=== PATIENT | female | born 1955 | race Caucasian/White ===

== ENCOUNTER 2022-09-15 14:06 | Inpatient (IN) ==
[2022-09-15] MEDS ORDERED: ASPIRIN CHEW 324 MG PO STA (14:47)
--- NOTE | 2022-09-15 14:47 | ED Triage Note ---
Date of Service September 15, 2022 History of Present Illness This patient was briefly evaluated while in triage. An abbreviated physical exam was performed. This patient is a 67-year-old Female who presents to the ED for evaluation of shortness of breath. She has been having SOB for the past 1.5 weeks. History of bronchiectasis and saw her field collector today. When he walked her around the office, her heart rate kept getting high and she had mild central chest pain with the walking that resolved with rest. They did an EKG in the office, but she is not sure about the results. Her field collector was concerned about her heart and sent her to the ER. Physical Exam GENERAL: Non-toxic and in no acute distress. HEENT: Pupils equal. No obvious scleral icterus. HEART: Regular rate and rhythm. LUNGS: Clear to auscultation. No accessory muscle use. ABDOMEN: Soft, nontender to palpation. NEURO: Alert and oriented. No obvious neurological deficits on quick neuro exam. Initial orders for labs and / or imaging were placed and patient was placed in the waiting area until a bed is available. Please see further documentation for the full ED course. MDM / Impression Impression Impression: Acute GI bleeding, Anemia
[2022-09-15 17:10] LABS: Albumin Level 4.3 gm/dl (3.4-5.0); Anion Gap 12 (3-11); Bilirubin,Total 0.3 mg/dl (0.2-1.0); Calcium 9.2 mg/dl (8.6-10.3); Carbon Dioxide 18 mmol/L (21-32); Chloride 106 mmol/L (98-107); Potassium 4.1 mmol/L (3.5-5.1); Sodium 136 mmol/L (136-145)
[2022-09-15 17:16] LABS: Alanine Aminotransferase 7 U/L (7-52); Albumin Globulin Ratio 1.7 (0.9-2); Alkaline Phosphatase 67 U/L (34-104); Aspartate Aminotransferase 11 U/L (13-39); BUN Creatinine Ratio 18.6 (10-20); Blood Urea Nitrogen 19 mg/dl (6-23); Creatinine Clr Calc Pharmacy 51.3 ml/min; Est GFR (African American) 66.8 ml/min; Est GFR (Non-African American) 57.7 ml/min; Globulin 2.6 gm/dl (2.5-4.0); Glucose 84 mg/dl (70-99(Fasting)); Lipase 19 U/L (11-82); Total Protein 6.9 gm/dl (6.0-8.3)
[2022-09-15 17:18] LABS: Troponin I High Sensitivity < 2.3 pg/ml (0-14)
[2022-09-15 17:27] LABS: Influenza A virus by PCR Negative (Neg); Influenza B virus by PCR Negative (Neg); RSV by PCR Negative (Neg); SARS CoV2 RNA(COVID-19) Ceph NEGATIVE (Negative)
[2022-09-15 19:46] LABS: Hematocrit (blood only) 17.9 % (37.0-47.0); Hemoglobin 5.3 g/dl (12.0-16.0); Mean Corpuscular Hemoglobin 23.5 pg (25.0-34.0); Mean Corpuscular Hgb Conc 29.6 g/dL (32.0-36.0); Mean Corpuscular Volume 79.2 fL (80.0-100.0); Mean Platelet Volume 9.8 fL (9.4-12.4); Platelet Count 334 K/uL (130-400); RDW Coefficient of Variation 16.6 % (11.5-14.5); RDW Standard Deviation 47.8 fL (36.4-46.3); Red Blood Count 2.26 M/uL (4.20-5.40); White Blood Count 4.08 K/ul (4.8-10.8)
[2022-09-15] MEDS ORDERED: SODIUM CHLORIDE 0.9% 250 ML IV PRN (19:50)
[2022-09-15 20:12] LABS: D Dimer 390 ug/L FEU (0-500); Partial Thromboplastin Ratio 0.7; Prothrombin Time 11.4 Seconds (9.0-12.0)
[2022-09-15 20:23] LABS: Partial Thromboplastin Time < 20.0 Seconds (21.0-31.0)
[2022-09-15] MEDS ORDERED: PANTOPRAZOLE BOLUS/DRIP 1 EACH IV STA (20:31)
[2022-09-15] MEDS ORDERED: PANTOprazole 80 MG in DEXTROSE 5% 100 ML IV ONE (20:31)
[2022-09-15 20:33] LABS: Basophils # (auto) 0.02 K/uL (0-0.2); Basophils % (auto) 0.5 %; Eosinophils # (auto) 0.09 K/uL (0-0.50); Eosinophils % (auto) 2.2 %; Hypochromasia Present; Immature Granulocytes # (auto) 0.01 K/uL (0.01-0.20); Immature Granulocytes % (auto) 0.2 %; Lymphocytes # (auto) 1.06 K/uL (1.2-3.4); Monocytes # (auto) 0.56 K/uL (0.11-0.59); Monocytes % (auto) 13.7 %; Neutrophils # (auto) 2.34 K/uL (1.40-6.50); Neutrophils % (auto) 57.4 %; Ovalocytes 1+; Polychromasia 1+
[2022-09-15] MEDS: PANTOprazole 40 MG in DEXTROSE 5% 100 ML IV SCH (21:18)
--- NOTE | 2022-09-15 21:50 | Emergency Department Note ---
History of Present Illness General Chief Complaint: Shortness of Breath/Dyspnea Stated Complaint: SHORT OF BREATH Time Seen by Provider: 09/15/22 16:55 History of Present Illness Provider Complaint: shortness of breath Onset (ago): week(s) (1) Severity: moderate Consistency/Duration: + progressively worsening Relieved By: + rest Exacerbated By: + exertion Associated symptoms: + chest pain (With exertion); no pain with inspiration, no fever, no cough, no wheezing, no sputum production, no orthopnea, no lower extremity pain or no chest congestion Home Medications Medication Instructions Recorded Confirmed Type cyanocobalamin (vitamin B-12) 1,000 mcg PO QAM 07/23/19 09/15/22 History 1,000 mcg tablet donepezil 10 mg tablet (Aricept) 10 mg PO HS 07/23/19 09/15/22 History escitalopram oxalate 20 mg tablet 20 mg PO BID 07/23/19 09/15/22 History (Lexapro) memantine 5 mg tablet (Namenda) 5 mg PO BID 07/23/19 09/15/22 History pantoprazole 40 mg tablet,delayed 40 mg PO BID 07/23/19 09/15/22 History release (Protonix) quetiapine 300 mg tablet (Seroquel) 300 mg PO HS 07/23/19 09/15/22 History topiramate 100 mg tablet (Topamax) 100 mg PO BID 07/23/19 09/15/22 History nebulizer accessories #1 ea 03/01/22 09/14/22 Rx albuterol sulfate 0.63 mg/3 mL 0.63 mg (3 mL) inhalation BID 06/24/22 09/15/22 Rx solution for nebulization shortness of breath or wheezing #90 mL sodium chloride 7 % for 4 ml inhalation BID #240 mL 06/24/22 09/15/22 Rx nebulization (Hyper-Denys) bupropion HCl 200 mg tablet,12 hr 200 mg PO BID 09/15/22 09/15/22 History sustained-release gabapentin 800 mg tablet 800 mg PO TID 09/15/22 09/15/22 History hydroxyzine HCl 25 mg tablet 50 mg PO HS 09/15/22 09/15/22 History rizatriptan 10 mg tablet 10 mg PO DAILY PRN MIGRAINE 09/15/22 09/15/22 History zolpidem 10 mg tablet 10 mg PO HS 09/15/22 09/15/22 History Allergies Allergy/AdvReac Type Severity Reaction Status Date / Time No Known Allergies Allergy Verified 09/14/22 16:58 Past Med/Surg History Medical History Bronchiectasis "FOUND A CRYSTAL ON MY LUNGS" - FOLLOWS WITH [employer] Chronic back pain Chronic cough ONGOING/ALWAYS HAVE TO CLEAR MY THROAT Degenerative disc disease 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/NO NEURO/FOLLOWS PCP Depression Dysphagia REASON FOR UPCOMING PROCEDURE Elevated diaphragm GERD (gastroesophageal reflux disease) History of high blood pressure Insomnia Lumbar facet arthropathy Osteoarthritis Osteoporosis Peripheral neuropathy Seizure "STARING SEIZURES", LAST EPISODE ~2017 Spinal stenosis Transient ischemic attack (TIA) 14 YEARS AGO (NO CURRENT PROBLEMS) Vasomotor rhinitis Surgical History H/O total hysterectomy History of cardiac cath NO STENTS (REQUIRED PRE-GASTRIC BYPASS) History of cholecystectomy History of colonoscopy History of esophagogastroduodenoscopy (EGD) History of gastric bypass History of tonsillectomy History of tooth extraction History of total knee replacement RT/LEFT Hx of cataract extraction bilat Family History Aunt Diabetes Grandmother (Paternal) Diabetes Social History Smoking Status: Never smoker Second Hand Exposure: No; Do You Dip or Chew Tobacco: No; Hx Alcohol Use: Yes Alcohol type: beer Hx Substance Use: No Preferred Language: Estonian Communication Ability: Effective Product Assurance Engineer Required: No Beliefs That Will Affect Care: None Current Living Situation: Spouse Feels Safe at Home: Yes Assistive Devices: Denture - Upper and Denture - Lower Physical Exam Vital Signs: Vital Signs - 24 hr 09/15/22 14:44 09/15/22 14:48 09/15/22 17:03 Temperature 36.4 C L Temperature Source Temporal Artery Sc an Pulse Rate 84 Pulse Rate from Sp O2 Sensor Respiratory Rate 18 Respiratory Effort / Characteristics Non-Labored Non-Labored Respiratory Depth Normal Normal Respiratory Patter n Regular Regular Blood Pressure 101/63 Blood Pressure Skye n 75 Pulse Oximetry 100 99 Oxygen Delivery Me thod Room Air Room Air Room Air Oxygen Flow Rate 0 Sepsis Recent Feve r Within 48 Hours No Sepsis New/Unexpla ined Change in Men jonathan Status N/A Sepsis Action Take n by Nursing No Action Required 09/15/22 17:03 09/15/22 17:47 09/15/22 17:47 Temperature Temperature Source Pulse Rate 72 72 Pulse Rate from Sp O2 Sensor 72 Respiratory Rate 15 Respiratory Effort / Characteristics Respiratory Depth Respiratory Patter n Blood Pressure Blood Pressure Skye n Pulse Oximetry 99 99 Oxygen Delivery Me thod Room Air Oxygen Flow Rate Sepsis Recent Feve r Within 48 Hours Sepsis New/Unexpla ined Change in Men jonathan Status Sepsis Action Take n by Nursing 09/15/22 17:50 09/15/22 18:00 09/15/22 18:00 Temperature Temperature Source Pulse Rate 71 72 Pulse Rate from Sp O2 Sensor 71 73 Respiratory Rate 19 15 Respiratory Effort / Characteristics Respiratory Depth Respiratory Patter n Blood Pressure 130/69 Blood Pressure Skye n 101 Pulse Oximetry 99 99 Oxygen Delivery Me thod Oxygen Flow Rate Sepsis Recent Feve r Within 48 Hours Sepsis New/Unexpla ined Change in Men jonathan Status Sepsis Action Take n by Nursing 09/15/22 18:10 09/15/22 18:20 Temperature Temperature Source Pulse Rate 73 75 Pulse Rate from Sp O2 Sensor 72 75 Respiratory Rate 20 18 Respiratory Effort / Characteristics Respiratory Depth Respiratory Patter n Blood Pressure Blood Pressure Skye n Pulse Oximetry 99 99 Oxygen Delivery Me thod Oxygen Flow Rate Sepsis Recent Feve r Within 48 Hours Sepsis New/Unexpla ined Change in Men jonathan Status Sepsis Action Take n by Nursing Physical Exam: Physical Exam GENERAL: oriented to person, place, and time. appears well-developed and well- nourished. HENT: Exam performed. - Head: Normocephalic and atraumatic. EYES: Conjunctivae and EOM are normal. Right eye exhibits no discharge. Left eye exhibits no discharge. No scleral icterus. NECK: Normal range of motion. Neck supple. No JVD present. CV: Normal rate, regular rhythm, normal heart sounds and intact distal pulses. There is no peripheral edema. Palpable radial pulses bue. PULM/CHEST: Effort normal and breath sounds normal. No respiratory distress. No stridor. no wheezes. no rales. ABD: The abdomen is soft. There is no tenderness. NEURO: Motor and sensation grossly intact. SKIN: Skin is warm and dry. He is not diaphoretic. PSYCH: normal mood and affect. Behavior is normal. Judgment and thought content normal. Course Course 1654: The patient was evaluated in room C10. A complete history and physical exam was performed Cardiac monitoring: An order was placed for continuous cardiac monitoring. The monitor shows a rate of 90 with sinus rhythm interpreted by me 2030: Vital signs stable. Patient's hemoglobin is 5.3. D-dimer and troponin are negative. Rectal exam was performed with female nursing switchboard mechanic Nemo at bedside and the patient has melanotic stool that is Hemoccult positive. Patient will be transfused 2 units of packed red blood cells. [facility] will be [facility] Dr. Atkinson team will be notified. Administered Medications Pantoprazole Sodium 40 mg/ (Dextrose) 100 mls @ 20 mls/hr IV Q5H GAGE Stop: 10/15/22 20:59 Last Admin: 09/15/22 21:18 Dose: 8 mg/hr, 20 mls/hr Documented By: JENN Discontinued Medications Aspirin (Aspirin Chew 324 Mg) 324 mg PO NOW STA Stop: 09/15/22 14:48 Last Admin: 09/15/22 16:18 Dose: 324 mg Documented By: WAYNE Pantoprazole Sodium (Protonix Bolus/Drip) 0 mls @ 1 mls/hr IV ONE STA Stop: 09/15/22 20:32 Last Admin: 09/15/22 20:52 Dose: Not Given Documented By: JENN Pantoprazole Sodium 80 mg/ (Dextrose) 120 mls @ 400 mls/hr IV NOW ONE Stop: 09/15/22 20:48 Last Infusion: 09/15/22 21:18 Dose: 0 mls/hr Documented By: Admin: 09/15/22 20:51 Dose: 400 mls/hr Documented By: JENN Medical Decision Making Medical Records Attestation: I reviewed the patient's medical records. External medical records were reviewed. Patient was seen in the pulmonology office today. Patient had a chest x-ray done earlier today which was negative. In the pulmonology office the patient became very tachycardic when walking, her oxygen saturations were stable. Laboratory Data Attestation: I reviewed the patient's lab results. 09/15/22 19:04 09/15/22 16:21 Lab Results 09/15/22 09/15/22 09/15/22 Range/Units 16:21 16:21 16:21 WBC Cancelled RBC Cancelled Hgb Cancelled Hct Cancelled MCV Cancelled MCH Cancelled MCHC Cancelled RDW Std Deviation Cancelled RDW Coeff of Meredith Cancelled Plt Count Cancelled MPV Cancelled Immature Gran % (Auto) Cancelled Neut % (Auto) Cancelled Lymph % (Auto) Cancelled [place] % (Auto) Cancelled Eos % (Auto) Cancelled Baso % (Auto) Cancelled Neut # (Auto) Cancelled Lymph # (Auto) Cancelled [place] # (Auto) Cancelled Eos # (Auto) Cancelled Baso # (Auto) Cancelled Immature Gran # (Auto) Cancelled Absolute Nucleated RBC Cancelled Nucleated RBC % (auto) Cancelled Neutrophils % (Manual) Cancelled Band Neutrophils % Cancelled Lymphocytes % (Manual) Cancelled Prolymphocyte % Cancelled Reactive Lymphs % (Man) Cancelled Monocytes % (Manual) Cancelled Eosinophils % (Manual) Cancelled Basophils % (Manual) Cancelled Metamyelocytes % (Man) Cancelled Myelocytes % (Man) Cancelled Promyelocytes % (Man) Cancelled Blast Cells % (Manual) Cancelled Plasma Cell % (Manual) Cancelled Other Cells % Cancelled Nucleated RBC % Cancelled Neutrophils # (Manual) Cancelled Band Neutrophils # Cancelled Total Absolute Neuts Cancelled Lymphocytes # (Manual) Cancelled Prolymphocyte # Cancelled Reactive Lymphs # Cancelled Total Abs Lymphocytes Cancelled Monocytes # (Manual) Cancelled Eosinophils # (Manual) Cancelled Basophils # (Manual) Cancelled Metamyelocytes # (Man) Cancelled Myelocytes # (Manual) Cancelled Promyelocytes # (Man) Cancelled Blast Cells # (Man) Cancelled Plasma Cell # (Manual) Cancelled Other Cells # Cancelled Nucleated RBCs # (Man) Cancelled Hypersegmented Neuts Cancelled Hyposegmented Neuts Cancelled Hypogranular Neuts Cancelled Large Granular Lymphs Cancelled # Lrg Granular Lymphs Cancelled Hairy Cells Cancelled Smudge Cells Cancelled Toxic Granulation Cancelled Toxic Vacuolation Cancelled Dohle Bodies Cancelled Surinder Rods Cancelled Platelet Estimate Cancelled Hypogranular Platelets Cancelled Giant Platelets Cancelled Platelet Satelliting Cancelled RBC Morphology Cancelled Polychromasia Cancelled Hypochromasia Cancelled Poikilocytosis Cancelled Basophilic Stippling Cancelled Anisocytosis Cancelled Microcytosis Cancelled Macrocytosis Cancelled Spherocytes Cancelled Pappenheimer Bodies Cancelled Sickle Cells Cancelled Target Cells Cancelled Tear Drop Cells Cancelled Ovalocytes Cancelled Stomatocytes Cancelled [place] Bodies Cancelled Echinocytes Cancelled Acanthocytes (Spur) Cancelled Rouleaux Cancelled RBC Agglutinates Cancelled Schistocytes Cancelled Sezary Cell Cancelled PT (9.0-12.0) Seconds INR (0.9-1.1) APTT (21.0-31.0) Seconds PTT Ratio D-Dimer (0-500) ug/L FEU Sodium 136 (136-145) mmol/L Potassium 4.1 (3.5-5.1) mmol/L Chloride 106 (98-107) mmol/L Carbon Dioxide 18 L (21-32) mmol/L Anion Gap 12 H (3-11) BUN 19 (6-23) mg/dl Creatinine 1.02 (0.6-1.2) mg/dl Est Cr Clr Drug Dosing 51.3 ml/min Est GFR ( Amer) 66.8 ml/min Est GFR (Non-Af Amer) 57.7 ml/min BUN/Creatinine Ratio 18.6 (10-20) Glucose 84 (70-99(Fasting)) mg/dl Calcium 9.2 (8.6-10.3) mg/dl Total Bilirubin 0.3 (0.2-1.0) mg/dl AST 11 L (13-39) U/L ALT 7 (7-52) U/L Alkaline Phosphatase 67 (34-104) U/L Troponin I High Sens < 2.3 (0-14) pg/ml B-Natriuretic Peptide (0-100) pg/ml Total Protein 6.9 (6.0-8.3) gm/dl Albumin 4.3 (3.4-5.0) gm/dl Globulin 2.6 (2.5-4.0) gm/dl Albumin/Globulin Ratio 1.7 (0.9-2) Lipase 19 (11-82) U/L SARS-CoV-2 (PCR) NEGATIVE (Negative) Influenza Type A (PCR) Negative (Neg) Influenza Type B (PCR) Negative (Neg) RSV (RT-PCR) Negative (Neg) Blood Parasites ID Cancelled Blood Type Blood Type Recheck Antibody Screen Crossmatch 09/15/22 09/15/22 09/15/22 Range/Units 19:04 19:04 19:04 WBC 4.08 L RBC 2.26 L Hgb 5.3 L* Hct 17.9 L* MCV 79.2 L MCH 23.5 L MCHC 29.6 L RDW Std Deviation 47.8 H RDW Coeff of Meredith 16.6 H Plt Count 334 MPV 9.8 Immature Gran % (Auto) 0.2 Neut % (Auto) 57.4 Lymph % (Auto) 26.0 [place] % (Auto) 13.7 Eos % (Auto) 2.2 Baso % (Auto) 0.5 Neut # (Auto) 2.34 Lymph # (Auto) 1.06 L [place] # (Auto) 0.56 Eos # (Auto) 0.09 Baso # (Auto) 0.02 Immature Gran # (Auto) 0.01 Absolute Nucleated RBC Nucleated RBC % (auto) Neutrophils % (Manual) Band Neutrophils % Lymphocytes % (Manual) Prolymphocyte % Reactive Lymphs % (Man) Monocytes % (Manual) Eosinophils % (Manual) Basophils % (Manual) Metamyelocytes % (Man) Myelocytes % (Man) Promyelocytes % (Man) Blast Cells % (Manual) Plasma Cell % (Manual) Other Cells % Nucleated RBC % Neutrophils # (Manual) Band Neutrophils # Total Absolute Neuts Lymphocytes # (Manual) Prolymphocyte # Reactive Lymphs # Total Abs Lymphocytes Monocytes # (Manual) Eosinophils # (Manual) Basophils # (Manual) Metamyelocytes # (Man) Myelocytes # (Manual) Promyelocytes # (Man) Blast Cells # (Man) Plasma Cell # (Manual) Other Cells # Nucleated RBCs # (Man) Hypersegmented Neuts Hyposegmented Neuts Hypogranular Neuts Large Granular Lymphs # Lrg Granular Lymphs Hairy Cells Smudge Cells Toxic Granulation Toxic Vacuolation Dohle Bodies Surnider Rods Platelet Estimate Hypogranular Platelets Giant Platelets Platelet Satelliting RBC Morphology Polychromasia 1+ Hypochromasia Present Poikilocytosis Basophilic Stippling Anisocytosis Microcytosis Macrocytosis Spherocytes Pappenheimer Bodies Sickle Cells Target Cells Tear Drop Cells Ovalocytes 1+ Stomatocytes [place] Bodies Echinocytes Acanthocytes (Spur) Rouleaux RBC Agglutinates Schistocytes Sezary Cell PT 11.4 (9.0-12.0) Seconds INR 1.0 (0.9-1.1) APTT < 20.0 L (21.0-31.0) Seconds PTT Ratio 0.7 D-Dimer 390 (0-500) ug/L FEU Sodium (136-145) mmol/L Potassium (3.5-5.1) mmol/L Chloride (98-107) mmol/L Carbon Dioxide (21-32) mmol/L Anion Gap (3-11) BUN (6-23) mg/dl Creatinine (0.6-1.2) mg/dl Est Cr Clr Drug Dosing ml/min Est GFR ( Amer) ml/min Est GFR (Non-Af Amer) ml/min BUN/Creatinine Ratio (10-20) Glucose (70-99(Fasting)) mg/dl Calcium (8.6-10.3) mg/dl Total Bilirubin (0.2-1.0) mg/dl AST (13-39) U/L ALT (7-52) U/L Alkaline Phosphatase (34-104) U/L Troponin I High Sens (0-14) pg/ml B-Natriuretic Peptide 35 (0-100) pg/ml Total Protein (6.0-8.3) gm/dl Albumin (3.4-5.0) gm/dl Globulin (2.5-4.0) gm/dl Albumin/Globulin Ratio (0.9-2) Lipase (11-82) U/L SARS-CoV-2 (PCR) (Negative) Influenza Type A (PCR) (Neg) Influenza Type B (PCR) (Neg) RSV (RT-PCR) (Neg) Blood Parasites ID Blood Type Blood Type Recheck Antibody Screen Crossmatch 09/15/22 09/15/22 Range/Units 20:20 20:20 WBC RBC Hgb Hct MCV MCH MCHC RDW Std Deviation RDW Coeff of Meredith Plt Count MPV Immature Gran % (Auto) Neut % (Auto) Lymph % (Auto) [place] % (Auto) Eos % (Auto) Baso % (Auto) Neut # (Auto) Lymph # (Auto) [place] # (Auto) Eos # (Auto) Baso # (Auto) Immature Gran # (Auto) Absolute Nucleated RBC Nucleated RBC % (auto) Neutrophils % (Manual) Band Neutrophils % Lymphocytes % (Manual) Prolymphocyte % Reactive Lymphs % (Man) Monocytes % (Manual) Eosinophils % (Manual) Basophils % (Manual) Metamyelocytes % (Man) Myelocytes % (Man) Promyelocytes % (Man) Blast Cells % (Manual) Plasma Cell % (Manual) Other Cells % Nucleated RBC % Neutrophils # (Manual) Band Neutrophils # Total Absolute Neuts Lymphocytes # (Manual) Prolymphocyte # Reactive Lymphs # Total Abs Lymphocytes Monocytes # (Manual) Eosinophils # (Manual) Basophils # (Manual) Metamyelocytes # (Man) Myelocytes # (Manual) Promyelocytes # (Man) Blast Cells # (Man) Plasma Cell # (Manual) Other Cells # Nucleated RBCs # (Man) Hypersegmented Neuts Hyposegmented Neuts Hypogranular Neuts Large Granular Lymphs # Lrg Granular Lymphs Hairy Cells Smudge Cells Toxic Granulation Toxic Vacuolation Dohle Bodies Surinder Rods Platelet Estimate Hypogranular Platelets Giant Platelets Platelet Satelliting RBC Morphology Polychromasia Hypochromasia Poikilocytosis Basophilic Stippling Anisocytosis Microcytosis Macrocytosis Spherocytes Pappenheimer Bodies Sickle Cells Target Cells Tear Drop Cells Ovalocytes Stomatocytes [place] Bodies Echinocytes Acanthocytes (Spur) Rouleaux RBC Agglutinates Schistocytes Sezary Cell PT (9.0-12.0) Seconds INR (0.9-1.1) APTT (21.0-31.0) Seconds PTT Ratio D-Dimer (0-500) ug/L FEU Sodium (136-145) mmol/L Potassium (3.5-5.1) mmol/L Chloride (98-107) mmol/L Carbon Dioxide (21-32) mmol/L Anion Gap (3-11) BUN (6-23) mg/dl Creatinine (0.6-1.2) mg/dl Est Cr Clr Drug Dosing ml/min Est GFR ( Amer) ml/min Est GFR (Non-Af Amer) ml/min BUN/Creatinine Ratio (10-20) Glucose (70-99(Fasting)) mg/dl Calcium (8.6-10.3) mg/dl Total Bilirubin (0.2-1.0) mg/dl AST (13-39) U/L ALT (7-52) U/L Alkaline Phosphatase (34-104) U/L Troponin I High Sens (0-14) pg/ml B-Natriuretic Peptide (0-100) pg/ml Total Protein (6.0-8.3) gm/dl Albumin (3.4-5.0) gm/dl Globulin (2.5-4.0) gm/dl Albumin/Globulin Ratio (0.9-2) Lipase (11-82) U/L SARS-CoV-2 (PCR) (Negative) Influenza Type A (PCR) (Neg) Influenza Type B (PCR) (Neg) RSV (RT-PCR) (Neg) Blood Parasites ID Blood Type A Positive Blood Type Recheck A Positive Antibody Screen POSITIVE A Crossmatch See Detail ECG Data Attestation: I personally reviewed and interpreted this ECG as follows: Interpretation: Sinus rhythm with rate 91. IL QRS and QTc intervals within normal limits. No ST elevation or ST depression. [facility] Narrative 1655: The patient was evaluated in room C10. A complete history and physical exam was performed Cardiac monitoring: An order was placed for continuous cardiac monitoring. The monitor shows a rate of 90 with sinus rhythm interpreted by me 2030: Vital signs stable. Patient's hemoglobin is 5.3. D-dimer and troponin are negative. Rectal exam was performed with female nursing switchboard mechanic Nemo at bedside and the patient has melanotic stool that is Hemoccult positive. Patient will be transfused 2 units of packed red blood cells. Patient will be admitted to the [facility] team Dr. Atkinson team will be notified. Impression & Plan Acute GI bleeding, Anemia Critical Care Time Critical Care Time: Yes Total Critical Care Time: 65 I have personally spent greater than 65 minutes of critical care time in the direct management of this patient. This includes bedside care, interpretation of diagnostic studies, and testing, discussion with consultants, patient, and family members, and other required patient management activities. This 65 minutes is in excess of all separately billable procedures. Discharge Plan Visit Data Chief Complaint: Shortness of Breath/Dyspnea Stated Complaint: SHORT OF BREATH ED Provider: Bennie Jensen Discharge Problem: Acute GI bleeding, Anemia Patient Disposition: Admitted As Inpatient Forms Stand Alone Forms: My [facility] Prescriptions Prescriptions: No Action (DME) nebulizer accessories Kit See Rx Instructions .ROUTE .MEDSUPPLY Qty: 1 0RF Rx Instructions: As directed sodium chloride [Hyper-Denys] 7 % solution for nebulization 4 ml inhalation BID Qty: 240 3RF albuterol sulfate 0.63 mg/3 mL solution for nebulization 0.63 mg inhalation BID Qty: 90 3RF quetiapine [Seroquel] 300 mg Tablet 300 mg PO HS donepezil [Aricept] 10 mg Tablet 10 mg PO HS cyanocobalamin (vitamin B-12) 1,000 mcg Tablet 1,000 mcg PO QAM pantoprazole [Protonix] 40 mg Tablet,Delayed Release (Dr/Ec) 40 mg PO BID topiramate [Topamax] 100 mg Tablet 100 mg PO BID escitalopram oxalate [Lexapro] 20 mg Tablet 20 mg PO BID memantine [Namenda] 5 mg Tablet 5 mg PO BID rizatriptan 10 mg tablet 10 mg PO DAILY PRN (Reason: MIGRAINE) gabapentin 800 mg tablet 800 mg PO TID hydroxyzine HCl 25 mg tablet 50 mg PO HS zolpidem 10 mg tablet 10 mg PO HS bupropion HCl 200 mg tablet sustained-release 12 hr 200 mg PO BID Referrals Referrals: Paula Bolaños DO [Primary Care Provider] -
--- NOTE | 2022-09-15 21:50 | History & Physical Report ---
Date of Service September 15, 2022 Assessment & Plan (1) Upper GI bleed: Plan: Patient is a 67-year-old female with past medical history of depression, anxiety, insomnia, chronic low back pain, and bronchiectasis who presents to the hospital for evaluation for dyspnea on exertion. Patient found to have hemoglobin of 5.3 with positive Hemoccult indicating active upper GI bleed. Patient has been started on Protonix bolus and drip and has been ordered blood, albeit delayed. Patient is hemodynamically stable. -Admit to telemetry for severe anemia -Patient with Hemoccult positive plus dark stools over the past 4 days with new anemia, consistent with active upper GI bleed -Fortunately patient seems to be well compensated indicating this is likely a longer bleed that she was able to adapt to -Make n.p.o. given active GI bleed and likelihood for endoscopy -Consult GI, appreciate recommendations and treatment -Continue Protonix drip -LR at 125 cc/h, s/p 500 cc bolus -Type and screen showing antibody, so additional antibody testing will need to be done. 2 units of blood ordered to be transfuse when able -If patient becomes hemodynamically unstable, may have to consider giving blood without additional antibody screening, defer now given good stability -Transfusion threshold of hemoglobin of less than 7 as patient has no CAD/CKD history -Recheck H&H after transfusion completion -A.m. 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 (6) Bronchiectasis: Plan: - Chronic with no changes on chest x-ray -Continue hypertonic saline nebulizers twice daily which is her home regimen -Incentive spirometry Plan Disposition: Admit to telemetry Diet: N.p.o. with LR 125 cc/h DVT prophylaxis: SCDs, chemoprophylaxis contraindicated in the setting of active GI bleed CODE STATUS: DNR/DNI as discussed with patient. History of Present Illness Chief Complaint: Dyspnea on Exertion Primary Care Provider: Paula Bolaños DO Patient is a 67-year-old female with past medical history of depression, anxiety, insomnia, chronic low back pain, and bronchiectasis who presents to the hospital for evaluation for dyspnea on exertion. Patient reports for the past week, she has noticed that doing simple tasks such as walking to the bathroom have caused her to become short of breath. It has become progressively worse over the past week. She initially went to the internet [facility] as she has a history of bronchiectasis. The internet designer office did not feel that the patient's dyspnea on exertion was due to to a pulmonary issue. They felt her symptoms were out of proportion to chest x-ray obtained in office. She became tachycardic during a 6-minute walk and became concerned for a cardiac issue. For this reason, they recommended evaluation at the emergency department which brought her in today. When asking about her history of the past few days, she does note that she has had dark stools over the past 4 days. They have been solid and has not been having diarrhea. No nausea or vomiting. No bright red blood per rectum. No hemoptysis or hematuria. States that she previously was taking a frequent amount of NSAIDs for chronic low back pain, however, she has not been taking NSAIDs for months as she was taken off of them and put on a larger dose of gabapentin instead. She is currently taking hydrocodone at half dosing for back pain. She does not take aspirin and she is not on a blood thinner. Of note, patient was experiencing dysphagia 2 to 3 months ago and had an EGD done that was normal. She is not having any abdominal pain or chest pain. Denies headache. Otherwise no other complaints at this time. ED course: Patient brought back and evaluated by provider. Labs are significant for hemoglobin of 5.3, CO2 of 18, anion gap of 12, normal high-sensitivity troponin, normal BNP. Chest x-ray showing chronic right hemidiaphragm e levation. Because of the anemia found on lab work, patient was ordered 2 units of blood, however, her type and screen came back positive for antibody which would delay her transfusion. Patient is currently comfortable and hemodynamically stable. Unfortunately, patient was given 324 mg of aspirin when first arriving to the emergency department for concern of cardiac issues. The hospitalist service was then consulted for admission to the hospital and treatment. Allergies Allergy/AdvReac Type Severity Reaction Status Date / Time No Known Allergies Allergy Verified 09/14/22 16:58 Home Medications Medication Instructions Recorded Confirmed Type cyanocobalamin (vitamin B-12) 1,000 mcg PO QAM 07/23/19 09/15/22 History 1,000 mcg tablet donepezil 10 mg tablet (Aricept) 10 mg PO HS 07/23/19 09/15/22 History escitalopram oxalate 20 mg tablet 20 mg PO BID 07/23/19 09/15/22 History (Lexapro) memantine 5 mg tablet (Namenda) 5 mg PO BID 07/23/19 09/15/22 History pantoprazole 40 mg tablet,delayed 40 mg PO BID 07/23/19 09/15/22 History release (Protonix) quetiapine 300 mg tablet (Seroquel) 300 mg PO HS 07/23/19 09/15/22 History topiramate 100 mg tablet (Topamax) 100 mg PO BID 07/23/19 09/15/22 History nebulizer accessories #1 ea 03/01/22 09/14/22 Rx albuterol sulfate 0.63 mg/3 mL 0.63 mg (3 mL) inhalation BID 06/24/22 09/15/22 Rx solution for nebulization shortness of breath or wheezing #90 mL sodium chloride 7 % for 4 ml inhalation BID #240 mL 06/24/22 09/15/22 Rx nebulization (Hyper-Deyns) bupropion HCl 200 mg tablet,12 hr 200 mg PO BID 09/15/22 09/15/22 History sustained-release gabapentin 800 mg tablet 800 mg PO TID 09/15/22 09/15/22 History hydroxyzine HCl 25 mg tablet 50 mg PO HS 09/15/22 09/15/22 History rizatriptan 10 mg tablet 10 mg PO DAILY PRN MIGRAINE 09/15/22 09/15/22 History zolpidem 10 mg tablet 10 mg PO HS 09/15/22 09/15/22 History Past Med/Surg History Medical History (Updated 09/15/22 @ 21:48 by Vito Chavez DO) Bronchiectasis "FOUND A CRYSTAL ON MY LUNGS" - FOLLOWS WITH [employer] QUARLES Chronic back pain Chronic cough ONGOING/ALWAYS HAVE TO CLEAR MY THROAT Degenerative disc disease 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/NO NEURO/FOLLOWS PCP Depression Dysphagia REASON FOR UPCOMING PROCEDURE Elevated diaphragm GERD (gastroesophageal reflux disease) History of high blood pressure Insomnia Lumbar facet arthropathy Osteoarthritis Osteoporosis Peripheral neuropathy Seizure "STARING SEIZURES", LAST EPISODE ~2017 Spinal stenosis Transient ischemic attack (TIA) 14 YEARS AGO (NO CURRENT PROBLEMS) Vasomotor rhinitis Surgical History H/O total hysterectomy History of cardiac cath NO STENTS (REQUIRED PRE-GASTRIC BYPASS) History of cholecystectomy History of colonoscopy History of esophagogastroduodenoscopy (EGD) History of gastric bypass History of tonsillectomy History of tooth extraction History of total knee replacement RT/LEFT Hx of cataract extraction bilat Family History Aunt Diabetes Grandmother (Paternal) Diabetes Social History Smoking Status: Never smoker Second Hand Exposure: No; Do You Dip or Chew Tobacco: No; Hx Alcohol Use: Yes Alcohol type: beer Hx Substance Use: No Preferred Language: Dutch Communication Ability: Effective Retarder Operator Required: No Beliefs That Will Affect Care: None Current Living Situation: Spouse Feels Safe at Home: Yes Assistive Devices: Denture - Upper and Denture - Lower Review of Systems Review of Systems: All systems reviewed & are unremarkable except as noted in HPI & below Physical Exam Constitutional: well developed, well nourished and cooperative Eyes: + conjunctival abnormality (pale b/l) Neck: trachea midline, no thyromegaly Respiratory: normal respiratory effort, lungs clear to auscultation Cardiovascular: RRR, no murmur, no edema Vessels: no JVD Gastrointestinal (Abdomen): Inspection/Auscultation: abdomen normal to inspection and + hyperactive bowel sounds; abdomen not distended Percussion/Palpation: abdomen soft; abdomen nontender Musculoskeletal: Head/Neck/Chest: normocephalic and head atraumatic Skin: no rashes Neurologic: moves all extremities and awake Psychiatric: A+Ox3, euthymic affect Results & Data Results & Data Vital Signs (Past 12 Hours) Vital Signs Temp Pulse Resp BP Pulse Ox O2 Del Method O2 Flow Rate 09/15/22 18:20 75 18 99 07/27/23 18:10 73 20 99 09/15/22 18:00 72 15 99 09/15/22 18:00 130/69 09/15/22 17:50 71 19 99 09/15/22 17:47 72 15 99 09/15/22 17:47 72 09/15/22 17:03 99 Room Air 09/15/22 17:03 99 Room Air 0 09/15/22 14:48 Room Air 09/15/22 14:44 36.4 C L 84 18 101/63 100 Room Air Laboratory Results CBC, coags, CMP, troponin, BNP all reviewed Supervising Physician Co-Signing Physician Notes I personally examined the patient and verified all sánchez points of history and exam, discussed case, and agree with decision making with Dr. Chavez with the following additions/exceptions: This patient is a 67-year-old female with history of bronchiectasis, seizure disorder, MCI, depression, here with dyspnea on exertion and sinus tachycardia in the pulmonary office, found to have a hemoglobin severely low at 5.3. She reports 4 days of black stools once daily for the last 4 days. No NSAIDs or steroid use or steroid injections recently. She does not take blood thinners. Denies any chest pain, no heartburn, no abdominal pains or nausea/vomiting. She had an EGD 2 months ago that was normal. Her last colonoscopy was 8 years ago and she was told was normal. She had a Cologuard since then that was negative. In the ER, she had some mild tachycardia but blood pressures were normal. She was started on Protonix drip and typed and crossmatched for blood transfusion. History and ROS reviewed otherwise as above Vitals reviewed Gen: AAOx3, NAD, pale HEENT: Anicteric sclerae, EOMI CV: RRR no mgr nl S1S2 Pulm: CTAB no wcr Abd: +BS soft NT ND no masses or hernias Ext: No edema, 2+ DP pulses Skin: No rashes, warm/dry Neuro: Full strength throughout CBC, CMP, troponin, BNP reviewed Chest x-ray reviewed 67-year-old female here with acute blood loss anemia secondary to GI bleed. MCV is low which does argue some chronicity of occult GI bleed likely with acute bleeding. She is otherwise without any symptoms of peptic ulcer disease. Could have small bowel AVM perhaps. Admit for blood transfusion, GI consultation, keep n.p.o., continue Protonix drip Follow CBC in the morning If EGD negative, doubt lower GI bleed. Should pursue video capsule endoscopy as an outpatient Metabolic acidosis likely secondary to topiramate-not concerning
[2022-09-15] MEDS ORDERED: LACTATED RINGER'S 500 ML IV ONE (22:00)
[2022-09-15] MEDS ORDERED: MoRPHine SULFATE 2 MG/ML CARP IV PRN (22:04)
[2022-09-15] MEDS ORDERED: ACETAMINOPHEN 1,000 MG/100 ML VIAL IV PRN (22:04)
[2022-09-15] MEDS: LACTATED RINGER'S 1,000 ML IV SCH (22:05)
--- NOTE | 2022-09-15 22:33 | Billing Data ---
Date of Service September 15, 2022 Coding Level of Care Code 51860 INT INP/OBS CARE
[2022-09-15] MEDS ORDERED: ONDANSETRON INJ 2 MG/ML 2 ML VIAL IV PRN (23:36)
[2022-09-16] MEDS: MoRPHine SULFATE 2 MG/ML CARP IV PRN ×2 (00:09→15:59)
[2022-09-16] MEDS: LACTATED RINGER'S 1,000 ML IV SCH ×2 (00:18→08:10)
[2022-09-16] MEDS: PANTOprazole 40 MG in DEXTROSE 5% 100 ML IV SCH ×5 (00:19→20:00)
[2022-09-16] MEDS: SODIUM CHLOR 7% 4 ML NEB INH SCH ×3 (01:00→19:09)
[2022-09-16] MEDS: LEVALBUTEROL HCL 0.63 MG/3 ML NEB INH SCH ×3 (01:00→19:09)
[2022-09-16] MEDS ORDERED: ZOLPIDEM TARTRATE 10 MG TAB PO ONE (02:48)
[2022-09-16] MEDS ORDERED: hydrOXYzine HCl 25 MG TAB PO ONE (02:48)
[2022-09-16] MEDS ORDERED: QUEtiapine FUMARATE 300 MG TABLET PO ONE (02:48)
[2022-09-16 04:01] LABS: Appearance Urine Clear (Clear); Bacteria Urine Automated 2+ (Negative); Bilirubin Urine Negative (Negative); Blood Urine Negative (Negative); Color Urine Yellow; Glucose Urine UA Negative (Negative); Ketones Urine Trace (Negative); Leukocyte Esterase Urine 3+ (Negative); Nitrite Urine Positive (Negative); Protein Urine Negative (Negative); RBC Urine Automated 0-4 /hpf (0-4); Specific Gravity Urine 1.009 (1.000-1.030); Urobilinogen Urine Negative (Negative); WBC Urine Automated >30 /hpf (0-5); pH Urine 5.5 (4.5-7.5)
--- NOTE | 2022-09-16 07:12 | Communication Note ---
Date of Service: September 16, 2022 Chart reviewed. Will plan EGD later this afternoon
[2022-09-16] MEDS: buPROPion SR 100 MG TABCR PO SCH ×2 (08:01→20:49)
[2022-09-16] MEDS: GABAPENTIN 800 MG TAB PO SCH ×3 (08:01→20:49)
[2022-09-16] MEDS: MEMANTINE HCL 5 MG TAB PO SCH ×2 (08:02→20:49)
[2022-09-16] MEDS: ESCITALOPRAM OXALATE 20 MG TAB PO SCH ×2 (08:02→20:49)
[2022-09-16] MEDS: TOPIRAMATE 100 MG TAB PO SCH ×2 (08:02→20:49)
[2022-09-16] MEDS: LIDOCAINE 5% 1 PATCH TD SCH (08:03)
--- NOTE | 2022-09-16 08:18 | Anesthesiology Consultation ---
Date of Service September 16, 2022 Assessment & Plan (1) Encounter for pre-operative examination: Chart Review Chart Review: Acceptable Risk for Surgery, Patient NOT seen in Pre Admission Testing and entry level management initiated Consults Requested none History Surgery Operation Date: 09/16/22 16:30 Proposed Procedures p Esophagogastroduodenoscopy Dr. French - Kelli French Jr, MD Height/Weight Height: 5 ft 3 in Weight: 62.6 kg Allergies Allergy/AdvReac Type Severity Reaction Status Date / Time No Known Allergies Allergy Verified 09/14/22 16:58 Medications Home Medications Medication Instructions Recorded Confirmed Last Taken cyanocobalamin (vitamin B-12) 1,000 mcg PO QAM 07/23/19 09/15/22 09/15/22 1,000 mcg tablet donepezil 10 mg tablet (Aricept) 10 mg PO HS 07/23/19 09/15/22 07/18/22 escitalopram oxalate 20 mg tablet 20 mg PO BID 07/23/19 09/15/22 09/15/22 (Lexapro) memantine 5 mg tablet (Namenda) 5 mg PO BID 07/23/19 09/15/22 09/15/22 pantoprazole 40 mg tablet,delayed 40 mg PO BID 07/23/19 09/15/22 09/15/22 release (Protonix) quetiapine 300 mg tablet (Seroquel) 300 mg PO HS 07/23/19 09/15/22 07/18/22 topiramate 100 mg tablet (Topamax) 100 mg PO BID 07/23/19 09/15/22 09/15/22 nebulizer accessories #1 ea 03/01/22 09/14/22 Unknown albuterol sulfate 0.63 mg/3 mL 0.63 mg (3 mL) inhalation BID 06/24/22 09/15/22 09/15/22 solution for nebulization shortness of breath or wheezing #90 mL sodium chloride 7 % for 4 ml inhalation BID #240 mL 06/24/22 09/15/22 09/15/22 nebulization (Hyper-Denys) bupropion HCl 200 mg tablet,12 hr 200 mg PO BID 09/15/22 09/15/22 09/15/22 sustained-release gabapentin 800 mg tablet 800 mg PO TID 09/15/22 09/15/22 09/15/22 hydroxyzine HCl 25 mg tablet 50 mg PO HS 09/15/22 09/15/22 Unknown rizatriptan 10 mg tablet 10 mg PO DAILY PRN MIGRAINE 09/15/22 09/15/22 Unknown zolpidem 10 mg tablet 10 mg PO HS 09/15/22 09/15/22 Unknown Active Medications Generic Name Dose Route Start Last Admin Trade Name Ihsan PRN Reason Stop Dose Admin Bupropion HCl 200 mg 09/16/22 09:00 09/16/22 08:01 Bupropion Sr 100 Mg Tabcr PO 10/16/22 08:59 200 mg BID GAGE Administration Escitalopram Oxalate 20 mg 09/16/22 09:00 09/16/22 08:02 Escitalopram Oxalate 20 Mg Tab PO 10/16/22 08:59 20 mg BID GAGE Administration Gabapentin 800 mg 09/16/22 09:00 09/16/22 08:01 Gabapentin 800 Mg Tab PO 10/16/22 08:59 800 mg TID GAGE Administration Pantoprazole Sodium 40 mg/ 100 mls @ 20 mls/hr 09/15/22 21:00 09/16/22 05:19 Dextrose IV 10/15/22 20:59 8 mg/hr Q5H GAGE 20 mls/hr Administration 8 MG/HR Lactated Ringer's 1,000 mls @ 125 mls/hr 09/15/22 21:30 09/16/22 08:10 Lr IV 10/15/22 21:29 125 mls/hr .Q8H GAGE Administration Levalbuterol HCl 0.63 mg 09/15/22 23:45 09/16/22 07:27 Levalbuterol Hcl 0.63 Mg/3 Ml Neb INH 10/15/22 23:44 0.63 mg BIDR GAGE Administration Lidocaine 1 patch 09/16/22 09:00 09/16/22 08:03 Lidocaine 5% 1 Patch TD 10/16/22 08:59 1 patch QAM GAGE Administration Memantine 5 mg 09/16/22 09:00 09/16/22 08:02 Memantine Hcl 5 Mg Tab PO 10/16/22 08:59 5 mg BID GAGE Administration Morphine Sulfate 2 mg 09/15/22 22:04 09/16/22 00:09 Morphine Sulfate 2 Mg/Ml Carp IV 09/29/22 22:03 2 mg Q4H PRN Administration Severe Pain (Scale 7, 8, 9,10) Sodium Chloride 4 ml 09/15/22 23:36 09/16/22 07:15 Sodium Chlor 7% 4 Ml Neb INH 10/15/22 23:35 4 ml BIDR GAGE Administration Topiramate 100 mg 09/16/22 09:00 09/16/22 08:02 Topiramate 100 Mg Tab PO 10/16/22 08:59 100 mg BID GAGE Administration Past Medical History Medical History (Updated 09/16/22 @ 08:20 by Levi Hi MD) Bronchiectasis "FOUND A CRYSTAL ON MY LUNGS" - FOLLOWS WITH [employer] QU[employer]LES Chronic back pain Chronic cough ONGOING/ALWAYS HAVE TO CLEAR MY THROAT Degenerative disc disease 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/NO NEURO/FOLLOWS PCP Depression Dysphagia REASON FOR UPCOMING PROCEDURE Elevated diaphragm Encounter for pre-operative examination GERD (gastroesophageal reflux disease) History of high blood pressure Insomnia Lumbar facet arthropathy Osteoarthritis Osteoporosis Peripheral neuropathy Seizure "STARING SEIZURES", LAST EPISODE ~2016 Spinal stenosis Transient ischemic attack (TIA) 14 YEARS AGO (NO CURRENT PROBLEMS) Vasomotor rhinitis Past Family History Family History Aunt Diabetes Grandmother (Paternal) Diabetes Past Surgical History Surgical History H/O total hysterectomy History of cardiac cath NO STENTS (REQUIRED PRE-GASTRIC BYPASS) History of cholecystectomy History of colonoscopy History of esophagogastroduodenoscopy (EGD) History of gastric bypass History of tonsillectomy History of tooth extraction History of total knee replacement RT/LEFT Hx of cataract extraction bilat Social History Smoking Status: Never smoker Do You Dip or Chew Tobacco: No Hx Alcohol Use: No Alcohol type: beer alcohol intake frequency: a few times a month Hx Substance Use: No substance use type: does not use Physical Exam Vital Signs Last Vital Signs Temp 36.8 C 09/16/22 07:45 Pulse 73 09/16/22 07:45 Resp 18 09/16/22 07:45 BP 132/64 09/16/22 07:45 Pulse Ox 97 09/16/22 07:45 O2 Del Method Room Air 09/16/22 07:45 O2 Flow Rate 0 09/15/22 17:03 Testing Laboratory Results 09/15/22 19:04 09/15/22 16:21 PT 11.4 Seconds (9.0-12.0) 09/15/22 19:04 INR 1.0 (0.9-1.1) 09/15/22 19:04 APTT < 20.0 Seconds (21.0-31.0) L 09/15/22 19:04 Urine Color Yellow 09/16/22 03:49 Urine Appearance Clear (Clear) 09/16/22 03:49 Urine pH 5.5 (4.5-7.5) 09/16/22 03:49 Ur Specific [place] 1.009 (1.000-1.030) 09/16/22 03:49 Urine Protein Negative (Negative) 09/16/22 03:49 Urine Glucose (UA) Negative (Negative) 09/16/22 03:49 Urine Ketones Trace (Negative) H 09/16/22 03:49 Urine Nitrite Positive (Negative) A 09/16/22 03:49 Ur Leukocyte Esterase 3+ (Negative) H 09/16/22 03:49 Urine WBC (Auto) >30 /hpf (0-5) H 09/16/22 03:49 Urine RBC (Auto) 0-4 /hpf (0-4) 09/16/22 03:49 U Hyaline Cast (Auto) 1-5 /lpf (0-5) 09/16/22 03:49 U Epithel Cells (Auto) 10-20 /lpf (0-5) H 09/16/22 03:49 Urine Bacteria (Auto) 2+ (Negative) H 09/16/22 03:49 Blood Type A Positive 09/15/22 20:20 Antibody Screen POSITIVE A 09/15/22 20:20 Electrocardiogram Date: 09/15/2215-Sep-2022 16:20:51 [facility]-EDSTAT ROUTINE RETRIEVAL Normal sinus rhythm Nonspecific T wave abnormality Abnormal ECG No previous ECGs available 25mm/s10mm/[id number]: [id number] by: Raul Moreno Unconfirmed Vent. rate 91 BPM KS interval 144 ms QRS duration 82 ms QT/QTc 350/430 ms Chest X-Ray Date: 09/15/22 XR chest 2V PA/lateral HISTORY: 67 years-old Female J47.9 - Bronchiectasis, uncomplicated COMPARISON: 01/27/2022 TECHNIQUE: PA and lateral views of the chest FINDINGS: Cardiomediastinal and hilar silhouettes are unchanged. Mild right hemidiaphragmatic elevation has improved from prior. No pneumothorax, pleural effusion, airspace consolidation or pulmonary edema. Cholecystectomy. Bones appe ar grossly intact. IMPRESSION: No acute process.
[2022-09-16 09:38] LABS: BUN Creatinine Ratio 16.1 (10-20); Calcium 8.4 mg/dl (8.6-10.3); Creatinine Clr Calc Pharmacy 49.9 ml/min; Est GFR (African American) 74.7 ml/min; Est GFR (Non-African American) 64.5 ml/min; Potassium 3.6 mmol/L (3.5-5.1)
[2022-09-16 09:42] LABS: Hematocrit (blood only) 25.5 % (37.0-47.0); Hemoglobin 8.2 g/dl (12.0-16.0); Mean Corpuscular Hemoglobin 25.7 pg (25.0-34.0); Mean Corpuscular Hgb Conc 32.2 g/dL (32.0-36.0); Mean Corpuscular Volume 79.9 fL (80.0-100.0); Mean Platelet Volume 9.6 fL (9.4-12.4); Platelet Count 274 K/uL (130-400); RDW Coefficient of Variation 15.3 % (11.5-14.5); RDW Standard Deviation 45.1 fL (36.4-46.3); Red Blood Count 3.19 M/uL (4.20-5.40); White Blood Count 3.54 K/ul (4.8-10.8)
--- NOTE | 2022-09-16 10:31 | Electrocardiogram Report ---
Test Reason : Blood Pressure : / mmHG Vent. Rate : 091 BPM Atrial Rate : 091 BPM P-R Int : 144 ms QRS Dur : 082 ms QT Int : 350 ms P-R-T Axes : 069 055 -03 degrees QTc Int : 430 ms Normal sinus rhythm Diffuse Minor Nonspecific ST and T wave abnormality Abnormal ECG No previous ECGs available Confirmed by Franc Olsen ([id number]) on 09/16/2022 10:31:01 AM Referred By: Raul Moreno Confirmed By:Franc Olsen
[2022-09-16] MEDS ORDERED: LIDOCAINE 2% 2 ML VIAL/AMP(20MG/ML) INFIL ONE (12:17)
[2022-09-16] MEDS ORDERED: GLYCOPYRROLATE 0.2 MG/ML VIAL ONE (12:17)
[2022-09-16] MEDS ORDERED: PROPOFOL IV EMULSION 10 MG/ML 20 ML VIAL IV ONE (12:17)
[2022-09-16] MEDS ORDERED: ONDANSETRON INJ 2 MG/ML 2 ML VIAL ONE (12:17)
[2022-09-16 12:26] LABS: Hematocrit (blood only) 25.7 % (37.0-47.0); Hemoglobin 8.3 g/dl (12.0-16.0)
--- NOTE | 2022-09-16 12:45 | Gastrointestinal Consultation ---
Date of Consultation September 16, 2022 Assessment & Plan (1) Upper GI bleed: Pleasant lady with profound anemia and melena. She really doesn't have risk factors for ulcer disease. Plan EGD. Procedure and risks discussed. She agrees. History of Present Illness Reason for Consultation: anemia Attending Physician: Aime Villa MD History of Present Illness 67 year old female admitted with shortness of breath and found to have anemia with hemoglobin of 5.5. She does report having some black stools for 3-4 days. She denies NSAIDS. Her last colonoscopy was 8 years ago. She had cologuard two years ago. Allergies Allergy/AdvReac Type Severity Reaction Status Date / Time No Known Allergies Allergy Verified 09/14/22 16:58 Home Medications Medication Instructions Recorded Confirmed Type cyanocobalamin (vitamin B-12) 1,000 mcg PO QAM 07/23/19 09/15/22 History 1,000 mcg tablet donepezil 10 mg tablet (Aricept) 10 mg PO HS 07/23/19 09/15/22 History escitalopram oxalate 20 mg tablet 20 mg PO BID 07/23/19 09/15/22 History (Lexapro) memantine 5 mg tablet (Namenda) 5 mg PO BID 07/23/19 09/15/22 History pantoprazole 40 mg tablet,delayed 40 mg PO BID 07/23/19 09/15/22 History release (Protonix) quetiapine 300 mg tablet (Seroquel) 300 mg PO HS 07/23/19 09/15/22 History topiramate 100 mg tablet (Topamax) 100 mg PO BID 07/23/19 09/15/22 History nebulizer accessories #1 ea 03/01/22 09/14/22 Rx albuterol sulfate 0.63 mg/3 mL 0.63 mg (3 mL) inhalation BID 06/24/22 09/15/22 Rx solution for nebulization shortness of breath or wheezing #90 mL sodium chloride 7 % for 4 ml inhalation BID #240 mL 06/24/22 09/15/22 Rx nebulization (Hyper-Denys) bupropion HCl 200 mg tablet,12 hr 200 mg PO BID 09/15/22 09/15/22 History sustained-release gabapentin 800 mg tablet 800 mg PO TID 09/15/22 09/15/22 History hydroxyzine HCl 25 mg tablet 50 mg PO HS 09/15/22 09/15/22 History rizatriptan 10 mg tablet 10 mg PO DAILY PRN MIGRAINE 09/15/22 09/15/22 History zolpidem 10 mg tablet 10 mg PO HS 09/15/22 09/15/22 History Patient History Medical History Bronchiectasis "FOUND A CRYSTAL ON MY LUNGS" - FOLLOWS WITH [employer] QU[employer]LES Chronic back pain Chronic cough ONGOING/ALWAYS HAVE TO CLEAR MY THROAT Degenerative disc disease 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/NO NEURO/FOLLOWS PCP Depression Dysphagia REASON FOR UPCOMING PROCEDURE Elevated diaphragm Encounter for pre-operative examination GERD (gastroesophageal reflux disease) History of high blood pressure Insomnia Lumbar facet arthropathy Osteoarthritis Osteoporosis Peripheral neuropathy Seizure "STARING SEIZURES", LAST EPISODE ~2016 Spinal stenosis Transient ischemic attack (TIA) 14 YEARS AGO (NO CURRENT PROBLEMS) Vasomotor rhinitis Surgical History H/O total hysterectomy History of cardiac cath NO STENTS (REQUIRED PRE-GASTRIC BYPASS) History of cholecystectomy History of colonoscopy History of esophagogastroduodenoscopy (EGD) History of gastric bypass History of tonsillectomy History of tooth extraction History of total knee replacement RT/LEFT Hx of cataract extraction bilat Family History Aunt Diabetes Grandmother (Paternal) Diabetes Social History Smoking Status: Never smoker Second Hand Exposure: No; Do You Dip or Chew Tobacco: No; Hx Alcohol Use: No Hx Substance Use: No Preferred Language: Panamanian Communication Ability: Effective [employer] Laboratory Assistant Required: No Beliefs That Will Affect Care: None Current Living Situation: Alone Feels Safe at Home: Yes Assistive Devices: Denture - Upper and Denture - Lower Review of Systems Review of Systems: All systems reviewed & are unremarkable except as noted in HPI & below Physical Exam Constitutional: WD/WN, vitals as above Neck: trachea midline, no thyromegaly Respiratory: normal respiratory effort, lungs clear to auscultation Cardiovascular: RRR, no murmur, no edema Gastrointestinal (Abdomen): normal bowel sounds, soft, nontender, no hepatosplenomegaly Musculoskeletal: Extremities: extremities normal to inspection Results & Data Vital Signs (Past 12 Hours) Vital Signs Temp Pulse Pulse Resp BP BP Pulse Ox 09/16/22 12:26 37 C 77 18 146/76 H 96 09/16/22 12:00 36.8 C 71 18 124/68 97 09/16/22 08:15 09/16/22 07:45 36.8 C 73 18 132/64 97 09/16/22 07:27 73 09/16/22 07:15 80 18 95 09/16/22 06:51 36.7 C 74 16 120/74 95 09/16/22 05:35 36.9 C 80 16 109/70 95 09/16/22 04:35 36.8 C 83 16 102/68 94 09/16/22 04:05 36.8 C 82 18 113/73 94 09/16/22 04:04 36.8 C 81 18 113/73 94 09/16/22 03:50 36.8 C 89 18 131/75 96 09/16/22 03:29 36.9 C 80 18 111/67 94 09/16/22 03:07 37 C 84 18 121/78 96 09/16/22 02:34 36.9 C 80 18 128/74 95 09/16/22 01:34 36.9 C 79 20 124/72 95 09/16/22 01:33 36.9 C 79 20 124/72 95 09/16/22 01:04 37.0 C 68 18 131/58 L 100 09/16/22 01:00 66 18 96 09/16/22 00:49 36.9 C 74 16 115/71 95 O2 Del Method 09/16/22 12:26 Room Air 09/16/22 12:00 Room Air 09/16/22 08:15 Room Air 09/16/22 07:45 Room Air 09/16/22 07:27 09/16/22 07:15 Room Air 09/16/22 06:51 09/16/22 05:35 09/16/22 04:35 09/16/22 04:05 09/16/22 04:04 Room Air 09/16/22 03:50 09/16/22 03:29 09/16/22 03:07 09/16/22 02:34 09/16/22 01:34 09/16/22 01:33 09/16/22 01:04 09/16/22 01:00 Room Air 09/16/22 00:49 Laboratory Results 09/16/22 09/16/22 09/16/22 Range/Units 12:00 08:26 08:26 WBC 3.54 L RBC 3.19 L Hgb 8.3 L 8.2 L D Hct 25.7 L 25.5 L MCV 79.9 L MCH 25.7 MCHC 32.2 RDW Std Deviation 45.1 RDW Coeff of Meredith 15.3 H Plt Count 274 MPV 9.6 Immature Gran % (Auto) Neut % (Auto) Lymph % (Auto) Lane % (Auto) Eos % (Auto) Baso % (Auto) Neut # (Auto) Lymph # (Auto) Lane # (Auto) Eos # (Auto) Baso # (Auto) Immature Gran # (Auto) Absolute Nucleated RBC Nucleated RBC % (auto) Neutrophils % (Manual) Band Neutrophils % Lymphocytes % (Manual) Prolymphocyte % Reactive Lymphs % (Man) Monocytes % (Manual) Eosinophils % (Manual) Basophils % (Manual) Metamyelocytes % (Man) Myelocytes % (Man) Promyelocytes % (Man) Blast Cells % (Manual) Plasma Cell % (Manual) Other Cells % Nucleated RBC % Neutrophils # (Manual) Band Neutrophils # Total Absolute Neuts Lymphocytes # (Manual) Prolymphocyte # Reactive Lymphs # Total Abs Lymphocytes Monocytes # (Manual) Eosinophils # (Manual) Basophils # (Manual) Metamyelocytes # (Man) Myelocytes # (Manual) Promyelocytes # (Man) Blast Cells # (Man) Plasma Cell # (Manual) Other Cells # Nucleated RBCs # (Man) Hypersegmented Neuts Hyposegmented Neuts Hypogranular Neuts Large Granular Lymphs # Lrg Granular Lymphs Hairy Cells Smudge Cells Toxic Granulation Toxic Vacuolation Dohle Bodies Surinder Rods Platelet Estimate Hypogranular Platelets Giant Platelets Platelet Satelliting RBC Morphology Polychromasia Hypochromasia Poikilocytosis Basophilic Stippling Anisocytosis Microcytosis Macrocytosis Spherocytes Pappenheimer Bodies Sickle Cells Target Cells Tear Drop Cells Ovalocytes Stomatocytes Villegas-Cementon Bodies Echinocytes Acanthocytes (Spur) Rouleaux RBC Agglutinates Schistocytes Sezary Cell PT (9.0-12.0) Seconds INR (0.9-1.1) APTT (21.0-31.0) Seconds PTT Ratio D-Dimer (0-500) ug/L FEU Sodium 139 (136-145) mmol/L Potassium 3.6 (3.5-5.1) mmol/L Chloride 109 H (98-107) mmol/L Carbon Dioxide 23 (21-32) mmol/L Anion Gap 7 (3-11) BUN 15 (6-23) mg/dl Creatinine 0.93 (0.6-1.2) mg/dl Est Cr Clr Drug Dosing 49.9 ml/min Est GFR ( Amer) 74.7 ml/min Est GFR (Non-Af Amer) 64.5 ml/min BUN/Creatinine Ratio 16.1 (10-20) Glucose 94 (70-99(Fasting)) mg/dl Calcium 8.4 L (8.6-10.3) mg/dl Total Bilirubin (0.2-1.0) mg/dl AST (13-39) U/L ALT (7-52) U/L Alkaline Phosphatase (34-104) U/L Troponin I High Sens (0-14) pg/ml B-Natriuretic Peptide (0-100) pg/ml Total Protein (6.0-8.3) gm/dl Albumin (3.4-5.0) gm/dl Globulin (2.5-4.0) gm/dl Albumin/Globulin Ratio (0.9-2) Lipase (11-82) U/L Urine Color Urine Appearance (Clear) Urine pH (4.5-7.5) Ur Specific Perry (1.000-1.030) Urine Protein (Negative) Urine Glucose (UA) (Negative) Urine Ketones (Negative) Urine Blood (Negative) Urine Nitrite (Negative) Urine Bilirubin (Negative) Urine Urobilinogen (Negative) Ur Leukocyte Esterase (Negative) Urine WBC (Auto) (0-5) /hpf Urine RBC (Auto) (0-4) /hpf U Hyaline Cast (Auto) (0-5) /lpf U Epithel Cells (Auto) (0-5) /lpf Urine Bacteria (Auto) (Negative) SARS-CoV-2 (PCR) (Negative) Influenza Type A (PCR) (Neg) Influenza Type B (PCR) (Neg) RSV (RT-PCR) (Neg) Blood Parasites ID Blood Type Blood Type Recheck Antibody Screen Antibody Identification Antibody ID Comment Antigen Identification Crossmatch 09/16/22 09/15/22 09/15/22 Range/Units 03:49 20:20 20:20 WBC RBC Hgb Hct MCV MCH MCHC RDW Std Deviation RDW Coeff of Meredith Plt Count MPV Immature Gran % (Auto) Neut % (Auto) Lymph % (Auto) Lane % (Auto) Eos % (Auto) Baso % (Auto) Neut # (Auto) Lymph # (Auto) Lane # (Auto) Eos # (Auto) Baso # (Auto) Immature Gran # (Auto) Absolute Nucleated RBC Nucleated RBC % (auto) Neutrophils % (Manual) Band Neutrophils % Lymphocytes % (Manual) Prolymphocyte % Reactive Lymphs % (Man) Monocytes % (Manual) Eosinophils % (Manual) Basophils % (Manual) Metamyelocytes % (Man) Myelocytes % (Man) Promyelocytes % (Man) Blast Cells % (Manual) Plasma Cell % (Manual) Other Cells % Nucleated RBC % Neutrophils # (Manual) Band Neutrophils # Total Absolute Neuts Lymphocytes # (Manual) Prolymphocyte # Reactive Lymphs # Total Abs Lymphocytes Monocytes # (Manual) Eosinophils # (Manual) Basophils # (Manual) Metamyelocytes # (Man) Myelocytes # (Manual) Promyelocytes # (Man) Blast Cells # (Man) Plasma Cell # (Manual) Other Cells # Nucleated RBCs # (Man) Hypersegmented Neuts Hyposegmented Neuts Hypogranular Neuts Large Granular Lymphs # Lrg Granular Lymphs Hairy Cells Smudge Cells Toxic Granulation Toxic Vacuolation Dohle Bodies Surinder Rods Platelet Estimate Hypogranular Platelets Giant Platelets Platelet Satelliting RBC Morphology Polychromasia Hypochromasia Poikilocytosis Basophilic Stippling Anisocytosis Microcytosis Macrocytosis Spherocytes Pappenheimer Bodies Sickle Cells Target Cells Tear Drop Cells Ovalocytes Stomatocytes Villegas-Cementon Bodies Echinocytes Acanthocytes (Spur) Rouleaux RBC Agglutinates Schistocytes Sezary Cell PT (9.0-12.0) Seconds INR (0.9-1.1) APTT (21.0-31.0) Seconds PTT Ratio D-Dimer (0-500) ug/L FEU Sodium (136-145) mmol/L Potassium (3.5-5.1) mmol/L Chloride (98-107) mmol/L Carbon Dioxide (21-32) mmol/L Anion Gap (3-11) BUN (6-23) mg/dl Creatinine (0.6-1.2) mg/dl Est Cr Clr Drug Dosing ml/min Est GFR ( Amer) ml/min Est GFR (Non-Af Amer) ml/min BUN/Creatinine Ratio (10-20) Glucose (70-99(Fasting)) mg/dl Calcium (8.6-10.3) mg/dl Total Bilirubin (0.2-1.0) mg/dl AST (13-39) U/L ALT (7-52) U/L Alkaline Phosphatase (34-104) U/L Troponin I High Sens (0-14) pg/ml B-Natriuretic Peptide (0-100) pg/ml Total Protein (6.0-8.3) gm/dl Albumin (3.4-5.0) gm/dl Globulin (2.5-4.0) gm/dl Albumin/Globulin Ratio (0.9-2) Lipase (11-82) U/L Urine Color Yellow Urine Appearance Clear (Clear) Urine pH 5.5 (4.5-7.5) Ur Specific Perry 1.009 (1.000-1.030) Urine Protein Negative (Negative) Urine Glucose (UA) Negative (Negative) Urine Ketones Trace H (Negative) Urine Blood Negative (Negative) Urine Nitrite Positive A (Negative) Urine Bilirubin Negative (Negative) Urine Urobilinogen Negative (Negative) Ur Leukocyte Esterase 3+ H (Negative) Urine WBC (Auto) >30 H (0-5) /hpf Urine RBC (Auto) 0-4 (0-4) /hpf U Hyaline Cast (Auto) 1-5 (0-5) /lpf U Epithel Cells (Auto) 10-20 H (0-5) /lpf Urine Bacteria (Auto) 2+ H (Negative) SARS-CoV-2 (PCR) (Negative) Influenza Type A (PCR) (Neg) Influenza Type B (PCR) (Neg) RSV (RT-PCR) (Neg) Blood Parasites ID Blood Type A Positive Blood Type Recheck A Positive Antibody Screen POSITIVE A Antibody Identification Anti-K Antibody ID Comment Antigen Identification K Antigen - NEGATIVE Crossmatch See Detail 09/15/22 09/15/22 09/15/22 Range/Units 19:04 19:04 19:04 WBC 4.08 L RBC 2.26 L Hgb 5.3 L* Hct 17.9 L* MCV 79.2 L MCH 23.5 L MCHC 29.6 L RDW Std Deviation 47.8 H RDW Coeff of Meredith 16.6 H Plt Count 334 MPV 9.8 Immature Gran % (Auto) 0.2 Neut % (Auto) 57.4 Lymph % (Auto) 26.0 Lane % (Auto) 13.7 Eos % (Auto) 2.2 Baso % (Auto) 0.5 Neut # (Auto) 2.34 Lymph # (Auto) 1.[address] # (Auto) 0.56 Eos # (Auto) 0.09 Baso # (Auto) 0.02 Immature Gran # (Auto) 0.01 Absolute Nucleated RBC Nucleated RBC % (auto) Neutrophils % (Manual) Band Neutrophils % Lymphocytes % (Manual) Prolymphocyte % Reactive Lymphs % (Man) Monocytes % (Manual) Eosinophils % (Manual) Basophils % (Manual) Metamyelocytes % (Man) Myelocytes % (Man) Promyelocytes % (Man) Blast Cells % (Manual) Plasma Cell % (Manual) Other Cells % Nucleated RBC % Neutrophils # (Manual) Band Neutrophils # Total Absolute Neuts Lymphocytes # (Manual) Prolymphocyte # Reactive Lymphs # Total Abs Lymphocytes Monocytes # (Manual) Eosinophils # (Manual) Basophils # (Manual) Metamyelocytes # (Man) Myelocytes # (Manual) Promyelocytes # (Man) Blast Cells # (Man) Plasma Cell # (Manual) Other Cells # Nucleated RBCs # (Man) Hypersegmented Neuts Hyposegmented Neuts Hypogranular Neuts Large Granular Lymphs # Lrg Granular Lymphs Hairy Cells Smudge Cells Toxic Granulation Toxic Vacuolation Dohle Bodies Surinder Rods Platelet Estimate Hypogranular Platelets Giant Platelets Platelet Satelliting RBC Morphology Polychromasia 1+ Hypochromasia Present Poikilocytosis Basophilic Stippling Anisocytosis Microcytosis Macrocytosis Spherocytes Pappenheimer Bodies Sickle Cells Target Cells Tear Drop Cells Ovalocytes 1+ Stomatocytes Villegas-Cementon Bodies Echinocytes Acanthocytes (Spur) Rouleaux RBC Agglutinates Schistocytes Sezary Cell PT 11.4 (9.0-12.0) Seconds INR 1.0 (0.9-1.1) APTT < 20.0 L (21.0-31.0) Seconds PTT Ratio 0.7 D-Dimer 390 (0-500) ug/L FEU Sodium (136-145) mmol/L Potassium (3.5-5.1) mmol/L Chloride (98-107) mmol/L Carbon Dioxide (21-32) mmol/L Anion Gap (3-11) BUN (6-23) mg/dl Creatinine (0.6-1.2) mg/dl Est Cr Clr Drug Dosing ml/min Est GFR ( Amer) ml/min Est GFR (Non-Af Amer) ml/min BUN/Creatinine Ratio (10-20) Glucose (70-99(Fasting)) mg/dl Calcium (8.6-10.3) mg/dl Total Bilirubin (0.2-1.0) mg/dl AST (13-39) U/L ALT (7-52) U/L Alkaline Phosphatase (34-104) U/L Troponin I High Sens (0-14) pg/ml B-Natriuretic Peptide 35 (0-100) pg/ml Total Protein (6.0-8.3) gm/dl Albumin (3.4-5.0) gm/dl Globulin (2.5-4.0) gm/dl Albumin/Globulin Ratio (0.9-2) Lipase (11-82) U/L Urine Color Urine Appearance (Clear) Urine pH (4.5-7.5) Ur Specific Perry (1.000-1.030) Urine Protein (Negative) Urine Glucose (UA) (Negative) Urine Ketones (Negative) Urine Blood (Negative) Urine Nitrite (Negative) Urine Bilirubin (Negative) Urine Urobilinogen (Negative) Ur Leukocyte Esterase (Negative) Urine WBC (Auto) (0-5) /hpf Urine RBC (Auto) (0-4) /hpf U Hyaline Cast (Auto) (0-5) /lpf U Epithel Cells (Auto) (0-5) /lpf Urine Bacteria (Auto) (Negative) SARS-CoV-2 (PCR) (Negative) Influenza Type A (PCR) (Neg) Influenza Type B (PCR) (Neg) RSV (RT-PCR) (Neg) Blood Parasites ID Blood Type Blood Type Recheck Antibody Screen Antibody Identification Antibody ID Comment Antigen Identification Crossmatch 09/15/22 09/15/22 09/15/22 Range/Units 16:21 16:21 16:21 WBC Cancelled RBC Cancelled Hgb Cancelled Hct Cancelled MCV Cancelled MCH Cancelled MCHC Cancelled RDW Std Deviation Cancelled RDW Coeff of Meredith Cancelled Plt Count Cancelled MPV Cancelled Immature Gran % (Auto) Cancelled Neut % (Auto) Cancelled Lymph % (Auto) Cancelled Lane % (Auto) Cancelled Eos % (Auto) Cancelled Baso % (Auto) Cancelled Neut # (Auto) Cancelled Lymph # (Auto) Cancelled Lane # (Auto) Cancelled Eos # (Auto) Cancelled Baso # (Auto) Cancelled Immature Gran # (Auto) Cancelled Absolute Nucleated RBC Cancelled Nucleated RBC % (auto) Cancelled Neutrophils % (Manual) Cancelled Band Neutrophils % Cancelled Lymphocytes % (Manual) Cancelled Prolymphocyte % Cancelled Reactive Lymphs % (Man) Cancelled Monocytes % (Manual) Cancelled Eosinophils % (Manual) Cancelled Basophils % (Manual) Cancelled Metamyelocytes % (Man) Cancelled Myelocytes % (Man) Cancelled Promyelocytes % (Man) Cancelled Blast Cells % (Manual) Cancelled Plasma Cell % (Manual) Cancelled Other Cells % Cancelled Nucleated RBC % Cancelled Neutrophils # (Manual) Cancelled Band Neutrophils # Cancelled Total Absolute Neuts Cancelled Lymphocytes # (Manual) Cancelled Prolymphocyte # Cancelled Reactive Lymphs # Cancelled Total Abs Lymphocytes Cancelled Monocytes # (Manual) Cancelled Eosinophils # (Manual) Cancelled Basophils # (Manual) Cancelled Metamyelocytes # (Man) Cancelled Myelocytes # (Manual) Cancelled Promyelocytes # (Man) Cancelled Blast Cells # (Man) Cancelled Plasma Cell # (Manual) Cancelled Other Cells # Cancelled Nucleated RBCs # (Man) Cancelled Hypersegmented Neuts Cancelled Hyposegmented Neuts Cancelled Hypogranular Neuts Cancelled Large Granular Lymphs Cancelled # Lrg Granular Lymphs Cancelled Hairy Cells Cancelled Smudge Cells Cancelled Toxic Granulation Cancelled Toxic Vacuolation Cancelled Dohle Bodies Cancelled Surinder Rods Cancelled Platelet Estimate Cancelled Hypogranular Platelets Cancelled Giant Platelets Cancelled Platelet Satelliting Cancelled RBC Morphology Cancelled Polychromasia Cancelled Hypochromasia Cancelled Poikilocytosis Cancelled Basophilic Stippling Cancelled Anisocytosis Cancelled Microcytosis Cancelled Macrocytosis Cancelled Spherocytes Cancelled Pappenheimer Bodies Cancelled Sickle Cells Cancelled Target Cells Cancelled Tear Drop Cells Cancelled Ovalocytes Cancelled Stomatocytes Cancelled Villegas-Cementon Bodies Cancelled Echinocytes Cancelled Acanthocytes (Spur) Cancelled Rouleaux Cancelled RBC Agglutinates Cancelled Schistocytes Cancelled Sezary Cell Cancelled PT (9.0-12.0) Seconds INR (0.9-1.1) APTT (21.0-31.0) Seconds PTT Ratio D-Dimer (0-500) ug/L FEU Sodium 136 (136-145) mmol/L Potassium 4.1 (3.5-5.1) mmol/L Chloride 106 (98-107) mmol/L Carbon Dioxide 18 L (21-32) mmol/L Anion Gap 12 H (3-11) BUN 19 (6-23) mg/dl Creatinine 1.02 (0.6-1.2) mg/dl Est Cr Clr Drug Dosing 51.3 ml/min Est GFR ( Amer) 66.8 ml/min Est GFR (Non-Af Amer) 57.7 ml/min BUN/Creatinine Ratio 18.6 (10-20) Glucose 84 (70-99(Fasting)) mg/dl Calcium 9.2 (8.6-10.3) mg/dl Total Bilirubin 0.3 (0.2-1.0) mg/dl AST 11 L (13-39) U/L ALT 7 (7-52) U/L Alkaline Phosphatase 67 (34-104) U/L Troponin I High Sens < 2.3 (0-14) pg/ml B-Natriuretic Peptide (0-100) pg/ml Total Protein 6.9 (6.0-8.3) gm/dl Albumin 4.3 (3.4-5.0) gm/dl Globulin 2.6 (2.5-4.0) gm/dl Albumin/Globulin Ratio 1.7 (0.9-2) Lipase 19 (11-82) U/L Urine Color Urine Appearance (Clear) Urine pH (4.5-7.5) Ur Specific Perry (1.000-1.030) Urine Protein (Negative) Urine Glucose (UA) (Negative) Urine Ketones (Negative) Urine Blood (Negative) Urine Nitrite (Negative) Urine Bilirubin (Negative) Urine Urobilinogen (Negative) Ur Leukocyte Esterase (Negative) Urine WBC (Auto) (0-5) /hpf Urine RBC (Auto) (0-4) /hpf U Hyaline Cast (Auto) (0-5) /lpf U Epithel Cells (Auto) (0-5) /lpf Urine Bacteria (Auto) (Negative) SARS-CoV-2 (PCR) NEGATIVE (Negative) Influenza Type A (PCR) Negative (Neg) Influenza Type B (PCR) Negative (Neg) RSV (RT-PCR) Negative (Neg) Blood Parasites ID Cancelled Blood Type Blood Type Recheck Antibody Screen Antibody Identification Antibody ID Comment Antigen Identification Crossmatch
--- NOTE | 2022-09-16 13:05 | GI REPORT ---
Patient Name: Anila King Procedure Date: 09/16/2022 12:31 PM Date of : 1955 Admit Type: Inpatient Age: 67 Gender: Female Attending MD: Kelli French MD, Procedure: Upper GI endoscopy Providers: Kelli French MD Referring MD: Raul Moreno Md Indications: Melena Medicines: Propofol per Anesthesia Complications: No immediate complications. Estimated Blood Loss: Estimated blood loss: none. Procedure: Pre-Anesthesia Assessment: - Prior to the procedure, a History and Physical was performed, and patient medications and allergies were reviewed. The patient's tolerance of previous anesthesia was also reviewed. The risks and benefits of the procedure and the sedation options and risks were discussed with the patient. All questions were answered, and informed consent was obtained. Prior Anticoagulants: The patient has taken no anticoagulant or antiplatelet agents. ASA Grade Assessment: II - A patient with mild systemic disease. After reviewing the risks and benefits, the patient was deemed in satisfactory condition to undergo the procedure. After obtaining informed consent, the endoscope was passed under direct vision. Throughout the procedure, the patient's blood pressure, pulse, and oxygen saturations were monitored continuously. The Scope was introduced through the mouth, and advanced to the second part of duodenum. The upper GI endoscopy was accomplished without difficulty. The patient tolerated the procedure well. Findings: The esophagus was normal. Evidence of a gastric bypass was found. A gastric pouch with a normal size was found. The gastrojejunal anastomosis was characterized by healthy appearing mucosa. This was traversed. The [id number] limb was examined. A Dieulafoy lesion with oozing bleeding and was found at the anastomosis. For hemostasis, two hemostatic clips were successfully placed (MR conditional). 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 There was no bleeding at the end of the procedure. The examined jejunum was normal. Impression: - Normal esophagus. - Gastric bypass with a normal-sized pouch. Gastrojejunal anastomosis characterized by healthy appearing mucosa. - Dieulafoy lesion of stomach. - Normal examined jejunum. - No specimens collected. Recommendation: - Observe patient's clinical course. Kelli French MD 09/16/2022 1:05:10 PM Note Initiated On: 09/16/2022 12:31 PM Number of Addenda: 0 I attest to the content of the Intraoperative Record and orders documented therein, exceptions below {[id number]}
--- NOTE | 2022-09-16 14:47 | Anesthesiology Progress Note ---
Date of Service September 16, 2022 Anesthesia Post Procedure Vital Signs Vital Signs: Temp Pulse Pulse Resp BP BP BP 09/16/22 13:34 82 20 141/65 H 09/16/22 13:19 86 16 115/68 09/16/22 13:04 95 H 16 107/65 09/16/22 12:26 37 C 77 18 146/76 H 09/16/22 12:00 36.8 C 71 18 124/68 09/16/22 08:15 09/16/22 07:45 36.8 C 73 18 132/64 09/16/22 07:27 73 09/16/22 07:15 80 18 09/16/22 06:51 36.7 C 74 16 120/74 09/16/22 05:35 36.9 C 80 16 109/70 09/16/22 04:35 36.8 C 83 16 102/68 09/16/22 04:05 36.8 C 82 18 113/73 09/16/22 04:04 36.8 C 81 18 113/73 09/16/22 03:50 36.8 C 89 18 131/75 09/15/22 23:55 36.6 C 100 H 18 160/70 H 09/16/22 03:29 36.9 C 80 18 111/67 09/16/22 03:07 37 C 84 18 121/78 09/16/22 02:34 36.9 C 80 18 128/74 09/16/22 01:34 36.9 C 79 20 124/72 09/16/22 01:33 36.9 C 79 20 124/72 09/16/22 00:02 77 09/16/22 01:04 37.0 C 68 18 131/58 L 09/16/22 01:00 66 18 09/16/22 00:49 36.9 C 74 16 115/71 09/15/22 23:45 09/16/22 00:34 36.9 C 76 16 103/58 L 09/16/22 00:32 36.9 C 77 16 103/58 L 09/15/22 22:30 70 27 H 09/15/22 22:00 82 24 09/15/22 21:30 73 25 H 09/15/22 21:00 80 31 H 09/15/22 20:30 78 23 09/15/22 20:01 156/54 H 07/27/23 20:01 20 09/15/22 20:00 98 H 20 09/15/22 19:30 75 21 09/15/22 19:30 139/77 09/15/22 19:00 71 28 H 09/15/22 18:30 72 20 09/15/22 18:30 121/72 09/15/22 21:49 75 09/15/22 18:20 75 18 09/15/22 18:10 73 20 09/15/22 18:00 72 15 09/15/22 18:00 130/69 09/15/22 17:50 71 19 09/15/22 17:47 72 15 09/15/22 17:47 72 09/15/22 17:03 09/15/22 17:03 09/15/22 14:48 Pulse Ox O2 Del Method O2 Flow Rate 09/16/22 13:34 94 Room Air 09/16/22 13:19 98 Room Air 09/16/22 13:04 96 Room Air 09/16/22 12:26 96 Room Air 09/16/22 12:00 97 Room Air 09/16/22 08:15 Room Air 09/16/22 07:45 97 Room Air 09/16/22 07:27 09/16/22 07:15 95 Room Air 09/16/22 06:51 95 09/16/22 05:35 95 09/16/22 04:35 94 09/16/22 04:05 94 09/16/22 04:04 94 Room Air 09/16/22 03:50 96 09/15/22 23:55 100 Room Air 09/16/22 03:29 94 09/16/22 03:07 96 09/16/22 02:34 95 09/16/22 01:34 95 09/16/22 01:33 95 09/16/22 00:02 09/16/22 01:04 100 09/16/22 01:00 96 Room Air 09/16/22 00:49 95 09/15/22 23:45 Room Air 09/16/22 00:34 96 Room Air 09/16/22 00:32 96 09/15/22 22:30 100 09/15/22 22:00 99 09/15/22 21:30 99 09/15/22 21:00 98 09/15/22 20:30 100 09/15/22 20:01 09/15/22 20:01 99 09/15/22 20:00 100 09/15/22 19:30 98 09/15/22 19:30 09/15/22 19:00 99 09/15/22 18:30 98 09/15/22 18:30 09/15/22 21:49 09/15/22 18:20 99 09/15/22 18:10 99 09/15/22 18:00 99 09/15/22 18:00 09/15/22 17:50 99 09/15/22 17:47 99 09/15/22 17:47 09/15/22 17:03 99 Room Air 09/15/22 17:03 99 Room Air 0 09/15/22 14:48 Room Air Pain Intensity Bilateral Lower Back: Pain Intensity: 6 Transfer of Care Handoff Completed per policy Notes Mental Status: alert / awake / arousable and participated in evaluation Patient Amnestic to Procedure: Yes Nausea / Vomiting: adequately controlled Pain: adequately controlled Airway Patency, RR, SpO2: stable & adequate BP & HR: stable & adequate Hydration State: stable & adequate Anesthetic Complications: no major complications apparent
--- NOTE | 2022-09-16 14:50 | Hospitalist Progress Note ---
Date of Service September 16, 2022 Assessment & Plan (1) Upper GI bleed: Plan: The patient had a oozing ulceration at the anastomotic site from her previous bypass surgery. This was clipped during EGD today, September 16. Appears appreciate gastroenterology recommendations. We will continue Protonix and add Carafate suspension. Clear liquids have been started. IV fluids have been tapered down. Continue serial H&H measurements (2) Acute blood loss anemia: Plan: She received 2 units packed red blood cells for hemoglobin 5.3 on admission. Hemoglobin is now greater than 8. We will follow (3) Chronic low back pain: Plan: History of lumbar foraminal stenosis. Avoid nonsteroidal therapy for now. (4) Seizure disorder: Plan: Stable. Continue topiramate (5) Insomnia: Plan: Stable. Continue Ambien and hydroxyzine (6) Bronchiectasis: Plan: no changes on chest x-ray. Continue hypertonic saline nebulizers twice daily which is her home regimen. Supportive care Plan Hopefully home soon Admission and Anticipated Discharge Date Admission Date: September 15, 2022 Subjective Alert and oriented. No distress. The patient was seen after her EGD. She had an ulceration at the anastomotic site from her previous gastric bypass surgery. This ulceration was bleeding. It was clipped and she is now on Protonix and Carafate. Clear liquids have been started. IV fluids have been tapered down. Hemoglobin 8.2 after 2 units packed red blood cells on admission. This will be monitored. Review of Systems Review of Systems: Constitutional-no fever or chills ENT-no blurred vision, no double vision, no epistaxis, no sore throat Respiratory-no cough, no wheezing, no shortness of breath Cardiac-no palpitations, no chest pain, no syncope GI-no nausea, vomiting, diarrhea. Melena recently noted with epigastric discomfort -no urinary retention, no urinary incontinence, no dysuria, no hematuria Musculoskeletal-no joint pain, no muscle tenderness Skin-no bruising, no rashes, no pruritus Neuro-no isolated weakness, no paresthesia, no weakness Psych-no depression, no anxiety Physical Exam Physical Exam: General-alert and oriented x3, no fevers, no chills HEENT-head atraumatic and normocephalic, pupils equal and reactive to light, extraocular muscles intact Neck-no lymphadenopathy or thyromegaly, trachea midline Chest-clear to auscultation percussion. No rales wheezing or rhonchi Cardiac-regular rate and rhythm, normal S1 and S2 Abdomen-normal bowel sounds, no hepatosplenomegaly. Mild epigastric discomfort with palpation Extremities-no cyanosis, clubbing, or edema Neuro-cranial nerves II through XII intact, motor and sensory function within n ormal limits, strength symmetrical , no focal deficits Psych-normal affect, normal mood Results & Data Results & Data Vital Signs (Past 12 Hours) Vital Signs Temp Pulse Pulse Resp BP BP Pulse Ox 09/16/22 13:34 82 20 141/65 H 94 09/16/22 13:19 86 16 115/68 98 09/16/22 13:04 95 H 16 107/65 96 09/16/22 12:26 37 C 77 18 146/76 H 96 09/16/22 12:00 36.8 C 71 18 124/68 97 09/16/22 08:15 09/16/22 07:45 36.8 C 73 18 132/64 97 09/16/22 07:27 73 09/16/22 07:15 80 18 95 09/16/22 06:51 36.7 C 74 16 120/74 95 09/16/22 05:35 36.9 C 80 16 109/70 95 09/16/22 04:35 36.8 C 83 16 102/68 94 09/16/22 04:05 36.8 C 82 18 113/73 94 09/16/22 04:04 36.8 C 81 18 113/73 94 09/16/22 03:50 36.8 C 89 18 131/75 96 09/16/22 03:29 36.9 C 80 18 111/67 94 09/16/22 03:07 37 C 84 18 121/78 96 O2 Del Method 09/16/22 13:34 Room Air 09/16/22 13:19 Room Air 09/16/22 13:04 Room Air 09/16/22 12:26 Room Air 09/16/22 12:00 Room Air 09/16/22 08:15 Room Air 09/16/22 07:45 Room Air 09/16/22 07:27 09/16/22 07:15 Room Air 09/16/22 06:51 09/16/22 05:35 09/16/22 04:35 09/16/22 04:05 09/16/22 04:04 Room Air 09/16/22 03:50 09/16/22 03:29 09/16/22 03:07 Laboratory Results 09/16/22 12:00 09/16/22 08:26 PG Care Time/CCT Total # of Minutes Spent Total Time Spent with Patient: Total time spent is greater than 50% in coordination of care (as documented) at patient's floor/unit and/or counseling patient: Coding Level of Care Code 44286 SUB INP/OBS CARE 3/50MIN Diagnoses Upper GI bleed K92.2 Acute blood loss anemia D62 Chronic low back pain M54.50; G89.29 Seizure disorder G40.909 Insomnia G47.00 Bronchiectasis J47.9
[2022-09-16] MEDS: SUCRALFATE 1 GM/10 ML UDC PO SCH ×2 (16:55→20:50)
[2022-09-16 18:31] LABS: Hematocrit (blood only) 25.6 % (37.0-47.0); Hemoglobin 8.4 g/dl (12.0-16.0)
[2022-09-16] MEDS ORDERED: DONEPEZIL HCL 10 MG TAB PO SCH (21:00)
[2022-09-16] MEDS ORDERED: hydrOXYzine HCl 25 MG TAB PO SCH (21:00)
[2022-09-16] MEDS ORDERED: ZOLPIDEM TARTRATE 10 MG TAB PO SCH (21:00)
[2022-09-16] MEDS ORDERED: QUEtiapine FUMARATE 300 MG TABLET PO SCH (21:00)
[2022-09-17] MEDS: LACTATED RINGER'S 1,000 ML IV SCH (00:11)
[2022-09-17] MEDS: PANTOprazole 40 MG in DEXTROSE 5% 100 ML IV SCH ×2 (01:00→06:00)
[2022-09-17] MEDS: LEVALBUTEROL HCL 0.63 MG/3 ML NEB INH SCH (06:49)
[2022-09-17] MEDS: SODIUM CHLOR 7% 4 ML NEB INH SCH (06:49)
[2022-09-17 08:53] LABS: Calcium 8.5 mg/dl (8.6-10.3); Potassium 3.9 mmol/L (3.5-5.1)
[2022-09-17 08:58] LABS: BUN Creatinine Ratio 9.5 (10-20); Creatinine Clr Calc Pharmacy 48.2 ml/min; Est GFR (African American) 64.5 ml/min; Est GFR (Non-African American) 55.7 ml/min
[2022-09-17 09:07] LABS: Basophils # (auto) 0.02 K/uL (0-0.2); Basophils % (auto) 0.4 %; Eosinophils # (auto) 0.15 K/uL (0-0.50); Hematocrit (blood only) 27.7 % (37.0-47.0); Hemoglobin 8.9 g/dl (12.0-16.0); Immature Granulocytes # (auto) 0.01 K/uL (0.01-0.20); Immature Granulocytes % (auto) 0.2 %; Lymphocytes # (auto) 1.02 K/uL (1.2-3.4); Lymphocytes % (auto) 20.1 %; Mean Corpuscular Hemoglobin 25.6 pg (25.0-34.0); Mean Corpuscular Hgb Conc 32.1 g/dL (32.0-36.0); Mean Corpuscular Volume 79.6 fL (80.0-100.0); Monocytes # (auto) 0.61 K/uL (0.11-0.59); Neutrophils # (auto) 3.26 K/uL (1.40-6.50); Neutrophils % (auto) 64.3 %; Platelet Count 267 K/uL (130-400); Platelet Estimate Normal (Normal); Polychromasia 1+; RDW Coefficient of Variation 15.8 % (11.5-14.5); RDW Standard Deviation 45.1 fL (36.4-46.3); Red Blood Count 3.48 M/uL (4.20-5.40); Toxic Vacuolation 2+; White Blood Count 5.07 K/ul (4.8-10.8)
[2022-09-17] MEDS: TOPIRAMATE 100 MG TAB PO SCH (09:39)
[2022-09-17] MEDS: MEMANTINE HCL 5 MG TAB PO SCH (09:39)
[2022-09-17] MEDS: buPROPion SR 100 MG TABCR PO SCH (09:39)
[2022-09-17] MEDS: LIDOCAINE 5% 1 PATCH TD SCH (09:39)
[2022-09-17] MEDS: GABAPENTIN 800 MG TAB PO SCH (09:39)
[2022-09-17] MEDS: ESCITALOPRAM OXALATE 20 MG TAB PO SCH (09:39)
[2022-09-17] MEDS: SUCRALFATE 1 GM/10 ML UDC PO SCH (09:40)
--- NOTE | 2022-09-17 09:46 | Gastroenterology Progress Note ---
Date of Service September 17, 2022 Assessment & Plan (1) Upper GI bleed: Plan: Seems to be doing well. H/H are stable. No signs of bleeding. Okay to get on regular diet. Admission and Anticipated Discharge Date Admission Date: September 15, 2022 Subjective Feels well. No bowel movement. Wants to try walking the higgins to see how her breathing is. Physical Exam Constitutional: WD/WN, vitals as above Results & Data Vital Signs (Past 12 Hours) Vital Signs Temp Pulse Pulse Resp BP Pulse Ox Pulse Ox 09/17/22 08:00 37.1 C 96 H 18 118/55 L 91 09/17/22 06:50 90 20 91 09/17/22 03:00 37.3 C 84 17 112/71 90 09/17/22 00:00 98 09/16/22 22:00 84 09/16/22 23:00 36.7 C 92 H 16 138/77 98 O2 Del Method O2 Del Method 09/17/22 08:00 Room Air 09/17/22 06:50 Room Air 09/17/22 03:00 Room Air 09/17/22 00:00 Room Air 09/16/22 22:00 09/16/22 23:00 Room Air Laboratory Results 09/17/22 09/17/22 09/16/22 Range/Units 07:53 07:53 18:19 WBC 5.07 (4.8-10.8) K/ul RBC 3.48 L (4.20-5.40) M/uL Hgb 8.9 L 8.4 L (12.0-16.0) g/dl Hct 27.7 L 25.6 L (37.0-47.0) % MCV 79.6 L (80.0-100.0) fL MCH 25.6 (25.0-34.0) pg MCHC 32.1 (32.0-36.0) g/dL RDW Std Deviation 45.1 (36.4-46.3) fL RDW Coeff of Meredith 15.8 H (11.5-14.5) % Plt Count 267 (130-400) K/uL MPV 10.0 (9.4-12.4) fL Immature Gran % (Auto) 0.2 % Neut % (Auto) 64.3 % Lymph % (Auto) 20.1 % Simpson % (Auto) 12.0 % Eos % (Auto) 3.0 % Baso % (Auto) 0.4 % Neut # (Auto) 3.26 (1.40-6.50) K/uL Lymph # (Auto) 1.02 L (1.2-3.4) K/uL Simpson # (Auto) 0.61 H (0.11-0.59) K/uL Eos # (Auto) 0.15 (0-0.50) K/uL Baso # (Auto) 0.02 (0-0.2) K/uL Immature Gran # (Auto) 0.01 (0.01-0.20) K/uL Toxic Vacuolation 2+ Platelet Estimate Normal (Normal) Polychromasia 1+ Sodium 138 (136-145) mmol/L Potassium 3.9 (3.5-5.1) mmol/L Chloride 108 H (98-107) mmol/L Carbon Dioxide 23 (21-32) mmol/L Anion Gap 7 (3-11) BUN 10 (6-23) mg/dl Creatinine 1.05 (0.6-1.2) mg/dl Est Cr Clr Drug Dosing 48.2 ml/min Est GFR ( Amer) 64.5 ml/min Est GFR (Non-Af Amer) 55.7 ml/min BUN/Creatinine Ratio 9.5 L (10-20) Glucose 121 H (70-99(Fasting)) mg/dl Calcium 8.5 L (8.6-10.3) mg/dl 09/16/22 Range/Units 12:00 WBC (4.8-10.8) K/ul RBC (4.20-5.40) M/uL Hgb 8.3 L (12.0-16.0) g/dl Hct 25.7 L (37.0-47.0) % MCV (80.0-100.0) fL MCH (25.0-34.0) pg MCHC (32.0-36.0) g/dL RDW Std Deviation (36.4-46.3) fL RDW Coeff of Meredith (11.5-14.5) % Plt Count (130-400) K/uL MPV (9.4-12.4) fL Immature Gran % (Auto) % Neut % (Auto) % Lymph % (Auto) % Simpson % (Auto) % Eos % (Auto) % Baso % (Auto) % Neut # (Auto) (1.40-6.50) K/uL Lymph # (Auto) (1.2-3.4) K/uL Simpson # (Auto) (0.11-0.59) K/uL Eos # (Auto) (0-0.50) K/uL Baso # (Auto) (0-0.2) K/uL Immature Gran # (Auto) (0.01-0.20) K/uL Toxic Vacuolation Platelet Estimate (Normal) Polychromasia Sodium (136-145) mmol/L Potassium (3.5-5.1) mmol/L Chloride (98-107) mmol/L Carbon Dioxide (21-32) mmol/L Anion Gap (3-11) BUN (6-23) mg/dl Creatinine (0.6-1.2) mg/dl Est Cr Clr Drug Dosing ml/min Est GFR ( Amer) ml/min Est GFR (Non-Af Amer) ml/min BUN/Creatinine Ratio (10-20) Glucose (70-99(Fasting)) mg/dl Calcium (8.6-10.3) mg/dl
[2022-09-17] MEDS ORDERED: PANTOprazole 40 MG TAB PO SCH (11:00)
[2022-09-17] MEDS: MoRPHine SULFATE 2 MG/ML CARP IV PRN (11:38)
--- NOTE | 2022-09-17 12:16 | Discharge Summary ---
Date of Service September 17, 2022 Admission HPI Per Admitting Provider Patient is a 67-year-old female with past medical history of depression, anxiety, insomnia, chronic low back pain, and bronchiectasis who presents to the hospital for evaluation for dyspnea on exertion. Patient reports for the past week, she has noticed that doing simple tasks such as walking to the bathroom have caused her to become short of breath. It has become progressively worse over the past week. She initially went to the lapping machine operator as she has a history of bronchiectasis. The lapping machine operator office did not feel that the patient's dyspnea on exertion was due to to a pulmonary issue. They felt her symptoms were out of proportion to chest x-ray obtained in office. She became tachycardic during a 6-minute walk and became concerned for a cardiac issue. For this reason, they recommended evaluation at the emergency department which brought her in today. When asking about her history of the past few days, she does note that she has had dark stools over the past 4 days. They have been solid and has not been having diarrhea. No nausea or vomiting. No bright red blood per rectum. No hemoptysis or hematuria. States that she previously was taking a frequent amount of NSAIDs for chronic low back pain, however, she has not been taking NSAIDs for months as she was taken off of them and put on a larger dose of gabapentin instead. She is currently taking hydrocodone at half dosing for back pain. She does not take aspirin and she is not on a blood thinner. Of note, patient was experiencing dysphagia 2 to 3 months ago and had an EGD done that was normal. She is not having any abdominal pain or chest pain. Denies headache. Otherwise no other complaints at this time. ED course: Patient brought back and evaluated by provider. Labs are significant for hemoglobin of 5.3, CO2 of 18, anion gap of 12, normal high-sensitivity troponin, normal BNP. Chest x-ray showing chronic right hemidiaphragm elevation. Because of the anemia found on lab work, patient was ordered 2 units of blood, however, her type and screen came back positive for antibody which would delay her transfusion. Patient is currently comfortable and hemodynamically stable. Unfortunately, patient was given 324 mg of aspirin when first arriving to the emergency department for concern of cardiac issues. The hospitalist service was then consulted for admission to the hospital and treatment. Principal Diagnosis Upper GI bleed with acute blood loss anemia, bleeding ulceration at the gastric bypass anastomotic site Discharge Exam General-alert and oriented x3, no fevers, no chills HEENT-head atraumatic and normocephalic, pupils equal and reactive to light, extraocular muscles intact Neck-no lymphadenopathy or thyromegaly, trachea midline Chest-clear to auscultation percussion. No rales wheezing or rhonchi Cardiac-regular rate and rhythm, normal S1 and S2 Abdomen-normal bowel sounds, no hepatosplenomegaly. Mild epigastric discomfort with palpation Extremities-no cyanosis, clubbing, or edema Neuro-cranial nerves II through XII intact, motor and sensory function within normal limits, strength symmetrical , no focal deficits Psych-normal affect, normal mood Discharge Data Allergies Allergy/AdvReac Type Severity Reaction Status Date / Time No Known Allergies Allergy Verified 09/14/22 16:58 Consultations 09/15/22 20:32 ED Decision to Admit Stat 09/15/22 23:36 Consult Gastroenterology Routine Procedures Performed Operation Date: 09/16/22 16:30 Actual Procedures p EGD Hemostasis - Kelli French Jr, MD Hospital Course (1) Upper GI bleed: The patient had an oozing ulceration at the anastomotic site from her previous bypass surgery. This was clipped during EGD on September 16. Appears appreciate gastroenterology recommendations. Treated with Protonix intravenously and Carafate suspension while hospitalized. Home on oral Protonix and Carafate. Diet has been advanced. IV fluids have been discontinued. Hemoglobin is stable. (2) Acute blood loss anemia: She received 2 units packed red blood cells for hemoglobin 5.3 on admission. Hemoglobin is now greater than 8 and stable. (3) Chronic low back pain: History of lumbar foraminal stenosis. Avoid nonsteroidal therapy for now. (4) Seizure disorder: Stable. Continue topiramate (5) Insomnia: Stable. Continue Ambien and hydroxyzine (6) Bronchiectasis: no changes on chest x-ray. Continue hypertonic saline nebulizers twice daily which is her home regimen. Supportive care Plan Home today, September 17, on Protonix and Carafate therapy. Total Time Total Time Spent Total Time Spent (In Minutes): 45 minutes Discharge Plan Discharge Items Patient Disposition: Home - Self-Care Reason For Visit: [id number] Discharge Diagnosis: Upper GI bleed with acute blood loss anemia, bleeding ulceration at the previous gastric bypass anastomotic site Activity: Resume your previous activity Non-emergency contact: Primary Care Provider Call non-emergency contact if: you have any medication questions and your symptoms worsen Follow-up/Referrals: Paula Bolaños, [Primary Care Provider] - Diet: Regular and Heart Healthy Addtl Attending Provider Instructions: Take Protonix twice daily and also take Carafate 4 times daily. Take the Carafate on an empty stomach. Avoid nonsteroidal anti-inflammatory agents such as Motrin or Aleve Pending Studies at Discharge: No Stand-Alone Forms: My [facility] [employer]mo, Smoking Cessation Medications and DC Order Prescriptions: New sucralfate 1 gram Tablet 1 g PO QID Qty: 100 0RF Continued (DME) nebulizer accessories Kit See Rx Instructions .ROUTE .MEDSUPPLY Qty: 1 0RF Rx Instructions: As directed sodium chloride [Hyper-Denys] 7 % solution for nebulization 4 ml inhalation BID Qty: 240 3RF albuterol sulfate 0.63 mg/3 mL solution for nebulization 0.63 mg inhalation BID Qty: 90 3RF quetiapine [Seroquel] 300 mg Tablet 300 mg PO HS donepezil [Aricept] 10 mg Tablet 10 mg PO HS cyanocobalamin (vitamin B-12) 1,000 mcg Tablet 1,000 mcg PO QAM pantoprazole [Protonix] 40 mg Tablet,Delayed Release (Dr/Ec) 40 mg PO BID topiramate [Topamax] 100 mg Tablet 100 mg PO BID escitalopram oxalate [Lexapro] 20 mg Tablet 20 mg PO BID memantine [Namenda] 5 mg Tablet 5 mg PO BID rizatriptan 10 mg tablet 10 mg PO DAILY PRN (Reason: MIGRAINE) gabapentin 800 mg tablet 800 mg PO TID hydroxyzine HCl 25 mg tablet 50 mg PO HS zolpidem 10 mg tablet 10 mg PO HS bupropion HCl 200 mg tablet sustained-release 12 hr 200 mg PO BID Discharge Orders: Discharge Order (Routine); Ordered 09/17/22 Ordered By: Aime Villa Admission Data Admit Date/Time: 09/15/22 21:23 Attending Provider: Aime Villa Admit Provider: Vito Chavez Primary Care Provider: Paula Bolaños Other Providers: Marce Atkinson ; Kelli French Jr Coding Level of Care Code 50555 INP/OBS DISCH >30 MIN Diagnoses Upper GI bleed K92.2 Acute blood loss anemia D62 Chronic low back pain M54.50; G89.29 Seizure disorder G40.909 Insomnia G47.00 Bronchiectasis J47.9
[2022-09-17] MEDS ORDERED: SUCRALFATE 1 GM TAB PO SCH (13:00)
== END 2022-09-17 14:28 | disposition home or self-care (01) | DRG 393 ==
LOC: ED 14:06 → 2S 21:23 → SUATTDRO 21:23 → 2S 22:45

== ENCOUNTER 2023-05-17 11:58 | Inpatient (IN) ==
[2023-05-17] MEDS: OPTIRAY 320 125ml IV ONE (12:36)
[2023-05-17] MEDS: ONDANSETRON INJ 2 MG/ML 2 ML VIAL IV STA (12:44)
[2023-05-17] MEDS: SODIUM CHLORIDE 0.9% 1,000 ML IV ONE (12:45)
[2023-05-17] MEDS: MoRPHine SULFATE 4 MG/ML 1 ML CARP\\VIAL IV STA (12:45)
--- NOTE | 2023-05-17 12:46 | Emergency Department Note ---
Impression & Plan Abdominal pain, Back pain, Abnormal EKG, Abnormal computed tomography of abdomen and pelvis, Hypokalemia ED Provider Note NAME: LIZBETH COELHO AGE: 67 SEX: F : 1955 ARRIVES VIA: Walk-In INFORMANT: Patient, ED PROVIDER(S): Connor Faustin DO CHIEF COMPLAINT: Abdominal pain HPI: The patient is a 67-year-old female who presented to the emergency department for evaluation of upper abdominal pain and back pain. The patient states that she started having the symptoms approximately 2 weeks ago. She started having worsening of symptoms over the course the last 3 to 4 days. The patient went to see her family doctor today and was referred directly to the emergency department. She states pain is worse with food. She denies any alcohol use or tobacco use. She denies having any acute chest pain or difficulty breathing. She states the pain is worsened upon palpation of the abdomen as well as walking. The patient denies having any fever. She denies having any black or tarry stools. ROS: See above HPI for pertinent positives & negatives. A total of 10 systems reviewed and were otherwise negative. PAST MEDICAL HISTORY: See Below PAST SURGICAL HISTORY: See Below FAMILY HISTORY: See Below SOCIAL HISTORY: See Below HOME MEDICATIONS: See Below ALLERGIES: See Below VITALS: See Below PHYSICAL EXAMINATION: GENERAL: The patient is awake and alert. She is very anxious and appears to be uncomfortable. EYES: The conjunctivae are clear. The pupils are round and reactive. EARS, NOSE, MOUTH AND THROAT: The nose is without any evidence of any deformity. NECK: The neck is nontender and supple. RESPIRATORY: Normal respiratory effort is noted there is no evidence of wheezing rhonchi or rales CARDIOVASCULAR: Regular rate and rhythm noted there no murmurs rubs or gallops normal S1 normal S2. GASTROINTESTINAL: The abdomen was distended and diffusely tender to palpation. There is guarding in the right lower quadrant. MUSCULOSKELETAL/EXTREMITIES: There is no evidence of gross deformity full range of motion is noted in the hips and shoulders. SKIN: There is no pedal edema appreciated. Skin is cool and diaphoretic. NEUROLOGIC: Patient is awake alert and oriented x3 MEDICAL DECISION MAKING: The patient is a 67-year-old female who presented to the emergency department for an evaluation of abdominal pain and back pain. The patient was initially placed in the waiting room but her EKG showed significant abnormalities. I discussed the patient's laboratory and radiographic studies with her. She was brought directly to her room after my evaluation in triage. Patient was complaining mostly of upper abdominal pain. This appeared to radiate into her back. The patient was found to have an abnormal CAT scan of the abdomen and pelvis which could be consistent with a previous duodenal perforation. There does appear to be some inflammation around this collection which could correlate with an acute infectious process. I discussed the patient's condition with the on-call general surgical group. They evaluated the patient in the emergency department. The case was also discussed with the [facility] hospitalist group. They have agreed to evaluate the patient in the emergency department for further management and disposition. Surgery did recommend that GI be consulted as well. They also recommended antibiotics and a Protonix drip. Triage Nursing notes reviewed. Prior medical records reviewed Vital Signs: reviewed and remarkable for no significant abnormalities Differential diagnosis: Etiologies such as appendicitis, diverticulitis, obstruction, inflammatory bowel disease, renal colic, PUD, biliary pathology, pancreatitis, mesenteric ischemia, aortic pathology, infections, genitourinary, UTI, perforated viscus, as well as others were entertained. ER treatment provided: See below Diagnostics interpreted by me: ECG: EKG was obtained in the emergency department. My interpretation is normal sinus rhythm at 90 bpm. There was no ectopy. Nonspecific ST depressions with T wave versions were noted in the low lateral and inferior leads. This was compared to a tracing from October 12, 2022. The ST segment abnormalities are new compared to the previous tracing. Cardiac Monitoring: An order was placed for continuous cardiac monitoring. The monitor shows a rate of 68 bpm with sinus rhythm. Laboratory studies: As stated above and show below. Imaging studies: See below. Radiographic imaging was reviewed by myself Consultation(s): I discussed this case with Aline who is on-call for the general surgical group. Dr. Collier was notified about the patient. He will evaluate the patient soon as possible. ED COURSE: Procedures: none Critical Care: I have personally spent greater than 45 minutes of critical care time in the direct management of this patient. This includes bedside care, interpretation of diagnostic studies, and testing, discussion with consultants, patient, and family members, and other required patient management activities. This 45 minutes is in excess of all separately billable procedures. Past Med/Surg History Medical History Memory changes History Since TIA (2008) - mild- no recent issues per patient (no follow up with neurology needed) History of recent blood transfusion 09/16/22 @ [facility]--2 units PRBC for upper GI bleed Seizure disorder Chronic low back pain Upper GI bleed recently admitted at [facility] 09/15/22---per pt was found to have bleeding at gastric bypass site, clipped at site and received 2 units PRBCs--pt states she has improved, no current issue, is taking sucralfate as prescribed Insomnia Chronic cough Stable Elevated diaphragm Bronchiectasis Follows with Dr. Moreno- breathing stable Peripheral neuropathy Hands and feet Degenerative disc disease Chronic back pain Lumbar facet arthropathy Spinal stenosis Osteoporosis GERD (gastroesophageal reflux disease) Well controlled and stable Depression Stable Seizure "Staring seizures"- no issues since 2010 per patient Transient ischemic attack (TIA) 2008- no current issues History of high blood pressure Bronchiectasis hx Surgical History Hx of cataract extraction bilat History of total knee replacement RT/LEFT History of esophagogastroduodenoscopy (EGD) 09/16/22 @ [facility] History of colonoscopy H/O total hysterectomy History of cholecystectomy History of tonsillectomy History of tooth extraction History of gastric bypass Family History Aunt Diabetes Grandmother (Paternal) Diabetes Other No family history of adverse response to anesthesia Social History Smoking Status: Never smoker Second Hand Exposure: No; Hx Alcohol Use: No Hx Substance Use: No Preferred Language: Frisian Communication Ability: Effective Quarter Backer Required: No Beliefs That Will Affect Care: None Current Living Situation: Alone Feels Safe at Home: Yes Assistive Devices: None Allergies Allergies Allergy/AdvReac Type Severity Reaction Status Date / Time No Known Allergies Allergy Verified 11/08/22 11:50 Home Meds Home Medications Medication Instructions Recorded Confirmed cyanocobalamin (vitamin B-12) 1,000 mcg PO QAM 07/23/19 11/08/22 1,000 mcg tablet donepezil 10 mg tablet (Aricept) 10 mg PO HS 07/23/19 11/08/22 escitalopram oxalate 20 mg tablet 20 mg PO BID 07/23/19 11/08/22 (Lexapro) memantine 5 mg tablet (Namenda) 5 mg PO BID 07/23/19 11/08/22 pantoprazole 40 mg tablet,delayed 40 mg PO BID 07/23/19 11/08/22 release (Protonix) quetiapine 300 mg tablet (Seroquel) 300 mg PO HS 07/23/19 11/08/22 topiramate 100 mg tablet (Topamax) 100 mg PO BID 07/23/19 11/08/22 bupropion HCl 200 mg tablet,12 hr 200 mg PO BID 09/15/22 11/08/22 sustained-release hydroxyzine HCl 25 mg tablet 50 mg PO HS 09/15/22 11/08/22 rizatriptan 10 mg tablet 10 mg PO DAILY PRN MIGRAINE 09/15/22 11/08/22 zolpidem 10 mg tablet 10 mg PO HS 09/15/22 11/08/22 Previous Rx's Medication Instructions Recorded nebulizer accessories #1 ea 03/01/22 albuterol sulfate 0.63 mg/3 mL 0.63 mg (3 mL) inhalation BID 06/24/22 solution for nebulization shortness of breath or wheezing #90 mL sodium chloride 7 % for 4 ml inhalation BID #240 mL 06/24/22 nebulization (Hyper-Denys) sucralfate 1 gram tablet 1 g PO QID #100 tabs 09/17/22 oxycodone 5 mg tablet 5 mg PO Q6H PRN pain #30 tabs 11/10/22 tramadol 50 mg tablet 50 mg PO Q6H PRN pain, moderate 11/10/22 #30 tabs gabapentin 300 mg capsule 300 mg PO TID #90 caps 11/11/22 Results & Data (ED) Vital Signs Vital Signs - 24 hr 05/17/23 12:05 05/17/23 12:50 05/17/23 12:52 Temperature 36.3 C L Temperature Source Temporal Artery Scan Pulse Rate 94 H 74 76 Pulse Rate from SpO2 Sensor 74 Respiratory Rate 18 Respiratory Effort / Characteristics Non-Labored Respiratory Depth Normal Respiratory Pattern Regular Blood Pressure 165/84 H Blood Pressure Mean 111 Pulse Oximetry 100 100 Oxygen Delivery Method Room Air Sepsis Recent Fever Within 48 Hours No Sepsis New/Unexplained Change in Mental Status N/A Sepsis Action Taken by Nursing No Action Required 05/17/23 13:00 05/17/23 13:00 05/17/23 13:10 Temperature Temperature Source Pulse Rate 66 68 Pulse Rate from SpO2 Sensor 67 69 Respiratory Rate 23 Respiratory Effort / Characteristics Respiratory Depth Respiratory Pattern Blood Pressure 121/50 L Blood Pressure Mean 78 Pulse Oximetry 98 98 Oxygen Delivery Method Sepsis Recent Fever Within 48 Hours Sepsis New/Unexplained Change in Mental Status Sepsis Action Taken by Nursing 05/17/23 13:20 05/17/23 13:30 05/17/23 13:30 Temperature Temperature Source Pulse Rate 73 71 Pulse Rate from SpO2 Sensor 72 71 Respiratory Rate 22 24 Respiratory Effort / Characteristics Respiratory Depth Respiratory Pattern Blood Pressure 140/72 Blood Pressure Mean 96 Pulse Oximetry 93 95 Oxygen Delivery Method Sepsis Recent Fever Within 48 Hours Sepsis New/Unexplained Change in Mental Status Sepsis Action Taken by Nursing 05/17/23 13:40 05/17/23 13:50 05/17/23 14:00 Temperature Temperature Source Pulse Rate 70 69 Pulse Rate from SpO2 Sensor 71 67 Respiratory Rate Respiratory Effort / Characteristics Respiratory Depth Respiratory Pattern Blood Pressure 124/76 Blood Pressure Mean 109 Pulse Oximetry 96 98 Oxygen Delivery Method Sepsis Recent Fever Within 48 Hours Sepsis New/Unexplained Change in Mental Status Sepsis Action Taken by Nursing 05/17/23 14:00 05/17/23 14:10 Temperature Temperature Source Pulse Rate 71 68 Pulse Rate from SpO2 Sensor 72 68 Respiratory Rate 22 Respiratory Effort / Characteristics Respiratory Depth Respiratory Pattern Blood Pressure Blood Pressure Mean Pulse Oximetry 99 96 Oxygen Delivery Method Sepsis Recent Fever Within 48 Hours Sepsis New/Unexplained Change in Mental Status Sepsis Action Taken by Long-Term Medications Current Medication List: was personally reviewed by ms Laboratory Data Attestation: I reviewed the patient's lab results. 05/17/23 12:24 05/17/23 12:24 Lab Results 05/17/23 Range/Units 12:24 WBC 6.80 (4.8-10.8) K/ul RBC 4.43 (4.20-5.40) M/uL Hgb 10.0 L (12.0-16.0) g/dl Hct 33.5 L (37.0-47.0) % MCV 75.6 L (80.0-100.0) fL MCH 22.6 L (25.0-34.0) pg MCHC 29.9 L (32.0-36.0) g/dL RDW Std Deviation 43.6 (36.4-46.3) fL RDW Coeff of Meredith 15.9 H (11.5-14.5) % Plt Count 448 H (130-400) K/uL MPV 9.7 (9.4-12.4) fL Immature Gran % (Auto) 0.1 % Neut % (Auto) 70.3 % Lymph % (Auto) 16.8 % [place] % (Auto) 9.9 % Eos % (Auto) 2.5 % Baso % (Auto) 0.4 % Neut # (Auto) 4.78 (1.40-6.50) K/uL Lymph # (Auto) 1.14 L (1.20-3.40) K/uL [place] # (Auto) 0.67 H (0.11-0.59) K/uL Eos # (Auto) 0.17 (0.00-0.50) K/uL Baso # (Auto) 0.03 (0.00-0.20) K/uL Immature Gran # (Auto) 0.01 (0.01-0.20) K/uL PT 11.8 (9.0-12.0) Seconds INR 1.1 (0.9-1.1) APTT < 20 L (21-31) Seconds PTT Ratio 0.7 Sodium 140 (136-145) mmol/L Potassium 3.1 L (3.5-5.1) mmol/L Chloride 101 (98-107) mmol/L Carbon Dioxide 29 (21-32) mmol/L Anion Gap 10 (3-11) BUN 18 (6-23) mg/dl Creatinine 0.72 (0.6-1.2) mg/dl Est Cr Clr Drug Dosing 64.7 ml/min Est GFR ( Amer) 101.9 ml/min Est GFR (Non-Af Amer) 87.9 ml/min BUN/Creatinine Ratio 25.0 H (10-20) Glucose 100 H (70-99(Fasting)) mg/dl Calcium 9.4 (8.6-10.3) mg/dl Total Bilirubin 0.5 (0.2-1.0) mg/dl AST 12 L (13-39) U/L ALT 6 L (7-52) U/L Alkaline Phosphatase 73 (34-104) U/L Troponin I High Sens 4.3 (0-14) pg/ml Total Protein 6.7 (6.0-8.3) gm/dl Albumin 4.1 (3.4-5.0) gm/dl Globulin 2.6 (2.5-4.0) gm/dl Albumin/Globulin Ratio 1.6 (0.9-2) Lipase 365 H (11-82) U/L Administered Medications Morphine Sulfate (Morphine Sulfate 4 Mg/Ml 1 Ml Carp\\Vial) 4 mg IV Q30M PRN PRN Reason: Pain Stop: 05/31/23 12:25 Last Admin: 05/17/23 13:58 Dose: 4 mg Documented By: JULIAN Discontinued Medications Sodium Chloride (Nss) 1,000 mls @ 999 mls/hr IV .Q1H1M ONE Stop: 05/17/23 13:26 Last Infusion: 05/17/23 13:48 Dose: Infused Documented By: Admin: 05/17/23 12:45 Dose: 999 mls/hr Documented By: STEFANO Pantoprazole Sodium 40 mg/ (Syringe) 10 mls @ 5 mls/min IV NOW ONE Stop: 05/17/23 12:47 Last Admin: 05/17/23 13:13 Dose: 5 mls/min Documented By: STEFANO Piperacillin Sod/Tazobactam Sod (Zosyn) 4.5 gm in 100 mls @ 200 mls/hr IV NOW ONE Stop: 05/17/23 13:15 Last Infusion: 05/17/23 13:48 Dose: Infused Documented By: Admin: 05/17/23 13:15 Dose: 200 mls/hr Documented By: STEFANO Potassium Chloride (K Cullen / Wtr) 10 meq in 100 mls @ 100 mls/hr IV ONE ONE Stop: 05/17/23 14:06 Last Infusion: 05/17/23 14:55 Dose: Infused Documented By: Admin: 05/17/23 13:54 Dose: 100 mls/hr Documented By: JULIAN Ioversol (Optiray 320 125ml) 119 ml IV ONCE ONE Stop: 05/17/23 12:41 Last Admin: 03/27/24 12:36 Dose: 119 ml Documented By: IGOR Morphine Sulfate (Morphine Sulfate 4 Mg/Ml 1 Ml Carp\\Vial) 4 mg IV NOW STA Stop: 05/17/23 12:27 Last Admin: 05/17/23 12:45 Dose: 4 mg Documented By: STEFANO Ondansetron HCl (Ondansetron Inj 2 Mg/Ml 2 Ml Vial) 4 mg IV NOW STA Stop: 05/17/23 12:27 Last Admin: 05/17/23 12:44 Dose: 4 mg Documented By: STEFANO Imaging Data Attestation: I personally reviewed and interpreted this imaging study as follows: My Impression: CT of the chest was obtained in the emergency department. My interpretation is no free air or definite infiltrate, final report below. CT of the abdomen and pelvis was obtained in the emergency department. There was significant stranding and inflammation, there is no free air or signs of bowel obstruction, final report below. Radiologist's Impression: Abdomen/Pelvis CT 05/17/23 12:26 CT SCAN OF THE ABDOMEN AND PELVIS WITH IV CONTRAST CLINICAL HISTORY: Generalized abdominal pain. COMPARISON STUDY: No priors. TECHNIQUE: Following the IV administration of 119 cc of Optiray 320, CT scan of the abdomen and pelvis is performed from the lung bases to the proximal femora. Images are reviewed in the axial, sagittal, and coronal planes. IV contrast was administered without complication. A dose lowering technique was utilized adhering to the principles of ALARA. FINDINGS: Lung bases: The heart is normal in size and without pericardial effusion. There is mild elevation of the right hemidiaphragm. The lung bases are clear. Liver: The contrast-enhanced liver is normal in size, contour, and attenuation. There is minimal central intrahepatic biliary ductal dilatation. The hepatic veins and portal veins are patent. Gallbladder: Surgically absent noting clips in the gallbladder fossa. Spleen: Normal in size and attenuation. Pancreas: Moderately atrophic and grossly unremarkable. Adrenal glands: Unremarkable. Kidneys: The contrast enhanced kidneys are normal in size and without hydronephrosis. The kidneys enhance symmetrically. Abdominal vasculature: The abdominal aorta is normal in course and caliber noting advanced atherosclerotic calcification. Stomach and bowel: There is postsurgical change consistent with a Fred-en-Y gastric bypass procedure. No bowel obstruction is seen. There is residual enteric contrast in the rectosigmoid. No bowel obstruction is seen. There is mild colonic fecal retention. The appendix is well-visualized and normal. Peritoneum: There is no intraperitoneal free air or abdominal ascites. There is a serpiginous and thick-walled/loculated fluid collection which extends from the proximal duodenum inferiorly into the right lower quadrant. This measures approximately 9 x 3.5 x 6.5 cm in aggregate dimension, and is best seen on images #[id number]. This is remote from the appendix. There is asymmetric infiltration identified in the right retroperitoneum which extends from the right kidney. A component of fat necrosis is not excluded. Lymphadenopathy: None. Pelvic viscera: The bladder is decompressed and appears thick walled. The uterus is surgically absent. No adnexal lesion is seen. Skeletal structures: The skeletal structures are osteopenic. Postsurgical and spondylotic change is noted in the lumbar spine. No lytic or blastic lesions are seen. There are chronic/healed pelvic ring fractures. IMPRESSION: 1. There is an indeterminant serpiginous and thick walled fluid collection seen extending from the duodenum into the right lower quadrant is detail above. There is associated infiltration and possible fat necrosis in the right retroperitoneum. This fluid collection is of indeterminate etiology and chronicity. The sterility of this fluid cannot be assessed imaging and clinical correlation will be essential. 2. There is postsurgical change consistent with a Fred-en-Y gastric bypass surgery. No bowel obstruction is seen. 3. No intraperitoneal free air is identified. The appendix is normal. 4. The bladder wall appears thickened. Correlate with clinical findings and urinalysis. ACT 112: Negative or not required by law. Electronically signed by: Marquis Palma M.D. 05/17/2023 1:19 PM Chest CTA 05/17/23 12:26 CT angio chest PE protocol CLINICAL HISTORY: PE TECHNIQUE: Multidetector row helical CT of the chest was performed with angiographic protocol. Coronal and sagittal reformations were obtained. Coronal and sagittal MIPS were obtained from the axial data set and were submitted for review. Automated dose lowering techniques and/or adjustment according to patient size were utilized for this exam. CT DOSE: 1148.18 mGy.cm Comparison: Comparison is made to CT chest 01/27/2022 FINDINGS: Lungs and pleura: Normal. Heart and pericardium: Heart size is normal. No pericardial effusion. Vessels: No evidence of pulmonary embolism. Mediastinum and kelly: Unremarkable. Chest wall and lower neck: Unremarkable. Abdomen: For findings below the diaphragm, please refer to CT of the abdomen dated the same. Bones: Degenerative changes in the thoracic spine. IMPRESSION: No acute abnormality and in particular no evidence of pulmonary embolus. ACT 112: Negative or not required by law. Electronically signed by: Bam Hollis M.D. 05/17/2023 12:53 PM Discharge Plan Visit Data Chief Complaint: Abdominal Pain Stated Complaint: ABD PAIN ED Provider: Connor Faustin Discharge Problem: Abdominal pain, Back pain, Abnormal EKG, Abnormal computed tomography of abdomen and pelvis, Hypokalemia Patient Disposition: Being Evaluated by Hospitalist Forms Stand Alone Forms: [facility] [employer] Prescriptions Prescriptions: No Action (DME) nebulizer accessories Kit See Rx Instructions .ROUTE .MEDSUPPLY Qty: 1 0RF Rx Instructions: As directed sodium chloride [Hyper-Denys] 7 % solution for nebulization 4 ml inhalation BID Qty: 240 3RF albuterol sulfate 0.63 mg/3 mL solution for nebulization 0.63 mg inhalation BID Qty: 90 3RF quetiapine [Seroquel] 300 mg Tablet 300 mg PO HS donepezil [Aricept] 10 mg Tablet 10 mg PO HS cyanocobalamin (vitamin B-12) 1,000 mcg Tablet 1,000 mcg PO QAM pantoprazole [Protonix] 40 mg Tablet,Delayed Release (Dr/Ec) 40 mg PO BID topiramate [Topamax] 100 mg Tablet 100 mg PO BID escitalopram oxalate [Lexapro] 20 mg Tablet 20 mg PO BID memantine [Namenda] 5 mg Tablet 5 mg PO BID rizatriptan 10 mg tablet 10 mg PO DAILY PRN (Reason: MIGRAINE) hydroxyzine HCl 25 mg tablet 50 mg PO HS zolpidem 10 mg tablet 10 mg PO HS bupropion HCl 200 mg tablet sustained-release 12 hr 200 mg PO BID sucralfate 1 gram Tablet 1 g PO QID Qty: 100 0RF tramadol 50 mg tablet 50 mg PO Q6H PRN (Reason: pain, moderate) Qty: 30 0RF oxycodone 5 mg tablet 5 mg PO Q6H PRN (Reason: pain) Qty: 30 0RF gabapentin 300 mg Capsule 300 mg PO TID Qty: 90 0RF Referrals Referrals: Mami,Paula E., DO [Primary Care Provider] - Discharge Problem: Abdominal pain Qualifiers: Abdominal location: upper abdomen, unspecified Qualified Code(s): R10.10 - Upper abdominal pain, unspecified Back pain Qualifiers: Back pain location: back pain in unspecified location Chronicity: acute Back pain laterality: bilateral Qualified Code(s): M54.9 - Dorsalgia, unspecified
--- NOTE | 2023-05-17 12:54 | CT Scan Report ---
CT angio chest PE protocol CLINICAL HISTORY: PE TECHNIQUE: Multidetector row helical CT of the chest was performed with angiographic protocol. Tran l and sagittal reformations were obtained. Coronal and sagittal MIPS were obtained from the axial radha a set and were submitted for review. Automated dose lowering techniques and/or adjustment according to patient size were utilized for this exam. CT DOSE: 1148.18 mGy.cm Comparison: Comparison is made to CT chest 01/27/2022 FINDINGS: Lungs and pleura: Normal. Heart and pericardium: Heart size is normal. No pericardial effusion. Vessels: No evidence of pulmonary embolism. Mediastinum and kelly: Unremarkable. Chest wall and lower neck: Unremarkable. Abdomen: For findings below the diaphragm, please refer to CT of the abdomen dated the same. Bones: Degenerative changes in the thoracic spine. IMPRESSION: No acute abnormality and in particular no evidence of pulmonary embolus. ACT 112: Negative or not required by law. Electronically signed by: Bam Hollis M.D. 05/17/2023 12:53 PM
[2023-05-17 12:58] LABS: Basophils # (auto) 0.03 K/uL (0.00-0.20); Basophils % (auto) 0.4 %; Eosinophils # (auto) 0.17 K/uL (0.00-0.50); Eosinophils % (auto) 2.5 %; Hematocrit (blood only) 33.5 % (37.0-47.0); Immature Granulocytes # (auto) 0.01 K/uL (0.01-0.20); Immature Granulocytes % (auto) 0.1 %; Lymphocytes # (auto) 1.14 K/uL (1.20-3.40); Lymphocytes % (auto) 16.8 %; Mean Corpuscular Hemoglobin 22.6 pg (25.0-34.0); Mean Corpuscular Hgb Conc 29.9 g/dL (32.0-36.0); Mean Corpuscular Volume 75.6 fL (80.0-100.0); Mean Platelet Volume 9.7 fL (9.4-12.4); Monocytes # (auto) 0.67 K/uL (0.11-0.59); Monocytes % (auto) 9.9 %; Neutrophils # (auto) 4.78 K/uL (1.40-6.50); Neutrophils % (auto) 70.3 %; Platelet Count 448 K/uL (130-400); RDW Coefficient of Variation 15.9 % (11.5-14.5); RDW Standard Deviation 43.6 fL (36.4-46.3); Red Blood Count 4.43 M/uL (4.20-5.40)
[2023-05-17 12:59] LABS: Albumin Globulin Ratio 1.6 (0.9-2); Albumin Level 4.1 gm/dl (3.4-5.0); Bilirubin,Total 0.5 mg/dl (0.2-1.0); Calcium 9.4 mg/dl (8.6-10.3); Creatinine Clr Calc Pharmacy 64.7 ml/min; Est GFR (African American) 101.9 ml/min; Est GFR (Non-African American) 87.9 ml/min; Globulin 2.6 gm/dl (2.5-4.0); Potassium 3.1 mmol/L (3.5-5.1); Total Protein 6.7 gm/dl (6.0-8.3)
[2023-05-17 13:04] LABS: Troponin I High Sensitivity 4.3 pg/ml (0-14)
[2023-05-17] MEDS: PANTOprazole 40 MG in SYRINGE 0 ML IV ONE (13:13)
[2023-05-17] MEDS: PIPERACILLIN/TAZOBACTAM 4.5 GM/100 ML BAG IV ONE (13:15)
--- NOTE | 2023-05-17 13:20 | CT Scan Report ---
CT SCAN OF THE ABDOMEN AND PELVIS WITH IV CONTRAST CLINICAL HISTORY: Generalized abdominal pain. COMPARISON STUDY: No priors. TECHNIQUE: Following the IV administration of 119 cc of Optiray 320, CT scan of the abdomen and pelv is is performed from the lung bases to the proximal femora. Images are reviewed in the axial, sagitta l, and coronal planes. IV contrast was administered without complication. A dose lowering technique w as utilized adhering to the principles of ALARA. FINDINGS: Lung bases: The heart is normal in size and without pericardial effusion. There is mild elevation of the right hemidiaphragm. The lung bases are clear. Liver: The contrast-enhanced liver is normal in size, contour, and attenuation. There is minimal cent ral intrahepatic biliary ductal dilatation. The hepatic veins and portal veins are patent. Gallbladder: Surgically absent noting clips in the gallbladder fossa. Spleen: Normal in size and attenuation. Pancreas: Moderately atrophic and grossly unremarkable. Adrenal glands: Unremarkable. Kidneys: The contrast enhanced kidneys are normal in size and without hydronephrosis. The kidneys enh ance symmetrically. Abdominal vasculature: The abdominal aorta is normal in course and caliber noting advanced atheroscle rotic calcification. Stomach and bowel: There is postsurgical change consistent with a Fred-en-Y gastric bypass procedure. No bowel obstruction is seen. There is residual enteric contrast in the rectosigmoid. No bowel obstr uction is seen. There is mild colonic fecal retention. The appendix is well-visualized and normal. Peritoneum: There is no intraperitoneal free air or abdominal ascites. There is a serpiginous and thi ck-walled/loculated fluid collection which extends from the proximal duodenum inferiorly into the rig ht lower quadrant. This measures approximately 9 x 3.5 x 6.5 cm in aggregate dimension, and is best s een on images #[id number]. This is remote from the appendix. There is asymmetric infiltration identified in the right retroperitoneum which extends from the right kidney. A component of fat necrosis is not excluded. Lymphadenopathy: None. Pelvic viscera: The bladder is decompressed and appears thick walled. The uterus is surgically absent . No adnexal lesion is seen. Skeletal structures: The skeletal structures are osteopenic. Postsurgical and spondylotic change is n oted in the lumbar spine. No lytic or blastic lesions are seen. There are chronic/healed pelvic ring fractures. IMPRESSION: 1. There is an indeterminant serpiginous and thick walled fluid collection seen extending from the du odenum into the right lower quadrant is detail above. There is associated infiltration and possible f at necrosis in the right retroperitoneum. 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 The sterility of this fluid cannot be assessed imaging and clinical correlation will be essen tial. 2. There is postsurgical change consistent with a Fred-en-Y gastric bypass surgery. No bowel obstruct ion is seen. 3. No intraperitoneal free air is identified. The appendix is normal. 4. The bladder wall appears thickened. Correlate with clinical findings and urinalysis. ACT 112: Negative or not required by law. Electronically signed by: Marquis Palma M.D. 05/17/2023 1:19 PM
[2023-05-17 13:36] LABS: INR 1.1 (0.9-1.1); Partial Thromboplastin Ratio 0.7; Prothrombin Time 11.8 Seconds (9.0-12.0)
[2023-05-17 13:48] LABS: Partial Thromboplastin Time < 20 Seconds (21-31)
[2023-05-17] MEDS: POTASSIUM CHLORIDE / WTR 10 MEQ/100 ML PLCT IV ONE (13:54)
[2023-05-17] MEDS: MoRPHine SULFATE 4 MG/ML 1 ML CARP\\VIAL IV PRN (13:58)
--- NOTE | 2023-05-17 14:46 | Surgery Consultation ---
<Statement entered by Alfred Boucher MD - 05/18/23 07:27> patient seen and examined minimal abdominal tenderness agree with above plan Date of Consultation May 17, 2023 Assessment & Plan (1) Abnormal CT of the abdomen: (2) RUQ abdominal pain: Plan 67 year-old female with history of gastric bypass surgery 7 years ago and upper GI bleed at site of gastric bypass in August of 2022 presented to ED with 2 week history of increasing heartburn with associated abdominal pain postprandial. CT scan of abdomen and pelvis showing indeterminate fluid collection measuring 9 x 3 x 6 cm beginning at duodenum and extending into the right lower quadrant with asymmetric infiltration of the right retroperitoneum. No pneumoperitoneum, afebrile, no leukocytosis. Abdominal examination without peritoneal signs however tenderness in RUQ and right mid abdomen and right flank. Reviewed imaging with Dr. Julien in radiology, given history and imaging findings possibly contained perforation of the duodenum. Plan: No acute surgical intervention required at this time. Would recommend hospitalist admit and GI consultation. Recommend IV fluids, IV antibiotics, PPI drip, Pain management as needed, antiemetics as needed. NPO for bowel rest repeat am labs Dr. Boucher has seen and examined patient, agrees with above. History of Present Illness Reason for Consultation: Abdominal pain Requesting Physician: Dr. Faustin Attending Physician: Dr. Faustin History of Present Illness Anila is a 67 year-old female with history of gastric bypass surgery 8 years ago in [place] and upper GI bleed in August of 2022 in which she required blood transfusion presented to ED with worsening abdominal pain in last 3-4 days with associated heartburn. Anila states in the last 2 weeks she has noticed some increased/severe heartburn and then would notice burning abdominal pain after eating that would last a few hours and sometimes be chronic for a few days. States she is able to eat without nausea and vomiting but pain has been slowly increasing in severity which brought her to emergency department. Denies any fever, chills, chest pain, shortness of breath, vomiting blood, diarrhea, blood in stools, black/tarry stools. Takes Protonix daily. Has not been taking any NSAIDs since GI bleed last year. No smoking or alcohol use. Does not follow with her bariatric surgeon nor cardiology clinical consultant on regular basis. History of total hysterectomy, gastric bypass, cholecystectomy. Currently states pain is about 4/10 and better since receiving pain medication. No fevers or chills or nausea. No chest pain or shortness of breath. Allergies Allergy/AdvReac Type Severity Reaction Status Date / Time No Known Allergies Allergy Verified 11/08/22 11:50 Home Medications Medication Instructions Recorded Confirmed Type cyanocobalamin (vitamin B-12) 1,000 mcg PO QAM 07/23/19 11/08/22 History 1,000 mcg tablet donepezil 10 mg tablet (Aricept) 10 mg PO HS 07/23/19 11/08/22 History escitalopram oxalate 20 mg tablet 20 mg PO BID 07/23/19 11/08/22 History (Lexapro) memantine 5 mg tablet (Namenda) 5 mg PO BID 07/23/19 11/08/22 History pantoprazole 40 mg tablet,delayed 40 mg PO BID 07/23/19 11/08/22 History release (Protonix) quetiapine 300 mg tablet (Seroquel) 300 mg PO HS 07/23/19 11/08/22 History topiramate 100 mg tablet (Topamax) 100 mg PO BID 07/23/19 11/08/22 History nebulizer accessories #1 ea 03/01/22 09/14/22 Rx albuterol sulfate 0.63 mg/3 mL 0.63 mg (3 mL) inhalation BID 06/24/22 11/08/22 Rx solution for nebulization shortness of breath or wheezing #90 mL sodium chloride 7 % for 4 ml inhalation BID #240 mL 06/24/22 11/08/22 Rx nebulization (Hyper-Denys) bupropion HCl 200 mg tablet,12 hr 200 mg PO BID 09/15/22 11/08/22 History sustained-release hydroxyzine HCl 25 mg tablet 50 mg PO HS 09/15/22 11/08/22 History rizatriptan 10 mg tablet 10 mg PO DAILY PRN MIGRAINE 09/15/22 11/08/22 History zolpidem 10 mg tablet 10 mg PO HS 09/15/22 11/08/22 History sucralfate 1 gram tablet 1 g PO QID #100 tabs 09/17/22 11/08/22 Rx oxycodone 5 mg tablet 5 mg PO Q6H PRN pain #30 tabs 11/10/22 Rx tramadol 50 mg tablet 50 mg PO Q6H PRN pain, moderate 11/10/22 Rx #30 tabs gabapentin 300 mg capsule 300 mg PO TID #90 caps 11/11/22 Rx Patient History Medical History Memory changes History Since TIA (2008) - mild- no recent issues per patient (no follow up with neurology needed) History of recent blood transfusion 09/16/22 @ [facility]--2 units PRBC for upper GI bleed Seizure disorder Chronic low back pain Upper GI bleed recently admitted at [facility] 09/15/22---per pt was found to have bleeding at gastric bypass site, clipped at site and received 2 units PRBCs--pt states she has improved, no current issue, is taking sucralfate as prescribed Insomnia Chronic cough Stable Elevated diaphragm Bronchiectasis Follows with Dr. Moreno- breathing stable Peripheral neuropathy Hands and feet Degenerative disc disease Chronic back pain Lumbar facet arthropathy Spinal stenosis Osteoporosis GERD (gastroesophageal reflux disease) Well controlled and stable Depression Stable Seizure "Staring seizures"- no issues since 2010 per patient Transient ischemic attack (TIA) 2008- no current issues History of high blood pressure Bronchiectasis hx Surgical History Hx of cataract extraction bilat History of total knee replacement RT/LEFT History of esophagogastroduodenoscopy (EGD) 09/16/22 @ [facility] History of colonoscopy H/O total hysterectomy History of cholecystectomy History of tonsillectomy History of tooth extraction History of gastric bypass Family History Aunt Diabetes Grandmother (Paternal) Diabetes Other No family history of adverse response to anesthesia Social History Smoking Status: Never smoker Second Hand Exposure: No; Hx Alcohol Use: No Hx Substance Use: No Preferred Language: Kazakh Communication Ability: Effective Mixing 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 Required: No Beliefs That Will Affect Care: None Current Living Situation: Alone Feels Safe at Home: Yes Assistive Devices: None Review of Systems Review of Systems: All systems reviewed & are unremarkable except as noted in HPI & below Physical Exam Constitutional: WD/WN, vitals as above cooperative; no acute distress, not ill appearing and not diaphoretic Respiratory: normal respiratory effort, lungs clear to auscultation Cardiovascular: Rate/Rhythm: regular rate and regular rhythm Heart Sounds: normal S1 and normal S2 Gastrointestinal (Abdomen): Inspection/Auscultation: abdomen normal to inspection and + abdominal surgical scar (midline laparotomy scar); abdomen not distended Percussion/Palpation: + abdomen tender (RUQ/right mid abdomen extending around to right flank) and abdomen soft; no guarding, abdomen not rigid and abdomen not firm Skin: no rashes, warm and dry Psychiatric: A+Ox3, euthymic affect Results & Data Vital Signs (Past 12 Hours) Vital Signs Temp Pulse Resp BP Pulse Ox O2 Del Method 05/17/23 14:10 68 96 05/17/23 14:00 71 22 99 05/17/23 14:00 124/76 05/17/23 13:50 69 98 05/17/23 13:40 70 96 05/17/23 13:30 71 24 95 05/17/23 13:30 140/72 05/17/23 13:20 73 22 93 05/17/23 13:10 68 23 98 05/17/23 13:00 66 98 05/17/23 13:00 121/50 L 05/17/23 12:52 76 05/17/23 12:50 74 100 05/17/23 12:05 36.3 C L 94 H 18 165/84 H 100 Room Air Laboratory Results 05/17/23 Range/Units 12:24 WBC 6.80 (4.8-10.8) K/ul RBC 4.43 (4.20-5.40) M/uL Hgb 10.0 L (12.0-16.0) g/dl Hct 33.5 L (37.0-47.0) % MCV 75.6 L (80.0-100.0) fL MCH 22.6 L (25.0-34.0) pg MCHC 29.9 L (32.0-36.0) g/dL RDW Std Deviation 43.6 (36.4-46.3) fL RDW Coeff of Meredith 15.9 H (11.5-14.5) % Plt Count 448 H (130-400) K/uL MPV 9.7 (9.4-12.4) fL Immature Gran % (Auto) 0.1 % Neut % (Auto) 70.3 % Lymph % (Auto) 16.8 % Spalding % (Auto) 9.9 % Eos % (Auto) 2.5 % Baso % (Auto) 0.4 % Neut # (Auto) 4.78 (1.40-6.50) K/uL Lymph # (Auto) 1.14 L (1.20-3.40) K/uL Spalding # (Auto) 0.67 H (0.11-0.59) K/uL Eos # (Auto) 0.17 (0.00-0.50) K/uL Baso # (Auto) 0.03 (0.00-0.20) K/uL Immature Gran # (Auto) 0.01 (0.01-0.20) K/uL PT 11.8 (9.0-12.0) Seconds INR 1.1 (0.9-1.1) APTT < 20 L (21-31) Seconds PTT Ratio 0.7 Sodium 140 (136-145) mmol/L Potassium 3.1 L (3.5-5.1) mmol/L Chloride 101 (98-107) mmol/L Carbon Dioxide 29 (21-32) mmol/L Anion Gap 10 (3-11) BUN 18 (6-23) mg/dl Creatinine 0.72 (0.6-1.2) mg/dl Est Cr Clr Drug Dosing 64.7 ml/min Est GFR ( Amer) 101.9 ml/min Est GFR (Non-Af Amer) 87.9 ml/min BUN/Creatinine Ratio 25.0 H (10-20) Glucose 100 H (70-99(Fasting)) mg/dl Calcium 9.4 (8.6-10.3) mg/dl Total Bilirubin 0.5 (0.2-1.0) mg/dl AST 12 L (13-39) U/L ALT 6 L (7-52) U/L Alkaline Phosphatase 73 (34-104) U/L Troponin I High Sens 4.3 (0-14) pg/ml Total Protein 6.7 (6.0-8.3) gm/dl Albumin 4.1 (3.4-5.0) gm/dl Globulin 2.6 (2.5-4.0) gm/dl Albumin/Globulin Ratio 1.6 (0.9-2) Lipase 365 H (11-82) U/L Diagnostic Findings CT SCAN OF THE ABDOMEN AND PELVIS WITH IV CONTRAST CLINICAL HISTORY: Generalized abdominal pain. COMPARISON STUDY: No priors. TECHNIQUE: Following the IV administration of 119 cc of Optiray 320, CT scan of the abdomen and pelvis is performed from the lung bases to the proximal femora. Images are reviewed in the axial, sagittal, and coronal planes. IV contrast was administered without complication. A dose lowering technique was utilized adhering to the principles of ALARA. FINDINGS: Lung bases: The heart is normal in size and without pericardial effusion. There is mild elevation of the right hemidiaphragm. The lung bases are clear. Liver: The contrast-enhanced liver is normal in size, contour, and attenuation. There is minimal central intrahepatic biliary ductal dilatation. The hepatic veins and portal veins are patent. Gallbladder: Surgically absent noting clips in the gallbladder fossa. Spleen: Normal in size and attenuation. Pancreas: Moderately atrophic and grossly unremarkable. Adrenal glands: Unremarkable. Kidneys: The contrast enhanced kidneys are normal in size and without hydronephrosis. The kidneys enhance symmetrically. Abdominal vasculature: The abdominal aorta is normal in course and caliber noting advanced atherosclerotic calcification. Stomach and bowel: There is postsurgical change consistent with a Fred-en-Y gastric bypass procedure. No bowel obstruction is seen. There is residual enteric contrast in the rectosigmoid. No bowel obstruction is seen. There is mild colonic fecal retention. The appendix is well-visualized and normal. Peritoneum: There is no intraperitoneal free air or abdominal ascites. There is a serpiginous and thick-walled/loculated fluid collection which extends from the proximal duodenum inferiorly into the right lower quadrant. This measures approximately 9 x 3.5 x 6.5 cm in aggregate dimension, and is best seen on images #[id number]. This is remote from the appendix. There is asymmetric infiltration identified in the right retroperitoneum which extends from the right kidney. A component of fat necrosis is not excluded. Lymphadenopathy: None. Pelvic viscera: The bladder is decompressed and appears thick walled. The uterus is surgically absent. No adnexal lesion is seen. Skeletal structures: The skeletal structures are osteopenic. Postsurgical and spondylotic change is noted in the lumbar spine. No lytic or blastic lesions are seen. There are chronic/healed pelvic ring fractures. IMPRESSION: 1. There is an indeterminant serpiginous and thick walled fluid collection seen extending from the duodenum into the right lower quadrant is detail above. There is associated infiltration and possible fat necrosis in the right retroperitoneum. This fluid collection is of indeterminate etiology and chronicity. The sterility of this fluid cannot be assessed imaging and clinical correlation will be essential. 2. There is postsurgical change consistent with a Fred-en-Y gastric bypass surgery. No bowel obstruction is seen. 3. No intraperitoneal free air is identified. The appendix is normal. 4. The bladder wall appears thickened. Correlate with clinical findings and urinalysis.
[2023-05-17] MEDS: PANTOprazole 40 MG in DEXTROSE 5% MINI-B 100 ML IV SCH (15:53)
[2023-05-17] MEDS: PANTOprazole 80 MG in DEXTROSE 5% 100 ML IV ONE (15:57)
--- NOTE | 2023-05-17 16:18 | Electrocardiogram Report ---
Test Reason : Blood Pressure : / mmHG Vent. Rate : 090 BPM Atrial Rate : 090 BPM P-R Int : 132 ms QRS Dur : 088 ms QT Int : 380 ms P-R-T Axes : 087 084 -73 degrees QTc Int : 464 ms Normal sinus rhythm Abnormal ECG When compared with ECG of 12-OCT-2022 14:28, ST now depressed in Inferior leads T wave inversion now evident in Inferior leads T wave inversion now evident in Anterolateral leads Confirmed by Connor Locke [id number] on 05/17/2023 4:18:01 PM Referred By: Confirmed By:Connor Locke
--- NOTE | 2023-05-17 16:38 | History & Physical Report ---
Date of Service May 17, 2023 Assessment & Plan (1) Abdominal pain: Plan: Suspected contained duodenal perforation, history of GERD With history of Fred-en-Y gastric bypass 7 years ago CTA/P indeterminate thick-walled fluid collection from duodenum into right low er quadrant. No leukocytosis and with a nonacute abdomen clinically. Is suspected to be contained perforation. Pancreas is moderately atrophic, grossly unremarkable Continue PPI, Zosyn, n.p.o., IV FM. Patient has been started on Protonix drip while in the ER, this is continued Surgery consulted, GI consulted. Case was reviewed by surgery while in the ER, suspect is likely to be a contained duodenal perforation not requiring emergent surgical intervention at this time. Recommended GI consultation will continue to follow. Appreciate recommendations No evidence of intraperitoneal free air No evidence of infection/sepsis on admission (2) GERD (gastroesophageal reflux disease): (3) Seizure disorder: Plan: No seizure in many years, initial seizure was a partial staring spell P.o. meds have been held, Keppra given while p.o. is held Seizure precautions, Ativan on-call (4) Transient ischemic attack (TIA): Plan: No focal neurologic symptoms on admission (5) Anemia: Plan: History of anemia History of anemia baseline around 810. Hemoglobin 10.0 on admission. MCV microcytic. Iron panel pending. Transfusion threshold 7.0, no indication for transfusion at time of admission. Trend CBC (6) Neurogenic claudication due to lumbar spinal stenosis: Plan: Lumbar stenosis S/p decompression 10/2022 No acute change. Gabapentin temporarily held while n.p.o., resume once tolerating p.o. Plan DVT prophylaxis: SCDs CODE STATUS: DNR/DNI History of Present Illness Primary Care Provider: Paula Bolaños DO Anila King is a 67-year-old female with past medical history of depression, low back pain, bronchiectasis, Fred-en-Y gastric bypass 7 years ago who presents with epigastric discomfort following meals. CT shows duodenal fluid collection extending into right lower quadrant with infiltration of the right retroperitoneum patient is afebrile and without leukocytosis. Abdomen is without right upper quadrant abnormalities. Imaging was reviewed by surgery and radiology, suspected contained perforation of the duodenum. No acute surgical intervention is recommended, recommended for hospitalist admission with GI consultation, fluids, PPI and n.p.o. for bowel rest. Anila is seen at the bedside. She reports she has had 2-week of constant around 710/10 abdominal pain which is worse in the last 3 to 4 days. Pain has been increasing gradually. Did proved to 45 after receiving pain medicine in the ER. She has had no fever, chills, sweats. No lightheadedness or dizziness. No chest pain or chest pressure. Denies diarrhea. She has not had nausea or vomiting. No melena or bright red blood per rectum. She does have a history of gastric bypass around 8 years ago with [facility] for weight loss, did have a history of ulcers with GI bleed in the last year. Other than her abdominal pain denies other symptoms. She does not note any remitting factors, notes it is worse with palpation. Medical History: Reviewed Medications: Reviewed Surgical History: Reviewed Family history: Reviewed Allergies: Reviewed Social History: Reviewed Code Status: DNR/DNI Allergies Allergy/AdvReac Type Severity Reaction Status Date / Time No Known Allergies Allergy Verified 11/08/22 11:50 Home Medications Medication Instructions Recorded Confirmed Type cyanocobalamin (vitamin B-12) 1,000 mcg PO QAM 07/23/19 11/08/22 History 1,000 mcg tablet donepezil 10 mg tablet (Aricept) 10 mg PO HS 07/23/19 05/17/23 History escitalopram oxalate 20 mg tablet 20 mg PO BID 07/23/19 11/08/22 History (Lexapro) memantine 5 mg tablet (Namenda) 5 mg PO BID 07/23/19 05/17/23 History pantoprazole 40 mg tablet,delayed 40 mg PO DAILY 07/23/19 05/17/23 History release (Protonix) quetiapine 300 mg tablet (Seroquel) 300 mg PO HS 07/23/19 11/08/22 History topiramate 100 mg tablet (Topamax) 100 mg PO BID 07/23/19 05/17/23 History nebulizer accessories #1 ea 03/01/22 09/14/22 Rx albuterol sulfate 0.63 mg/3 mL 0.63 mg (3 mL) inhalation BID 06/24/22 11/08/22 Rx solution for nebulization shortness of breath or wheezing #90 mL sodium chloride 7 % for 4 ml inhalation BID #240 mL 06/24/22 11/08/22 Rx nebulization (Hyper-Denys) bupropion HCl 200 mg tablet,12 hr 200 mg PO BID 09/15/22 11/08/22 History sustained-release hydroxyzine HCl 25 mg tablet 50 mg PO HS 09/15/22 11/08/22 History rizatriptan 10 mg tablet 10 mg PO DAILY PRN MIGRAINE 09/15/22 05/17/23 History zolpidem 10 mg tablet 10 mg PO HS 09/15/22 11/08/22 History sucralfate 1 gram tablet 1 g PO QID #100 tabs 09/17/22 11/08/22 Rx oxycodone 5 mg tablet 5 mg PO Q6H PRN pain #30 tabs 11/10/22 Rx tramadol 50 mg tablet 50 mg PO Q6H PRN pain, moderate 11/10/22 Rx #30 tabs gabapentin 800 mg tablet 800 mg PO TID 05/17/23 05/17/23 History Past Med/Surg History Medical History (Updated 05/17/23 @ 17:06 by Michael De Jesus MD) Memory changes History Since TIA (2008) - mild- no recent issues per patient (no follow up with neurology needed) History of recent blood transfusion 09/16/22 @ [facility]--2 units PRBC for upper GI bleed Seizure disorder Chronic low back pain Upper GI bleed recently admitted at [facility] 09/15/22---per pt was found to have bleeding at gastric bypass site, clipped at site and received 2 units PRBCs--pt states she has improved, no current issue, is taking sucralfate as prescribed Insomnia Chronic cough Stable Elevated diaphragm Bronchiectasis Follows with Dr. Moreno- breathing stable Peripheral neuropathy Hands and feet Degenerative disc disease Chronic back pain Lumbar facet arthropathy Spinal stenosis Osteoporosis GERD (gastroesophageal reflux disease) Well controlled and stable Depression Stable Seizure "Staring seizures"- no issues since 2010 per patient Transient ischemic attack (TIA) 2008- no current issues History of high blood pressure Bronchiectasis hx Surgical History Hx of cataract extraction bilat History of total knee replacement RT/LEFT History of esophagogastroduodenoscopy (EGD) 09/16/22 @ [facility] History of colonoscopy H/O total hysterectomy History of cholecystectomy History of tonsillectomy History of tooth extraction History of gastric bypass Family History Aunt Diabetes Grandmother (Paternal) Diabetes Other No family history of adverse response to anesthesia Social History Smoking Status: Never smoker Second Hand Exposure: No; Hx Alcohol Use: No Hx Substance Use: No Preferred Language: Icelandic Communication Ability: Effective Pipe Supervisor Required: No Beliefs That Will Affect Care: None Current Living Situation: Alone Feels Safe at Home: Yes Assistive Devices: None Physical Exam Physical Exam: General: A&Ox3. NAD. Cooperative. HEENT: Atraumatic, normocephalic. Pulm: CTAB A&P. -wheezes, -rales, -rhonchi. Symmetrical chest rise. No increased work of breathing. No respiratory distress. Cardiac: RRR, -mrg. Radial pulses intact and symmetrical. Abdominal: No rebound/involuntary guarding. Soft. Tender palpation at the r ight upper quadrant and right flank Extremities: Warm and dry Results & Data Results & Data Vital Signs (Past 12 Hours) Vital Signs Temp Pulse Resp BP Pulse Ox O2 Del Method 05/17/23 16:32 68 05/17/23 14:10 68 96 05/17/23 14:00 71 22 99 05/17/23 14:00 124/76 05/17/23 13:50 69 98 05/17/23 13:40 70 96 05/17/23 13:30 71 24 95 05/17/23 13:30 140/72 05/17/23 13:20 73 22 93 05/17/23 13:10 68 23 98 05/17/23 13:00 66 98 05/17/23 13:00 121/50 L 05/17/23 12:52 76 05/17/23 12:50 74 100 05/17/23 12:05 36.3 C L 94 H 18 165/84 H 100 Room Air PG Care Time/CCT Total # of Minutes Spent Total Time Spent with Patient: Total time spent is greater than 50% in coordination of care (as documented) at patient's floor/unit and/or counseling patient: Coding Level of Care Code 86870 INT INP/OBS CARE 3/75MIN Diagnoses Abdominal pain R10.10 Abdominal location: upper abdomen, unspecified GERD (gastroesophageal reflux disease) K21.9 Seizure disorder G40.909 Transient ischemic attack (TIA) G45.9 Anemia D64.9 Neurogenic claudication due to lumbar spinal stenosis M48.062 (1) Abdominal pain Abdominal location: upper abdomen, unspecified Qualified Code(s): R10.10 - Upper abdominal pain, unspecified
[2023-05-17] MEDS ORDERED: ACETAMINOPHEN 1,000 MG/100 ML VIAL IV PRN (16:42)
[2023-05-17] MEDS ORDERED: ONDANSETRON INJ 2 MG/ML 2 ML VIAL IV PRN (16:42)
[2023-05-17] MEDS: PANTOPRAZOLE BOLUS/DRIP IV STA (16:51)
[2023-05-17] MEDS ORDERED: LORazepam 2 MG in SYRINGE 1 ML IV PRN (17:04)
[2023-05-17 17:35] LABS: Appearance Urine Clear (Clear); Bacteria Urine Automated Negative (Negative); Bilirubin Urine Negative (Negative); Blood Urine Negative (Negative); Color Urine Yellow; Epithelial Cell Urine Auto >30 /lpf (0-5); Glucose Urine UA Negative (Negative); Ketones Urine 1+ (Negative); Leukocyte Esterase Urine Negative (Negative); Nitrite Urine Negative (Negative); Protein Urine 1+ (Negative); RBC Urine Automated 0-4 /hpf (0-4); Specific Gravity Urine > 1.045 (1.000-1.030); Urobilinogen Urine Negative (Negative); WBC Urine Automated >30 /hpf (0-5)
[2023-05-17] MEDS: POTASSIUM CHLORIDE / WTR 10 MEQ/100 ML PLCT IV SCH (17:54)
[2023-05-17] MEDS: LACTATED RINGER'S 1,000 ML IV SCH (17:57)
[2023-05-17 17:58] LABS: Cast Urine Automated 0 /lpf (0-5)
[2023-05-17] MEDS: levETIRAcetam IV 500 MG in SODIUM CHLOR 0.9% MINI-B 100 ML IV STA (18:36)
[2023-05-17] MEDS: PIPERACILLIN/TAZOBACTAM 4.5 GM in DEXTROSE 5% MINI-B 100 ML IV SCH (20:23)
[2023-05-17] MEDS ORDERED: PANTOprazole 40 MG in SYRINGE 0 ML IV SCH (21:00)
[2023-05-17] MEDS: HYDROmorphone INJ 1 MG/ML SYRINGE IV PRN (22:58)
[2023-05-17] MEDS: LORAZEPAM IV PRN (22:58)
--- OUTSIDE RECORDS SUMMARY | 2023-05-18 03:43 | External Medical Summary | Continuity of Care Document ---
Author Name Unknown Organization [facility] [address] [place] [address] [phone] Care Team Providers Care Flying Teacher Name Role Phone Paula Bolaños Primary Care Physicia n [phone] Encounter [facility] [id number] Date(s): 02/07/23 - 02/07/23 [facility] [address] Medical [facility] [address] [phone] Encounter Diagnosis Chronic pain syndrome(Discharge Diagnosis) - 02/07/23 Severe depression(Discharge Diagnosis) - 02/07/23 Discharge Disposition: Home or Self Care Attending Physician: DO Bolaños Gretchen Elizabeth Allergies, Adverse Reactions, Alerts No Known Allergies Assessment and Plan Extracted from: Title:Office Visit Note Author:MD Francisca, Rose clifford Date:02/07/23 1.Chronic pain syndrome Chronic condition exacerbated/progressive/side effects of treatment Goal:Resolution Data:_ Plan: Continuing with PT. Does not need tramadol refill at this time. Follow with Dr. Garcia. 2.Severe depression Chronic condition exacerbated/progressive/side effects of treatment Goal:Resolution Data:external notes including: _outpatient psychiatry note Plan: PHQ9 - 18 GAD7- 18. CSSR low risk. Follows with psychiatry. Would defer to them on regimen alterations. F/u with PCP in April already scheduled. Immunizations Given and Recorded Vaccine Date Status Refusal Reason influenza virus vaccine, inactivated 01/06/23 Give n influenza virus vaccine, inactivated 11/08/21 Luis Carlos rded influenza virus vaccine, inactivated 12/16/20 Give n influenza virus vaccine, inactivated 12/04/19 Give n influenza virus vaccine, inactivated 12/19/18 Give n influenza virus vaccine, inactivated 10/1/18 Luis Carlos rded SARS-CoV-2 (COVID-19) mRNA-1273 vaccine 1 06/03/21 Recorded SARS-CoV-2 (COVID-19) mRNA-1273 vaccine 2 12/16/20 Recorded SARS-CoV-2 (COVID-19) mRNA-1273 vaccine 3 06/03/20 Recorded SARS-CoV-2 (COVID-19) mRNA-1273 vaccine 4 05/05/20 Recorded SARS-CoV-2 (COVID-19) mRNA-1273 vaccine 5 04/29/20 Recorded pneumococcal 23-valent vaccine 12/04/19 Given zoster vaccine, inactivated 6 03/24/19 Recorded 1Result Comment: 2022-01-11: Historical information-source unspecified 2Result Comment: 2022-01-11: Historical information-source unspecified 3Result Comment: 2021-01-18: Historical information-source unspecified 4Result Comment: 2022-01-11: Historical information-source unspecified 5Result Comment: 2021-01-18: Historical information-source unspecified 6Result Comment: 2019-12-04: Historical information-source unspecified Medications Abilify 5 mg oral tablet Start: 02/07/23 14:01:00 EST, 1 tab, PO, Daily Start Date: 02/07/23 Status: Ordered acetaminophen-hydrocodone 300 mg-5 mg oral tablet Start: 11/04/22 11:30:00 EDT, 1 tab, PO, tid, Disp# 30 tab, Refills: 0, PRN: pain - severe (7-10), [facility] Start Date: 11/04/22 Status: Ordered albuterol 0.083% for nebulization Start: 08/19/22 13:58:00 EDT, 3 mL, NEB, q6h, PRN: as needed for wheezing Start Date: 08/19/22 Status: Ordered alendronate 70 mg oral tablet Start: 11/23/22 10:01:00 EDT, 1 tab, PO, q7days, Disp# 12 tab, Refills: 1, Note to Pharmacy: Take one tablet (70 mg) weekly with full glass of water, remain upright for at least 30 min, Pharmacy: [facility] Start Date: 11/23/22 Status: Ordered Ambien 10 mg oral tablet Start: 01/17/23 14:25:00 EST, 1 tab, PO, qhs, Disp# 30 tab, Refills: 0, Note to Pharmacy: May fill early due to trip. PDMP reviewed., PRN: as needed for sleep, Pharmacy: [facility] Start Date: 01/17/23 Stop Date: 02/16/23 Status: Ordered busPIRone 10 mg oral tablet Start: 02/07/23 13:41:00 EST, 1 tab, PO, tid Start Date: 02/07/23 Status: Ordered CeleXA Start: 02/07/23 13:40:00 EST, 20 mg =, PO, Daily Start Date: 02/07/23 Status: Ordered cyanocobalamin 1000 mcg sublingual tablet Start: 06/17/21 17:07:00 EDT, 1 tab, SL, Daily, Disp# 90 tab, Refills: 3, [facility] Start Date: 06/17/21 Status: Ordered donepezil 10 mg oral tablet Start: 12/30/22 8:29:00 EST, See Instructions, Disp# 90 tab, Refills: 1, TAKE 1 TABLET EVERY DAY ATBEDTIME, Pharmacy: [facility] Start Date: 12/30/22 Status: Ordered hydrOXYzine hydrochloride 25 mg oral tablet Start: 08/08/22 12:14:00 EDT, See Instructions, Disp# 90 tab, Refills: 3, TAKE 1 TO 2 TABLETS AT BEDTIME NEEDED FOR ANXIETY OR SLEEP, Pharmacy: [facility] Start Date: 08/08/22 Status: Ordered memantine 5 mg oral tablet Start: 12/30/22 8:29:00 EST, See Instructions, Disp# 180 tab, Refills: 1, TAKE 1 TABLET TWICE DAILY, Pharmacy: [facility] Start Date: 12/30/22 Status: Ordered Neurontin 800 mg oral tablet Start: 12/21/21 13:09:00 EDT, 1 tab, PO, tid, Disp# 270 tab, Refills: 3, Pharmacy: [facility] Start Date: 12/21/21 Status: Ordered pantoprazole 40 mg oral delayed release tablet Start: 12/30/22 8:29:00 EST, See Instructions, Disp# 90 tab, Refills: 1, TAKE 1 TABLET EVERY DAY, Pharmacy: [facility] Start Date: 12/30/22 Status: Ordered QUEtiapine 300 mg oral tablet Start: 12/30/22 8:29:00 EST, See Instructions, Disp# 90 tab, Refills: 1, TAKE 1 TABLET AT BEDTIME, Pharmacy: [facility] Start Date: 12/30/22 Status: Ordered rizatriptan 10 mg oral tablet Start: 02/09/23 14:26:00 EST, See Instructions, Disp# 12 tab, Refills: 3, TAKE 1 TABLET ONE TIME ASNEEDED FOR MIGRAINE HEADACHE, Pharmacy: [facility] Start Date: 02/09/23 Status: Ordered Saline Mist 0.65% nasal spray Start: 08/19/22 13:58:00 EDT Start Date: 08/19/22 Status: Ordered sucralfate 1 g oral tablet Start: 09/22/22 14:26:00 EDT Start Date: 09/22/22 Status: Ordered topiramate 100 mg oral tablet Start: 12/30/22 8:29:00 EST, See Instructions, Disp# 180 tab, Refills: 1, TAKE 1 TABLET TWICE DAILY, Pharmacy: [facility] Start Date: 12/30/22 Status: Ordered traMADol 50 mg oral tablet Start: 01/06/23 16:39:00 EST, 1 tab, PO, q8h, Disp# 60 tab, Refills: 0, PRN: pain - severe (7-10), Pharmacy: [facility] Start Date: 01/06/23 Status: Ordered Vitamin D3 5000 intl units (125 mcg) oral capsule Start: 02/18/21 13:04:00 EST, 1 cap, PO, Daily, Disp# 90 cap, Refills: 3, [facility] Start Date: 02/18/21 Status: Ordered Mental Status 02/07/23 Barriers to Learning one year None evide nt Mandatory Health Literacy Documentation Yes Health Literacy Communication Barriers N ever Primary Language Senegalese Problem List Condition Confirmation Course Effective Dates Status H ealth Status Informant Anxiety Confirmed Active Asthma Confirmed Active Chronic pain syndrome Confirmed Active Chronic GERD Confirmed Active Insomnia Confirmed Active Right lumbar radiculopathy Confirmed Active Migraines Confirmed Active Osteoarthritis Confirmed Active Osteoporosis Confirmed Active Seizure disorder Confirmed Active Severe depression Confirmed Active Foraminal stenosis of lumbar region Confirmed Active Diagnosis Diagnosis Type Effective Dates Health Status Clinical Service Informant Severe depression Discharge Diagnosis 12/19/23 Chronic pain syndrome Discharge Diagnosis 02/07/23 Procedures Procedure Date Related Diagnosis Body Site Status EGD - Esophagogastroduodenoscopy 1 09/16/22 Completed Upper GI (gastrointestinal) endoscopy 2 07/19/22 Completed Phacoemulsification of catar act with intraocular lens implantation 03/08/22 Co mpleted Phacoemulsification of lens right eye 02/22/[address] of chest 3 01/27/22 Completed Fluoroscopic guidance for in jection of facet joint 10/19/21 Completed Chest X-ray 4 10/01/21 Completed X-ray of right ankle 5 06/28/21 Co mpleted X-ray of right hand 6 06/28/21 Com pleted Epidural steroid injection L5-S1 05/10/21 Completed MRI of lumbar spine with contrast 7 02/09/21 Completed Dual energy X-ray absorptiom etry (DEXA) scan T score 8 03/09/20 Completed Upper GI endoscopy 9 09/26/19 Comp leted N BLOCK LUMBAR/THORACIC 10 07/25/19 Completed Rotator cuff repair Left 03/01/19 Completed Hysterectomy 01/10/19 Completed MRI of lumbar spine 11 11/20/18 Co mpleted Total knee replacement right 09/05/18 Completed LEEP procedure of cervix 08/01/18 Completed Bone scan 12 05/21/18 Completed Knee X-ray right 13 04/30/18 Compl eted Foot X-ray Left 14 04/25/18 Comple lori EMG - Electromyography 15 04/24/18 Completed X-ray of wrist 16 04/17/[address] of abdomen and pelvis 17 03/14/18 Completed cologuard 18 02/17/18 Completed Bone density scan 19, 20 12/28/17 Completed Knee X-ray right 21 10/10/17 Compl eted MRI of shoulder left 22 03/14/17 C ompleted Foot X-ray left 23 03/01/[address] of chest 24 02/14/17 Completed Ankle-Right surgery 25 Co mpleted Cholecystectomy 26 Comple lori Colonoscopy 27 Completed Gastric bypass 28 Complet ed TKR -Total prosthetic replac ement of knee joint using cement 29, 30 C ompleted 1Normal esophagus. Gastric bypass with normal-sized pouch. Gastrojejunal anastomosis characterized by healthy appearing mucosa. Dieulafoy lesion of stomach. Normal examined jejunum. No specimens collected. 2-No endoscopic esophageal abnormality to explain patient's dysphagia. Esophagus dilated. -Normal anastomosis -Normal examined jejunum. -No specimens collected. 3CT chest diagnostic wo con CLINICAL HISTORY: R05.3, bronchiectasis TECHNIQUE: Multidetector row helical CT of the chest was performed. Coronal and sagittal reformations were obtained. Automated dose lowering techniques and/or adjustment according to patient size were utilized for this exam. CT DOSE: 338.11 mGycm Comparison: Comparison is made to chest radiograph 10/01/2021 FINDINGS: Lungs and pleura: Elevation of the right hemidiaphragm. There is possible mild bronchiectasis. Groundglass densities are noted in the right lower lobe. Heart and pericardium: Heart size is normal. No pericardial effusion. Vessels: Unremarkable. Mediastinum and kelly: Unremarkable. Chest wall and lower neck: Unremarkable. Abdomen: Unremarkable. Bones: Degenerative changes in the thoracic spine. IMPRESSION: Elevation of right hemidiaphragm with mild bronchiectasis noted. Groundglass opacities may be secondary to atelectasis, however superimposed aspiration pneumonia cannot be excluded. 4Impression: No acute cardiopulmonary findings. Moderate elevation of the right hemidiaphragm 5Sot tissue swelling with no fracture identified Osteopenia with degenerative change and a large plantar heel spur as above A benign-appearing sclerotic lesionis partially visualized in the tibial shaft, likely representingan enchondroma. Consider dedicated views of the tibia and fibula for further assessment. 6No acute fracture or dislocation Demineralized appearance of the bones with osteoarthritis of the hands and wrists 7FINDINGS: Alignment: 2 mm retrolisthesis of L2 on L3. Veterbrae: Vertebral body heights are maintained. Bone marrow is normal in signal. Conus/Cauda equina roots: Conus medullaris termiinates at L1/L2. Pre-, Para, Posterior vertebral soft tissues: Unremarkable. Axial interbody analysis: L1-L2: No central canal or neural foraminal stenosis. L2-L3: Combination of retrolisthesis, diffuse disc bulging and facet arthropathy is causing mild central canal, and mild bilateral neural foraminal stenosis, unchanged. L3-L4: Diffuse disc bulging and facet arthroplasty is causing moderate central canal and mild bilateral neural foraminal stenosis, unchanged. L4-L5: Diffuse disc bulging and facet arthropathy is causing moderate central canal, moderate rightand mild left neural foraminal stenosis. L5-S1: Diffuse disc bulge and facet arthropathy is causing mild central canal, severe right and moderate left foraminal stenosis. IMPRESSION: Multilevel degenerative changes in the lumbar spine; most promient at L4-L5 with moderate central canal, moderate right neural foraminal stenosis, L5-S1 with severe right and moderate left neural foraminal stenosis. 8osteopenia. mineralization is slightly impoved from 2018. dual femur t-score -2.3 . ap spine t score -0.5 9z-line regular 36 cm from the incisors pablo-en-Y gastrojejunostomy with gastrojejunal anastomosis characterized by healthy appering mucosa normal examined'jejunum no specimens collected 10bilateral L4-L5, L5-S1, medial branch blocks (bilateral) 11Mild L3-4 anterolisthesis and canal stenosis. Findings are new compared to the prior study. Moderate to severe foraminal stenosis at L3-4, L4-5 and L5-S1. Findings are new or increased compared to prior. Additional degenerative changes are detailed above. 12Impression: Modereate increased activity adjacent to both knee prostheses without significant hyperemia in a nonspecific pattern that can be seen with prosthetic loosening 13Impression: stable and satisfactory postoperatve right knee 14Impression: Stable fixation of the toes as previously seen and described. No destructive bone process is identified. Severe plantar calcaneal spurring 15Interpretation: mildly prolonged distal latency of the right and left median nerve, worse on the left. The rest are normal. Sensory evoked response of the left median nerve. This was prolonged compared to the right. F-waves are normal. Normal EMG proximal distal muscle tested. Conclusion: left CTS, mild to moderate. 16Impression: Moderate first CMC joint osteoarthritis, stable. 17Impression: The study is limited by shadowing bowel gas with some organs completely or partially obscured, as above. Normal liver and spleen Status post cholecystectomy Kidneys are slightly small but stable, likely physiologic. Normal morphology. 18Negative 19T-score -2.5 20Impression: Persistent osteopenia in the proximal femurs, with values similar to 2014. Improved mineralization in the lumbar spine with now normal values. Please refer to the accompanying computer printout for additonal information On an untrated patient, age 40-90, a 10 year fracture risk based on T-score and multiple other riskfractures can be calculated from the world health organization. 21Impression: Stable and satisfactory right knee prosthesis 22Impression: Tear of posterior/post eroinferior labia Tendonitis versus low grade partial tear of mid to distal supraspinatus tendon. No full thickness rotator cuff tendon tear. Mild osteoarthritis of acromioclavicular joint. 23Impression: Similar chronic findings in the right foot Metallic pin has been removed from the left fifth ray. Fifth metatarsal osteotomy demonstrates someinterval progress in healing. Otherwise stable chronic and postoperative findings in the left foot. 24Impression: Multiple new subacute/healing right rib fractures compared to the November 2016 CT. No pneumothorax or pleural effusion. Findings discussed with Dr. Escalante Debris in the esophagus, probably reflecting reflux. Stable chronic findings as above. [id number] Vital Signs Most recent to oldest [Reference Range]: 1 Patient Weight 58 kg (02/07/23 1:52 PM) Temperature [36.5-37.9 DegC] 36.6 DegC (02/07/23 1:52 PM) Heart Rate 88 bpm (02/07/23 1:52 PM) Respiratory Rate 18 br/min (02/07/23 1:52 PM) Blood Pressure 136/72mmHg (02/07/23 1:52 PM) Social History Social History Type Response Smoking Status Never smoked cigaret yung Sex Female FCM Outpt Note * MD Francisca, Danae: PERFORM DO Bolaños Gretchen Elizabeth: MODIFY Event Display: FCM Outpt Note Authored Date: Chief Complaint follow up History of Present Illness 67 y/o female with a PMHx of anxiety/depression, insomnia, and tardive's dyskinesia here for a f/u on her chronic conditions. Anxiety/Depression Patient follows with [facility] for psychiatric care. Is working on getting a therapist. Anniversary of partner's is exacerbating symptoms. Celexa 20 mg QD, buspirone 10 mg TID QD, Abilify 5 mg QHS. Has noticed a decrease in appetite. PHQ9 - 18 GAD7- 18 Recent Spinal Surgery Patient with surgery done on 11/08/[address] Garcia. Had been requiring tramadol BID for pain especially on PT days. Was given a refill at appointment on 01/09. Usually taking on one dose of tramadol daily. Is doing PT.Is using ice packs as well. Sees Dr. Garcia in the new year. Reportedly everything is in place. Going to her sister's for the holidays. This is a difficult time of year as her fiance passed 02/14/2022. Physical Exam Vitals & Measurements T:36.6C HR:88(Monitored) RR:18 BP:136/72 SpO2:97% WT:58.000kg(Dosing) WT:58kg PHQ2 Data(Data Documented on:02/07/2023 13:43) Emotional health assessment POSITIVE PHQ-9 Data(Data Documented on:02/07/2023 13:45) PHQ-9 Severity Score:18 Thoughts that you would be better off or of hurting yourself in some way?Not at All Depression Risk:Elevated Suicide Risk Screening (Bay/asQ): Bay Suicide Risk:None Identified General Anxiety Disorder Screening: AJAY-7 Score:18 AJAY-7 Problem Severity:Extremely Difficult Gen: well appearing female in NAD HEENT: AT NC CV: RRR no m/r/g clinically well perfused Resp: CTAB no wheezing no increased work of breathing Abd: non-distended MSK: no obvious deformities Skin: no bruising or rashes noted Psych: appropriate mood and affect Neuro: alert and oriented, frequent blinking Assessment/Plan 1.Chronic pain syndrome Chronic condition exacerbated/progressive/side effects of treatment Goal:Resolution Data:_ Plan: Continuing with PT. Does not need tramadol refill at this time. Follow with Dr. Garcia. 2.Severe depression Chronic condition exacerbated/progressive/side effects of treatment Goal:Resolution Data:external notes including: _outpatient psychiatry note Plan: PHQ9 - 18 GAD7- 18. CSSR low risk. Follows with psychiatry. Would defer to them on regimen alterations. F/u with PCP in April already scheduled. Attestation Patient seen and examined in concert with Dr. Espinosa, agree with history and physical documented above. Plan reviewed in detail and patient understanding. Problem List/Past Medical History Ongoing Anxiety Asthma Chronic GERD Chronic pain syndrome Foraminal stenosis of lumbar region Insomnia Migraines Osteoarthritis Osteoporosis Right lumbar radiculopathy Seizure disorder Severe depression Historical Stroke Procedure/Surgical History EGD - Esophagogastroduodenoscopy (09/16/2022)Upper GI (gastrointestinal) endoscopy (07/19/2022)Phacoemulsification of cataract with intraocular lens implantation (03/08/2022)Phacoemulsification of lens right eye (02/22/2022)CT of chest (01/27/2022)Fluoroscopic guidance for injection of facet joint (10/19/2021)Chest X-ray (10/01/2021)X-ray of right hand (06/28/2021)X-rayof right ankle (06/28/2021)Epidural steroid injection L5- S1 (05/10/2021)MRI of lumbar spine with contrast (02/09/2021)Dual energy X-ray absorptiometry (DEXA) scan T score (03/09/2020)Upper GI endoscopy (09/26/2019)N BLOCK LUMBAR/THORACIC (07/25/2019)Rotator cuff repair Left (03/01/2019)Hysterectomy (01/10/2019)MRI of lumbar spine (11/20/2018)Total knee replacement right(09/05/2018)LEEP procedure of cervix (08/01/2018)Bone scan (05/21/2018)Knee X-ray right ()Foot X-ray Left (04/25/2018)EMG - Electromyography (04/24/2018)X-ray of wrist (04/17/2018)CT of abdomen and pelvis (03/14/2018)cologuard (02/17/2018)Bone density scan (12/28/2017)Knee X- ray right (10/10/2017)MRI of shoulder left (03/14/2017)Foot X-ray left (03/01/2017)CT of chest (02/14/2017)Gastric bypassCholecystectomyAnkle-Right surgeryTKR -Total prosthetic replacement of knee joint using cementColonoscopy Medications acetaminophen-hydrocodone(acetaminophen-hydrocodone 300 mg-5 mg oral tablet), 1 tab, PO, tid, PRN albuterol(albuterol 0.083% for nebulization), 2.5 mg= 3 mL, NEB, q6h, PRN alendronate(alendronate 70 mg oral tablet), 70 mg= 1 tab, PO, q7days, 1 refills ARIPiprazole(Abilify 5 mg oral tablet), 5 mg= 1 tab, PO, Daily busPIRone(busPIRone 10 mg oral tablet), 10 mg= 1 tab, PO, tid cholecalciferol(Vitamin D3 5000 intl units (125 mcg) oral capsule), 125 mcg= 1 cap, PO, Daily, 3 refills citalopram(CeleXA), 20 mg, PO, Daily cyanocobalamin(cyanocobalamin 1000 mcg sublingual tablet), 1000 mcg= 1 tab, SL, Daily, 3 refills donepezil(donepezil 10 mg oral tablet), See Instructions, 1 refills gabapentin(Neurontin 800 mg oral tablet), 800 mg= 1 tab, PO, tid, 3 refills hydrOXYzine(hydrOXYzine hydrochloride 25 mg oral tablet), See Instructions, 3 refills memantine(memantine 5 mg oral tablet), See Instructions, 1 refills pantoprazole(pantoprazole 40 mg oral delayed release tablet), See Instructions, 1 refills QUEtiapine(QUEtiapine 300 mg oral tablet), See Instructions, 1 refills rizatriptan(rizatriptan 10 mg oral tablet), See Instructions sodium chloride nasal(Saline Mist 0.65% nasal spray) sucralfate(sucralfate 1 g oral tablet) topiramate(topiramate 100 mg oral tablet), See Instructions, 1 refills traMADol(traMADol 50 mg oral tablet), 50 mg= 1 tab, PO, q8h, PRN zolpidem(Ambien 10 mg oral tablet), 10 mg= 1 tab, PO, qhs, PRN Allergies NKA Social History Smoking Status Never smoked cigarettes Family History Alcoholism: Father and Brother. Diabetes Mellitus: PGM. Heart attack: Mother, MGF and MGM. Heart disease: Mother, MGF and MGM. Hypertension: Mother, Sister and MGM. Stroke: PGF. Health Status Family Member(s) Immunizations Vaccine Date Status influenza virus vaccine, inactivated 01/06/2023 Given influenza virus vaccine, inactivated 11/08/2021 Recorded SARS-CoV-2 (COVID-19) mRNA-1273 vaccine 06/03/2021 Recorded Comments : 2022-01-11: Historical information-source unspecified influenza virus vaccine, inactivated 12/16/2020 Given SARS-CoV-2 (COVID-19) mRNA-1273 vaccine 12/16/2020 Recorded Comments : 2022-01-11: Historical information-source unspecified SARS-CoV-2 (COVID-19) mRNA-1273 vaccine 06/03/2020 Recorded Comments : 2021-01-18: Historical information-source unspecified SARS-CoV-2 (COVID-19) mRNA-1273 vaccine 05/05/2020 Recorded Comments : 2022-01-11: Historical information-source unspecified SARS-CoV-2 (COVID-19) mRNA-1273 vaccine 04/29/2020 Recorded Comments : 2021-01-18: Historical information-source unspecified pneumococcal 23-valent vaccine 12/04/2019 Given influenza virus vaccine, inactivated 12/04/2019 Given zoster vaccine, inactivated 03/24/2019 Recorded Comments : 2019-12-04: Historical information-source unspecified influenza virus vaccine, inactivated 12/19/2018 Given influenza virus vaccine, inactivated 11/2017 Recorded Recommendations Health Maintenance Pending(in the next year) OverDue Colorectal Cancer Screening due12/21/21and every 1year Due Adult Social Determinants of Health Screening due02/07/23Unknown Frequency Adult Tdap/Td Vaccine due02/07/23Unknown Frequency Hepatitis C Screening due02/07/23One-time only Shingles Vaccine due02/07/23One-time only Due In Future Adult Influenza Vaccine not due until08/21/23and every 1year Satisfied(in the past 1 year) Satisfied Adult Influenza Vaccine on01/06/23.Satisfied by ROSA MARIA Romero Paul Body Mass Index on01/06/23.Satisfied by ULICES Singer Courtney D Breast Cancer Screening on02/07/23.Satisfied by MD Espionsa Margaret Electronic Signature on File Electronically Reviewed/Signed by: Danae Espinosa MD Author Signature Dt/Tm:02/07/2023 03:00 PM Resident Department of Family Medicine Electronically Reviewed/Signed by: Marj Zepedaigner Signature Dt/Tm: 02/09/2023 04:14 PM Department of Family Medicine MP Patient Care team information Care Team Personnel Name: DO Bolaños Gretchen Elizabeth Position: Physician - Family Med Member Role: Primary Care Provider Address: Address: [address] [place] [address] Name: Darin Zhao MD, Cayra Position: Resident Member Role: Lifetime Relationship Address: Address: [address] [place] [address] [place] Care Team Related Persons Name: AYDEN YANEZ Name: EMILY DUDLEY Address: home [address] [id number]
--- OUTSIDE RECORDS SUMMARY | 2023-05-18 03:43 | External Medical Summary | Continuity of Care Document ---
Author Name Unknown Organization [place] [address] [place] [id number] Care Team Providers Care Research Clerk Name Role Phone Paula Bolaños Primary Care Physicia n [phone] Encounter [facility] [id number] Date(s): 04/21/23 - 04/21/23 [facility] [address] [place] [address] [phone] Encounter Diagnosis Body mass index [BMI] 21.0-21.9, adult(Discharge Diagnosis) - 04/21/23 Osteopenia(Discharge Diagnosis) - 04/21/23 Insomnia(Discharge Diagnosis) - 04/21/23 Right lumbar radiculopathy(Discharge Diagnosis) - 03/10/23 Asthma(Discharge Diagnosis) - 04/21/23 Severe depression(Discharge Diagnosis) - 04/21/23 Seizure disorder(Discharge Diagnosis) - 04/21/23 Spinal stenosis(Discharge Diagnosis) - 03/10/23 Chronic pain syndrome(Discharge Diagnosis) - 04/22/23 Discharge Disposition: Home or Self Care Attending Physician: DO Bolaños Gretchen Elizabeth Allergies, Adverse Reactions, Alerts No Known Allergies Assessment and Plan Extracted from: Title:Office Visit Note Author:DO Bolaños Gretc hen Elizabeth Date:04/21/23 1.Osteopenia Chronic, active,patient has been offFosamax therapyfor past year and a half,per chart reviewpatientpreviously with osteoporosis, lastbone densityin 2020 showed improvementfrom 2018testing, repeat DEXA ordered, patient understanding of necessity to continue vitamin D and calciumsupplementation, maintaining weightbearing exercises as possible 2.Insomnia Chronic,active, patient dependent on zolpidem therapy,currentdose 10 mg nightly, discussed would like to wean this with patient, unfortunately past efforts have proven difficult. CSAon file. Patient aware ofconcerns foruse with othercontrolled substances such as opiates. 3.Right lumbar radiculopathy 4.Spinal stenosis 5.Chronic pain syndrome Chronic, active, in setting ofrecent surgery and chronic back dysfunction. Patient was previously on high doses of morphinefor chronic pain in the past. At present she is currently utilizing mgtwice dailyas needed, last fill number . Encouraged efforts to reduce tramadol useto once daily, patient utilizes more around physical therapy, which is appropriate. We reviewedconsideration ofadding acetaminophenand also lidocaine patch as pain seems to be around hersurgical scar.Patient remains on [id number] mg 3 times daily. Unfortunately patient is a good candidate for NSAIDs due to history ofGI bleed andgastric bypass surgery. 6.Asthma Chronic, stable, patient without symptoms, limited utilization of inhaler 7.Severe depression Chronic, improved, PHQ 8 today and GAD9, patientwithout SI/HI, is engaging in therapy which is beneficial. Currentmedication regimen includesa Rip resolved 5 mg daily, buspirone 10 mg 3 times daily,citalopram 20 mgdaily. 8.Seizure disorder Chronic, per chart review, patient with reportedaudience type staring seizures,no recent episodes,did havetar dive dyskinesia due to antipsychotic usewhich is improved significantly since changes to medication regimen.Patient remains on Topamax 100 mgtwice daily. States that she has been onmemantine anddoxepin combination for years sinceformer PCP for memory issues. Discussed consideration of reducing 1 of these medications due to concern of polypharmacy. Total physician time spent on day of encounter with patient including pre-visit planning, chart review, [id number] discussion, education, care coordination,and documentation:46 minutes Immunizations Given and Recorded Vaccine Date Status [...] Ordered Ambien 10 mg oral tablet Start: 04/10/23 17:05:00 EST, 1 tab, PO, qhs, Disp# 30 tab, Refills: 0, PRN: as needed for sleep, Pharmacy: [facility] Start Date: 04/10/23 Stop Date: 05/10/23 Status: Ordered busPIRone 10 mg oral tablet Start: 02/07/23 13:41:00 EST, 1 tab, PO, tid Start Date: 02/07/23 Status: Ordered CeleXA Start: 02/07/23 13:40:00 EST, 20 mg =, PO, Daily Start Date: 02/07/23 Status: Ordered cyanocobalamin 1000 mcg sublingual tablet Start: 06/17/21 17:07:00 EDT, 1 tab, SL, Daily, Disp# 90 tab, Refills: 3, [facility] Start Date: 06/17/21 Status: Ordered donepezil 10 mg oral tablet Start: 12/30/22 8:29:00 EST, See Instructions, Disp# 90 tab, Refills: 1, TAKE 1 TABLET EVERY DAY ATBEDTIME, Pharmacy: [facility] Start Date: 12/30/22 Status: Ordered hydrOXYzine hydrochloride 25 mg oral tablet Start: 02/21/23 17:00:00 EST, See Instructions, Disp# 90 tab, Refills: 3, TAKE 1 TO 2 TABLETS AT BEDTIME NEEDED FOR ANXIETY OR SLEEP, Pharmacy: [facility] Start Date: 02/21/23 Status: Ordered lidocaine topical 5% patch Start: 04/21/23 14:11:00 EST, 1 patch, topical, Daily, Disp# 20 patch, Refills: 1, Pharmacy: [facility] Start Date: 04/21/23 Status: Ordered memantine 5 mg oral tablet Start: 12/30/22 8:29:00 EST, See Instructions, Disp# 180 tab, Refills: 1, TAKE 1 TABLET TWICE DAILY, Pharmacy: [facility] Start Date: 12/30/22 Status: Ordered Neurontin 800 mg oral tablet Start: 03/10/23 9:32:00 EST, 1 tab, PO, tid, Disp# 270 tab, Refills: 1, Pharmacy: [facility] Start Date: 03/10/23 Status: Ordered pantoprazole 40 mg oral delayed release tablet Start: 12/30/22 8:29:00 EST, See Instructions, Disp# 90 tab, Refills: 1, TAKE 1 TABLET EVERY DAY, Pharmacy: [facility] Start Date: 12/30/22 Status: Ordered rizatriptan 10 mg oral tablet Start: 02/09/23 14:26:00 EST, See Instructions, Disp# 12 tab, Refills: 3, TAKE 1 TABLET ONE TIME ASNEEDED FOR MIGRAINE HEADACHE, Pharmacy: [facility] Start Date: 02/09/23 Status: Ordered Saline Mist 0.65% nasal spray Start: 08/19/22 13:58:00 EDT Start Date: 08/19/22 Status: Ordered sucralfate 1 g oral tablet Start: 04/17/23 19:54:00 EST, 1 tab, PO, ac and hs, Disp# 40 tab, Refills: 0, Pharmacy: [facility] Start Date: 04/17/23 Stop Date: 04/27/23 Status: Ordered Suprep Bowel Prep Kit oral liquid Start: 04/12/23 13:05:00 EST, See Instructions, Disp# 354 mL, Refills: 0, Take as directed., Pharmacy: [facility] Start Date: 04/12/23 Status: Ordered Sutab oral tablet Start: 02/23/23 12:01:00 EST, See Instructions, Disp# 24 tab, Refills: 0, Follow [facility] NOT the instructions included with the prep., Note to Pharmacy: MEDICARE COUPON CODE: BIN: [id number]; PCN: [id number]; GROUP: [id number]... Start Date: 02/23/23 Status: Ordered topiramate 100 mg oral tablet Start: 12/30/22 8:29:00 EST, See Instructions, Disp# 180 tab, Refills: 1, TAKE 1 TABLET TWICE DAILY, Pharmacy: [facility] Start Date: 12/30/22 Status: Ordered traMADol 50 mg oral tablet Start: 04/07/23 13:48:00 EST, 1 tab, PO, q8h, Disp# 60 tab, Refills: 0, PRN: pain - severe (7-10), Pharmacy: [facility] Start Date: 04/07/23 Status: Ordered Vitamin D3 5000 intl units (125 mcg) oral capsule Start: 02/18/21 13:04:00 EST, 1 cap, PO, Daily, Disp# 90 cap, Refills: 3, [facility] Start Date: 02/18/21 Status: Ordered Zofran 4 mg oral tablet Start: 04/12/23 13:05:00 EST, 1 tab, PO, bid, Disp# 3 tab, Refills: 0, Take 1 tablet 30 minutes before bowel prep as needed for nausea, PRN: as needed for nausea/vomiting, [facility] Start Date: 04/12/23 Status: Ordered Mental Status 04/21/23 Barriers to Learning one year None evide nt Mandatory Health Literacy Documentation Yes Health Literacy Communication Barriers N ever Primary Language Venezuelan Problem List Condition Confirmation Course Effective Dates Status H ealth Status Informant Anxiety Confirmed Active Asthma Confirmed Active Chronic pain syndrome Confirmed Active Chronic GERD Confirmed Active Insomnia Confirmed Active Right lumbar radiculopathy Confirmed Active Migraines Confirmed Active Osteoarthritis Confirmed Active Osteopenia Confirmed Active Osteoporosis Confirmed Active Seizure disorder Confirmed Active Severe depression Confirmed Active Foraminal stenosis of lumbar region Confirmed Active Diagnosis Diagnosis Type Effective Dates Health Status Clinical Service Informant Right lumbar radiculopathy Discharge Diagnosis 03/10/23 Non-Specified Spinal stenosis Discharge Diagnosis 03/10/23 Non-Specified Asthma Discharge Diagnosis 04/21/23 Body mass index [BMI] 21.0-21.9, adult Discharge Diagnosis 04/21/23 Non-Specified Osteopenia Discharge Diagnosis 04/21/23 Insomnia Discharge Diagnosis 04/21/23 Severe depression Discharge Diagnosis 04/21/23 Seizure disorder Discharge Diagnosis 04/21/23 Chronic pain syndrome Discharge Diagnosis 04/22/23 Procedures Procedure Date Related Diagnosis Body Site [...] reflecting reflux. Stable chronic findings as above. [id number] Vital Signs Most recent to oldest [Reference Range]: 1 Height 160.5 cm (04/21/23 1:16 PM) Patient Weight 54.8 kg (04/21/23 1:16 PM) Body Mass Index 21.27 kg/m2 (04/21/23 1:16 PM) Temperature [36.5-37.9 DegC] 36.4 DegC *LOW* (04/21/23 1:16 PM) Blood Pressure 128/82mmHg (04/21/23 1:16 PM) BP Location # 1 Left Arm (04/21/23 1:16 PM) Social History Social History Type Response Smoking Status Never smoked cigaret yung Sex Female FCM Outpt Note * DO Bolaños Gretchen Elizabeth: PERFORM Event Display: FCM Outpt Note Authored Date: [id number] Chief Complaint Here for 3 month f/u. History of Present Illness With sister today Will be going to [place] when other sister in [place] Still using ambien nightly Started therapy, goes every two weeks Tramadol use since surgery 11/08/22, uses two a day ever other day, still doing PT Hasn't had dark or tarry stools, no NSAIDs Dr. Garcia states left lwer back may remain painful Doing ice pack Working with psychiatry TD symptoms improved, less twitching Goes to lunch with brother in law, walks over to sisters, stays active Still using ambien, denies daytime sedation or hang over Was on Fosamax for5 yrs, off for 1.5 yrs Review of Systems Pertinent positives and negatives as stated in history of present illness. Physical Exam Vitals & Measurements T:36.4C BP:128/82 SpO2:97% HT:160.5cm WT:54.8kg WT:54.800kg(Dosing) BMI:21.27 PHQ2 Data(Data Documented on:04/21/2023 13:11) Emotional health assessment NEGATIVE PHQ-9 Data(Data Documented on:04/21/2023 13:12) PHQ-9 Severity Score:8 Thoughts that you would be better off or of hurting yourself in some way?Not at All Depression Risk:Not Elevated General Anxiety Disorder Screening: AJAY-7 Score:9 AJAY-7 Problem Severity:Somewhat Difficult General:Alert and oriented, no acute distress HEENT:Normocephalic,atraumatic, conjunctiva clear Cardiovascular:Normal rate, regular rhythm, no murmur, no gallop, +S1/S2, no S3/S4 Respiratory:Lungs clear bilaterally to auscultation, respirations non- labored, breath sounds equal, no rhonchi, no rales Gastrointestinal: Normal bowel sounds Psych:Mood and affect congruent. Assessment/Plan 1.Osteopenia Chronic, active,patient has been offFosamax therapyfor past year and a half,per chart reviewpatientpreviously with osteoporosis, lastbone densityin 2020 showed improvementfrom 2018testing, repeat DEXA ordered, patient understanding of necessity to continue vitamin D and calcium supplementation, maintaining weightbearing exercises as possible 2.Insomnia Chronic,active, patient dependent on zolpidem therapy,currentdose 10 mg nightly, discussed would like to wean this with patient, unfortunately past efforts have proven difficult. CSAon file. Patient aware ofconcerns foruse with othercontrolled substances such as opiates. 3.Right lumbar radiculopathy 4.Spinal stenosis 5.Chronic pain syndrome Chronic, active, in setting ofrecent surgery and chronic back dysfunction. Patient was previously on high doses of morphinefor chronic pain in the past. At present she is currently utilizing [id number] mgtwice dailyas needed, last fill number . Encouraged efforts to reduce tramadol useto once daily, patient utilizes more around physical therapy, which is appropriate. We reviewedconsideration ofadding acetaminophenand also lidocaine patch as pain seems to be around hersurgical scar.Patient remains on [id number] mg 3 times daily. Unfortunately patient is a good candidate for NSAIDs due to history ofGI bleed andgastric bypass surgery. 6.Asthma Chronic, stable, patient without symptoms, limited utilization of inhaler 7.Severe depression Chronic, improved, PHQ 8 today and GAD9, patientwithout SI/HI, is engaging in therapy which is beneficial. Currentmedication regimen includesa Rip resolved 5 mg daily, buspirone 10 mg 3 times daily,citalopram 20 mgdaily. 8.Seizure disorder Chronic, per chart review, patient with reportedaudience type staring seizures,no recent episodes,did havetar dive dyskinesia due to antipsychotic usewhich is improved significantly since changes to medication regimen.Patient remains on Topamax 100 mgtwice daily. States that she caceres s been onmemantine anddoxepin combination for years sinceformer PCP for memory issues. Discussed consideration of reducing 1 of these medications due to concern of polypharmacy. Total physician time spent on day of encounter with patient including pre- visit planning, chart review, [id number] discussion, education, care coordination,and documentation:46 minutes Problem List/Past Medical History Ongoing Anxiety Asthma Chronic GERD Chronic pain syndrome Foraminal stenosis of lumbar region Insomnia Migraines Osteoarthritis Osteopenia Osteoporosis Right lumbar radiculopathy Seizure disorder Severe [...] tablet), 800 mg= 1 tab, PO, tid, 1 refills hydrOXYzine(hydrOXYzine hydrochloride 25 mg oral tablet), See Instructions, 3 refills lidocaine topical(lidocaine topical 5% patch), 1 patch, topical, Daily, 1 refills magnesium sulfate/potass Cl/sodium sulf(Sutab oral tablet), See Instructions magnesium sulfate/potassium sulfate/sodium sulfate(Suprep Bowel Prep Kit oral liquid), See Instructions memantine(memantine 5 mg oral tablet), See Instructions, 1 refills ondansetron(Zofran 4 mg oral tablet), 4 mg= 1 tab, PO, bid, PRN pantoprazole(pantoprazole 40 mg oral delayed release tablet), See Instructions, 1 refills rizatriptan(rizatriptan 10 mg oral tablet), See Instructions sodium chloride nasal(Saline Mist 0.65% nasal spray) sucralfate(sucralfate 1 g oral tablet), 1 g= 1 tab, PO, ac and hs topiramate(topiramate 100 mg oral tablet), See Instructions, [...] Due Adult Social Determinants of Health Screening due04/22/23Unknown Frequency Adult Tdap/Td Vaccine due04/22/23Unknown Frequency Hepatitis C Screening due04/22/23One-time only Shingles Vaccine due04/22/23One-time only Due In Future Adult Influenza Vaccine not due until08/20/23and every 1year Satisfied(in the past 1 year) Satisfied Adult Influenza Vaccine on01/06/23.Satisfied by ROSA MARIA Romero Paul Body Mass Index on04/21/23.Satisfied by ULICES Corona Paula Breast Cancer Screening on02/07/23.Satisfied by MD Espinosa Margaret Electronic Signature on File Electronically Reviewed/Signed by: Paula Bolaños D.O. Author Signature Dt/Tm:04/22/2023 02:06 PM Department of Family Medicine [facility] Patient Care team information Care Team Personnel Name: DO Bolaños Gretchen Elizabeth Position: Physician - Family Med Member Role: Primary Care Provider Address: Address: [address] [place] [address] Name: Darin Zhao MD, [facility] Position: Resident Member Role: Lifetime Relationship Address: Address: [address] [address] [place] Care Team Related Persons Name: AYDEN YANEZ Name: EMILY DUDLEY Address: home [address] [address]
[2023-05-18] MEDS: levETIRAcetam IV 500 MG in SODIUM CHLOR 0.9% MINI-B 100 ML IV SCH (04:57)
[2023-05-18 05:03] LABS: Basophils # (auto) 0.01 K/uL (0.00-0.20); Basophils % (auto) 0.2 %; Hematocrit (blood only) 23.8 % (37.0-47.0); Hemoglobin 7.3 g/dl (12.0-16.0); Immature Granulocytes # (auto) 0.01 K/uL (0.01-0.20); Immature Granulocytes % (auto) 0.2 %; Lymphocytes # (auto) 0.77 K/uL (1.20-3.40); Lymphocytes % (auto) 15.3 %; Mean Corpuscular Hemoglobin 22.9 pg (25.0-34.0); Mean Corpuscular Hgb Conc 30.7 g/dL (32.0-36.0); Mean Corpuscular Volume 74.6 fL (80.0-100.0); Mean Platelet Volume 9.7 fL (9.4-12.4); Monocytes # (auto) 0.55 K/uL (0.11-0.59); Monocytes % (auto) 10.9 %; Neutrophils % (auto) 69.4 %; Platelet Count 294 K/uL (130-400); RDW Coefficient of Variation 16.3 % (11.5-14.5); RDW Standard Deviation 44.5 fL (36.4-46.3); Red Blood Count 3.19 M/uL (4.20-5.40); White Blood Count 5.04 K/ul (4.8-10.8)
[2023-05-18 05:20] LABS: BUN Creatinine Ratio 20.9 (10-20); Calcium 8.1 mg/dl (8.6-10.3); Creatinine Clr Calc Pharmacy 69.5 ml/min; Est GFR (African American) 106.9 ml/min; Est GFR (Non-African American) 92.2 ml/min; Potassium 3.5 mmol/L (3.5-5.1)
[2023-05-18 05:32] LABS: Hypochromasia Present
--- NOTE | 2023-05-18 07:58 | Surgery Progress Note ---
Date of Service May 18, 2023 Assessment & Plan (1) Abnormal CT of the abdomen: (2) RUQ abdominal pain: Plan 67 year-old female with history of gastric bypass surgery 7 years ago and upper GI bleed at site of gastric bypass in August of 2022 presented to ED with 2 week history of increasing heartburn with associated abdominal pain postprandial. CT scan of abdomen and pelvis showing indeterminate fluid collection measuring 9 x 3 x 6 cm beginning at duodenum and extending into the right lower quadrant with asymmetric infiltration of the right retroperitoneum. No pneumoperitoneum, afebrile, no leukocytosis. Abdominal examination without peritoneal signs however tenderness in RUQ and right mid abdomen and right flank. Reviewed imaging with Dr. Julien in radiology, given history and imaging findings possibly contained perforation of the duodenum. 05/18/2023: abdominal pain about the same afebrile, no leukocytosis Hgb 7.3 this morning (10 yesterday) likely dilutional + 3 liters hemodynamically stable Plan: No acute surgical intervention required at this time. Await GI evaluation and any further recs Recommend IV fluids, IV antibiotics, PPI drip, Pain management as needed, antiemetics as needed. NPO for bowel rest repeat am labs, monitor H&H Dr. Boucher has seen and examined patient, agrees with above. Admission and Anticipated Discharge Date Admission Date: May 17, 2023 Subjective feeling okay abdominal pain about the same, all in the Right upper abdomen, not worse no n,v Physical Exam Constitutional: WD/WN, vitals as above cooperative and comfortable; no acute distress and not ill appearing Respiratory: normal respiratory effort; no respiratory distress, no labored breathing and no retractions Gastrointestinal (Abdomen): Inspection/Auscultation: abdomen normal to inspection and + abdominal surgical scar (midline laparotomy scar); abdomen not distended Percussion/Palpation: + abdomen tender (moderate tenderness in RUQ ), + guarding (voluntary in RUQ) and abdomen soft; abdomen not rigid and abdomen not firm Skin: no rashes, warm and dry Psychiatric: A+Ox3, euthymic affect Results & Data Vital Signs (Past 12 Hours) Vital Signs Temp Pulse Pulse Resp BP Pulse Ox O2 Del Method 05/18/23 07:39 60 05/18/23 03:57 36.5 C 65 16 96/45 L 93 Room Air 03/27/24 22:19 65 05/17/23 22:00 Room Air 05/17/23 22:00 37.3 C 69 16 115/68 95 Room Air Laboratory Results 05/18/23 05/17/23 05/17/23 Range/Units 04:16 Unknown 12:24 WBC 5.04 6.80 (4.8-10.8) K/ul RBC 3.19 L 4.43 (4.20-5.40) M/uL Hgb 7.3 L 10.0 L (12.0-16.0) g/dl Hct 23.8 L 33.5 L (37.0-47.0) % MCV 74.6 L 75.6 L (80.0-100.0) fL MCH 22.9 L 22.6 L (25.0-34.0) pg MCHC 30.7 L 29.9 L (32.0-36.0) g/dL RDW Std Deviation 44.5 43.6 (36.4-46.3) fL RDW Coeff of Meredith 16.3 H 15.9 H (11.5-14.5) % Plt Count 294 448 H (130-400) K/uL MPV 9.7 9.7 (9.4-12.4) fL Immature Gran % (Auto) 0.2 0.1 % Neut % (Auto) 69.4 70.3 % Lymph % (Auto) 15.3 16.8 % Tift % (Auto) 10.9 9.9 % Eos % (Auto) 4.0 2.5 % Baso % (Auto) 0.2 0.4 % Neut # (Auto) 3.50 4.78 (1.40-6.50) K/uL Lymph # (Auto) 0.77 L 1.14 L (1.20-3.40) K/uL Tift # (Auto) 0.55 0.67 H (0.11-0.59) K/uL Eos # (Auto) 0.20 0.17 (0.00-0.50) K/uL Baso # (Auto) 0.01 0.03 (0.00-0.20) K/uL Immature Gran # (Auto) 0.01 0.01 (0.01-0.20) K/uL Hypochromasia Present PT 11.8 (9.0-12.0) Seconds INR 1.1 (0.9-1.1) APTT < 20 L (21-31) Seconds PTT Ratio 0.7 Sodium 138 140 (136-145) mmol/L Potassium 3.5 3.1 L (3.5-5.1) mmol/L Chloride 104 101 (98-107) mmol/L Carbon Dioxide 27 29 (21-32) mmol/L Anion Gap 7 10 (3-11) BUN 14 18 (6-23) mg/dl Creatinine 0.67 0.72 (0.6-1.2) mg/dl Est Cr Clr Drug Dosing 69.5 64.7 ml/min Est GFR ( Amer) 106.9 101.9 ml/min Est GFR (Non-Af Amer) 92.2 87.9 ml/min BUN/Creatinine Ratio 20.9 H 25.0 H (10-20) Glucose 85 100 H (70-99(Fasting)) mg/dl Calcium 8.1 L 9.4 (8.6-10.3) mg/dl Total Bilirubin 0.5 (0.2-1.0) mg/dl AST 12 L (13-39) U/L ALT 6 L (7-52) U/L Alkaline Phosphatase 73 (34-104) U/L Troponin I High Sens 4.3 (0-14) pg/ml Total Protein 6.7 (6.0-8.3) gm/dl Albumin 4.1 (3.4-5.0) gm/dl Globulin 2.6 (2.5-4.0) gm/dl Albumin/Globulin Ratio 1.6 (0.9-2) Lipase 365 H (11-82) U/L Urine Color Yellow Urine Appearance Clear (Clear) Urine pH 6.0 (4.5-7.5) Ur Specific [place] > 1.045 H (1.000-1.030) Urine Protein 1+ H (Negative) Urine Glucose (UA) Negative (Negative) Urine Ketones 1+ H (Negative) Urine Blood Negative (Negative) Urine Nitrite Negative (Negative) Urine Bilirubin Negative (Negative) Urine Urobilinogen Negative (Negative) Ur Leukocyte Esterase Negative (Negative) Urine WBC (Auto) >30 H (0-5) /hpf Urine RBC (Auto) 0-4 (0-4) /hpf U Hyaline Cast (Auto) 0 (0-5) /lpf U Epithel Cells (Auto) >30 H (0-5) /lpf Urine Bacteria (Auto) Negative (Negative)
--- NOTE | 2023-05-18 08:40 | Hospitalist Progress Note ---
Date of Service May 18, 2023 Assessment & Plan (1) Abdominal pain: Plan: Suspected contained duodenal perforation on CT of abd/pelvis "indeterminate thick-walled fluid collection from duodenum into right lower quadrant. 05/16 history of GERD With history of Fred-en-Y gastric bypass 7 years ago Surgery consulted, GI consulted. Case was reviewed by surgery while in the ER, suspect is likely to be a contained duodenal perforation not requiring emergent surgical intervention at this time. Recommended GI consultation - Remains on Zosyn, anemia felt second to volume resuscitation, is on protonix gtt at present will change to bolus, did have a Dieulafoy lesion 09/11 with transfusion and clipping MCV microcytic. Iron panel pending with h/o low iron (2) Seizure disorder: Plan: No seizure in many years, initial seizure was a partial staring spell P.o. meds have been held, iv Keppra given while p.o. is held Seizure precautions, Ativan on-call (3) Transient ischemic attack (TIA): Plan: h/o, No focal neurologic symptoms on admission (4) Neurogenic claudication due to lumbar spinal stenosis: Plan: Lumbar stenosis S/p decompression 10/2022 No acute change. Gabapentin temporarily held while n.p.o., resume once tolerating p.o. Plan DVT prophylaxis: SCDs CODE STATUS: DNR/DNI Admission and Anticipated Discharge Date Admission Date: May 17, 2023 Subjective pt has persistent right sided abdominal pain, this is worsened with palpation and associated with some guarding does seem pale at times Physical Exam Physical Exam: Pale appearing abd is with hypoactive bowel sounds tenderness is right sided, some guarding no rebound Results & Data Results & Data Vital Signs (Past 12 Hours) Vital Signs Temp Pulse Pulse Resp BP Pulse Ox O2 Del Method 05/18/23 07:59 98.4 F 69 16 98/59 L 94 Room Air 05/18/23 07:39 60 05/18/23 03:57 97.7 F 65 16 96/45 L 93 Room Air 05/17/23 22:19 65 05/17/23 22:00 Room Air 05/17/23 22:00 99.1 F 69 16 115/68 95 Room Air Laboratory Results review cbc review chemistry PG Care Time/CCT Total # of Minutes Spent Total Time Spent with Patient: Total time spent is greater than 50% in coordination of care (as documented) at patient's floor/unit and/or counseling patient: Coding Level of Care Code 12070 SUB INP/OBS CARE 3/50MIN Diagnoses Abdominal pain R10.10 Abdominal location: upper abdomen, unspecified Seizure disorder G40.909 Transient ischemic attack (TIA) G45.9 Neurogenic claudication due to lumbar spinal stenosis M48.062 (1) Abdominal pain Abdominal location: upper abdomen, unspecified Qualified Code(s): R10.10 - Upper abdominal pain, unspecified
--- NOTE | 2023-05-18 10:22 | Gastrointestinal Consultation ---
Date of Consultation May 18, 2023 Assessment & Plan (1) Abdominal pain: (2) Abnormal CT of the abdomen: Plan Patient is a 67 y.o. female with a history of gastric bypass and UGIB secondary to a gastric Dieulafoy lesion s/p hemostasis via Endoclip placement (09/11) admitted with a 2 week history of abdominal and back pain with imaging suggestive of a duodenal perforation with associated retroperitoneal fluid collection. 1. No role for invasive GI work up. 2. Continue Pantoprazole 40 mg IV BID and IV Zosyn. 3. Consider repeat imaging in 48-72 hours. If no improvement in collection, consider tertiary referral for drainage. 4. Rest per primary team. Thank you for allowing us to participate in the care of this patient. If you have any questions or concerns, please do not hesitate to contact us. Supervising Physician Co-Signing Physician Notes Agree with AJMES Smith as above Abd: soft, tender, ND Continue continue current therapy and supportive care No roleNo role for invasive G.I. testing at this time History of Present Illness Reason for Consultation: Suspected duodenal perforation Requesting Physician: Dr. Wolfe Attending Physician: Henry Grimes MD History of Present Illness Patient is a 67 y.o. female with a history of Fred-en-Y gastric bypass, GERD and UGIB admitted to the hospital with symptomatic anemia in August of 2022 and findings of a gastric Dieulafoy lesion s/p Endoclip placement in by Dr. 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 She states the pain was becoming more intense, prompting ER evaluation. Symptoms were worse with eating. No associated fevers or chills, nausea or vomiting, melena, hematochezia, or hematemesis. On arrival, she did undergo a CT a/p which demonstrated: "Peritoneum: There is no intraperitoneal free air or abdominal ascites. There is a serpiginous and thick-walled/loculated fluid collection which extends from the proximal duodenum inferiorly into the right lower quadrant. This measures approximately 9 x 3.5 x 6.5 cm in aggregate dimension, and is best seen on images #[id number]. This is remote from the appendix. There is asymmetric inf iltration identified in the right retroperitoneum which extends from the right kidney. A component of fat necrosis is not excluded." Patient was evaluated by general surgery and no plan for intervention. GI has been consulted in this regard. Allergies Allergy/AdvReac Type Severity Reaction Status Date / Time No Known Allergies Allergy Verified 11/08/22 11:50 Home Medications Medication Instructions Recorded Confirmed Type cyanocobalamin (vitamin B-12) 1,000 mcg PO QAM 07/23/19 05/17/23 History 1,000 mcg tablet donepezil 10 mg tablet (Aricept) 10 mg PO HS 07/23/19 05/17/23 History escitalopram oxalate 20 mg tablet 0 mg PO BID 07/23/19 05/17/23 History (Lexapro) memantine 5 mg tablet (Namenda) 5 mg PO BID 07/23/19 05/17/23 History pantoprazole 40 mg tablet,delayed 40 mg PO DAILY 07/23/19 05/17/23 History release (Protonix) quetiapine 300 mg tablet (Seroquel) 300 mg PO HS 07/23/19 05/17/23 History topiramate 100 mg tablet (Topamax) 100 mg PO BID 07/23/19 05/17/23 History nebulizer accessories #1 ea 03/01/22 09/14/22 Rx albuterol sulfate 0.63 mg/3 mL 0.63 mg (3 mL) inhalation BID 06/24/22 05/17/23 Rx solution for nebulization shortness of breath or wheezing #90 mL sodium chloride 7 % for 4 ml inhalation BID #240 mL 06/24/22 05/17/23 Rx nebulization (Hyper-Denys) bupropion HCl 200 mg tablet,12 hr 0 mg PO BID 09/15/22 05/17/23 History sustained-release hydroxyzine HCl 25 mg tablet 25 mg PO TID PRN Anxiety 09/15/22 05/17/23 History rizatriptan 10 mg tablet 10 mg PO DAILY PRN MIGRAINE 09/15/22 05/17/23 History zolpidem 10 mg tablet 10 mg PO HS PRN Sleep 09/15/22 05/17/23 History sucralfate 1 gram tablet 1 g PO QID #100 tabs 09/17/22 05/17/23 Rx tramadol 50 mg tablet 50 mg PO Q6H PRN pain, moderate 11/10/22 05/17/23 Rx #30 tabs aripiprazole 5 mg tablet (Abilify) 5 mg PO HS 05/17/23 05/17/23 History buspirone 10 mg tablet 10 mg PO TID 05/17/23 05/17/23 History buspirone 15 mg tablet 15 mg PO TID 05/17/23 05/17/23 History citalopram 20 mg tablet (Celexa) 20 mg PO DAILY 05/17/23 05/17/23 History gabapentin 800 mg tablet 800 mg PO TID 05/17/23 05/17/23 History lidocaine 5 % topical patch 1 patch topical DAILY 05/17/23 05/17/23 History ondansetron HCl 4 mg tablet 4 mg PO BID PRN n/v 05/17/23 05/17/23 History oxycodone 5 mg tablet 0 mg PO Q6H PRN pain 05/17/23 05/17/23 History Patient History Medical History Memory changes History Since TIA (2008) - mild- no recent issues per patient (no follow up with neurology needed) History of recent blood transfusion 09/16/22 @ [facility]--2 units PRBC for upper GI bleed Seizure disorder Chronic low back pain Upper GI bleed recently admitted at [facility] 09/15/22---per pt was found to have bleeding at gastric bypass site, clipped at site and received 2 units PRBCs--pt states she has improved, no current issue, is taking sucralfate as prescribed Insomnia Chronic cough Stable Elevated diaphragm Bronchiectasis Follows with Dr. Moreno- breathing stable Peripheral neuropathy Hands and feet Degenerative disc disease Chronic back pain Lumbar facet arthropathy Spinal stenosis Osteoporosis GERD (gastroesophageal reflux disease) Well controlled and stable Depression Stable Seizure "Staring seizures"- no issues since 2010 per patient Transient ischemic attack (TIA) 2008- no current issues History of high blood pressure Bronchiectasis hx Surgical History Hx of cataract extraction bilat History of total knee replacement RT/LEFT History of esophagogastroduodenoscopy (EGD) 09/16/22 @ [facility] History of colonoscopy H/O total hysterectomy History of cholecystectomy History of tonsillectomy History of tooth extraction History of gastric bypass Family History Aunt Diabetes Grandmother (Paternal) Diabetes Other No family history of adverse response to anesthesia Social History Smoking Status: Never smoker Second Hand Exposure: No; Do You Dip or Chew Tobacco: No; Hx Alcohol Use: Yes Alcohol type: beer Hx Substance Use: No Preferred Language: Swiss Communication Ability: Effective Stake Setter Required: No Beliefs That Will Affect Care: None Current Living Situation: Alone Other Information That Helps Us Care for You: No Feels Safe at Home: Yes Safety Concerns: Feels Safe At This Time Assistive Devices: Cane and Walker Review of Systems Constitutional: no fever and no chills Gastrointestinal: as per Subjective / HPI Physical Exam Constitutional: WD/WN, vitals as above Respiratory: normal respiratory effort, lungs clear to auscultation Cardiovascular: Rate/Rhythm: regular rate and regular rhythm Gastrointestinal (Abdomen): Inspection/Auscultation: normal bowel sounds; abdomen not distended Percussion/Palpation: + abdomen tender and abdomen soft; no guarding and abdomen not rigid Psychiatric: A+Ox3, euthymic affect Results & Data Vital Signs (Past 12 Hours) Vital Signs Temp Pulse Pulse Resp BP Pulse Ox O2 Del Method 05/18/23 07:59 36.9 C 69 16 98/59 L 94 Room Air 05/18/23 07:39 60 05/18/23 03:57 36.5 C 65 16 96/45 L 93 Room Air PG Care Time/CCT Total # of Minutes Spent Total Time Spent with Patient: Total time spent is greater than 50% in coordination of care (as documented) at patient's floor/unit and/or counseling patient: Coding Level of Care Code 31151 INT INP/OBS CARE 3/75MIN Diagnoses Abdominal pain R10.10 Abdominal location: upper abdomen, unspecified Abnormal CT of the abdomen R93.5 (1) Abdominal pain Abdominal location: upper abdomen, unspecified Qualified Code(s): R10.10 - Upper abdominal pain, unspecified
[2023-05-18] MEDS: SODIUM CHLORIDE 0.9% 1,000 ML IV SCH (20:32)
[2023-05-18] MEDS: PANTOprazole 40 MG in SYRINGE 0 ML IV SCH (20:32)
[2023-05-18] MEDS: LORazepam 0.5 MG in SYRINGE 0.25 ML IV PRN (23:26)
[2023-05-19 07:49] LABS: Basophils # (auto) 0.04 K/uL (0.00-0.20); Basophils % (auto) 0.8 %; Eosinophils # (auto) 0.33 K/uL (0.00-0.50); Eosinophils % (auto) 6.3 %; Hematocrit (blood only) 27.1 % (37.0-47.0); Hemoglobin 8.3 g/dl (12.0-16.0); Immature Granulocytes # (auto) 0.01 K/uL (0.01-0.20); Immature Granulocytes % (auto) 0.2 %; Lymphocytes # (auto) 1.16 K/uL (1.20-3.40); Lymphocytes % (auto) 22.2 %; Mean Corpuscular Hemoglobin 22.9 pg (25.0-34.0); Mean Corpuscular Hgb Conc 30.6 g/dL (32.0-36.0); Mean Corpuscular Volume 74.9 fL (80.0-100.0); Mean Platelet Volume 9.3 fL (9.4-12.4); Monocytes # (auto) 0.68 K/uL (0.11-0.59); Neutrophils % (auto) 57.5 %; Platelet Count 297 K/uL (130-400); RDW Coefficient of Variation 16.2 % (11.5-14.5); RDW Standard Deviation 44.1 fL (36.4-46.3); Red Blood Count 3.62 M/uL (4.20-5.40); White Blood Count 5.22 K/ul (4.8-10.8)
[2023-05-19 08:04] LABS: Calcium 8.3 mg/dl (8.6-10.3); Potassium 3.3 mmol/L (3.5-5.1)
[2023-05-19 08:09] LABS: BUN Creatinine Ratio 16.9 (10-20); Creatinine Clr Calc Pharmacy 69.8 ml/min; Est GFR (African American) 103.6 ml/min; Est GFR (Non-African American) 89.4 ml/min
[2023-05-19] MEDS: POTASSIUM CHLORIDE / WTR 10 MEQ/100 ML PLCT IV SCH (08:58)
[2023-05-19] MEDS: MAGNESIUM SULFATE / D5W 1 GM/100 ML BAG IV ONE (08:58)
--- NOTE | 2023-05-19 12:49 | Surgery Progress Note ---
Date of Service May 19, 2023 Assessment & Plan (1) Abnormal CT of the abdomen: (2) RUQ abdominal pain: Plan 67 year-old female with history of gastric bypass surgery 7 years ago and upper GI bleed at site of gastric bypass in August of 2022 presented to ED with 2 week history of increasing heartburn with associated abdominal pain postprandial. CT scan of abdomen and pelvis showing indeterminate fluid collection measuring 9 x 3 x 6 cm beginning at duodenum and extending into the right lower quadrant with asymmetric infiltration of the right retroperitoneum. No pneumoperitoneum, afebrile, no leukocytosis. Abdominal examination without peritoneal signs however tenderness in RUQ and right mid abdomen and right flank. Reviewed imaging with Dr. Julien in radiology, given history and imaging findings possibly contained perforation of the duodenum. 05/19/2023: abdominal pain about the same afebrile, no leukocytosis Hgb8.3 (7.3 --> 7.9 yesterday) hemodynamically stable Plan: No acute surgical intervention required at this time. Would recommend another day of NPO/bowel rest as pain is about the same May need to consider IV nutrition as she has not been eating well for a few weeks As per Gi may need to consider repeat imaging in next day or two. Continue IV fluids, IV antibiotics, PPI BID, Pain management as needed, antiemetics as needed. NPO for bowel rest repeat am labs, monitor H&H Discussed with Dr. Boucher who agrees wtih above. Admission and Anticipated Discharge Date Admission Date: May 17, 2023 Subjective abdominal pain stable, better with pain medication but once pain meds wear off pain still about 9/10 no n,v no dizziness or lightheadedness little appetite Physical Exam Constitutional: WD/WN, vitals as above cooperative and comfortable; no acute distress and not ill appearing Respiratory: normal respiratory effort; no respiratory distress Gastrointestinal (Abdomen): Inspection/Auscultation: abdomen normal to inspection and + abdominal surgical scar (midline laparotomy); abdomen not distended Percussion/Palpation: + abdomen tender (RUQ), + guarding (RUQ) and abdomen soft; abdomen not rigid and abdomen not firm Skin: no rashes, warm and dry Psychiatric: A+Ox3, euthymic affect Results & Data Vital Signs (Past 12 Hours) Vital Signs Temp Pulse Pulse Resp BP Pulse Ox O2 Del Method 05/19/23 11:31 37.4 C 78 18 117/52 L 97 Room Air 05/19/23 08:00 Room Air 05/19/23 07:27 37.3 C 75 18 109/43 L 96 Room Air 05/19/23 07:00 63 05/19/23 03:16 37.1 C 75 18 120/66 94 Room Air Laboratory Results 05/19/23 05/18/23 05/18/23 Range/Units 07:15 20:50 18:47 WBC 5.22 (4.8-10.8) K/ul RBC 3.62 L (4.20-5.40) M/uL Hgb 8.3 L 7.9 L (12.0-16.0) g/dl Hct 27.1 L (37.0-47.0) % MCV 74.9 L (80.0-100.0) fL MCH 22.9 L (25.0-34.0) pg MCHC 30.6 L (32.0-36.0) g/dL RDW Std Deviation 44.1 (36.4-46.3) fL RDW Coeff of Meredith 16.2 H (11.5-14.5) % Plt Count 297 (130-400) K/uL MPV 9.3 L (9.4-12.4) fL Immature Gran % (Auto) 0.2 % Neut % (Auto) 57.5 % Lymph % (Auto) 22.2 % Winston % (Auto) 13.0 % Eos % (Auto) 6.3 % Baso % (Auto) 0.8 % Neut # (Auto) 3.00 (1.40-6.50) K/uL Lymph # (Auto) 1.16 L (1.20-3.40) K/uL Winston # (Auto) 0.68 H (0.11-0.59) K/uL Eos # (Auto) 0.33 (0.00-0.50) K/uL Baso # (Auto) 0.04 (0.00-0.20) K/uL Immature Gran # (Auto) 0.01 (0.01-0.20) K/uL Sodium 139 (136-145) mmol/L Potassium 3.3 L (3.5-5.1) mmol/L Chloride 104 (98-107) mmol/L Carbon Dioxide 25 (21-32) mmol/L Anion Gap 10 (3-11) BUN 12 (6-23) mg/dl Creatinine 0.71 (0.6-1.2) mg/dl Est Cr Clr Drug Dosing 69.8 ml/min Est GFR ( Amer) 103.6 ml/min Est GFR (Non-Af Amer) 89.4 ml/min BUN/Creatinine Ratio 16.9 (10-20) Glucose 66 L (70-99(Fasting)) mg/dl Calcium 8.3 L (8.6-10.3) mg/dl Blood Type A Positive Antibody Screen POSITIVE A Antibody Identification Anti-K Antibody ID Comment
--- NOTE | 2023-05-19 17:42 | Hospitalist Progress Note ---
Date of Service May 19, 2023 Assessment & Plan (1) Abdominal pain: Plan: Suspected contained duodenal perforation on CT of abd/pelvis "indeterminate thick-walled fluid collection from duodenum into right lower quadrant. 05/16 history of GERD With history of Fred-en-Y gastric bypass 7 years ago Surgery consulted, GI consulted. Case was reviewed by surgery while in the ER, suspect is likely to be a contained duodenal perforation not requiring emergent surgical intervention at this time. Recommended GI consultation - Remains on Zosyn, if clinically deteriorating will consider re imaging anemia felt second to volume resuscitation, is on protonix bolus, did have a Dieulafoy lesion 09/11 with transfusion and clipping MCV microcytic. Iron panel pending with h/o low iron (2) Seizure disorder: Plan: No seizure in many years, initial seizure was a partial staring spell P.o. meds have been held, iv Keppra given while p.o. is held Seizure precautions, Ativan on-call (3) Transient ischemic attack (TIA): Plan: h/o, No focal neurologic symptoms on admission (4) Neurogenic claudication due to lumbar spinal stenosis: Plan: Lumbar stenosis S/p decompression 10/2022 No acute change. Gabapentin temporarily held while n.p.o., resume once tolerating p.o. Plan DVT prophylaxis: SCDs CODE STATUS: DNR/DNI Admission and Anticipated Discharge Date Admission Date: May 17, 2023 Subjective pt with abscess, still with abdominal pain, still with surgery recommending conservative care Physical Exam Physical Exam: Pale appearing, hgb stable abd is with hypoactive bowel sounds tenderness is right sided, some guarding no rebound Results & Data Results & Data Vital Signs (Past 12 Hours) Vital Signs Temp Pulse Pulse Resp BP Pulse Ox O2 Del Method 05/19/23 16:06 99.0 F 81 18 126/75 96 Room Air 05/19/23 15:28 79 05/19/23 11:31 99.3 F 78 18 117/52 L 97 Room Air 05/19/23 08:00 Room Air 05/19/23 07:27 99.1 F 75 18 109/43 L 96 Room Air 05/19/23 07:00 63 Laboratory Results review cbc review chemistry PG Care Time/CCT Total # of Minutes Spent Total Time Spent with Patient: Total time spent is greater than 50% in coordination of care (as documented) at patient's floor/unit and/or counseling patient: Coding Level of Care Code 71817 SUB INP/OBS CARE 235MIN Diagnoses Abdominal pain R10.10 Abdominal location: upper abdomen, unspecified Seizure disorder G40.909 Transient ischemic attack (TIA) G45.9 Neurogenic claudication due to lumbar spinal stenosis M48.062 (1) Abdominal pain Abdominal location: upper abdomen, unspecified Qualified Code(s): R10.10 - Upper abdominal pain, unspecified
[2023-05-19] MEDS: DICLOFENAC SOD 1% GEL 100 GM TUBE EXT SCH (20:18)
--- NOTE | 2023-05-20 06:05 | Surgery Progress Note ---
Date of Service May 20, 2023 Assessment & Plan (1) Abnormal computed tomography of abdomen and pelvis: Plan: Patient has been admitted on the hospitalist service. -CT scan of the abdomen pelvis on 05/17/2023 showed a fluid collection measuring 9 x 3 x 6 cm of uncertain clinical significance, but the possibility of a contained perforation of the duodenum was noted At the present time the patient has some right upper quadrant abdominal pain without peritoneal signs Maintain n.p.o. status for the present time; if diet is unable to be advanced today consideration should be given to providing parenteral nutrition Continue intravenous fluids for hydration Continue Protonix for GI prophylaxis Continue antibiotics in the form of Zosyn Check a.m. labs when available Consider repeat CT scan of the abdomen or pelvis in the next 24 hours Mobilize as able Admission and Anticipated Discharge Date Admission Date: May 17, 2023 Supervising Physician Co-Signing Physician Notes I have seen and examined this patient. I agree with the above assessment. Of note, the patient was started on ice chips last night I believe by her primary surgical team. The patient continues to tolerate ice chips today without increasing or worsening abdominal pain. She does admit that the pain is markedly improved with still some residual mild TTP at the right upper to lower quadrant. She denies fevers or chills, it is noted that a temperature of 37.6 was documented at 2200 last night. She remains without leukocytosis and outside of a mild hypokalemia has no significant electrolyte derangement. Will move forward slowly with this patient, may continue ice chips for today. Will follow-up exam and labs in the a.m. Subjective Patient is currently resting comfortably in bed. Patient notes that abdominal pain that was present at time of admission is markedly improved. Patient says that she is passing flatus but has not had a bowel movement since admission. She denies any nausea or vomiting. I discussed with table games shift manager RN who did not voice any concerns at this time. Physical Exam Gastrointestinal (Abdomen): Abdomen is soft and nondistended with positive bowel sounds. There is no rebound tenderness or guarding. Patient did have some slight tenderness to palpation in the epigastric/right upper quadrant. Results & Data Vital Signs (Past 12 Hours) Vital Signs Temp Pulse Pulse Resp BP Pulse Ox O2 Del Method 05/20/23 02:43 36.9 C 82 16 115/70 95 Room Air 05/19/23 22:41 37.6 C H 81 16 125/63 96 Room Air 05/19/23 21:54 82 05/19/23 21:40 Room Air 05/19/23 20:09 36.9 C 84 16 114/67 98 Room Air PG Care Time/CCT Total # of Minutes Spent Total Time Spent with Patient: Total time spent is greater than 50% in coordination of care (as documented) at patient's floor/unit and/or counseling patient: Coding Level of Care Code 90305 SUB INP/OBS CARE 03/16MIN Diagnoses Abnormal computed tomography of abdomen and pelvis R93.5
[2023-05-20 06:49] LABS: Basophils # (auto) 0.02 K/uL (0.00-0.20); Basophils % (auto) 0.3 %; Eosinophils # (auto) 0.32 K/uL (0.00-0.50); Eosinophils % (auto) 5.6 %; Hematocrit (blood only) 23.5 % (37.0-47.0); Hemoglobin 7.2 g/dl (12.0-16.0); Immature Granulocytes # (auto) 0.02 K/uL (0.01-0.20); Immature Granulocytes % (auto) 0.3 %; Lymphocytes % (auto) 17.5 %; Mean Corpuscular Hemoglobin 22.5 pg (25.0-34.0); Mean Corpuscular Hgb Conc 30.6 g/dL (32.0-36.0); Mean Corpuscular Volume 73.4 fL (80.0-100.0); Mean Platelet Volume 9.5 fL (9.4-12.4); Monocytes # (auto) 0.82 K/uL (0.11-0.59); Monocytes % (auto) 14.3 %; Neutrophils # (auto) 3.54 K/uL (1.40-6.50); Platelet Count 311 K/uL (130-400); RDW Coefficient of Variation 16.1 % (11.5-14.5); RDW Standard Deviation 42.9 fL (36.4-46.3); White Blood Count 5.72 K/ul (4.8-10.8)
[2023-05-20 07:11] LABS: Microcytosis Present; Ovalocytes 1+; Polychromasia 1+
[2023-05-20 07:23] LABS: BUN Creatinine Ratio 13.6 (10-20); Calcium 7.9 mg/dl (8.6-10.3); Creatinine Clr Calc Pharmacy 84.8 ml/min; Est GFR (African American) 111.5 ml/min; Est GFR (Non-African American) 96.2 ml/min; Magnesium 1.7 mg/dl (1.7-2.4); Phosphorus 2.8 mg/dl (2.5-4.9); Potassium 3.3 mmol/L (3.5-5.1)
--- NOTE | 2023-05-20 14:45 | Hospitalist Progress Note ---
Date of Service May 20, 2023 Assessment & Plan (1) Abdominal pain: Plan: Suspected contained duodenal perforation on CT of abd/pelvis "indeterminate thick-walled fluid collection from duodenum into right lower quadrant. 05/16 history of GERD With history of Fred-en-Y gastric bypass 7 years ago Surgery consulted, GI consulted. Case was reviewed by surgery while in the ER, suspect is likely to be a contained duodenal perforation not requiring emergent surgical intervention at this time. GI consultation no intervention recommend repeat imaging Gen surg eval repeat imaging soon, may consider role for IR - Remains on Zosyn, anemia felt second to volume resuscitation, is on protonix bolus, did have a Dieulafoy lesion 09/11 with transfusion and clipping MCV microcytic. h/o low iron (2) Seizure disorder: Plan: No seizure in many years, initial seizure was a partial staring spell P.o. meds have been held, iv Keppra given while p.o. is held Seizure precautions, Ativan on-call (3) Transient ischemic attack (TIA): Plan: h/o, No focal neurologic symptoms on admission (4) Neurogenic claudication due to lumbar spinal stenosis: Plan: Lumbar stenosis S/p decompression 10/2022 No acute change. Gabapentin temporarily held while n.p.o., resume once tolerating p.o. Plan DVT prophylaxis: SCDs CODE STATUS: DNR/DNI Admission and Anticipated Discharge Date Admission Date: May 17, 2023 Subjective pt with persistent pain, is tolerant of ice chips will advance diet will repeat Ct scan and determine if IR would be appropriate Physical Exam Physical Exam: pt is awake and alert lungs are clear abd is soft and persistently tender to right side, no rebound but does have guarding Results & Data Results & Data Vital Signs (Past 12 Hours) Vital Signs Temp Pulse Pulse Resp BP Pulse Ox O2 Del Method 05/20/23 10:56 98.1 F 66 15 111/70 98 Room Air 05/20/23 07:34 Room Air 05/20/23 07:13 98.8 F 81 15 157/78 H 95 Room Air 05/20/23 07:10 82 Laboratory Results review chemistry and magnesium ordered repletion PG Care Time/CCT Total # of Minutes Spent Total Time Spent with Patient: Total time spent is greater than 50% in coordination of care (as documented) at patient's floor/unit and/or counseling patient: Coding Level of Care Code 46471 SUB INP/OBS CARE 2/35MIN Diagnoses Abdominal pain R10.10 Abdominal location: upper abdomen, unspecified Seizure disorder G40.909 Transient ischemic attack (TIA) G45.9 Neurogenic claudication due to lumbar spinal stenosis M48.062 (1) Abdominal pain Abdominal location: upper abdomen, unspecified Qualified Code(s): R10.10 - Upper abdominal pain, unspecified
[2023-05-20] MEDS: MAGNESIUM SULFATE / D5W 1 GM/100 ML BAG IV SCH (15:54)
[2023-05-20] MEDS: POTASSIUM CHLORIDE 40 MEQ in SODIUM CHLORIDE 0.9% 1,000 ML IV SCH (15:54)
[2023-05-20] MEDS: LORazepam 1 MG in SYRINGE 0.5 ML IV STA (22:30)
--- NOTE | 2023-05-21 05:10 | Surgery Progress Note ---
Date of Service May 21, 2023 Assessment & Plan (1) Abnormal computed tomography of abdomen and pelvis: Plan: Patient has been admitted on the hospitalist service. -CT scan of the abdomen pelvis on 05/17/2023 showed a fluid collection measuring 9 x 3 x 6 cm of uncertain clinical significance, but the possibility of a contained perforation of the duodenum was noted At the present time the patient has minimal to no abdominal pain and her abdominal exam is benign Continue intravenous fluids for hydration until oral intake is deemed adequate Continue Protonix for GI prophylaxis Continue antibiotics in the form of Zosyn May consider repeating abdominal imaging either today or tomorrow Mobilize as able Admission and Anticipated Discharge Date Admission Date: May 17, 2023 Supervising Physician Co-Signing Physician Notes I have seen and examined this patient. I agree with the above assessment. Tolerated clears. Remains HD stable, afebrile and without leukocytosis this am. Repeat imaging was obtained by medicine today with oral contrast not much changed from 4 days ago. No leak appreciated on study obtained today. While radiologist notes the appearance is unchanged, the measurement of the abscess obtained by the radiologist who read this scan today is slightly more in one dimension from 9cm to 11cm (certainly not smaller). Consider whether or not 4 days of antibiotics have been enough to weight heavily on the results of this study with regards to ability to be treated with abx but because the size in general is not likely to respond well to antibiotics alone, may need to more strongly consider percutaneous drainage by interventional or endoscopic drainage by GI of the abscess. The shape and location of the abscess appears it possibly may not be amenable to percutaneous CT guided drainage at this facility but may be considered elsewhere and/or if GI here is not an option, this may need to be considered elsewhere as well. In the meantime, she remains stable, without evidence for active leak and is tolerating full liquids. May remain on full liquids for now, NPO after MN and follow up with her primary consulting surgical team in the am to discuss next steps. The patient's primary surgical team will follow up in the am. Subjective Patient is resting comfortably in bed. Patient notes no nausea or vomiting with initiation of clear liquids. She also notes minimal to no abdominal pain at this time. I discussed with night clerk auditor RN who notes no issues overnight. Physical Exam Gastrointestinal (Abdomen): Abdomen is soft and nondistended. There is minimal to no pain with palpation, specifically in the right upper quadrant. Results & Data Vital Signs (Past 12 Hours) Vital Signs Temp Pulse Pulse Resp BP BP Pulse Ox 05/21/23 04:21 36.6 C 74 16 124/76 94 05/20/23 23:41 36.8 C 69 16 110/67 93 05/20/23 23:21 05/20/23 22:14 71 05/20/23 20:12 36.8 C 75 18 134/80 98 O2 Del Method 05/21/23 04:21 Room Air 05/20/23 23:41 Room Air 05/20/23 23:21 Room Air 05/20/23 22:14 05/20/23 20:12 Room Air PG Care Time/CCT Total # of Minutes Spent Total Time Spent with Patient: Total time spent is greater than 50% in coordination of care (as documented) at patient's floor/unit and/or counseling patient: Coding Level of Care Code 58775 SUB INP/OBS CARE 03/16MIN Diagnoses Abnormal computed tomography of abdomen and pelvis R93.5
--- NOTE | 2023-05-21 07:21 | Hospitalist Progress Note ---
Date of Service May 21, 2023 Assessment & Plan (1) Abdominal pain: Plan: Suspected contained duodenal perforation on CT of abd/pelvis "indeterminate thick-walled fluid collection from duodenum into right lower quadrant. 05/16 history of GERD With history of Fred-en-Y gastric bypass 7 years ago Surgery consulted, GI consulted. Case was reviewed by surgery while in the ER, suspect is likely to be a contained duodenal perforation not requiring emergent surgical intervention at this time. GI consultation no intervention, 05/21/23 repeat imaging suggests no worsening or improvement , will discuss with Ir Gen surg eval repeat imaging soon, may consider role for IR - Remains on Zosyn, anemia felt second to volume resuscitation, is on protonix bid, did have a Dieulafoy lesion 09/11 with transfusion and clipping MCV microcytic. h/o low iron (2) Seizure disorder: Plan: No seizure in many years, initial seizure was a partial staring spell Keppra transition to p.o. Seizure precautions, Ativan on-call (3) Transient ischemic attack (TIA): Plan: h/o, No focal neurologic symptoms on admission (4) Neurogenic claudication due to lumbar spinal stenosis: Plan: Lumbar stenosis S/p decompression 10/2022 No acute change. Gabapentin temporarily held while n.p.o., resume once tolerating p.o. Plan DVT prophylaxis: SCDs CODE STATUS: DNR/DNI Admission and Anticipated Discharge Date Admission Date: May 17, 2023 Subjective pt with persistent pain not much improved from admission still some guarding Physical Exam Physical Exam: pt is awake and alert lungs are clear abd is soft and persistently tender to right side, no rebound but does have guarding Results & Data Results & Data Vital Signs (Past 12 Hours) Vital Signs Temp Pulse Pulse Resp BP BP Pulse Ox 05/21/23 07:11 98.4 F 68 14 116/73 97 05/21/23 07:03 61 05/21/23 04:21 97.9 F 74 16 124/76 94 05/20/23 23:41 98.2 F 69 16 110/67 93 05/20/23 23:21 05/20/23 22:14 71 05/20/23 20:12 98.2 F 75 18 134/80 98 O2 Del Method 05/21/23 07:11 Room Air 05/21/23 07:03 05/21/23 04:21 Room Air 05/20/23 23:41 Room Air 05/20/23 23:21 Room Air 05/20/23 22:14 05/20/23 20:12 Room Air PG Care Time/CCT Total # of Minutes Spent Total Time Spent with Patient: Total time spent is greater than 50% in coordination of care (as documented) at patient's floor/unit and/or counseling patient: Coding Level of Care Code 65912 SUB INP/OBS CARE 2/35MIN Diagnoses Abdominal pain R10.10 Abdominal location: upper abdomen, unspecified Seizure disorder G40.909 Transient ischemic attack (TIA) G45.9 Neurogenic claudication due to lumbar spinal stenosis M48.062 (1) Abdominal pain Abdominal location: upper abdomen, unspecified Qualified Code(s): R10.10 - Upper abdominal pain, unspecified
[2023-05-21] MEDS: PANTOprazole 40 MG TAB PO SCH (10:13)
--- NOTE | 2023-05-21 10:16 | CT Scan Report ---
CT SCAN OF THE ABDOMEN AND PELVIS WITH IV CONTRAST CLINICAL HISTORY: Follow-up abscess. COMPARISON STUDY: Abdominal CT dated 05/17/2023. TECHNIQUE: Following the IV administration of 94 cc of Optiray 320, CT scan of the abdomen and pelvi s is performed from the lung bases to the proximal femora. Images are reviewed in the axial, sagittal , and coronal planes. IV contrast was administered without complication. Oral contrast was utilized. A dose lowering technique was utilized adhering to the principles of ALARA. There is streak artifact from the right arm which could not be elevated above the abdomen. FINDINGS: Lung bases: The heart is normal in size and without pericardial effusion. There is a small right pleu ral effusion with dependent consolidation. A smaller pleural effusion as on the left. These are new f rom previous. Liver: The contrast-enhanced liver is normal in size, contour, and attenuation. There is mild central intrahepatic biliary ductal dilatation. The hepatic veins and portal veins are patent. Gallbladder: Surgically absent noting clips in the gallbladder fossa. Spleen: Normal in size and attenuation. Pancreas: Moderately atrophic and grossly unremarkable. Adrenal glands: Unremarkable. Kidneys: The contrast enhanced kidneys are normal in size and without hydronephrosis. The kidneys enh ance symmetrically. Abdominal vasculature: The abdominal aorta is normal in course and caliber noting advanced atheroscle rotic calcification. Stomach and bowel: There is postsurgical change consistent with a Fred-en-Y gastric bypass procedure. There is no bowel obstruction. Enteric contrast reaches the left colon. There is mild colonic fecal retention. There is nonspecific. Thickening of the jejunum. This was not clearly seen previously. The appendix is well-visualized and normal. Peritoneum: There is no intraperitoneal free air or abdominal ascites. There is a serpiginous and thi ck-walled/loculated fluid collection which extends from the proximal duodenum inferiorly into the rig ht lower quadrant with surrounding infiltration. This measures approximately 11 x 6 x 2.5 cm in aggre gate dimension, and is best seen on images #[id number]. This is remote from the appendix. No enteric con trast is seen within the collection. A loculation of this collection extends superiorly along the pos terior aspect of the right kidney as seen on image #182. There is corresponding asymmetric infiltrati on around the right kidney. Lymphadenopathy: None. Pelvic viscera: The bladder is normal as imaged. The uterus is surgically absent. No adnexal lesion i s seen. Presacral edema is new from previous and likely related to fluid overload. Skeletal structures: The skeletal structures are osteopenic. Postsurgical and spondylotic change is n oted in the lumbar spine. No lytic or blastic lesions are seen. There are chronic/healed pelvic ring fractures. Soft tissues: There is body wall edema. IMPRESSION: 1. There has been no significant change in the appearance of an indeterminant serpiginous and thick w alled fluid collection seen extending from the duodenum into the right lower quadrant is detailed abo ve. A loculation of this collection extending posterior to the right kidney is better delineated on t adam's examination. This fluid collection is of indeterminate etiology and chronicity. No enteric con trast is seen within the collection. The sterility of this fluid cannot be assessed imaging and clini duane correlation will be essential. 2. There is postsurgical change consistent with a Fred-en-Y gastric bypass surgery. No bowel obstruct ion is seen. 3. No intraperitoneal free air is identified. The appendix is normal. 4. Right larger than left pleural effusions with right basilar consolidation. Pleural effusions are n ew from previous. 5. There is nonspecific fold thickening of the jejunum. There is also anasarca of the body wall which is new from previous. These findings may be related to fluid overload. Correlate clinically. 6. Additional findings as above. ACT 112: Negative or not required by law. Electronically signed by: Marquis Palma M.D. 05/21/2023 10:14 AM
[2023-05-21] MEDS: levETIRAcetam 500 MG TAB PO SCH (17:14)
[2023-05-22 10:14] LABS: Hematocrit (blood only) 24.1 % (37.0-47.0); Hemoglobin 7.5 g/dl (12.0-16.0); Mean Corpuscular Hemoglobin 22.9 pg (25.0-34.0); Mean Corpuscular Hgb Conc 31.1 g/dL (32.0-36.0); Mean Corpuscular Volume 73.5 fL (80.0-100.0); Mean Platelet Volume 9.9 fL (9.4-12.4); Platelet Count 328 K/uL (130-400); RDW Coefficient of Variation 16.6 % (11.5-14.5); RDW Standard Deviation 43.9 fL (36.4-46.3); Red Blood Count 3.28 M/uL (4.20-5.40); White Blood Count 4.17 K/ul (4.8-10.8)
[2023-05-22 10:40] LABS: BUN Creatinine Ratio 6.3 (10-20); Calcium 7.9 mg/dl (8.6-10.3); Creatinine Clr Calc Pharmacy 81.2 ml/min; Est GFR (African American) 108.5 ml/min; Est GFR (Non-African American) 93.6 ml/min; Potassium 3.4 mmol/L (3.5-5.1)
[2023-05-22] MEDS: busPIRone 15 MG TAB PO SCH (12:17)
[2023-05-22] MEDS: GABAPENTIN 800 MG TAB PO SCH (12:17)
--- NOTE | 2023-05-22 14:23 | Surgery Progress Note ---
Date of Service May 22, 2023 Assessment & Plan (1) Abnormal CT of the abdomen: Plan: sealed perforation advance diet as tolerated no surgical issues, will sign off Admission and Anticipated Discharge Date Admission Date: May 17, 2023 Subjective doing well no abdominal apin taking po well afebrile Review of Systems Constitutional: no fever and no chills Respiratory: no cough and no dyspnea Cardiovascular: no chest pain Gastrointestinal: no abdominal pain, no nausea, no vomiting and no change in bowel habits Genitourinary: no dysuria Neurologic: no localized weakness and no generalized weakness Psychiatric: no behavioral changes Physical Exam Constitutional: + thin Respiratory: normal respiratory effort, lungs clear to auscultation Cardiovascular: RRR, no murmur, no edema Gastrointestinal (Abdomen): Inspection/Auscultation: abdomen normal to inspection and normal bowel sounds; abdomen not distended Percussion/Palpation: abdomen soft; abdomen nontender, no guarding and abdomen not rigid Musculoskeletal: Head/Neck/Chest: normocephalic and head atraumatic Skin: no rashes, warm and dry Results & Data Vital Signs (Past 12 Hours) Vital Signs Temp Pulse Pulse Resp BP Pulse Ox O2 Del Method 05/22/23 10:55 36.8 C 70 14 122/68 96 Room Air 05/22/23 09:51 Room Air 05/22/23 08:25 65 05/22/23 07:45 36.5 C 73 14 111/73 95 Room Air 05/22/23 03:58 37.1 C 73 16 127/81 94 Room Air
[2023-05-22] MEDS: traMADol HCL 50 MG TABLET PO PRN (14:29)
--- NOTE | 2023-05-22 16:36 | Hospitalist Progress Note ---
Date of Service May 22, 2023 Assessment & Plan (1) Abdominal pain: Plan: Suspected contained duodenal perforation on CT of abd/pelvis "indeterminate thick-walled fluid collection from duodenum into right lower quadrant. 05/16 history of GERD With history of Fred-en-Y gastric bypass 7 years ago Surgery consulted, GI consulted. Case was reviewed by surgery while in the ER, suspect is likely to be a contained duodenal perforation not requiring emergent surgical intervention at this time. GI consultation no intervention, 05/21/23 repeat imaging suggests no worsening or improvement , will discuss with Ir Gen surg eval repeat imaging soon, may consider role for IR - Remains on Zosyn, encourage ambulation anemia felt second to volume resuscitation, is on protonix bid, did have a Dieulafoy lesion 09/11 with transfusion and clipping MCV microcytic. h/o low iron check iron in am, consider venofer (2) Seizure disorder: Plan: No seizure in many years, initial seizure was a partial staring spell Keppra transition to p.o. Seizure precautions, Ativan on-call (3) Transient ischemic attack (TIA): Plan: h/o, stable No focal neurologic symptoms on admission (4) Neurogenic claudication due to lumbar spinal stenosis: Plan: Lumbar stenosis, chronic and stable S/p decompression 10/2022 No acute change. Gabapentin temporarily held while n.p.o., resume once tolerating p.o. Plan DVT prophylaxis: SCDs CODE STATUS: DNR/DNI Admission and Anticipated Discharge Date Admission Date: May 17, 2023 Subjective pt feels some improvement in pain, tolerating advancing diet no bowel movement issues Physical Exam Physical Exam: pt is awake and alert lungs are clear abd is soft and persistently much less tender Results & Data Results & Data Vital Signs (Past 12 Hours) Vital Signs Temp Pulse Pulse Resp BP Pulse Ox O2 Del Method 05/22/23 15:55 98.4 F 64 18 93/56 L 97 Room Air 05/22/23 15:23 68 05/22/23 10:55 98.2 F 70 14 122/68 96 Room Air 05/22/23 09:51 Room Air 05/22/23 08:25 65 05/22/23 07:45 97.7 F 73 14 111/73 95 Room Air Laboratory Results review cbc, microcytic, check iron as was low in past, may benefit from venofer review chemistry PG Care Time/CCT Total # of Minutes Spent Total Time Spent with Patient: Total time spent is greater than 50% in coordination of care (as documented) at patient's floor/unit and/or counseling patient: Coding Level of Care Code 26737 SUB INP/OBS CARE 2/35MIN Diagnoses Abdominal pain R10.10 Abdominal location: upper abdomen, unspecified Seizure disorder G40.909 Transient ischemic attack (TIA) G45.9 Neurogenic claudication due to lumbar spinal stenosis M48.062 (1) Abdominal pain Abdominal location: upper abdomen, unspecified Qualified Code(s): R10.10 - Upper abdominal pain, unspecified
[2023-05-22] MEDS: ARIPiprazole 5 MG TAB PO SCH (19:38)
[2023-05-22] MEDS: TOPIRAMATE 100 MG TAB PO SCH (19:38)
[2023-05-22] MEDS: MEMANTINE HCL 5 MG TAB PO SCH (19:38)
[2023-05-22] MEDS: DONEPEZIL HCL 10 MG TAB PO SCH (19:38)
[2023-05-22] MEDS: ZOLPIDEM TARTRATE 10 MG TAB PO PRN (21:50)
[2023-05-23] MEDS: POTASSIUM CHLORIDE CRTAB 20 MEQ TABCR PO STA (09:12)
[2023-05-23] MEDS: CITALOPRAM 20 MG TAB PO SCH (09:13)
--- NOTE | 2023-05-23 14:21 | Hospitalist Progress Note ---
Date of Service May 23, 2023 Assessment & Plan (1) Abdominal pain: Plan: Suspected contained duodenal perforation on CT of abd/pelvis "indeterminate thick-walled fluid collection from duodenum into right lower quadrant. 05/16 history of GERD With history of Fred-en-Y gastric bypass 7 years ago Surgery consulted, GI consulted. Case was reviewed by surgery while in the ER, suspect is likely to be a contained duodenal perforation not requiring emergent surgical intervention at this time. GI consultation no intervention, 05/21/23 repeat imaging suggests no worsening or improvement , will discuss with [facility] Gen surg eval repeat imaging soon, may consider role for IR - Remains on Zosyn, encourage ambulation anemia felt second to volume resuscitation, is on protonix bid, did have a Dieulafoy lesion 09/11 with transfusion and clipping MCV microcytic. h/o low iron am recheck still low, will have a dose of venofer and reinforce po intake (2) Seizure disorder: Plan: No seizure in many years, initial seizure was a partial staring spell Keppra transition to p.o. Seizure precautions, Ativan on-call (3) Transient ischemic attack (TIA): Plan: h/o, stable No focal neurologic symptoms on admission (4) Neurogenic claudication due to lumbar spinal stenosis: Plan: Lumbar stenosis, chronic and stable S/p decompression 10/2022 No acute change. Gabapentin temporarily held while n.p.o., resume once tolerating p.o. Plan DVT prophylaxis: SCDs CODE STATUS: DNR/DNI Admission and Anticipated Discharge Date Admission Date: May 17, 2023 Subjective pt feels pain is almost resolved tolerating advancing diet no bowel movement issues Physical Exam Physical Exam: pt is awake and alert lungs are clear abd is soft and persistently much less tender Results & Data Results & Data Vital Signs (Past 12 Hours) Vital Signs Temp Pulse Pulse Resp BP Pulse Ox O2 Del Method 05/23/23 11:21 99.5 F 73 18 125/71 93 Room Air 05/23/23 07:30 98.8 F 66 16 120/76 95 Room Air 05/23/23 07:14 64 05/23/23 03:14 99.0 F 70 20 125/75 95 Room Air PG Care Time/CCT Total # of Minutes Spent Total Time Spent with Patient: Total time spent is greater than 50% in coordination of care (as documented) at patient's floor/unit and/or counseling patient: Coding Level of Care Code 55910 SUB INP/OBS CARE 2/35MIN Diagnoses Abdominal pain R10.10 Abdominal location: upper abdomen, unspecified Seizure disorder G40.909 Transient ischemic attack (TIA) G45.9 Neurogenic claudication due to lumbar spinal stenosis M48.062 (1) Abdominal pain Abdominal location: upper abdomen, unspecified Qualified Code(s): R10.10 - Upper abdominal pain, unspecified
[2023-05-23] MEDS: IRON SUCROSE 300 MG in SODIUM CHLORIDE 0.9% 250 ML IV ONE (16:21)
--- NOTE | 2023-05-23 20:41 | Communication Note ---
Date of Service: May 23, 2023 0815 PM: Notified that patient was experiencing increased shakiness and instability with sitting at bedside and ambulating to toilet. Patient was noted to have a new fever of 39.5 C as well as new hypotension (96/50) and tachycardia (102). Evaluated at bedside, patient mentating appropriately and conversive, ongoing RLQ TTP with rebound tenderness. Patient being conservatively managed inpatient for duodenal perforation. Given patient's abnormal vitals and clinical presentation, STAT CBC, CMP, Mg, and Type&Screen were ordered. Provided 1000 mg of IV Tylenol, 500 cc bolus of NSS, made patient NPO, and transferred her to the PCU for closer monitoring. Patient's presentation largely consistent with sep sis. 1000 PM: STAT labs indicated new leukocytosis (13.9), stable anemia (8.6 from 7.4), and hypoalbuminemia. Given the new leukocytosis, blood cultures and lactate were ordered as well as repeat CTAP w/ IV contrast. Patient actively on Zosyn, antibiotic regimen broadened to Ertapenem and Vancomycin. 1020 PM: Upon transfer to PCU, patient's BP was noted to be 80/40 despite receiving 500 cc fluid bolus. Additional 500 cc bolus ordered in addition to 50 g Albumin. Bedside evaluation revealed ongoing normal mentation and conversation, patient notes no new symptoms. Recheck of vitals showed BP of 72/38 and HR of 79 despite ongoing fluids and albumin. Decision was made to consult costuming supervisor given falling pressures and potential need for pressor support. Brooks Hernández presented to bedside for further evaluation. Multiple attempts at expanding IV access were unsuccessful. Patient transferred to ICU for ongoing care. Resident Activity Tracking Resident Involvement: Resident Care Provided Care Provided: Adult Hospital Medicine (night)
[2023-05-23] MEDS: ACETAMINOPHEN 1,000 MG/100 ML VIAL IV STA (21:15)
[2023-05-23] MEDS: SODIUM CHLORIDE 0.9% 500 ML IV ONE ×3 (21:33→23:47)
[2023-05-23 21:45] LABS: Albumin Level 2.7 gm/dl (3.4-5.0); Bilirubin,Total 0.4 mg/dl (0.2-1.0); Calcium 7.8 mg/dl (8.6-10.3); Magnesium 1.6 mg/dl (1.7-2.4); Potassium 3.5 mmol/L (3.5-5.1)
[2023-05-23 21:52] LABS: Hematocrit (blood only) 28.3 % (37.0-47.0); Hemoglobin 8.6 g/dl (12.0-16.0); Mean Corpuscular Hemoglobin 22.9 pg (25.0-34.0); Mean Corpuscular Hgb Conc 30.4 g/dL (32.0-36.0); Mean Corpuscular Volume 75.3 fL (80.0-100.0); Mean Platelet Volume 10.1 fL (9.4-12.4); Platelet Count 372 K/uL (130-400); RDW Coefficient of Variation 16.7 % (11.5-14.5); Red Blood Count 3.76 M/uL (4.20-5.40); White Blood Count 13.87 K/ul (4.8-10.8)
[2023-05-23 21:53] LABS: Albumin Globulin Ratio 1.3 (0.9-2); BUN Creatinine Ratio 8.3 (10-20); Creatinine Clr Calc Pharmacy 47.5 ml/min; Est GFR (African American) 61.7 ml/min; Est GFR (Non-African American) 53.2 ml/min; Globulin 2.1 gm/dl (2.5-4.0); Total Protein 4.8 gm/dl (6.0-8.3)
[2023-05-23] MEDS ORDERED: VANCOMYCIN CONSULT ACTIVE PRN (22:12)
[2023-05-23] MEDS: ALBUMIN 25% 25 GM/100 ML VIAL IV SCH (22:40)
[2023-05-23] MEDS ORDERED: STAT IV Infusion **Titration per Protocol STA (23:16)
--- NOTE | 2023-05-23 23:18 | Critical Care Consultation ---
Date of Consultation May 23, 2023 Assessment & Plan (1) Abnormal computed tomography of abdomen and pelvis: (2) Abdominal pain: (3) Bronchiectasis: (4) GERD (gastroesophageal reflux disease): (5) Shock: (6) Intra-abdominal abscess: (7) Sepsis: Plan Reason Critically Ill: 67 YOF presents to ICU hypotensive refractory to volume resuscitation in setting of intraabdominal fluid collection with likely abscess secondary to contained perforated ulceration. Neuro - Hx Seizure disorder, Hx TIA, Chronic back pain, HX Anxiety/Depression, Alzheimer, CAM ICU: NEGATIVE - Continue Keppra- convert to IV while NPO- reported last seizure ~ 12 years ago she endorses "staring seizure" - Delirium precautions as able- maintain normal sleep wake cycle, oob during day, lights off at night - If able to continue PO medications- continue Topamax, Tramadol for her back pain, continue home antidepressants/antianxiety if able to take PO Cardiac - Septic Shock, - Patient with new onset fever, hypotension, tachycardia with movement in setting of intraabdominal fluid collection secondary to contained perforation - Hypotension multifactorial to include sepsis and hypovolemia combination - CT scan repeated however, contrast did not make it into study secondary to infiltration - Likely with abscess per interpretation- GS reconsulted- appreciate their input and recommendations - Will search for other causes as well with acuteness of change- UA pending, blood cultures drawn, lactate negative, CXR without opacifications - Resuscitated with 2liters crystalloid and 100ml of 25 GM albumin- remain with hypotension requiring vasopressor support - Levophed for MAPS >65 - Follow re-evaluations with UO and MAP goals - She has had no chest pain or dyspnea as well as no cardiac history so unlikely to be cardiac in origin at this time Respiratory - Bronchiectasis, chronic cough, Chronic elevated RT deysi diaphragm - Continue PRN nebulizers if needed GI - Hx Pablo-en Y bypass, with abnormal CT scan of abdomen likely with perforated duodenal ulceration, abscess likely - See surgical consultation- Appreciate recs as above - No urgent need at this time for surgical care as patient is responding to supportive care at this time - Re-evaluate transfer need for drainage or laparoscopic approach- defer to surgical colleagues - Continue IV PPI - NPO RENAL/LYTES - ENOCH II - Mild increase in VIDEO GAMES MECHANIC - likely related to shock- replete intravascular volume - replete magnesium - Follow renal function and HCO3 - No acute needs - Liriano placed for accurate LAYTON while on vasopressors - Adequate urine output currently ENDO - No acute needs HEME - Anemia - Anemia with low FE level of 13 noted- transfuse for HGB <8 while on vasopressors - hold on iron replacement while acutely ill ID - Septic shock - Likey secondary to intraabdominal collection with possible abscess - will re-evaluate for other sources- CXR, UA, Blood cultures - Continue with Ertapenem and Vancomycin- can likely de-escalate Vancomycin in am - Ra LINES/IV ACCESS - CVL, Loranger, Liriano Continue use of these lines DVT PROPHYLAXIS - SCDS, Chemoprophylaxis on hold secondary to concern for perforated ulcer DISPO: ICU while on vasopressors I have personally spent 60 minutes of critical care time in the direct management of this patient. This is a life/limb threatening event. This includes time spent evaluating patient, direct bedside care, chart review, placing orders, interpretation of diagnostic studies, discussion with consultants, patient, and family members, as well as other required patient management activities. This time is exclusive of all separately billable procedures, and separate from and in addition to any other critical care service time. Thank you for allowing us to participate in the care of this patient. Please refer to my attending physician's documentation for any further recommendations. History of Present Illness Reason for Consultation: Hypotension Requesting Physician: Thomas Roa Attending Physician: Henry Grimes MD History of Present Illness 67 YOF with medical history of: Depression, chronic back pain with Lumbar stenosis, bronchiectasis, pablo-en-Y gastric bypass, seizure disorder (on Keppra), TIA. Patient originally admitted to the hospital on 05/17/23 for abdominal pain that was ongoing for ~ 2 weeks with radiation to her back. She previously had Dieulafoy lesion with hemostasis and Endoclip in 08/21. She was found to have sealed perforation with loculated fluid collection from proximal duodenum into the right lower quad- 9x3.5x6.5. She was initially evaluated by Gastroenterology and General Surgery. She was placed on PPI with recs for follow up imaging in 48-72 hours from GI. General Surgery recs were echoed with repeat imaging in 48-72 hours, NPO IVF and ABX therapy. She underwent re- imaging on 05/21/23 serpiginous and thick-walled/loculated fluid collection which extends from the proximal duodenum inferiorly into the right lower quadrant with surrounding infiltration. This measures approximately 11 x 6 x 2.5 cm with loculation extending posterior to the right kidney- GS noted the increase in size and location with strong consideration for perc drainage by IR or endoscopy, and diet advanced to clear. On 05/22 she was noted to be with resolving pain and with WBC downtrending as well as with increasing in HGB counts. This evening she was noted to become acutely hypotensive 72-94 systolic, with worsening of her right sided abdominal pain. She feels that her pain is worse now than when she came into the hospital, and definitely worse than this mo rning. She was also febrile today to 39.5. Labs now reveal a leukocytosis, stable HGB, mild ENOCH, hypomag. LAYTON values unreliable throughout the day as no output recorded or unmeasured voids recorded. She was given 1 Liters crystalloid and 25 GM of albumin (100ml) and was taken to CT scan and then transferred to the ICU. On arrival to the ICU patient remains mentating well, she is warm and dry with good peripheral pulses. Her blood pressure is currently increased to 100/30s but remains with MAP <65. Will provide further volume resuscitation and initiate vasopressors as well as broaden out antibiotic coverage. MRSA swab. Await CT scan results. Will place arterial line if vasopressors required. May also need central access pending clinical course. CODE: DNR/DNI Allergies Allergy/AdvReac Type Severity Reaction Status Date / Time No Known Allergies Allergy Verified 11/08/22 11:50 Home Medications Medication Instructions Recorded Confirmed Type cyanocobalamin (vitamin B-12) 1,000 mcg PO QAM 07/23/19 05/17/23 History 1,000 mcg tablet donepezil 10 mg tablet (Aricept) 10 mg PO HS 07/23/19 05/17/23 History memantine 5 mg tablet (Namenda) 5 mg PO BID 07/23/19 05/17/23 History pantoprazole 40 mg tablet,delayed 40 mg PO DAILY 07/23/19 05/17/23 History release (Protonix) topiramate 100 mg tablet (Topamax) 100 mg PO BID 07/23/19 05/17/23 History nebulizer accessories #1 ea 03/01/22 09/14/22 Rx albuterol sulfate 0.63 mg/3 mL 0.63 mg (3 mL) inhalation BID 06/24/22 05/17/23 Rx solution for nebulization shortness of breath or wheezing #90 mL sodium chloride 7 % for 4 ml inhalation BID #240 mL 06/24/22 05/17/23 Rx nebulization (Hyper-Denys) hydroxyzine HCl 25 mg tablet 25 mg PO TID PRN Anxiety 09/15/22 05/17/23 History rizatriptan 10 mg tablet 10 mg PO DAILY PRN MIGRAINE 09/15/22 05/17/23 History zolpidem 10 mg tablet 10 mg PO HS PRN Sleep 09/15/22 05/17/23 History sucralfate 1 gram tablet 1 g PO QID #100 tabs 09/17/22 05/17/23 Rx tramadol 50 mg tablet 50 mg PO Q6H PRN pain, moderate 11/10/22 05/17/23 Rx #30 tabs aripiprazole 5 mg tablet (Abilify) 5 mg PO HS 05/17/23 05/17/23 History buspirone 10 mg tablet 10 mg PO TID 05/17/23 05/17/23 History buspirone 15 mg tablet 15 mg PO TID 05/17/23 05/17/23 History citalopram 20 mg tablet (Celexa) 20 mg PO DAILY 05/17/23 05/17/23 History gabapentin 800 mg tablet 800 mg PO TID 05/17/23 05/17/23 History lidocaine 5 % topical patch 1 patch topical DAILY 05/17/23 05/17/23 History ondansetron HCl 4 mg tablet 4 mg PO BID PRN n/v 05/17/23 05/17/23 History oxycodone 5 mg tablet 0 mg PO Q6H PRN pain 05/17/23 05/17/23 History amoxicillin 875 mg-potassium 1 tab PO BID #20 tabs 05/23/23 Rx clavulanate 125 mg tablet Patient History Medical History Memory changes History Since TIA (2008) - mild- no recent issues per patient (no follow up with neurology needed) History of recent blood transfusion 09/16/22 @ [facility]--2 units PRBC for upper GI bleed Seizure disorder Chronic low back pain Upper GI bleed recently admitted at [facility] 09/15/22---per pt was found to have bleeding at gastric bypass site, clipped at site and received 2 units PRBCs--pt states she has improved, no current issue, is taking sucralfate as prescribed Insomnia Chronic cough Stable Elevated diaphragm Bronchiectasis Follows with Dr. Moreno- breathing stable Peripheral neuropathy Hands and feet Degenerative disc disease Chronic back pain Lumbar facet arthropathy Spinal stenosis Osteoporosis GERD (gastroesophageal reflux disease) Well controlled and stable Depression Stable Seizure "Staring seizures"- no issues since 2010 per patient Transient ischemic attack (TIA) 2008- no current issues History of high blood pressure Bronchiectasis hx Surgical History Hx of cataract extraction bilat History of total knee replacement RT/LEFT History of esophagogastroduodenoscopy (EGD) 09/16/22 @ [facility] History of colonoscopy H/O total hysterectomy History of cholecystectomy History of tonsillectomy History of tooth extraction History of gastric bypass Family History Aunt Diabetes Grandmother (Paternal) Diabetes Other No family history of adverse response to anesthesia Social History Smoking Status: Never smoker Second Hand Exposure: No; Do You Dip or Chew Tobacco: No; Hx Alcohol Use: Yes Alcohol type: beer Hx Substance Use: No Preferred Language: Divehi Communication Ability: Effective Supply Chain Associate Required: No Beliefs That Will Affect Care: None Current Living Situation: Alone Other Information That Helps Us Care for You: No Feels Safe at Home: Yes Safety Concerns: Feels Safe At This Time Assistive Devices: Cane and Walker Review of Systems Review of Systems: REVIEW OF SYSTEMS: Constitutional: (+) fever Eyes: No diplopia, no worsening or blurred vision ENT: normal hearing, no trouble swallowing Respiratory: No cough, sputum, dyspnea at rest or on exertion Cardiovascular: No chest pain, tightness or palpitations Abdomen: (+) pain, NO nausea, vomiting, diarrhea or constipation Musculoskeletal: No joint pain, calf pain, swelling Neurologic: No weakness, numbness/tingling, or balance problems Psychiatric: No anxiety or depression Skin: No rash or itch Physical Exam Physical Exam: PHYSICAL EXAM: General: awake, alert, no apparent distress Head: Normocephalic, atraumatic ENT: PERRL, EOMI, no pharyngeal exudate, mucous membranes moist Neuro: AAO x 3, speech clear and appropriate, strength intact bilaterally 5/5, sensation intact and equal all extremities and dermatomes, no pronator drift Chest: equal rise and fall of the chest, no accessory muscle use, no heaves or thrills, Clear to auscultation, on room air, Cardiac: Regular rate and rhythm, telemetry reviewed- NSR no ectopy, skin warm dry, cap refill <3 seconds, peripheral pulses +2 no JVD, no murmur, no edema GI: BS x 4 quadrants, soft, tender to palpation RLQ, rebound guarding on right side. : Liriano placed to gravity, Extremities: Normal inspection, no peripheral edema or erythema, calfs nontender to palpation Psych: Normal mood and affect Skin: no rash or erythema Results & Data Results & Data Vital Signs (Past 12 Hours) Vital Signs Temp Pulse Pulse Pulse Resp BP BP 05/23/23 23:15 78 84/42 L 05/23/23 22:50 79 72/47 L 05/23/23 22:15 81 80/40 L 05/23/23 22:10 85 84/53 L 05/23/23 22:07 37.1 C 18 L 89 18 79/48 L 05/23/23 21:40 39.2 C H 81 18 85/48 L 05/23/23 19:47 39.5 C H 102 H 20 96/50 L 05/23/23 19:45 05/23/23 15:37 82 05/23/23 15:31 39.2 C H 86 16 97/62 L 05/23/23 11:21 37.5 C 73 18 125/71 Pulse Ox O2 Del Method 05/23/23 23:15 05/23/23 22:50 05/23/23 22:15 05/23/23 22:10 05/23/23 22:07 94 Room Air 05/23/23 21:40 92 Room Air 05/23/23 19:47 92 Room Air 05/23/23 19:45 Room Air 05/23/23 15:37 05/23/23 15:31 91 Room Air 05/23/23 11:21 93 Room Air Laboratory Results Abnormal lab results 05/23/23 05/23/23 Range/Units 07:53 20:46 WBC 13.87 H (4.8-10.8) K/ul RBC 3.76 L (4.20-5.40) M/uL Hgb 8.6 L (12.0-16.0) g/dl Hct 28.3 L (37.0-47.0) % MCV 75.3 L (80.0-100.0) fL MCH 22.9 L (25.0-34.0) pg MCHC 30.4 L (32.0-36.0) g/dL RDW Coeff of Meredith 16.7 H (11.5-14.5) % Sodium 132 L (136-145) mmol/L Carbon Dioxide 19 L (21-32) mmol/L BUN/Creatinine Ratio 8.3 L (10-20) Glucose 109 H (70-99(Fasting)) mg/dl Calcium 7.8 L (8.6-10.3) mg/dl Magnesium 1.6 L (1.7-2.4) mg/dl Iron 13 L (35-150) mcg/dl AST 9 L (13-39) U/L Total Protein 4.8 L (6.0-8.3) gm/dl Albumin 2.7 L (3.4-5.0) gm/dl Globulin 2.1 L (2.5-4.0) gm/dl Antibody Screen POSITIVE A Diagnostic Findings Abdomen/Pelvis CT 05/23/23 23:10 Exam(s): CT ABDOMEN + PELVIS With Contrast IV Amt: 91 ml opti 320 EXAM: CT Abdomen and Pelvis With Intravenous Contrast CLINICAL HISTORY: Reason for exam: gi infection, recent perforation. TECHNIQUE: Axial computed tomography images of the abdomen and pelvis with intravenous contrast. CTDI is 15.66 mGy and DLP is 223.76 mGy-cm. Automated exposure control was utilized for the study. A dose lowering technique was utilized adhering to the principles of ALARA. CONTRAST: Patient received 91 ml opti 320 of IV contrast COMPARISON: CT abdomen pelvis 05/17/23 FINDINGS: Heart size is normal. Low-attenuation of the cardiac blood pool suggests underlying anemia. There are trace layering bilateral pleural effusions. Gallbladder surgically absent. Unenhanced appearance of the liver, spleen, pancreas, and adrenal glands is unremarkable. Kidneys are similar in size and contour. There is no hydronephrosis. There are no radiopaque stones. There is mild pelviectasis of the right kidney with pronounced perinephric stranding. Evaluation of the bowel is limited without oral and intravenous contrast. Patient is status post gastric bypass. There is no evidence of bowel obstruction. Oral contrast is identified within the colon and extends to the rectum. The appendix is normal. The duodenum appears inflamed, similar to prior. There is a complex collection extending from adjacent to the second portion of the duodenum inferior to the right kidney and measuring roughly 5.5 x 2.4 x 3.1 cm. There is surrounding fat stranding as well as a small volume of ascites tracking inferiorly into the pelvis. There is no free pneumoperitoneum. Urinary bladder is unremarkable. Uterus is surgically absent. Patient has undergone prior interbody fusion, posterior hardware fixation, and posterior decompression from L3-L5. There is no acute fracture or dislocation. Anasarca has increased from prior exam. IMPRESSION: Limited noncontrast evaluation. Redemonstrated inflammatory collection extending from the second portion of the duodenum inferior to the right kidney and measuring roughly 5.5 x 2.4 x 3.1 cm. Abscess is not excluded. There are surrounding inflammatory changes with mild ascites. Proximal duodenum appears inflamed, which may reflect duodenitis or peptic ulcer disease. Perinephric stranding of the right kidney could be reactive to the above- described processes, but pyelonephritis is not excluded. Correlate with urinalysis. Status post gastric bypass without evidence of bowel obstruction. Worsening anasarca. Trace pleural effusions. Electronically signed by: Nain Dc M.D. 05/24/23 00:22 AM Coding Level of Care Code 79101 CRITICAL CARE 1ST 30-74M Diagnoses Abnormal computed tomography of abdomen and pelvis R93.5 Abdominal pain R10.10 Abdominal location: upper abdomen, unspecified Bronchiectasis J47.9 GERD (gastroesophageal reflux disease) K21.9 Shock R57.9 Intra-abdominal abscess K65.1 Sepsis A41.9 (2) Abdominal pain Abdominal location: upper abdomen, unspecified Qualified Code(s): R10.10 - Upper abdominal pain, unspecified
[2023-05-23] MEDS: OPTIRAY 320 100ml IV ONE (23:23)
[2023-05-23] MEDS: VANCOMYCIN HCL 1,250 MG in SODIUM CHLORIDE 0.9% 250 ML IV ONE (23:48)
[2023-05-23] MEDS: ERTAPENEM SODIUM 1,000 MG in SYRINGE 0 ML IV SCH (23:48)
--- NOTE | 2023-05-23 23:58 | Procedure Note ---
Procedure Note Date of Service May 23, 2023 Note Procedure: Arterial Line Placement Proceduralist: Brooks RAMIREZ ([facility]-) Attending: Dr. Moreno Indication: Monitoring on Pressors Anesthesia: [x]Lidocaine 1% Verbal Consent was obtained from the patient as delegated to me by Dr. Moreno. Indication, risks, and benefits were explained at length. Patient verbalized no questions and wished to proceed A time-out was completed verifying correct patient, procedure, site, positioning. Allens test was performed to ensure adequate perfusion. Patients RIGHT wrist was prepped and draped in the usual sterile fashion. Ultrasound guidance was used to aid needle placement. A 20g Arrow arterial line was introduced into the RIGHT RADIAL artery. Brisk return of blood was noted, the wire was advanced without resistance, and the catheter was threaded. The needle was removed with appropriate blood return. Pressure tubing was attached and a good arterial waveform was observed. The patient tolerated the procedure well. The line was secured with suture and sterile dressing applied. No immediate complications noted. Blood Loss: Minimal Complications: None Artery Identified: YES Complications: NONE Patient tolerated procedure: WELL Coding CPT Codes Tubes, Drains, and Vasc Access - Tubes, Drains, and Vasc Access: [id number] Arterial Cath/Cannulation Sampling/Monitoring/Transfusion ([id number]) [facility] [place] C[place] (Charges) Tubes, Drains, and Vasc Access Procedure 1: Tubes, Drains, and Vasc Access: [id number] Arterial Cath/Cannulation Sampling/Monitoring/Transfusion
--- NOTE | 2023-05-24 00:11 | Surgery Progress Note ---
<Statement entered by Dedrick Ravi, - 05/24/23 13:12> This case was discussed with surgical PA, plan stated below For now continue pressure support, strict I/O, fluid resuscitate as necessary. Continue IV PPI consider drip and follow-up with primary consulting surgical team. So far CT without new and acute surgical findings. Date of Service May 24, 2023 Assessment & Plan (1) Abnormal computed tomography of abdomen and pelvis: Plan: The patient has been transferred to the intensive care unit with care proceeding as follows: Her diet has been back down to n.p.o. status The patient has received 1 L of lactated Ringer's for intravenous fluid hydration. Further IV fluid will be provided for hydration measures The patient has had antibiotics escalated to include ertapenem and vancomycin which should continue The patient continues to receive GI prophylaxis in the form of a proton pump inhibitor As noted in the subjective part of this note a CT scan of the abdomen and pelvis for further evaluation is in progress As noted in the subjective part of this note additional labs including a lactic acid level and random cortisol level are pending The staff in the intensive care unit is planning on placing monitoring lines as the patient may require vasopressor support due to her hypotension The patient's repeat CT scan from this evening was performed. This showed that patient again has an inflammatory fluid collection near the second portion of the duodenum which measures 5.5 x 2.4 x 3.1 cm. This appears to be smaller than was noted on CT scan from 05/21/2023, however, the interpreting radiologist could not exclude abscess. Pending laboratories at the time of my initial evaluation included a lactic acid level which is currently 1.3 which is nonelevated. I discussed this case with my attending physician, Dr. Neves and she has reviewed the patient's CT scan. She does not feel that there is any need for acute surgical intervention at this time particularly since the patient's noted fluid collection has decreased in size. She agrees with keeping the patient n.p.o. and providing IV fluid for hydration as well as escalating her antibiotics as noted above. In addition is recommended that fever evaluation be completed which should include items such as collecting urinalysis, obtaining chest x-ray, and also obtaining blood cultures. The ICU staff is in the process of doing this. In addition due to the patient's hypotension a cardiac evaluation may be in order but this will be deferred to the discretion of the ICU staff. Additional recommendations be forthcoming based on her clinical course as it unfolds Admission and Anticipated Discharge Date Admission Date: May 17, 2023 Subjective This is a 67-year-old female who has been admitted to the hospital since 05/17/2023. The patient was admitted on that date secondary to abdominal pain. On date of admission patient underwent a CT scan that showed patient had a thick-walled fluid collection extending from the duodenum into the right lower quadrant which was felt to represent a possible contained perforation of the duodenum. Patient was seen and evaluated by the [facility] surgery department and she was treated thus far in a conservative fashion. She was initially treated with n.p.o. status and intravenous fluids. In addition she was placed on GI prophylaxis with a proton pump inhibitor and antibiotics in the form of Zosyn. Throughout the initial several days her hospitalization the patient had improvement of her abdominal exam and after several days of n.p.o. status the patient's diet was advanced to solid food. The patient does state that she has not had anything to eat today. The patient underwent a repeat CT scan on 05/21/2023. This showed no significant change of the previously noted fluid collection concerning for duodenal perforation. The primary surgical service has been following the patient and felt that the patient likely had a sealed perforation without the need for surgical issue. Surgery was reconsulted this evening as patient noted to become acutely hypotensive with a blood pressure as low as 72 systolic. In addition, the patient reports some worsening right-sided abdominal pain the patient was also noted to have febrile episode with a maximum temperature of 39 point 5 repeat labs were performed patient's white blood cell count was elevated at 13.8 (it was previously not elevated at 4.1.) The patient's current hemoglobin and hematocrit are stable at 8.6 and 28.3. Platelet count remains within the normal range. Chemistry profile showed sodium is 132 with a normal potassium. Her BUN and creatinine are both within normal range. Because of the change in patient's clinical status she was transferred to the intensive care unit. Repeat CT scan of the abdomen pelvis is in progress. In addition to labs noted above patient has had a lactic acid level and random cortisol level drawnthese labs are currently pending. I did visit with the patient at the bedside and she did appear overall comfortable but she did complain of worsening right upper quadrant abdominal pain particular with palpation. She says that she has not had anything to eat today. She denies any nausea or vomiting. Physical Exam Constitutional: + thin; no acute distress and not ill ap pearing Eyes: no conjunctival abnormality ENMT: Ears: no hearing impairment Mouth: no oropharynx abnormality Neck: trachea midline Respiratory: no labored breathing Cardiovascular: Rate/Rhythm: regular rate and regular rhythm Gastrointestinal (Abdomen): Abdomen is soft and nondistended. The patient did have pain with palpation in the right upper quadrant of her abdomen with some slight rebound tenderness. Musculoskeletal: No calf tenderness Skin: no rashes Neurologic: moves all extremities Psychiatric: A+Ox3, euthymic affect Results & Data Vital Signs (Past 12 Hours) Vital Signs Temp Pulse Pulse Pulse Resp BP BP 05/23/23 23:15 78 84/42 L 05/23/23 22:50 79 72/47 L 05/23/23 22:45 81 05/23/23 22:15 81 80/40 L 05/23/23 22:10 85 84/53 L 05/23/23 22:07 37.1 C 18 L 89 18 79/48 L 05/23/23 21:40 39.2 C H 81 18 85/48 L 05/23/23 19:47 39.5 C H 102 H 20 96/50 L 05/23/23 19:45 05/23/23 15:37 82 05/23/23 15:31 39.2 C H 86 16 97/62 L Pulse Ox O2 Del Method 05/23/23 23:15 05/23/23 22:50 05/23/23 22:45 05/23/23 22:15 05/23/23 22:10 05/23/23 22:07 94 Room Air 05/23/23 21:40 92 Room Air 05/23/23 19:47 92 Room Air 05/23/23 19:45 Room Air 05/23/23 15:37 05/23/23 15:31 91 Room Air PG Care Time/CCT Total # of Minutes Spent Total Time Spent with Patient: Total time spent is greater than 50% in coordination of care (as documented) at patient's floor/unit and/or counseling patient: Coding Level of Care Code 90989 SUB INP/OBS CARE 3/50MIN Diagnoses Abnormal computed tomography of abdomen and pelvis R93.5
[2023-05-24] MEDS: LACTATED RINGER'S 500 ML IV ONE ×2 (00:16→02:27)
--- NOTE | 2023-05-24 00:23 | CT Scan Report ---
Exam(s): CT ABDOMEN + PELVIS With Contrast IV Amt: 91 ml opti 320 EXAM: CT Abdomen and Pelvis With Intravenous Contrast CLINICAL HISTORY: Reason for exam: gi infection, recent perforation. TECHNIQUE: Axial computed tomography images of the abdomen and pelvis with intravenous contrast. CTDI is 15.66 mGy and DLP is 223.76 mGy-cm. Automated exposure control was utilized for the study. A dose lowering technique was utilized adhering to the principles of ALARA. CONTRAST: Patient received 91 ml opti 320 of IV contrast COMPARISON: CT abdomen pelvis 05/17/23 FINDINGS: Heart size is normal. Low-attenuation of the cardiac blood pool suggests underlying anemia. There are trace layering bilateral pleural effusions. Gallbladder surgically absent. Unenhanced appearance of the liver, spleen, pancreas, and adrenal glands is unremarkable. Kidneys are similar in size and contour. There is no hydronephrosis. There are no radiopaque stones. There is mild pelviectasis of the right kidney with pronounced perinephric stranding. Evaluation of the bowel is limited without oral and intravenous contrast. Patient is status post gastric bypass. There is no evidence of bowel obstruction. Oral contrast is identified within the colon and extends to the rectum. The appendix is normal. The duodenum appears inflamed, similar to prior. There is a complex collection extending from adjacent to the second portion of the duodenum inferior to the right kidney and measuring roughly 5.5 x 2.4 x 3.1 cm. There is surrounding fat stranding as well as a small volume of ascites tracking inferiorly into the pelvis. There is no free pneumoperitoneum. Urinary bladder is unremarkable. Uterus is surgically absent. Patient has undergone prior interbody fusion, posterior hardware fixation, and posterior decompression from L3-L5. There is no acute fracture or dislocation. Anasarca has increased from prior exam. IMPRESSION: Limited noncontrast evaluation. Redemonstrated inflammatory collection extending from the second portion of the duodenum inferior to the right kidney and measuring roughly 5.5 x 2.4 x 3.1 cm. Abscess is not excluded. There are surrounding inflammatory changes with mild ascites. Proximal duodenum appears inflamed, which may reflect duodenitis or peptic ulcer disease. Perinephric stranding of the right kidney could be reactive to the above- described processes, but pyelonephritis is not excluded. Correlate with urinalysis. Status post gastric bypass without evidence of bowel obstruction. Worsening anasarca. Trace pleural effusions. Electronically signed by: Nain Dc M.D. 05/24/23 00:22 AM
[2023-05-24 00:53] LABS: Appearance Urine Clear (Clear); Bacteria Urine Automated Negative (Negative); Bilirubin Urine Negative (Negative); Blood Urine 1+ (Negative); Color Urine Yellow; Epithelial Cell Urine Auto >30 /lpf (0-5); Glucose Urine UA Negative (Negative); Ketones Urine Negative (Negative); Leukocyte Esterase Urine 2+ (Negative); Nitrite Urine Negative (Negative); Protein Urine Negative (Negative); Specific Gravity Urine 1.018 (1.000-1.030); Urobilinogen Urine Negative (Negative); pH Urine >= 9.0 (4.5-7.5)
--- NOTE | 2023-05-24 01:42 | Procedure Note ---
Procedure Note Date of Service May 24, 2023 Note INTERNAL JUGULAR CENTRAL LINE PROCEDURE NOTE: Procedure: Internal Jugular Central Line Placement Proceduralist: Brooks RAMIREZ ([facility] Attending: Dr. Moreno Indication: Central Drug Administration, Poor Venous Access, Multiple Lab Draws Necessary, etc. Anesthesia: [x]Lidocaine 1% Verbal Consent was obtained as delegated to me by Dr. Moreno as she remained with poor vascular access and vasopressor need. Indication, risks, and benefits were explained at length. Patient verbalized understanding and wished to proceed. RN Marzena and RN Vicente present. A time-out was completed verifying correct patient, procedure, site, positioning. Patients RIGHT Neck was scouted with ultrasound and appropriate target identified. The RIGHT neck was cleansed and draped in the typical sterile fashion using Chloraprep. The Internal Jugular Vein and Carotid Artery were identified using ultrasound. The superficial tissue was anesthetized using 5 mL of 1% lidocaine without epinephrine under direct visualization with the ul trasound. After adequate anesthetization was achieved, the Internal Jugular vein was cannulated under direct ultrasound guidance using an introducer needle on a syringe. Good venous blood return was maintained prior to removal of syringe from introducer needle. Using Seldinger Technique, a guide wire was advanced through the introducer needle without resistance. The introducer needle was removed and ultrasound images were obtained of the guide wire within the Internal Jugular Vein. A small incision was made in penetrating fashion at the guide wire insertion site utilizing an 11 blade scalpel. The dilator was advanced to the vessel without resistance. The dilator was exchanged for the triple lumen catheter which was advanced into the vessel without resistance. The guide wire was removed intact from the catheter without issue. Claves were placed on each catheter tip with confirmation of good blood flow from each lumen. Each port was easily flushed with sterile saline. The catheter was p laced at 17 cm and sut[address] in place. BioPatch was applied to the catheter and a sterile Tegaderm dressing was applied over the catheter with careful attention to sterility. Patient tolerated procedure well. No immediate complications were met. Post procedure x-ray was completed, placement was noted to be little deep and was withdrawn 1cm no pneumothorax was noted. Images obtained are NOT saved for permanent record as this was urgent Artery AND Vein visualized: YES Compressible Vein: YES Guidewire or Short Catheter seen in vein prior to dilation: YES Coding CPT Codes Tubes, Drains, and Vasc Access - Tubes, Drains, and Vasc Access: [id number] Insertion Of Non-tunneled Catheter Age 7 Yrs> ([id number]) [facility] Procedure Codes (Charges) Tubes, Drains, and Vasc Access Procedure 1: Tubes, Drains, and Vasc Access: [id number] Insertion Of Non-tunneled Catheter Age 7 Yrs>
[2023-05-24] MEDS: NOREPINEPHRINE/D5W 4 MG/250 ML PLCT IV SCH (01:44)
[2023-05-24] MEDS: MAGNESIUM SULFATE / D5W 1 GM/100 ML BAG IV SCH (02:31)
[2023-05-24 05:42] LABS: BUN Creatinine Ratio 8.4 (10-20); Calcium 7.9 mg/dl (8.6-10.3); Creatinine Clr Calc Pharmacy 54.5 ml/min; Est GFR (African American) 72.8 ml/min; Est GFR (Non-African American) 62.9 ml/min; Magnesium 2.2 mg/dl (1.7-2.4); Phosphorus 2.8 mg/dl (2.5-4.9)
[2023-05-24] MEDS: ICU ELECTROLYTE REPLACEMENT PROTOCOL SCH (06:05)
[2023-05-24] MEDS: POTASSIUM CHLORIDE / WTR 20 MEQ/100 ML PLCT IV SCH (06:15)
[2023-05-24 06:50] LABS: Basophils # (auto) 0.04 K/uL (0.00-0.20); Basophils % (auto) 0.3 %; Eosinophils # (auto) 0.03 K/uL (0.00-0.50); Eosinophils % (auto) 0.2 %; Hematocrit (blood only) 23.5 % (37.0-47.0); Hemoglobin 7.1 g/dl (12.0-16.0); Immature Granulocytes # (auto) 0.05 K/uL (0.01-0.20); Immature Granulocytes % (auto) 0.3 %; Lymphocytes # (auto) 1.19 K/uL (1.20-3.40); Lymphocytes % (auto) 7.9 %; Mean Corpuscular Hemoglobin 22.3 pg (25.0-34.0); Mean Corpuscular Hgb Conc 30.2 g/dL (32.0-36.0); Mean Corpuscular Volume 73.9 fL (80.0-100.0); Mean Platelet Volume 9.9 fL (9.4-12.4); Neutrophils # (auto) 12.24 K/uL (1.40-6.50); Neutrophils % (auto) 81.3 %; Platelet Count 357 K/uL (130-400); RDW Coefficient of Variation 16.6 % (11.5-14.5); RDW Standard Deviation 44.3 fL (36.4-46.3); Red Blood Count 3.18 M/uL (4.20-5.40); White Blood Count 15.05 K/ul (4.8-10.8)
--- NOTE | 2023-05-24 07:27 | XRay Report ---
XR chest 1V portable CLINICAL HISTORY: Post Central line TECHNIQUE: Single frontal radiograph of the chest was obtained. Comparison: Comparison is made to chest radiograph 09/15/2022 FINDINGS: Right IJ catheter terminates at the cavoatrial junction. The cardiomediastinal silhouette is normal. Elevation of the right hemidiaphragm. The lungs are clear. No evidence of pleural effusion or pneumot horax. IMPRESSION: Satisfactory position of right IJ catheter. ACT 112: Negative or not required by law. Electronically signed by: Bam Hollis M.D. 05/24/2023 7:25 AM
[2023-05-24 07:56] LABS: Rouleaux 1+
[2023-05-24] MEDS: VANCOMYCIN HCL 1,000 MG in SODIUM CHLORIDE 0.9% 250 ML IV SCH ×2 (08:01→23:31)
[2023-05-24] MEDS ORDERED: SODIUM CHLORIDE 0.9% 250 ML IV PRN (08:25)
[2023-05-24] MEDS: levETIRAcetam IV 500 MG in SODIUM CHLOR 0.9% MINI-B 100 ML IV SCH (08:39)
--- NOTE | 2023-05-24 08:51 | Critical Care Progress Note ---
Date of Service May 24, 2023 Assessment & Plan (1) Sepsis: (2) Intra-abdominal abscess: (3) Shock: (4) Anemia: (5) Hypokalemia: (6) Abnormal computed tomography of abdomen and pelvis: (7) Abdominal pain: (8) RUQ abdominal pain: (9) Seizure disorder: (10) Bronchiectasis: (11) Depression: (12) GERD (gastroesophageal reflux disease): (13) Neurogenic claudication due to lumbar spinal stenosis: (14) Acute blood loss anemia: Plan Plan Reason Critically Ill: 67 YOF presents to ICU hypotensive refractory to volume resuscitation in setting of intraabdominal fluid collection with likely abscess secondary to contained perforated ulceration. Neuro - Hx Seizure disorder, Hx TIA, Chronic back pain, HX Anxiety/Depression, Alzheimer, CAM ICU: NEGATIVE - Continue Keppra- convert to IV while NPO- reported last seizure ~ 12 years ago she endorses "staring seizure" - Delirium precautions as able- maintain normal sleep wake cycle, oob during day, lights off at night - If able to continue PO medications- continue Topamax, Tramadol for her back pain, continue home antidepressants/antianxiety if able to take PO Cardiac - Septic Shock, - Patient with new onset fever, hypotension, tachycardia with movement in setting of intraabdominal fluid collection secondary to contained perforation - Hypotension multifactorial to include sepsis and hypovolemia combination - CT scan repeated however, contrast did not make it into study 2/2 to infiltration - Likely with abscess per interpretation- GS reconsulted- appreciate their input and recommendations - Will search for other causes as well with acuteness of change- UA pending, blood cultures drawn, lactate negative, CXR without opacifications - Resuscitated with 2liters crystalloid and 100ml of 25 GM albumin- remain with hypotension requiring vasopressor support - Levophed for MAPS >65 - Follow re-evaluations with UO and MAP goals - She has had no chest pain or dyspnea as well as no cardiac history so unlikely to be cardiac in origin at this time Respiratory - Bronchiectasis, chronic cough, Chronic elevated RT deysi diaphragm - Continue PRN nebulizers if needed GI - Hx Fred-en Y bypass, with abnormal CT scan of abdomen likely with perforated duodenal ulceration, abscess likely - See surgical consultation- Appreciate recs as above - No urgent need at this time for surgical care as patient is responding to supportive care at this time - Re-evaluate transfer need for drainage or laparoscopic approach- defer to surgical colleagues - Continue IV PPI - NPO RENAL/LYTES - ENOCH II - Mild increase in TERMITE INSPECTOR - likely related to shock- replete intravascular volume - replete magnesium - Follow renal function and HCO3 - No acute needs - Liriano placed for accurate [place] while on vasopressors - Adequate urine output currently ENDO - No acute needs HEME - Anemia - Anemia with low FE level of 13 noted- transfuse for HGB <8 while on vasopressors - type and cross 2 U, will transfuse 1U this am, continue to follow Hb closely - hold on iron replacement while acutely ill ID - Septic shock - Likely secondary to intraabdominal collection with possible abscess - will re-evaluate for other sources- CXR, UA, Blood cultures - Continue with Ertapenem and Vancomycin- can likely de-escalate Vancomycin in am - Ra LINES/IV ACCESS - CVL, [place], Liriano Continue use of these lines DVT PROPHYLAXIS - SCDS, Chemoprophylaxis on hold secondary to concern for perforated ulcer DISPO: ICU while on vasopressors Thank you for allowing us to participate in the care of this patient. Please refer to my attending physician's documentation for any further recommendations. Admission and Anticipated Discharge Date Admission Date: May 17, 2023 Supervising Physician Co-Signing Physician Notes Patient seen and examined. Agree with the note above aside for any additions/exceptions noted: Septic shock appears to be resolving patient has been weaned off Levophed. Will continue with broad-spectrum antibiotics. Will transition from ertapenem to meropenem. Continue vancomycin. Follow culture data. Appreciate surgery input. Patient does have some mild abdominal pain which appears to be improving. Will give a unit of packed RBCs today due to low hemoglobin and hypotension. Suspect low hemoglobin related to hemodilution and chronic anemia. No signs of active bleeding at this time. Continue Protonix 40 twice daily. Subjective Patient seen and evaluated at bedside this morning. No acute events overnight. Pt continues to feel weak and report abdominal pain. Hb 7.1 this am. Afebrile this am. BP stable, remains on levophed. Denies CP, SOB, N/V/D. Review of Systems Review of Systems: reviewed, per HPI Physical Exam Physical Exam: Constitutional: chronically ill appearing, NAD HEENT: NCAT CV: regular rhythm, no murmur appreciated, extremities WWP, no LE edema, remains borderline hypotensive Resp: decreased breath sounds throughout, equal chest rise, no increased work of breathing GI: soft, TTP RUQ, near umbilicus, mild guarding/rebound MSK: no gross deformities appreciated Skin: warm, dry, no rash appreciated Neuro: alert, oriented, no focal neurologic deficit appreciated Results & Data Results & Data Vital Signs (Past 12 Hours) Vital Signs Temp Pulse Pulse Pulse Resp BP BP 05/24/23 06:00 37.0 C 68 14 05/24/23 05:45 36.9 C 69 23 05/24/23 05:45 107/60 05/24/23 05:30 115/57 L 05/24/23 05:30 36.9 C 65 14 05/24/23 05:15 36.8 C 78 14 05/24/23 05:15 120/61 05/24/23 05:00 36.8 C 61 16 05/24/23 05:00 100/48 L 05/24/23 04:45 104/52 L 05/24/23 04:45 36.8 C 62 21 05/24/23 04:30 36.8 C 59 L 12 05/24/23 04:30 101/53 L 05/24/23 04:15 103/53 L 05/24/23 04:15 36.8 C 60 14 05/24/23 04:00 36.8 C 60 15 05/24/23 04:00 96/53 L 05/24/23 03:45 100/56 L 05/24/23 03:45 36.8 C 60 15 05/24/23 03:30 100/55 L 05/24/23 03:30 36.8 C 60 11 L 05/24/23 03:15 97/54 L 05/24/23 03:15 36.8 C 63 14 05/24/23 03:00 97/52 L 05/24/23 03:00 36.9 C 60 16 05/24/23 02:45 37.0 C 60 15 05/24/23 02:45 99/51 L 05/24/23 02:35 79 05/24/23 02:30 115/58 L 05/24/23 02:30 37.0 C 61 15 05/24/23 02:15 37.1 C 63 14 05/24/23 02:15 90/48 L 05/24/23 02:00 106/57 L 05/24/23 02:00 37.1 C 67 19 05/24/23 01:45 88/53 L 05/24/23 01:45 37.1 C 74 20 05/24/23 01:30 74 05/24/23 01:15 73 19 05/24/23 01:00 37.3 C 75 23 05/24/23 00:45 37.3 C 77 22 05/24/23 00:45 85/48 L 05/24/23 00:30 97/45 L 05/24/23 00:30 37.5 C 75 24 05/24/23 00:15 88/48 L 05/24/23 00:15 37.7 C H 114 H 17 05/24/23 00:01 79 26 H 05/24/23 00:01 95/56 L 05/24/23 00:00 74 32 H 05/23/23 23:55 95/60 L 05/23/23 23:55 77 20 05/23/23 23:45 76 24 05/23/23 23:15 78 84/42 L 05/23/23 22:50 79 72/47 L 05/23/23 22:45 81 05/23/23 22:15 81 05/23/23 22:10 85 05/23/23 22:07 37.1 C 18 L 89 18 79/48 L 05/23/23 21:40 39.2 C H 81 18 BP Pulse Ox O2 Del Method 05/24/23 06:00 98 05/24/23 05:45 95 05/24/23 05:45 05/24/23 05:30 05/24/23 05:30 97 05/24/23 05:15 99 05/24/23 05:15 05/24/23 05:00 95 05/24/23 05:00 05/24/23 04:45 05/24/23 04:45 95 05/24/23 04:30 96 05/24/23 04:30 05/24/23 04:15 05/24/23 04:15 96 05/24/23 04:00 96 05/24/23 04:00 05/24/23 03:45 05/24/23 03:45 96 05/24/23 03:30 05/24/23 03:30 97 05/24/23 03:15 05/24/23 03:15 96 05/24/23 03:00 05/24/23 03:00 96 05/24/23 02:45 96 05/24/23 02:45 05/24/23 02:35 05/24/23 02:30 05/24/23 02:30 97 05/24/23 02:15 96 05/24/23 02:15 05/24/23 02:00 05/24/23 02:00 96 05/24/23 01:45 05/24/23 01:45 94 05/24/23 01:30 93 05/24/23 01:15 93 05/24/23 01:00 93 05/24/23 00:45 96 05/24/23 00:45 05/24/23 00:30 05/24/23 00:30 93 05/24/23 00:15 05/24/23 00:15 93 05/24/23 00:01 95 05/24/23 00:01 05/24/23 00:00 94 05/23/23 23:55 05/23/23 23:55 94 05/23/23 23:45 92 05/23/23 23:15 05/23/23 22:50 05/23/23 22:45 05/23/23 22:15 80/40 L 05/23/23 22:10 84/53 L 05/23/23 22:07 94 Room Air 05/23/23 21:40 85/48 L 92 Room Air Laboratory Results 05/24/23 05/24/23 05/24/23 Range/Units Unknown 06:08 05:05 WBC 15.05 H (4.8-10.8) K/ul RBC 3.18 L (4.20-5.40) M/uL Hgb 7.1 L (12.0-16.0) g/dl Hct 23.5 L (37.0-47.0) % MCV 73.9 L (80.0-100.0) fL MCH 22.3 L (25.0-34.0) pg MCHC 30.2 L (32.0-36.0) g/dL RDW Std Deviation 44.3 (36.4-46.3) fL RDW Coeff of Meredith 16.6 H (11.5-14.5) % Plt Count 357 (130-400) K/uL MPV 9.9 (9.4-12.4) fL Immature Gran % (Auto) 0.3 % Neut % (Auto) 81.3 % Lymph % (Auto) 7.9 % [place] % (Auto) 10.0 % Eos % (Auto) 0.2 % Baso % (Auto) 0.3 % Neut # (Auto) 12.24 H (1.40-6.50) K/uL Lymph # (Auto) 1.19 L (1.20-3.40) K/uL [place] # (Auto) 1.50 H (0.11-0.59) K/uL Eos # (Auto) 0.03 (0.00-0.50) K/uL Baso # (Auto) 0.04 (0.00-0.20) K/uL Immature Gran # (Auto) 0.05 (0.01-0.20) K/uL Rou[place] 1+ Sodium 136 (136-145) mmol/L Potassium 3.0 L (3.5-5.1) mmol/L Chloride 108 H (98-107) mmol/L Carbon Dioxide 20 L (21-32) mmol/L Anion Gap 8 (3-11) BUN 8 (6-23) mg/dl Creatinine 0.95 (0.6-1.2) mg/dl Est Cr Clr Drug Dosing 54.5 ml/min Est GFR ( Amer) 72.8 ml/min Est GFR (Non-Af Amer) 62.9 ml/min BUN/Creatinine Ratio 8.4 L (10-20) Glucose 110 H (70-99(Fasting)) mg/dl Lactate (0.4-2.0) mmol/L Calcium 7.9 L (8.6-10.3) mg/dl Ionized Calcium 1.13 (1.12-1.32) mmol/L Phosphorus 2.8 (2.5-4.9) mg/dl Magnesium 2.2 (1.7-2.4) mg/dl Total Bilirubin (0.2-1.0) mg/dl AST (13-39) U/L ALT (7-52) U/L Alkaline Phosphatase (34-104) U/L Total Protein (6.0-8.3) gm/dl Albumin (3.4-5.0) gm/dl Globulin (2.5-4.0) gm/dl Albumin/Globulin Ratio (0.9-2) Random Cortisol mcg/dl Urine Color Yellow Urine Appearance Clear (Clear) Urine pH >= 9.0 H (4.5-7.5) Ur Specific [place] 1.018 (1.000-1.030) Urine Protein Negative (Negative) Urine Glucose (UA) Negative (Negative) Urine Ketones Negative (Negative) Urine Blood 1+ H (Negative) Urine Nitrite Negative (Negative) Urine Bilirubin Negative (Negative) Urine Urobilinogen Negative (Negative) Ur Leukocyte Esterase 2+ H (Negative) Urine WBC (Auto) 10-30 H (0-5) /hpf Urine RBC (Auto) 5-10 H (0-4) /hpf U Hyaline Cast (Auto) 1-5 (0-5) /lpf U Epithel Cells (Auto) >30 H (0-5) /lpf Urine Bacteria (Auto) Negative (Negative) Ur Renal Epithelial Cell Not Reportable Nasal Screen MRSA (PCR) Negative (Negative) Blood Type Antibody Screen Antibody Identification Antibody ID Comment 05/23/23 05/23/23 Range/Units 23:53 20:46 WBC 13.87 H (4.8-10.8) K/ul RBC 3.76 L (4.20-5.40) M/uL Hgb 8.6 L (12.0-16.0) g/dl Hct 28.3 L (37.0-47.0) % MCV 75.3 L (80.0-100.0) fL MCH 22.9 L (25.0-34.0) pg MCHC 30.4 L (32.0-36.0) g/dL RDW Std Deviation 45.0 (36.4-46.3) fL RDW Coeff of Meredith 16.7 H (11.5-14.5) % Plt Count 372 (130-400) K/uL MPV 10.1 (9.4-12.4) fL Immature Gran % (Auto) % Neut % (Auto) % Lymph % (Auto) % [place] % (Auto) % Eos % (Auto) % Baso % (Auto) % Neut # (Auto) (1.40-6.50) K/uL Lymph # (Auto) (1.20-3.40) K/uL [place] # (Auto) (0.11-0.59) K/uL Eos # (Auto) (0.00-0.50) K/uL Baso # (Auto) (0.00-0.20) K/uL Immature Gran # (Auto) (0.01-0.20) K/uL [place] Sodium 132 L (136-145) mmol/L Potassium 3.5 (3.5-5.1) mmol/L Chloride 105 (98-107) mmol/L Carbon Dioxide 19 L (21-32) mmol/L Anion Gap 8 (3-11) BUN 9 (6-23) mg/dl Creatinine 1.09 D (0.6-1.2) mg/dl Est Cr Clr Drug Dosing 47.5 ml/min Est GFR ( Amer) 61.7 ml/min Est GFR (Non-Af Amer) 53.2 ml/min BUN/Creatinine Ratio 8.3 L (10-20) Glucose 109 H (70-99(Fasting)) mg/dl Lactate 1.3 (0.4-2.0) mmol/L Calcium 7.8 L (8.6-10.3) mg/dl Ionized Calcium (1.12-1.32) mmol/L Phosphorus (2.5-4.9) mg/dl Magnesium 1.6 L (1.7-2.4) mg/dl Total Bilirubin 0.4 (0.2-1.0) mg/dl AST 9 L (13-39) U/L ALT 14 (7-52) U/L Alkaline Phosphatase 94 (34-104) U/L Total Protein 4.8 L (6.0-8.3) gm/dl Albumin 2.7 L (3.4-5.0) gm/dl Globulin 2.1 L (2.5-4.0) gm/dl Albumin/Globulin Ratio 1.3 (0.9-2) Random Cortisol 11.94 mcg/dl Urine Color Urine Appearance (Clear) Urine pH (4.5-7.5) Ur Specific [place] (1.000-1.030) Urine Protein (Negative) Urine Glucose (UA) (Negative) Urine Ketones (Negative) Urine Blood (Negative) Urine Nitrite (Negative) Urine Bilirubin (Negative) Urine Urobilinogen (Negative) Ur Leukocyte Esterase (Negative) Urine WBC (Auto) (0-5) /hpf Urine RBC (Auto) (0-4) /hpf U Hyaline Cast (Auto) (0-5) /lpf U Epithel Cells (Auto) (0-5) /lpf Urine Bacteria (Auto) (Negative) Ur Renal Epithelial Cell Nasal Screen MRSA (PCR) (Negative) Blood Type A Positive Antibody Screen POSITIVE A Antibody Identification Pending Antibody ID Comment Pending Resident Activity Tracking Resident Involvement: Resident Care Provided Care Provided: Adult Hospital Medicine (7) Abdominal pain Abdominal location: upper abdomen, unspecified Qualified Code(s): R10.10 - Upper abdominal pain, unspecified
--- NOTE | 2023-05-24 10:30 | Billing Data ---
Date of Service May 24, 2023 Coding Level of Care Code 48267 SUB INP/OBS CARE
[2023-05-24] MEDS: MEROPENEM 500 MG in SYRINGE 0 ML IV SCH (11:45)
--- NOTE | 2023-05-24 11:54 | Surgery Progress Note ---
Date of Service May 24, 2023 Assessment & Plan (1) Abnormal CT of the abdomen: Plan: Possibly contained perforation of the duodenum. Became hypotensive , tachyardic and febrile last evening. Transferred to ICU . repeat ct scan of abd/pelvis with smaller intra-abdominal fluid collection , no pneumoperitoneum. Abdomen is soft, nondistended, minimal tenderness and no peritonitis today. Given patients history of gastric bypass surgery and area of concern would consider transfer to tertiary center for possible IR intervention or where there are foregut surgeons available. Continue IV antibiotics, NPO for bowel rest, blood transfusion. Discussed with Dr. Boucher who agrees with above. Admission and Anticipated Discharge Date Admission Date: May 17, 2023 Subjective felling better this am, pain about 5/10 had pain medication this morning no n,v tolerated advancing diet yesterday Physical Exam Constitutional: WD/WN, vitals as above + frail appearing, cooperative and comfortable; no acute distress and not ill appearing Neck: RIght ij central line Respiratory: normal respiratory effort; no respiratory distress, no labored breathing and no retractions Cardiovascular: Rate/Rhythm: regular rate and regular rhythm Heart Sounds: normal S1 and normal S2 Gastrointestinal (Abdomen): Inspection/Auscultation: abdomen normal to inspection and + abdominal surgical scar (midline laparotomy scar); abdomen not distended Percussion/Palpation: + abdomen tender (mild in RUQ on deep palpation) and abdomen soft; no guarding, abdomen not rigid and abdomen not firm Skin: no rashes, warm and dry Psychiatric: A+Ox3, euthymic affect Results & Data Vital Signs (Past 12 Hours) Vital Signs Temp Pulse Resp BP Pulse Ox 05/24/23 11:37 37.8 C H 72 20 129/62 99 05/24/23 11:07 37.7 C H 72 18 132/64 98 05/24/23 10:52 37.5 C 71 18 112/62 95 05/24/23 10:37 37.7 C H 71 18 108/54 L 96 05/24/23 09:15 37.3 C 66 17 98 05/24/23 09:15 104/43 L 05/24/23 09:01 37.2 C 69 22 98 05/24/23 09:01 99/51 L 05/24/23 09:00 37.2 C 70 15 98 05/24/23 08:45 37.2 C 79 19 97 05/24/23 08:45 134/55 L 05/24/23 08:31 112/72 05/24/23 08:31 37.2 C 85 15 77 L 05/24/23 08:15 37.1 C 64 19 97 05/24/23 08:15 106/57 L 05/24/23 08:00 94/48 L 05/24/23 08:00 37.1 C 65 16 97 05/24/23 07:45 37.0 C 65 16 98 05/24/23 07:45 91/46 L 05/24/23 07:30 37.1 C 64 15 97 05/24/23 07:30 100/49 L 05/24/23 07:15 97/50 L 05/24/23 07:15 37.0 C 64 15 98 05/24/23 07:00 93/50 L 05/24/23 07:00 37.0 C 65 16 97 05/24/23 06:00 37.0 C 68 14 98 05/24/23 05:45 36.9 C 69 23 95 05/24/23 05:45 107/60 05/24/23 05:30 115/57 L 05/24/23 05:30 36.9 C 65 14 97 05/24/23 05:15 36.8 C 78 14 99 05/24/23 05:15 120/61 05/24/23 05:00 36.8 C 61 16 95 05/24/23 05:00 100/48 L 05/24/23 04:45 104/52 L 05/24/23 04:45 36.8 C 62 21 95 05/24/23 04:30 36.8 C 59 L 12 96 05/24/23 04:30 101/53 L 05/24/23 04:15 103/53 L 05/24/23 04:15 36.8 C 60 14 96 05/24/23 04:00 36.8 C 60 15 96 05/24/23 04:00 96/53 L 05/24/23 03:45 100/56 L 05/24/23 03:45 36.8 C 60 15 96 05/24/23 03:30 100/55 L 05/24/23 03:30 36.8 C 60 11 L 97 05/24/23 03:15 97/54 L 05/24/23 03:15 36.8 C 63 14 96 05/24/23 03:00 97/52 L 05/24/23 03:00 36.9 C 60 16 96 05/24/23 02:45 37.0 C 60 15 96 05/24/23 02:45 99/51 L 05/24/23 02:35 79 05/24/23 02:30 115/58 L 05/24/23 02:30 37.0 C 61 15 97 05/24/23 02:15 37.1 C 63 14 96 05/24/23 02:15 90/48 L 05/24/23 02:00 106/57 L 05/24/23 02:00 37.1 C 67 19 96 05/24/23 01:45 88/53 L 05/24/23 01:45 37.1 C 74 20 94 05/24/23 01:30 74 93 05/24/23 01:15 73 19 93 05/24/23 01:00 37.3 C 75 23 93 05/24/23 00:45 37.3 C 77 22 96 05/24/23 00:45 85/48 L 05/24/23 00:30 97/45 L 05/24/23 00:30 37.5 C 75 24 93 05/24/23 00:15 88/48 L 05/24/23 00:15 37.7 C H 114 H 17 93 05/24/23 00:01 79 26 H 95 05/24/23 00:01 95/56 L 05/24/23 00:00 74 32 H 94 05/23/23 23:55 95/60 L 05/23/23 23:55 77 20 94 Diagnostic Findings Exam(s): CT ABDOMEN + PELVIS With Contrast IV Amt: 91 ml opti 320 EXAM: CT Abdomen and Pelvis With Intravenous Contrast CLINICAL HISTORY: Reason for exam: gi infection, recent perforation. TECHNIQUE: Axial computed tomography images of the abdomen and pelvis with intravenous contrast. CTDI is 15.66 mGy and DLP is 223.76 mGy-cm. Automated exposure control was utilized for the study. A dose lowering technique was utilized adhering to the principles of ALARA. CONTRAST: Patient received 91 ml opti 320 of IV contrast COMPARISON: CT abdomen pelvis 05/17/23 FINDINGS: Heart size is normal. Low-attenuation of the cardiac blood pool suggests underlying anemia. There are trace layering bilateral pleural effusions. Gallbladder surgically absent. Unenhanced appearance of the liver, spleen, pancreas, and adrenal glands is unremarkable. Kidneys are similar in size and contour. There is no hydronephrosis. There are no radiopaque stones. There is mild pelviectasis of the right kidney with pronounced perinephric stranding. Evaluation of the bowel is limited without oral and intravenous contrast. Patient is status post gastric bypass. There is no evidence of bowel obstruction. Oral contrast is identified within the colon and extends to the rectum. The appendix is normal. The duodenum appears inflamed, similar to prior. There is a complex collection extending from adjacent to the second portion of the duodenum inferior to the right kidney and measuring roughly 5.5 x 2.4 x 3.1 cm. There is surrounding fat stranding as well as a small volume of ascites tracking inferiorly into the pelvis. There is no free pneumoperitoneum. Urinary bladder is unremarkable. Uterus is surgically absent. Patient has undergone prior interbody fusion, posterior hardware fixation, and posterior decompression from L3-L5. There is no acute fracture or dislocation. Anasarca has increased from prior exam. IMPRESSION: Limited noncontrast evaluation. Redemonstrated inflammatory collection extending from the second portion of the duodenum inferior to the right kidney and measuring roughly 5.5 x 2.4 x 3.1 cm. Abscess is not excluded. There are surrounding inflammatory changes with mild ascites. Proximal duodenum appears inflamed, which may reflect duodenitis or peptic ulcer disease. Perinephric stranding of the right kidney could be reactive to the above- described processes, but pyelonephritis is not excluded. Correlate with urinalysis. Status post gastric bypass without evidence of bowel obstruction. Worsening anasarca. Trace pleural effusions.
--- NOTE | 2023-05-24 11:58 | Pharmacy Report ---
Pharmacy PK ABX Note - Date of Service May 24, 2023 - Assessment and Plan Assessment 67 year old F receiving VANCOMYCIN + MEROPENEM for treatment of intra-abdominal infection. Most recent CT report read as redemonstrated inflammatory fluid collection, abscess not excluded, mild ascites, inflammation of proximal duodenum possibly reflecting duodenitis or PUD. Patient has received ~7 days of Zosyn, however pt developed new fever, tachycardia and hypotension prompting transfer to ICU for vasopressor support. ABX coverage broadened to Meropenem + Vanco and Surgery consulted. Pertinent microbiologic data includes: Negative MRSA Nasal Swab, blood and urine cx's pending Day # 8 of antimicrobial therapy overall, however day 1 of Vanco/Meropenem Plan Vancomycin * Loading dose: 1250 mg IV x 1 * Maintenance dose: 1000 mg IV every 18 hours * Regimen is predicted to achieve target AUC/NORMA of 400-600 mg/L.hr * Level ordered for: 4/5 AM Pharmacy will continue to follow and will adjust dose/frequency as necessary. Thank you. Pharmacy has transitioned to AUC monitoring for vancomycin. AUC/NORMA is the preferred PK/PD target and is associated with decreased risk of nephrotoxicity compared to traditional trough targets.
[2023-05-24 14:29] LABS: Hematocrit (blood only) 28.1 % (37.0-47.0); Hemoglobin 8.6 g/dl (12.0-16.0); Mean Corpuscular Hemoglobin 22.5 pg (25.0-34.0); Mean Corpuscular Hgb Conc 30.6 g/dL (32.0-36.0); Mean Corpuscular Volume 73.4 fL (80.0-100.0); Mean Platelet Volume 9.7 fL (9.4-12.4); Platelet Count 300 K/uL (130-400); RDW Coefficient of Variation 16.7 % (11.5-14.5); RDW Standard Deviation 43.8 fL (36.4-46.3); Red Blood Count 3.83 M/uL (4.20-5.40); White Blood Count 12.48 K/ul (4.8-10.8)
[2023-05-24] MEDS: ACETAMINOPHEN 1,000 MG/100 ML VIAL IV PRN (16:44)
[2023-05-24] MEDS: DEXTROSE 50% 50 ML SYRINGE IV ONE (17:00)
--- NOTE | 2023-05-24 18:33 | Hospitalist Progress Note ---
Date of Service May 24, 2023 Assessment & Plan (1) Abdominal pain: Plan: Suspected contained duodenal perforation on CT of abd/pelvis "indeterminate thick-walled fluid collection from duodenum into right lower quadrant. 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 Case was reviewed by surgery while in the ER, suspect is likely to be a contained duodenal perforation not requiring emergent surgical intervention at this time. GI consultation no intervention, 05/21/23 repeat imaging suggests no worsening or improvement , did discuss with local interventional radiology does not feel that the fluid collection is amenable to a drain it may be possibly accessed for a mild amount of fluid but not drained completely Gen surg eval feels complexity of previous gastric bypass prevents surgery here With sepsis criteria antibiotics changed from Zosyn to ertapenem and vancomycin blood and urine cultures are currently pending at this time patient remains intermittently febrile throughout the day on 05/23 anemia felt second to volume resuscitation, is on protonix bid, did have a Dieulafoy lesion 09/11 with transfusion and clipping MCV microcytic. h/o low iron am recheck still low, will have a dose of venofer and received transfusion of 1 unit packed red blood cells on 05/24/2023 In the process of evaluation for possible transfer for surgical intervention radiology expertise (2) Seizure disorder: Plan: No seizure in many years, initial seizure was a partial staring spell Keppra transition to p.o. Seizure precautions, Ativan on-call (3) Transient ischemic attack (TIA): Plan: h/o, stable No focal neurologic symptoms on admission (4) Neurogenic claudication due to lumbar spinal stenosis: Plan: Lumbar stenosis, chronic and stable S/p decompression 10/2022 No acute change. Gabapentin temporarily held while n.p.o., resume once tolerating p.o. Plan DVT prophylaxis: SCDs CODE STATUS: DNR/DNI Admission and Anticipated Discharge Date Admission Date: May 17, 2023 Subjective Patient was transferred to the ICU overnight with septic shock. Reportedly the patient was in her normal state when she developed tachycardia and hypotension with right-sided abdominal pain. Patient lost IV access and required central line placement. She was on epinephrine for a brief period of time she was volume resuscitated and given blood. This is her 6 days of Zosyn therapy blood cultures were obtained. Patient had intermittent fevers throughout the day on 05/24/2023 antibiotics were changed to vancomycin and ertapenem Physical Exam Physical Exam: Awake alert appropriate. She appears pale despite her transfusion Remaining febrile to 102 blood pressure soft at 95/59 Card exam is regular previously tachycardic Lungs are diminished at the bases Abdomen with hypoactive bowel sounds tender to the right side guarding but no rebound Results & Data Results & Data Vital Signs (Past 12 Hours) Vital Signs Temp Pulse Resp BP Pulse Ox O2 Del Method 05/24/23 17:00 95/59 L 05/24/23 17:00 102.0 F H 83 26 H 96 05/24/23 16:30 117/42 L 05/24/23 16:30 102.0 F H 79 18 97 Room Air 05/24/23 16:00 120/47 L 05/24/23 16:00 101.8 F H 77 27 H 98 05/24/23 15:30 101.7 F H 75 20 95 05/24/23 15:30 133/61 05/24/23 15:00 130/60 05/24/23 15:00 101.7 F H 84 20 96 05/24/23 14:30 141/51 H 05/24/23 14:30 101.5 F H 75 20 96 05/24/23 14:00 140/60 05/24/23 14:00 101.1 F H 87 17 97 Room Air 05/24/23 13:30 137/66 05/24/23 13:30 100.8 F H 73 22 05/24/23 13:00 135/62 05/24/23 13:00 100.4 F H 80 26 H 97 Room Air 05/24/23 12:30 100/71 05/24/23 12:30 100.4 F H 69 19 98 05/24/23 12:15 100.4 F H 72 19 96 05/24/23 12:15 119/61 05/24/23 12:07 100.4 F H 74 20 110/68 97 05/24/23 12:00 133/70 05/24/23 12:00 100.2 F H 98 05/24/23 11:45 121/59 L 05/24/23 11:45 100.2 F H 70 24 97 05/24/23 11:37 100.0 F H 72 20 129/62 99 05/24/23 11:30 135/60 05/24/23 11:30 100.2 F H 77 33 H 98 05/24/23 11:15 117/59 L 05/24/23 11:15 100.0 F H 74 20 99 05/24/23 11:07 99.9 F H 72 18 132/64 98 05/24/23 11:01 121/54 L 05/24/23 11:01 99.7 F H 72 20 97 05/24/23 11:00 99.7 F H 77 23 96 05/24/23 10:52 99.5 F 71 18 112/62 95 05/24/23 10:45 88/68 L 05/24/23 10:45 99.9 F H 79 19 99 05/24/23 10:37 99.9 F H 71 18 108/54 L 96 05/24/23 10:01 97/41 L 05/24/23 10:01 99.5 F 73 27 H 05/24/23 10:00 99.5 F 67 22 99 05/24/23 09:15 99.1 F 66 17 98 05/24/23 09:15 104/43 L 05/24/23 09:01 99.0 F 69 22 98 05/24/23 09:01 99/51 L 05/24/23 09:00 99.0 F 70 15 98 05/24/23 08:45 99.0 F 79 19 97 05/24/23 08:45 134/55 L 05/24/23 08:31 112/72 05/24/23 08:31 99.0 F 85 15 77 L 05/24/23 08:15 98.8 F 64 19 97 05/24/23 08:15 106/57 L 05/24/23 08:00 94/48 L 05/24/23 08:00 98.8 F 65 16 97 05/24/23 07:45 98.6 F 65 16 98 05/24/23 07:45 91/46 L 05/24/23 07:30 98.8 F 64 15 97 05/24/23 07:30 100/49 L 05/24/23 07:15 97/50 L 05/24/23 07:15 98.6 F 64 15 98 05/24/23 07:00 93/50 L 05/24/23 07:00 98.6 F 65 16 97 Laboratory Results Reviewed CBC reviewed chemistry Does have an abnormal urinalysis did have a normal urinalysis on 05/17/[address] scan is read by Sherrie does show some interval improvement of the fluid collection, however there is comments of fat stranding and small volume ascites into the pelvis PG Care Time/CCT Total # of Minutes Spent Total Time Spent with Patient: Total time spent is greater than 50% in coordination of care (as documented) at patient's floor/unit and/or counseling patient: Coding Level of Care Code 49791 SUB INP/OBS CARE 3/50MIN Diagnoses Abdominal pain R10.10 Abdominal location: upper abdomen, unspecified Seizure disorder G40.909 Transient ischemic attack (TIA) G45.9 Neurogenic claudication due to lumbar spinal stenosis M48.062 (1) Abdominal pain Abdominal location: upper abdomen, unspecified Qualified Code(s): R10.10 - Upper abdominal pain, unspecified
--- NOTE | 2023-05-24 18:52 | Discharge Summary ---
Date of Service May 25, 2023 Admission HPI Per Admitting Provider Anila King is a 67-year-old female with past medical history of depression, low back pain, bronchiectasis, Fred-en-Y gastric bypass 7 years ago who presents with epigastric discomfort following meals. CT shows duodenal fluid collection extending into right lower quadrant with infiltration of the right retroperitoneum patient is afebrile and without leukocytosis. Abdomen is without right upper quadrant abnormalities. Imaging was reviewed by surgery and radiology, suspected contained perforation of the duodenum. No acute surgical intervention is recommended, recommended for hospitalist admission with GI cons ultation, fluids, PPI and n.p.o. for bowel rest. Anila is seen at the bedside. She reports she has had 2-week of constant around 710/10 abdominal pain which is worse in the last 3 to 4 days. Pain has been increasing gradually. Did proved to 45 after receiving pain medicine in the ER. She has had no fever, chills, sweats. No lightheadedness or dizziness. No chest pain or chest pressure. Denies diarrhea. She has not had nausea or vomiting. No melena or bright red blood per rectum. She does have a history of gastric bypass around 8 years ago with [facility] for weight loss, did have a history of ulcers with GI bleed in the last year. Other than her abdominal pain denies other symptoms. She does not note any remitting factors, notes it is worse with palpation. Medical History: Reviewed Medications: Reviewed Surgical History: Reviewed Family history: Reviewed Allergies: Reviewed Social History: Reviewed Code Status: DNR/DNI Principal Diagnosis intraabdominal fluid collection suspect abscess h/o gastric bypass surgery chronic stable seizure disorder Discharge Exam discharged pt as planned but before she was seen. Discharge Data Allergies Allergy/AdvReac Type Severity Reaction Status Date / Time No Known Allergies Allergy Verified 11/08/22 11:50 Consultations 05/17/23 13:42 Consult General Surgery Stat 05/17/23 15:28 ED Decision to Admit Stat 05/17/23 16:38 Consult Gastroenterology Routine 05/23/23 23:02 Consult Ham Clerk Stat Ordered Studies Abdomen/Pelvis CT 05/17/23 12:26 CT SCAN OF THE ABDOMEN AND PELVIS WITH IV CONTRAST CLINICAL HISTORY: Generalized abdominal pain. COMPARISON STUDY: No priors. TECHNIQUE: Following the IV administration of 119 cc of Optiray 320, CT scan of the abdomen and pelvis is performed from the lung bases to the proximal femora. Images are reviewed in the axial, sagittal, and coronal planes. IV contrast was administered without complication. A dose lowering technique was utilized adhering to the principles of ALARA. FINDINGS: Lung bases: The heart is normal in size and without pericardial effusion. There is mild elevation of the right hemidiaphragm. The lung bases are clear. Liver: The contrast-enhanced liver is normal in size, contour, and attenuation. There is minimal central intrahepatic biliary ductal dilatation. The hepatic veins and portal veins are patent. Gallbladder: Surgically absent noting clips in the gallbladder fossa. Spleen: Normal in size and attenuation. Pancreas: Moderately atrophic and grossly unremarkable. Adrenal glands: Unremarkable. Kidneys: The contrast enhanced kidneys are normal in size and without hydronephrosis. The kidneys enhance symmetrically. Abdominal vasculature: The abdominal aorta is normal in course and caliber noting advanced atherosclerotic calcification. Stomach and bowel: There is postsurgical change consistent with a Fred-en-Y gastric bypass procedure. No bowel obstruction is seen. There is residual enteric contrast in the rectosigmoid. No bowel obstruction is seen. There is mild colonic fecal retention. The appendix is well-visualized and normal. Peritoneum: There is no intraperitoneal free air or abdominal ascites. There is a serpiginous and thick-walled/loculated fluid collection which extends from the proximal duodenum inferiorly into the right lower quadrant. This measures approximately 9 x 3.5 x 6.5 cm in aggregate dimension, and is best seen on images #[id number]. This is remote from the appendix. There is asymmetric infiltration identified in the right retroperitoneum which extends from the right kidney. A component of fat necrosis is not excluded. Lymphadenopathy: None. Pelvic viscera: The bladder is decompressed and appears thick walled. The uterus is surgically absent. No adnexal lesion is seen. Skeletal structures: The skeletal structures are osteopenic. Postsurgical and spondylotic change is noted in the lumbar spine. No lytic or blastic lesions are seen. There are chronic/healed pelvic ring fractures. IMPRESSION: 1. There is an indeterminant serpiginous and thick walled fluid collection seen extending from the duodenum into the right lower quadrant is detail above. There is associated infiltration and possible fat necrosis in the right retroperi toneum. This fluid collection is of indeterminate etiology and chronicity. The sterility of this fluid cannot be assessed imaging and clinical correlation will be essential. 2. There is postsurgical change consistent with a Fred-en-Y gastric bypass surgery. No bowel obstruction is seen. 3. No intraperitoneal free air is identified. The appendix is normal. 4. The bladder wall appears thickened. Correlate with clinical findings and urinalysis. ACT 112: Negative or not required by law. Electronically signed by: Marquis Palma M.D. 05/17/2023 1:19 PM Chest CTA 05/17/23 12:26 CT angio chest PE protocol CLINICAL HISTORY: PE TECHNIQUE: Multidetector row helical CT of the chest was performed with angiographic protocol. Coronal and sagittal reformations were obtained. Coronal and sagittal MIPS were obtained from the axial data set and were submitted for review. Automated dose lowering techniques and/or adjustment according to patient size were utilized for this exam. CT DOSE: 1148.18 mGy.cm Comparison: Comparison is made to CT chest 01/27/2022 FINDINGS: Lungs and pleura: Normal. Heart and pericardium: Heart size is normal. No pericardial effusion. Vessels: No evidence of pulmonary embolism. Mediastinum and kelly: Unremarkable. Chest wall and lower neck: Unremarkable. Abdomen: For findings below the diaphragm, please refer to CT of the abdomen dated the same. Bones: Degenerative changes in the thoracic spine. IMPRESSION: No acute abnormality and in particular no evidence of pulmonary embolus. ACT 112: Negative or not required by law. Electronically signed by: Bam Hollis M.D. 05/17/2023 12:53 PM Abdomen/Pelvis CT 05/21/23 07:17 CT SCAN OF THE ABDOMEN AND PELVIS WITH IV CONTRAST CLINICAL HISTORY: Follow-up abscess. COMPARISON STUDY: Abdominal CT dated 05/17/2023. TECHNIQUE: Following the IV administration of 94 cc of Optiray 320, CT scan of the abdomen and pelvis is performed from the lung bases to the proximal femora. Images are reviewed in the axial, sagittal, and coronal planes. IV contrast was administered without complication. Oral contrast was utilized. A dose lowering technique was utilized adhering to the principles of ALARA. There is streak artifact from the right arm which could not be elevated above the abdomen. FINDINGS: Lung bases: The heart is normal in size and without pericardial effusion. There is a small right pleural effusion with dependent consolidation. A smaller pleural effusion as on the left. These are new from previous. Liver: The contrast-enhanced liver is normal in size, contour, and attenuation. There is mild central intrahepatic biliary ductal dilatation. The hepatic veins and portal veins are patent. Gallbladder: Surgically absent noting clips in the gallbladder fossa. Spleen: Normal in size and attenuation. Pancreas: Moderately atrophic and grossly unremarkable. Adrenal glands: Unremarkable. Kidneys: The contrast enhanced kidneys are normal in size and without hydronephrosis. The kidneys enhance symmetrically. Abdominal vasculature: The abdominal aorta is normal in course and caliber noting advanced atherosclerotic calcification. Stomach and bowel: There is postsurgical change consistent with a Fred-en-Y gastric bypass procedure. There is no bowel obstruction. Enteric contrast reaches the left colon. There is mild colonic fecal retention. There is nonspecific. Thickening of the jejunum. This was not clearly seen previously. The appendix is well-visualized and normal. Peritoneum: There is no intraperitoneal free air or abdominal ascites. There is a serpiginous and thick-walled/loculated fluid collection which extends from the proximal duodenum inferiorly into the right lower quadrant with surrounding infiltration. This measures approximately 11 x 6 x 2.5 cm in aggregate dimension, and is best seen on images #[id number]. This is remote from the appendix. No enteric contrast is seen within the collection. A loculation of this collection extends superiorly along the posterior aspect of the right kidney as seen on image #182. There is corresponding asymmetric infiltration around the right kidney. Lymphadenopathy: None. Pelvic viscera: The bladder is normal as imaged. The uterus is surgically absent. No adnexal lesion is seen. Presacral edema is new from previous and likely related to fluid overload. Skeletal structures: The skeletal structures are osteopenic. Postsurgical and spondylotic change is noted in the lumbar spine. No lytic or blastic lesions are seen. There are chronic/healed pelvic ring fractures. Soft tissues: There is body wall edema. IMPRESSION: 1. There has been no significant change in the appearance of an indeterminant serpiginous and thick walled fluid collection seen extending from the duodenum into the right lower quadrant is detailed above. A loculation of this collection extending posterior to the right kidney is better delineated on today's examination. This fluid collection is of indeterminate etiology and chronicity. No enteric contrast is seen within the collection. The sterility of this fluid cannot be assessed imaging and clinical correlation will be essential. 2. There is postsurgical change consistent with a Fred-en-Y gastric bypass surgery. No bowel obstruction is seen. 3. No intraperitoneal free air is identified. The appendix is normal. 4. Right larger than left pleural effusions with right basilar consolidation. Pleural effusions are new from previous. 5. There is nonspecific fold thickening of the jejunum. There is also anasarca of the body wall which is new from previous. These findings may be related to fluid overload. Correlate clinically. 6. Additional findings as above. ACT 112: Negative or not required by law. Electronically signed by: Marquis Palma M.D. 05/21/2023 10:14 AM Abdomen/Pelvis CT 05/23/23 23:10 Exam(s): CT ABDOMEN + PELVIS With Contrast IV Amt: 91 ml opti 320 EXAM: CT Abdomen and Pelvis With Intravenous Contrast CLINICAL HISTORY: Reason for exam: gi infection, recent perforation. TECHNIQUE: Axial computed tomography images of the abdomen and pelvis with intravenous contrast. CTDI is 15.66 mGy and DLP is 223.76 mGy-cm. Automated exposure control was utilized for the study. A dose lowering technique was utilized adhering to the principles of ALARA. CONTRAST: Patient received 91 ml opti 320 of IV contrast COMPARISON: CT abdomen pelvis 05/17/23 FINDINGS: Heart size is normal. Low-attenuation of the cardiac blood pool suggests underlying anemia. There are trace layering bilateral pleural effusions. Gallbladder surgically absent. Unenhanced appearance of the liver, spleen, pancreas, and adrenal glands is unremarkable. Kidneys are similar in size and contour. There is no hydronephrosis. There are no radiopaque stones. There is mild pelviectasis of the right kidney with pronounced perinephric stranding. Evaluation of the bowel is limited without oral and intravenous contrast. Patient is status post gastric bypass. There is no evidence of bowel obstruction. Oral contrast is identified within the colon and extends to the rectum. The appendix is normal. The duodenum appears inflamed, similar to prior. There is a complex collection extending from adjacent to the second portion of the duodenum inferior to the right kidney and measuring roughly 5.5 x 2.4 x 3.1 cm. There is surrounding fat stranding as well as a small volume of ascites tracking inferiorly into the pelvis. There is no free pneumoperitoneum. Urinary bladder is unremarkable. Uterus is surgically absent. Patient has undergone prior interbody fusion, posterior hardware fixation, and posterior decompression from L3-L5. There is no acute fracture or dislocation. Anasarca has increased from prior exam. IMPRESSION: Limited noncontrast evaluation. Redemonstrated inflammatory collection extending from the second portion of the duodenum inferior to the right kidney and measuring roughly 5.5 x 2.4 x 3.1 cm. Abscess is not excluded. There are surrounding inflammatory changes with mild ascites. Proximal duodenum appears inflamed, which may reflect duodenitis or peptic ulcer disease. Perinephric stranding of the right kidney could be reactive to the above- described processes, but pyelonephritis is not excluded. Correlate with urinalysis. Status post gastric bypass without evidence of bowel obstruction. Worsening anasarca. Trace pleural effusions. Electronically signed by: Nain Dc M.D. 05/24/23 00:22 AM Chest X-Ray 05/24/23 01:25 XR chest 1V portable CLINICAL HISTORY: Post Central line TECHNIQUE: Single frontal radiograph of the chest was obtained. Comparison: Comparison is made to chest radiograph 09/15/2022 FINDINGS: Right IJ catheter terminates at the cavoatrial junction. The cardiomediastinal silhouette is normal. Elevation of the right hemidiaphragm. The lungs are clear. No evidence of pleural effusion or pneumothorax. IMPRESSION: Satisfactory position of right IJ catheter. ACT 112: Negative or not required by law. Electronically signed by: Bam Hollis M.D. 05/24/2023 7:25 AM Hospital Course (1) Abdominal pain: Suspected contained duodenal perforation on CT of abd/pelvis "indeterminate thick-walled fluid collection from duodenum into right lower quadrant. 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 Case was reviewed by surgery while in the ER, suspect is likely to be a contained duodenal perforation not requiring emergent surgical intervention on presentation and conservative care trialed and failed GI consultation no intervention, 05/21/23 repeat imaging suggests no worsening or improvement , did discuss with local interventional radiology does not feel that the fluid collection is amenable to a drain it may be possibly accessed for a mild amount of fluid but not drained completely Gen surg eval feels complexity of previous gastric bypass prevents surgery here With sepsis criteria antibiotics changed from Zosyn to meropenem and vancomycin blood and urine cultures are currently pending at this time patient remains intermittently febrile throughout the day on 05/23 anemia felt second to volume resuscitation, is on protonix bid, did have a Dieulafoy lesion 09/11 with transfusion and clipping MCV microcytic. h/o low iron am recheck still low, will have a dose of venofer and received transfusion of 1 unit packed red blood cells on 05/24/2023 In the process of evaluation for possible transfer for surgical intervention radiology expertise (2) Seizure disorder: No seizure in many years, initial seizure was a partial staring spell Keppra transition to p.o. Seizure precautions, Ativan on-call (3) Transient ischemic attack (TIA): h/o, stable No focal neurologic symptoms on admission (4) Neurogenic claudication due to lumbar spinal stenosis: Lumbar stenosis, chronic and stable S/p decompression 10/2022 No acute change. Gabapentin temporarily held while n.p.o., resume once tolerating p.o. Plan DVT prophylaxis: SCDs CODE STATUS: DNR/DNI Total Time Total Time Spent Total Time Spent (In Minutes): pt was discharged on the before rounded on Discharge Plan Discharge Items Patient Disposition: Home - Self-Care Reason For Visit: ABD PAIN, SUSPECTED CONTAINED PERFORATION Discharge Diagnosis: contained abscess from suspected perforation of small bowel sepsis Activity: Per Instructions section Activity Comment: per discharging facility Non-emergency contact: Primary Care Provider Call non-emergency contact if: your symptoms worsen Follow-up/Referrals: Paula Bolaños DO [Primary Care Provider] - 05/26/23 12:45 pm (With Dr. Clements) Diet: Nothing by Mouth Addtl Attending Provider Instructions: Your imaging suggest that there may be contained infection in your abdomen which could be resulting from your small bowel. Pending Studies at Discharge: No Stand-Alone Forms: My [facility] [employer], Smoking Cessation Medications and DC Order Prescriptions: New meropenem 500 mg recon soln 500 mg IV Q6H 14 Days Rx Instructions: administer over 6 hrs vancomycin 1,000 mg recon soln 1,000 mg IV Q18H Qty: 10 0RF Continued (DME) nebulizer accessories Kit See Rx Instructions .ROUTE .MEDSUPPLY Qty: 1 0RF Rx Instructions: As directed sodium chloride [Hyper-Denys] 7 % solution for nebulization 4 ml inhalation BID Qty: 240 3RF Rx Instructions: unable to verify 3/27/24 albuterol sulfate 0.63 mg/3 mL solution for nebulization 0.63 mg inhalation BID Qty: 90 3RF Rx Instructions: unable to verify 05/17/23 donepezil [Aricept] 10 mg Tablet 10 mg PO HS cyanocobalamin (vitamin B-12) 1,000 mcg Tablet 1,000 mcg PO QAM Rx Instructions: unable to verify 05/17/23 pantoprazole [Protonix] 40 mg Tablet,Delayed Release (Dr/Ec) 40 mg PO DAILY Rx Instructions: original directions: 40 mg bid per pharmacy they have 1 tab po daily as far back as 2021 topiramate [Topamax] 100 mg Tablet 100 mg PO BID memantine [Namenda] 5 mg Tablet 5 mg PO BID rizatriptan 10 mg tablet 10 mg PO DAILY PRN (Reason: MIGRAINE) hydroxyzine HCl 25 mg tablet 25 mg PO TID PRN (Reason: Anxiety) zolpidem 10 mg tablet 10 mg PO HS PRN (Reason: Sleep) sucralfate 1 gram Tablet 1 g PO QID Qty: 100 0RF tramadol 50 mg tablet 50 mg PO Q6H PRN (Reason: pain, moderate) Qty: 30 0RF gabapentin 800 mg tablet 800 mg PO TID ondansetron HCl 4 mg tablet 4 mg PO BID PRN (Reason: n/v) citalopram [Celexa] 20 mg tablet 20 mg PO DAILY lidocaine 5 % adhesive patch,medicated 1 patch topical DAILY buspirone 15 mg tablet 15 mg PO TID aripiprazole [Abilify] 5 mg tablet 5 mg PO HS oxycodone 5 mg tablet 0 mg PO Q6H PRN (Reason: pain) Rx Instructions: unable to verify with pt or either pharmacy 05/17/23 original directions: 5 mg po q6h as needed Discontinued buspirone 10 mg tablet 10 mg PO TID Discharge Orders: Discharge Order (Routine); Ordered 05/25/23 Ordered By: Yifan Mcnulty Admission Data Admit Date/Time: 05/17/23 16:38 Attending Provider: Leobardo Angela Admit Provider: Michael De Jesus Primary Care Provider: Paula Bolaños Other Providers: Alfred Boucher; Michael De Jesus; Dylan Jiménez; Mumtaz Carlos; Arnold Sage; Raul Moreno; Julien Sapp; Vickey Marinelli; Hernandez Branch; Brooks Hernández; Beatrice Neal; Vanessa Cuba; Jaxson Villa; Seferino Matos; Elena Morales Other Interventions: Discharge Summary Assessment (RN) Last Done: 05/25/23 07:33 Coding Level of Care Code None Diagnoses Abdominal pain R10.10 Abdominal location: upper abdomen, unspecified Seizure disorder G40.909 Transient ischemic attack (TIA) G45.9 Neurogenic claudication due to lumbar spinal stenosis M48.062
--- NOTE | 2023-05-24 18:53 | Hospitalist Progress Note ---
Date of Service May 24, 2023 Assessment & Plan (1) Abdominal pain: Plan: Suspected contained duodenal perforation on CT of abd/pelvis "indeterminate thick-walled fluid collection from duodenum into right lower quadrant. 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 Case was reviewed by surgery while in the ER, suspect is likely to be a contained duodenal perforation not requiring emergent surgical intervention on presentation and conservative care trialed and failed GI consultation no intervention, 05/21/23 repeat imaging suggests no worsening or improvement , did discuss with local interventional radiology does not feel that the fluid collection is amenable to a drain it may be possibly accessed for a mild amount of fluid but not drained completely Gen surg eval feels complexity of previous gastric bypass prevents surgery here With sepsis criteria antibiotics changed from Zosyn to meropenem and vancomycin blood and urine cultures are currently pending at this time patient remains intermittently febrile throughout the day on 05/23 anemia felt second to volume resuscitation, is on protonix bid, did have a Dieulafoy lesion 09/11 with transfusion and clipping MCV microcytic. h/o low iron am recheck still low, will have a dose of venofer and received transfusion of 1 unit packed red blood cells on 05/24/2023 In the process of evaluation for possible transfer for surgical intervention radiology expertise (2) Seizure disorder: Plan: No seizure in many years, initial seizure was a partial staring spell Keppra transition to p.o. Seizure precautions, Ativan on-call (3) Transient ischemic attack (TIA): Plan: h/o, stable No focal neurologic symptoms on admission (4) Neurogenic claudication due to lumbar spinal stenosis: Plan: Lumbar stenosis, chronic and stable S/p decompression 10/2022 No acute change. Gabapentin temporarily held while n.p.o., resume once tolerating p.o. Plan DVT prophylaxis: SCDs CODE STATUS: DNR/DNI Admission and Anticipated Discharge Date Admission Date: May 17, 2023 Results & Data Results & Data Vital Signs (Past 12 Hours) Vital Signs Temp Pulse Resp BP Pulse Ox O2 Del Method 05/24/23 18:30 106/55 L 05/24/23 18:30 100.4 F H 68 15 95 05/24/23 18:00 90/46 L 05/24/23 18:00 100.9 F H 71 19 95 05/24/23 17:30 100/52 L 05/24/23 17:30 101.5 F H 77 21 96 05/24/23 17:00 95/59 L 05/24/23 17:00 102.0 F H 83 26 H 96 05/24/23 16:30 117/42 L 05/24/23 16:30 102.0 F H 79 18 97 Room Air 05/24/23 16:00 120/47 L 05/24/23 16:00 101.8 F H 77 27 H 98 05/24/23 15:30 101.7 F H 75 20 95 05/24/23 15:30 133/61 05/24/23 15:00 130/60 05/24/23 15:00 101.7 F H 84 20 96 05/24/23 14:30 141/51 H 05/24/23 14:30 101.5 F H 75 20 96 05/24/23 14:00 140/60 05/24/23 14:00 101.1 F H 87 17 97 Room Air 05/24/23 13:30 137/66 05/24/23 13:30 100.8 F H 73 22 05/24/23 13:00 135/62 05/24/23 13:00 100.4 F H 80 26 H 97 Room Air 05/24/23 12:30 100/71 05/24/23 12:30 100.4 F H 69 19 98 05/24/23 12:15 100.4 F H 72 19 96 05/24/23 12:15 119/61 05/24/23 12:07 100.4 F H 74 20 110/68 97 05/24/23 12:00 133/70 05/24/23 12:00 100.2 F H 98 05/24/23 11:45 121/59 L 05/24/23 11:45 100.2 F H 70 24 97 05/24/23 11:37 100.0 F H 72 20 129/62 99 05/24/23 11:30 135/60 05/24/23 11:30 100.2 F H 77 33 H 98 05/24/23 11:15 117/59 L 05/24/23 11:15 100.0 F H 74 20 99 05/24/23 11:07 99.9 F H 72 18 132/64 98 05/24/23 11:01 121/54 L 05/24/23 11:01 99.7 F H 72 20 97 05/24/23 11:00 99.7 F H 77 23 96 05/24/23 10:52 99.5 F 71 18 112/62 95 05/24/23 10:45 88/68 L 05/24/23 10:45 99.9 F H 79 19 99 05/24/23 10:37 99.9 F H 71 18 108/54 L 96 05/24/23 10:01 97/41 L 05/24/23 10:01 99.5 F 73 27 H 05/24/23 10:00 99.5 F 67 22 99 05/24/23 09:15 99.1 F 66 17 98 05/24/23 09:15 104/43 L 05/24/23 09:01 99.0 F 69 22 98 05/24/23 09:01 99/51 L 05/24/23 09:00 99.0 F 70 15 98 05/24/23 08:45 99.0 F 79 19 97 05/24/23 08:45 134/55 L 05/24/23 08:31 112/72 05/24/23 08:31 99.0 F 85 15 77 L 05/24/23 08:15 98.8 F 64 19 97 05/24/23 08:15 106/57 L 05/24/23 08:00 94/48 L 05/24/23 08:00 98.8 F 65 16 97 05/24/23 07:45 98.6 F 65 16 98 05/24/23 07:45 91/46 L 05/24/23 07:30 98.8 F 64 15 97 05/24/23 07:30 100/49 L 05/24/23 07:15 97/50 L 05/24/23 07:15 98.6 F 64 15 98 05/24/23 07:00 93/50 L 05/24/23 07:00 98.6 F 65 16 97 PG Care Time/CCT Total # of Minutes Spent Total Time Spent with Patient: Total time spent is greater than 50% in coordination of care (as documented) at patient's floor/unit and/or counseling patient: Coding Level of Care Code None Diagnoses Abdominal pain R10.10 Abdominal location: upper abdomen, unspecified Seizure disorder G40.909 Transient ischemic attack (TIA) G45.9 Neurogenic claudication due to lumbar spinal stenosis M48.062 (1) Abdominal pain Abdominal location: upper abdomen, unspecified Qualified Code(s): R10.10 - Upper abdominal pain, unspecified
[2023-05-24] MEDS: D5W AND LACTATED RINGERS 1,000 ML IV SCH (19:37)
[2023-05-24 21:56] LABS: Influenza A virus by PCR Negative (Neg); Influenza B virus by PCR Negative (Neg); RSV by PCR Negative (Neg); SARS CoV2 RNA(COVID-19) Ceph NEGATIVE (Negative)
[2023-05-25 05:16] LABS: Basophils # (auto) 0.01 K/uL (0.00-0.20); Basophils % (auto) 0.1 %; Eosinophils # (auto) 0.17 K/uL (0.00-0.50); Eosinophils % (auto) 1.7 %; Hematocrit (blood only) 25.8 % (37.0-47.0); Hemoglobin 8.1 g/dl (12.0-16.0); Immature Granulocytes # (auto) 0.07 K/uL (0.01-0.20); Immature Granulocytes % (auto) 0.7 %; Lymphocytes # (auto) 0.86 K/uL (1.20-3.40); Lymphocytes % (auto) 8.7 %; Mean Corpuscular Hemoglobin 22.9 pg (25.0-34.0); Mean Corpuscular Hgb Conc 31.4 g/dL (32.0-36.0); Mean Corpuscular Volume 73.1 fL (80.0-100.0); Mean Platelet Volume 10.2 fL (9.4-12.4); Monocytes # (auto) 0.78 K/uL (0.11-0.59); Monocytes % (auto) 7.9 %; Neutrophils # (auto) 7.96 K/uL (1.40-6.50); Neutrophils % (auto) 80.9 %; Platelet Count 290 K/uL (130-400); RDW Coefficient of Variation 17.2 % (11.5-14.5); RDW Standard Deviation 44.7 fL (36.4-46.3); Red Blood Count 3.53 M/uL (4.20-5.40); White Blood Count 9.85 K/ul (4.8-10.8)
[2023-05-25 05:36] LABS: Calcium 8.2 mg/dl (8.6-10.3); Creatinine Clr Calc Pharmacy 76.1 ml/min; Est GFR (African American) 105.9 ml/min; Est GFR (Non-African American) 91.4 ml/min; Magnesium 2.1 mg/dl (1.7-2.4); Phosphorus 2.2 mg/dl (2.5-4.9)
[2023-05-25 06:09] VITALS: RESP 16; TEMP 98.4; O2SAT 96
[2023-05-25 07:37] VITALS: BP 80/40; PULSE 18
--- NOTE | 2023-05-25 07:40 | Surgery Progress Note ---
Date of Service May 25, 2023 Assessment & Plan (1) Intra-abdominal abscess: Plan: agree with transfer but seems to be responding to conservative measures except episode on floor IV abx [place] [facility] [place] Admission and Anticipated Discharge Date Admission Date: May 17, 2023 Subjective no complaints of abdominal pain alert without complaints Review of Systems Constitutional: no fever and no chills Respiratory: no dyspnea Cardiovascular: no chest pain Gastrointestinal: no abdominal pain, no nausea, no vomiting and no change in bowel habits Genitourinary: no dysuria Physical Exam Constitutional: + thin Respiratory: normal respiratory effort, lungs clear to auscultation Cardiovascular: RRR, no murmur, no edema Gastrointestinal (Abdomen): Inspection/Auscultation: abdomen normal to inspection and normal bowel sounds; abdomen not distended Percussion/Palpation: + abdomen tender and abdomen soft; no guarding and abdomen not rigid Musculoskeletal: Head/Neck/Chest: normocephalic and head atraumatic Results & Data Vital Signs (Past 12 Hours) Vital Signs Temp Pulse Pulse Pulse Resp BP BP 05/25/23 07:33 36.9 C 18 L 78 16 122/57 L 05/25/23 05:01 145/56 H 05/25/23 05:01 36.9 C 83 16 05/25/23 05:00 36.9 C 83 16 05/25/23 04:00 36.7 C 58 L 15 05/25/23 04:00 95/47 L 05/25/23 03:00 94/49 L 05/25/23 03:00 36.6 C 59 L 17 05/25/23 02:00 101/61 05/25/23 02:00 36.4 C L 61 16 05/25/23 01:00 84/46 L 05/25/23 01:00 36.5 C 61 14 05/25/23 00:30 36.6 C 61 18 05/25/23 00:30 83/42 L 05/25/23 00:00 113/59 L 05/25/23 00:00 36.6 C 61 15 05/24/23 23:30 36.5 C 63 17 05/24/23 23:30 115/60 05/24/23 23:00 98/51 L 05/24/23 23:00 36.5 C 60 13 05/24/23 22:30 36.6 C 68 12 05/24/23 22:30 100/43 L 05/24/23 22:21 92/47 L 05/24/23 22:21 36.6 C 59 L 11 L 05/24/23 22:00 36.7 C 62 14 05/24/23 22:00 89/46 L 05/24/23 21:30 36.8 C 63 14 05/24/23 21:30 98/54 L 05/24/23 21:00 101/52 L 05/24/23 21:00 36.9 C 67 18 05/24/23 20:30 103/49 L 05/24/23 20:30 37.1 C 67 19 05/24/23 20:00 101/48 L 05/24/23 20:00 37.2 C 71 22 BP Pulse Ox 05/25/23 07:33 80/40 L 96 05/25/23 05:01 05/25/23 05:01 96 05/25/23 05:00 98 05/25/23 04:00 98 05/25/23 04:00 05/25/23 03:00 05/25/23 03:00 99 05/25/23 02:00 05/25/23 02:00 98 05/25/23 01:00 05/25/23 01:00 98 05/25/23 00:30 98 05/25/23 00:30 05/25/23 00:00 05/25/23 00:00 99 05/24/23 23:30 100 05/24/23 23:30 05/24/23 23:00 05/24/23 23:00 98 05/24/23 22:30 95 05/24/23 22:30 05/24/23 22:21 05/24/23 22:21 96 05/24/23 22:00 97 05/24/23 22:00 05/24/23 21:30 97 05/24/23 21:30 05/24/23 21:00 05/24/23 21:00 97 05/24/23 20:30 05/24/23 20:30 97 05/24/23 20:00 05/24/23 20:00 99
[2023-05-25] MEDS: HYDROmorphone INJ 0.5 MG/0.5 ML SYR IV PRN (07:44)
[2023-05-25] MEDS ORDERED: VANCOMYCIN HCL 1,000 MG in SODIUM CHLORIDE 0.9% 250 ML IV SCH (14:00)
--- NOTE | 2023-05-29 07:59 | Coding Query ---
SEPSIS To promote full compliance with coding requirements relating to patient care, physician participation is requested in all cases of oracle technical [employer] uncertainty. Please assist us with the question(s) below: In responding to this query, please exercise your independent professional judgement. The fact that a question is asked does not imply that any particular answer is desired or expected. We appreciate your clarification on this issue. The medical record reflects the following clinical findings: Pt admitted with perforated abdominal ulcer and abscess. 05/22 Critical care note mentioned Sepsis/Septic shock. Pt transferred to other acute care facility for drainage. Please check below the diagnosis(es) that were treated if applicable for this inpatient stay. Thank you. SAMMI Quinetro CCS ____ ( )Bacteremia (Nonspecific laboratory finding of bacteria in the blood) Specify Organism ( ) Present on Admission ( ) Not present on admission ( ) Unable to clinically determine ( ) Septicemia (Systemic disease associated with the presence of pathogenic microorganisms in the blood): Specify Organism ( ) Present on Admission ( ) Not present on admission ( ) Unable to clinically determine ( ) Sepsis Specify Organism Specify Associated Condition/Diagnosis ( ) Present on Admission ( ) Not present on admission ( ) Unable to clinically determine ( ) Severe Sepsis (Sepsis associated with acute organ dysfunction) Specify Organism Specify Associated Condition/Diagnosis ( ) Present on Admission ( ) Not present on admission ( ) Unable to clinically determine ( ) Septic Shock (Severe sepsis with acute circulatory failure, unexplained by other causes) ( ) Present on Admission ( ) Not present on admission ( ) Unable to clinically determine ( ) Other, patient has: MTDD
== END 2023-05-25 07:55 | disposition short-term general hospital (02) | DRG 380 ==
LOC: ED 11:58 → 2W 16:38 → SUATTDRO 16:38 → 2W 21:52 → 2S 05-23 22:11 → 1E 05-23 23:23
DX: G40.909 Epilepsy, unspecified, not intractable, without status epilepticus; A41.9 Sepsis, unspecified organism; Z66 Do not resuscitate; E88.09 Other disorders of plasma-protein metabolism, not elsewhere classified; Z98.84 Bariatric surgery status; D62 Acute posthemorrhagic anemia; N17.9 Acute kidney failure, unspecified; E87.6 Hypokalemia; R65.21 Severe sepsis with septic shock; K21.9 Gastro-esophageal reflux disease without esophagitis; Z96.653 Presence of artificial knee joint, bilateral; Z86.73 Personal history of transient ischemic attack (TIA), and cerebral infarction without residual deficits; K65.1 Peritoneal abscess; M48.061 Spinal stenosis, lumbar region without neurogenic claudication; J47.9 Bronchiectasis, uncomplicated; K26.5 Chronic or unspecified duodenal ulcer with perforation

== ENCOUNTER 2024-05-27 18:35 | Inpatient (IN) ==
--- NOTE | 2024-05-27 19:02 | Emergency Department Note ---
ED Provider Note History of Present Illness Chief Complaint: Abdominal Pain Stated Complaint: ABDOMINAL PAIN Time Seen by Provider: 05/27/24 18:51 Source: patient Mode of arrival: ambulatory Limitations: no limitations This patient is a 68-year-old female who presents to the emergency department who presents to the emergency department for evaluation of abdominal pain and vomiting. Patient developed upper abdominal pain which started overnight last night around 1 AM. She states that it began suddenly. Pain is in the upper abdomen and associated with vomiting. She has not been able to keep anything down. There is no radiation of the pain. She states it is sharp and stabbing and rates the discomfort an 8/10. She has tried Tylenol and Pepto-Bismol without relief. She has not noticed any blood in the vomit. No changes in bowel movements, fever/chills or urinary symptoms. Patient has had a prior gastric bypass. She did have a duodenal perforation and abscess formation last year which was treated with IV antibiotics. She does have a history of upper GI bleeds. Home Medications Medication Instructions Recorded Confirmed Type cyanocobalamin (vitamin B-12) 1,000 mcg PO QAM 07/23/19 05/27/24 History 1,000 mcg tablet donepezil 10 mg tablet (Aricept) 10 mg PO HS 07/23/19 05/27/24 History pantoprazole 40 mg tablet,delayed 40 mg PO DAILY 07/23/19 05/27/24 History release (Protonix) topiramate 100 mg tablet (Topamax) 100 mg PO BID 07/23/19 05/27/24 History nebulizer accessories #1 ea 03/01/22 09/14/22 Rx rizatriptan 10 mg tablet 10 mg PO DAILY PRN MIGRAINE 09/15/22 05/27/24 History zolpidem 10 mg tablet 10 mg PO HS PRN Sleep 09/15/22 05/27/24 History sucralfate 1 gram tablet 1 g PO QID #100 tabs 09/17/22 05/27/24 Rx tramadol 50 mg tablet 50 mg PO Q6H PRN pain, moderate 11/10/22 05/27/24 Rx #30 tabs gabapentin 800 mg tablet 800 mg PO TID 05/17/23 05/27/24 History lidocaine 5 % topical patch 1 patch topical DAILY PRN Pain 05/17/23 05/27/24 History albuterol sulfate 0.63 mg/3 mL 0.63 mg inhalation BID PRN 05/27/24 05/27/24 History solution for nebulization shortness of breath or wheezing brexpiprazole 0.5 mg tablet 0.5 mg PO HS 05/27/24 05/27/24 History (Rexulti) buspirone 10 mg tablet 20 mg PO TID 05/27/24 05/27/24 History sodium chloride 7 % for 4 ml inhalation BID PRN WHEN USING 05/27/24 05/27/24 History nebulization (Hyper-Denys) NEBULIZER Allergies Allergy/AdvReac Type Severity Reaction Status Date / Time No Known Allergies Allergy Verified 05/27/24 20:29 Past Med/Surg History Problem List (Updated 05/29/24 @ 11:26 by Tammy Coronel PA-C) Hypokalemia Gastritis and duodenitis Intractable vomiting (Acute) Epigastric abdominal pain (Acute) Sepsis Intra-abdominal abscess Shock Anemia Abnormal CT of the abdomen Bronchiectasis Follows with Dr. Moreno- breathing stable Depression Stable Cataract lt. Encounter for pre-operative examination Encounter for pre-operative examination Dyspnea on exertion Abnormal barium swallow Elevated hemidiaphragm Tachycardia Acute blood loss anemia Upper GI bleed recently admitted at [facility] 09/15/22---per pt was found to have bleeding at gastric bypass site, clipped at site and received 2 units PRBCs--pt states she has improved, no current issue, is taking sucralfate as prescribed Vasomotor rhinitis Medical History Neurogenic claudication due to lumbar spinal stenosis Memory changes History Since TIA (2008) - mild- no recent issues per patient (no follow up with neurology needed) History of recent blood transfusion 09/16/22 @ [facility]--2 units PRBC for upper GI bleed Seizure disorder Chronic low back pain Insomnia Chronic cough Stable Elevated diaphragm Peripheral neuropathy Hands and feet Degenerative disc disease Chronic back pain Lumbar facet arthropathy Spinal stenosis Osteoporosis GERD (gastroesophageal reflux disease) Well controlled and stable Seizure "Staring seizures"- no issues since 2010 per patient Transient ischemic attack (TIA) 2008- no current issues History of high blood pressure Bronchiectasis hx Surgical History Hx of cataract extraction bilat History of total knee replacement RT/LEFT History of esophagogastroduodenoscopy (EGD) 09/16/22 @ [facility] History of colonoscopy H/O total hysterectomy History of cholecystectomy History of tonsillectomy History of tooth extraction History of gastric bypass Family History Aunt Diabetes Grandmother (Paternal) Diabetes Other No family history of adverse response to anesthesia Social History Smoking Status: Never smoker Second Hand Exposure: No; Do You Dip or Chew Tobacco: No; Hx Alcohol Use: No Hx Substance Use: No Preferred Language: Mongolian Communication Ability: Effective Meat Team Lead Required: No Beliefs That Will Affect Care: None Current Living Situation: Alone Other Information That Helps Us Care for You: No Feels Safe at Home: Yes Safety Concerns: Feels Safe At This Time Assistive Devices: None Physical Exam Vital Signs Vital Signs - 24 hr 05/29/24 07:17 05/29/24 07:18 Temperature 36.6 C Temperature Source Oral Pulse Rate [Left Finger] 62 Respiratory Rate 16 Blood Pressure [Left Arm] 114/72 Blood Pressure Mean [Left Arm] 86 Blood Pressure Position [Left Arm] Lying Pulse Oximetry 94 Oxygen Delivery Method Room Air EWS Level of Consciousness - Last Result Spontaneously Alert EWS Temperature - Last Result 36.6 EWS Respiratory Rate - Last Result 16 EWS Oxygen Saturation - Last Result 94 EWS Oxygen in Use - Last Result No EWS Score 1 EWS Clinical Risk Low Risk VITALS: Vitals are noted on the nurse's note and reviewed by myself. GENERAL: This is a 68-year-old female, in no acute distress, well-developed well-nourished. SKIN: The skin was without rashes. EYES: Pupils equal round and reactive to light and accommodation. MOUTH: Mucous membranes moist. HEART: Regular rate and rhythm without murmurs gallops or rubs. LUNGS: Clear to auscultation bilaterally without wheezes, rales or rhonchi. ABDOMEN: Positive bowel sounds x 4. Soft, moderate epigastric tenderness to palpation. NEURO: Patient was alert and oriented to person place and time. Course Administered Medications Buspirone HCl (Buspirone 5 Mg Tab) 20 mg PO TID GAGE Stop: 06/27/24 08:59 Last Admin: 05/29/24 20:35 Dose: 20 mg Documented By: Admin: 05/29/24 14:34 Dose: Not Given Documented By: Admin: 05/29/24 07:34 Dose: 20 mg Documented By: Admin: 05/28/24 20:18 Dose: 20 mg Documented By: Admin: 05/28/24 13:47 Dose: 20 mg Documented By: Admin: 05/28/24 09:03 Dose: 20 mg Documented By: HRB Cyanocobalamin (Cyanocobalamin (B-12) 500 Mcg Tablet) 1,000 mcg PO QAM GAGE Stop: 06/27/24 08:59 Last Admin: 05/29/24 07:36 Dose: 1,000 mcg Documented By: Admin: 05/28/24 09:04 Dose: 1,000 mcg Documented By: HRB Donepezil HCl (Donepezil Hcl 10 Mg Tab) 10 mg PO HS GAGE Stop: 06/27/24 20:59 Last Admin: 05/29/24 20:34 Dose: 10 mg Documented By: Admin: 05/28/24 20:19 Dose: 10 mg Documented By: ONEIL Gabapentin (Gabapentin 800 Mg Tab) 800 mg PO TID GAGE Stop: 06/27/24 08:59 Last Admin: 05/29/24 20:35 Dose: 800 mg Documented By: Admin: 05/29/24 14:34 Dose: Not Given Documented By: Admin: 05/29/24 07:33 Dose: 800 mg Documented By: Admin: 05/28/24 20:19 Dose: 800 mg Documented By: Admin: 05/28/24 13:47 Dose: 800 mg Documented By: Admin: 05/28/24 09:04 Dose: 800 mg Documented By: HRB Pantoprazole Sodium (Protonix) 40 mg in 10 mls @ 5 mls/min IV BID GAGE Stop: 06/27/24 08:59 Last Admin: 05/29/24 20:36 Dose: 5 mls/min Documented By: Admin: 05/29/24 07:23 Dose: 5 mls/min Documented By: Admin: 05/28/24 20:17 Dose: 5 mls/min Documented By: Admin: 05/28/24 09:05 Dose: 5 mls/min Documented By: HRB Famotidine (Pepcid 20mg Iv Push) 20 mg in 5 mls @ 2.5 mls/min IV Q12H GAGE Stop: 06/27/24 08:59 Last Admin: 05/29/24 20:44 Dose: 2.5 mls/min Documented By: Admin: 05/29/24 07:23 Dose: 2.5 mls/min Documented By: Admin: 05/28/24 20:17 Dose: 2.5 mls/min Documented By: Admin: 05/28/24 09:04 Dose: 2.5 mls/min Documented By: HRB Acetaminophen (Ofirmev) 1,000 mg in 100 mls @ 400 mls/hr IV Q8H PRN PRN Reason: Pain or Fever Stop: 05/31/24 02:15 Last Infusion: 05/29/24 13:09 Dose: Infused Documented By: Admin: 05/29/24 12:52 Dose: 400 mls/hr Documented By: Infusion: 05/28/24 20:20 Dose: Infused Documented By: Admin: 05/28/24 20:03 Dose: 400 mls/hr Documented By: Infusion: 05/28/24 11:44 Dose: Infused Documented By: Admin: 05/28/24 11:02 Dose: 400 mls/hr Documented By: Infusion: 05/28/24 03:06 Dose: Infused Documented By: Admin: 05/28/24 02:51 Dose: 400 mls/hr Documented By: TKB Sodium Chloride (Nss) 1,000 mls @ 100 mls/hr IV .Q10H AGGE Stop: 05/30/24 15:59 Last Admin: 05/29/24 20:44 Dose: Not Given Documented By: Admin: 05/29/24 20:42 Dose: 100 mls/hr Documented By: Infusion: 05/29/24 20:21 Dose: Infused Documented By: Infusion: 05/29/24 19:37 Dose: 0 mls/hr Documented By: Infusion: 05/29/24 19:12 Dose: 999 mls/hr Documented By: Infusion: 05/29/24 19:00 Dose: 0 mls/hr Documented By: Admin: 05/29/24 16:14 Dose: 100 mls/hr Documented By: RIKA Miscellaneous (Brexpiprazole [Rexulti]: Order Awaiting Action) 1 each N/A QS GAGE Stop: 06/27/24 07:59 Last Admin: 05/29/24 23:23 Dose: Not Given Documented By: Admin: 05/29/24 15:10 Dose: Not Given Documented By: Admin: 05/29/24 07:20 Dose: Not Given Documented By: Admin: 05/28/24 23:12 Dose: Not Given Documented By: Admin: 05/28/24 16:18 Dose: Not Given Documented By: Admin: 05/28/24 09:01 Dose: Not Given Documented By: HRB Miscellaneous (Remove Lidoderm Patch) 1 each N/A DAILY@2100 [facility] Stop: 06/27/24 20:59 Last Admin: 05/29/24 20:38 Dose: 1 each Documented By: Admin: 05/28/24 20:20 Dose: 1 each Documented By: ONEIL Ondansetron HCl (Ondansetron Inj 2 Mg/Ml 2 Ml Vial) 4 mg IV Q4H PRN PRN Reason: Nausea Stop: 06/27/24 02:15 Last Admin: 05/29/24 12:28 Dose: 4 mg Documented By: Admin: 05/29/24 07:23 Dose: 4 mg Documented By: Admin: 05/28/24 14:55 Dose: 4 mg Documented By: Admin: 05/28/24 08:49 Dose: 4 mg Documented By: Admin: 05/28/24 02:51 Dose: 4 mg Documented By: TKB Sucralfate (Sucralfate 1 Gm Tab) 1 gm PO ACHS GAGE Stop: 06/27/24 07:29 Last Admin: 05/29/24 20:37 Dose: 1 gm Documented By: Admin: 05/29/24 16:17 Dose: 1 gm Documented By: Admin: 05/29/24 12:04 Dose: 1 gm Documented By: Admin: 05/29/24 07:33 Dose: 1 gm Documented By: Admin: 05/28/24 20:19 Dose: 1 gm Documented By: Admin: 05/28/24 16:19 Dose: 1 gm Documented By: Admin: 05/28/24 11:46 Dose: 1 gm Documented By: Admin: 05/28/24 07:27 Dose: 1 gm Documented By: KRISTA Topiramate (Topiramate 100 Mg Tab) 100 mg PO BID GAGE Stop: 06/27/24 08:59 Last Admin: 05/29/24 20:38 Dose: 100 mg Documented By: Admin: 05/29/24 07:34 Dose: 100 mg Documented By: Admin: 05/28/24 20:19 Dose: 100 mg Documented By: Admin: 05/28/24 09:05 Dose: 100 mg Documented By: KRISTA Zolpidem Tartrate (Zolpidem Tartrate 5 Mg Tab) 10 mg PO HS PRN PRN Reason: Sleep Stop: 06/27/24 02:20 Last Admin: 05/29/24 20:44 Dose: 10 mg Documented By: Admin: 05/28/24 20:19 Dose: 10 mg Documented By: Admin: 05/28/24 02:50 Dose: 10 mg Documented By: ENMANUEL Discontinued Medications Promethazine HCl (Phenergan) 6.25 mg in 50.25 mls @ 201 mls/hr IV NOW STA Stop: 05/27/24 23:46 Last Infusion: 05/28/24 00:12 Dose: Infused Documented By: Admin: 05/27/24 23:45 Dose: 201 mls/hr Documented By: JOSE Pantoprazole Sodium (Protonix) 40 mg in 10 mls @ 5 mls/min IV NOW ONE Stop: 05/28/24 00:16 Last Admin: 05/28/24 00:29 Dose: 5 mls/min Documented By: JOSE Famotidine (Pepcid 20mg Iv Push) 20 mg in 5 mls @ 2.5 mls/min IV NOW STA Stop: 05/28/24 00:16 Last Admin: 05/28/24 00:29 Dose: 2.5 mls/min Documented By: JOSE Lactated Ringer's (Lr) 1,000 mls @ 125 mls/hr IV .Q8H GAGE Stop: 05/28/24 14:14 Last Infusion: 05/28/24 15:59 Dose: Infused Documented By: Infusion: 05/28/24 11:44 Dose: 125 mls/hr Documented By: Infusion: 05/28/24 11:08 Dose: 0 mls/hr Documented By: Admin: 05/28/24 06:24 Dose: 125 mls/hr Documented By: TKB Ioversol (Optiray 320 100ml) 90 ml IV ONCE ONE Stop: 05/27/24 21:01 Last Admin: 05/27/24 21:00 Dose: 90 ml Documented By: REESEP Morphine Sulfate (Morphine Sulfate 4 Mg/Ml 1 Ml Carp\\Vial) 4 mg IV NOW STA Stop: 05/27/24 19:03 Last Admin: 05/27/24 20:17 Dose: 4 mg Documented By: ARNULFO Morphine Sulfate (Morphine Sulfate 2 Mg/Ml Carp) 2 mg IV NOW STA Stop: 05/29/24 13:11 Last Admin: 05/29/24 13:14 Dose: 2 mg Documented By: AV Morphine Sulfate (Morphine Sulfate 2 Mg/Ml Carp) 2 mg IV NOW STA Stop: 05/29/24 13:18 Last Admin: 05/29/24 13:27 Dose: 2 mg Documented By: AV Ondansetron HCl (Ondansetron Inj 2 Mg/Ml 2 Ml Vial) 4 mg IV NOW STA Stop: 05/27/24 19:03 Last Admin: 05/27/24 20:17 Dose: 4 mg Documented By: ARNULFO Potassium Chloride (Potassium Chloride Crtab 20 Meq Tabcr) 40 meq PO NOW STA Stop: 05/29/24 10:06 Last Admin: 05/29/24 10:31 Dose: 40 meq Documented By: AV Sucralfate (Sucralfate 1 Gm/10 Ml Udc) 1 gm PO NOW STA Stop: 05/27/24 22:54 Last Admin: 05/27/24 23:13 Dose: 1 gm Documented By: JOSE Medical Decision Making Differential Diagnosis Appendicitis, ovarian cyst, ovarian torsion, infections, diverticulitis, UTI, obstruction, mesenteric ischemia, aortic pathology, inflammatory bowel disease, renal colic, PUD, perforation, pancreatitis, biliary pathology, hernia, volvulus, constipation, as well as other pathologies. Laboratory Data Attestation: I reviewed the patient's lab results. 05/29/24 05:21 05/29/24 05:21 Lab Results 05/27/24 05/28/24 05/29/24 Range/Units 20:02 06:51 05:21 WBC 5.02 4.12 L 3.42 L (4.8-10.8) K/ul RBC 4.19 L 4.36 4.05 L (4.20-5.40) M/uL Hgb 12.6 13.1 12.2 (12.0-16.0) g/dl Hct 37.5 39.5 36.8 L (37.0-47.0) % MCV 89.5 90.6 90.9 (80.0-100.0) fL MCH 30.1 30.0 30.1 (25.0-34.0) pg MCHC 33.6 33.2 33.2 (32.0-36.0) g/dL RDW Std Deviation 44.7 46.1 46.0 (36.4-46.3) fL RDW Coeff of Meredith 13.7 13.7 13.8 (11.5-14.5) % Plt Count 210 174 211 (130-400) K/uL MPV 10.2 10.8 10.5 (9.4-12.4) fL Immature Gran % (Auto) 0.2 % Neut % (Auto) 46.0 % Lymph % (Auto) 35.3 % Telfair % (Auto) 15.5 % Eos % (Auto) 2.6 % Baso % (Auto) 0.4 % Neut # (Auto) 2.31 (1.40-6.50) K/uL Lymph # (Auto) 1.77 (1.20-3.40) K/uL T[place]air # (Auto) 0.78 H (0.11-0.59) K/uL Eos # (Auto) 0.13 (0.00-0.50) K/uL Baso # (Auto) 0.02 (0.00-0.20) K/uL Immature Gran # (Auto) 0.01 (0.01-0.20) K/uL Sodium 138 141 141 (136-145) mmol/L Potassium 3.4 L 3.9 3.3 L (3.5-5.1) mmol/L Chloride 103 105 106 (98-107) mmol/L Carbon Dioxide 25 27 29 (21-32) mmol/L Anion Gap 10 9 6 (3-11) BUN 15 15 10 (6-23) mg/dl Creatinine 0.80 0.81 0.89 (0.6-1.2) mg/dl Est Cr Clr Drug Dosing 64.3 64.0 58.2 ml/min eGFR 81.21 80.01 71.46 BUN/Creatinine Ratio 18.8 18.5 11.2 (10-20) Glucose 75 50 L* 81 (70-99(Fasting)) mg/dl Calcium 9.0 9.0 8.9 (8.6-10.3) mg/dl Phosphorus 3.6 (2.5-4.9) mg/dl Magnesium 1.8 (1.7-2.4) mg/dl Total Bilirubin 0.7 (0.2-1.0) mg/dl AST 19 (13-39) U/L ALT 10 (7-52) U/L Alkaline Phosphatase 90 (34-104) U/L Troponin I High Sens 45.8 H (0-14) pg/ml Total Protein 6.1 (6.0-8.3) gm/dl Albumin 3.8 (3.4-5.0) gm/dl Globulin 2.3 L (2.5-4.0) gm/dl Albumin/Globulin Ratio 1.7 (0.9-2) Lipase 17 (11-82) U/L Urine Color Dark Yellow Urine Appearance Cloudy A (Clear) Urine pH 5.5 (4.5-7.5) Ur Specific Revere 1.031 H (1.000-1.030) Urine Protein 1+ H (Negative) Urine Glucose (UA) Negative (Negative) Urine Ketones 1+ H (Negative) Urine Blood Trace H (Negative) Urine Nitrite Negative (Negative) Urine Bilirubin 1+ H (Negative) Urine Urobilinogen Negative (Negative) Ur Leukocyte Esterase 1+ H (Negative) Urine WBC (Auto) 6-10 H (0-5) /hpf Urine RBC (Auto) 11-20 H (0-2) /hpf U Hyaline Cast (Auto) 3-5 H (0-2) /lpf U Epithel Cells (Auto) 6-10 H (0-2) /hpf Urine Bacteria (Auto) None Seen (None Seen) Calcium Oxalate Crystal Present A (None Prsent) Urine Mucus Present A (None Prsent) Imaging Data Attestation: I personally reviewed and interpreted this imaging study as follows: Radiologist's Impression: Abdomen/Pelvis CT 05/27/24 19:02 Exam(s): CT ABDOMEN + PELVIS With Contrast IV Amt: 90 ml optiray 320 EXAM: CT Abdomen and Pelvis With Intravenous Contrast CLINICAL HISTORY: Reason for exam: upper abdominal pain, vomiting. TECHNIQUE: Axial computed tomography images of the abdomen and pelvis with intravenous contrast. CTDI is 10.3 mGy and DLP is 504 mGy-cm. Automated exposure control was utilized for the study. A dose lowering technique was utilized adhering to the principles of ALARA. CONTRAST: Patient received 90 ml optiray 320 of IV contrast COMPARISON: CT 05/23/2023 FINDINGS: ABDOMEN: Liver: Unremarkable. Gallbladder and bile ducts: Cholecystectomy. Biliary dilatation secondary to prior cholecystectomy. Pancreas: Unremarkable. Spleen: Unremarkable. Adrenals: Unremarkable. Kidneys and ureters: Unremarkable. No obstructing stones. No hydronephrosis. Stomach and bowel: Fred-en-Y gastric bypass. No bowel obstruction. Intact suture anastomoses along the GI tract. PELVIS: Appendix: Appendix is not visualized. Bladder: Unremarkable. Reproductive: Unremarkable as visualized. ABDOMEN and PELVIS: Intraperitoneal space: Unremarkable. No free air. No significant fluid collection. Bones/joints: Postsurgical changes in the lumbar spine. Soft tissues: Unremarkable. Vasculature: Unremarkable. Lymph nodes: Unremarkable. Other findings: Elevated right hemidiaphragm. IMPRESSION: No acute findings in the abdomen or pelvis. Electronically signed by: Matthew Beaulieu MD 05/27/24 22:28 PM [facility] Narrative This patient is a 68-year-old female who presents to the emergency department for evaluation of epigastric abdominal pain and vomiting. Symptoms started abruptly overnight last night. Labs revealed no leukocytosis, anemia or concerning electrolyte abnormalities. Urinalysis is contaminated, not suggestive of infection. Lipase is not elevated. CT of the abdomen/pelvis performed and reviewed by radiology with no acute findings. Patient presenting with significant pain and persistent vomiting. She was initially treated with morphine and Zofran with some improvement. However, patient had persistent symptoms throughout her ED stay. She was treated with Carafate, then Phenergan with no improvement. She was unable to tolerate p.o. fluids. At this time, decision was made to consult the hospitalist for possible admission. Case was discussed with the [facility] hospitalist who agreed to evaluate patient for further care. Impression Epigastric abdominal pain, Intractable vomiting Discharge Plan Visit Data Chief Complaint: Abdominal Pain Stated Complaint: ABDOMINAL PAIN ED Provider: [facility] Midlevel Provider: Kendra Sage Discharge Problem: Epigastric abdominal pain, Intractable vomiting Patient Disposition: Admitted As Inpatient Discharge Instructions Interventions: ED Discharge Assessment Last Done: 05/28/24 02:17 Addendum May 30, 2024 02:47 I was consulted by the Advanced Practice Provider and was substantively involved in the patient's visit.This includes aspects of the HPI, MDM, diagnostic interpretations, and disposition/plan. I discussed the case with the HERVE and agree with the findings and plan as documented in HERVE Chu's note.
[2024-05-27] MEDS: ONDANSETRON INJ 2 MG/ML 2 ML VIAL IV STA (20:17)
[2024-05-27] MEDS: MoRPHine SULFATE 4 MG/ML 1 ML CARP\\VIAL IV STA (20:17)
[2024-05-27 20:24] LABS: Basophils # (auto) 0.02 K/uL (0.00-0.20); Basophils % (auto) 0.4 %; Eosinophils # (auto) 0.13 K/uL (0.00-0.50); Eosinophils % (auto) 2.6 %; Hematocrit (blood only) 37.5 % (37.0-47.0); Hemoglobin 12.6 g/dl (12.0-16.0); Immature Granulocytes # (auto) 0.01 K/uL (0.01-0.20); Immature Granulocytes % (auto) 0.2 %; Lymphocytes # (auto) 1.77 K/uL (1.20-3.40); Lymphocytes % (auto) 35.3 %; Mean Corpuscular Hemoglobin 30.1 pg (25.0-34.0); Mean Corpuscular Hgb Conc 33.6 g/dL (32.0-36.0); Mean Corpuscular Volume 89.5 fL (80.0-100.0); Mean Platelet Volume 10.2 fL (9.4-12.4); Monocytes # (auto) 0.78 K/uL (0.11-0.59); Monocytes % (auto) 15.5 %; Neutrophils # (auto) 2.31 K/uL (1.40-6.50); Platelet Count 210 K/uL (130-400); RDW Coefficient of Variation 13.7 % (11.5-14.5); RDW Standard Deviation 44.7 fL (36.4-46.3); Red Blood Count 4.19 M/uL (4.20-5.40); White Blood Count 5.02 K/ul (4.8-10.8)
[2024-05-27 20:33] LABS: Albumin Globulin Ratio 1.7 (0.9-2); Albumin Level 3.8 gm/dl (3.4-5.0); BUN Creatinine Ratio 18.8 (10-20); Bilirubin,Total 0.7 mg/dl (0.2-1.0); Creatinine Clr Calc Pharmacy 64.3 ml/min; Globulin 2.3 gm/dl (2.5-4.0); Potassium 3.4 mmol/L (3.5-5.1); Total Protein 6.1 gm/dl (6.0-8.3)
[2024-05-27 20:38] LABS: Appearance Urine Cloudy (Clear); Bacteria Urine Automated None Seen (None Seen); Bilirubin Urine 1+ (Negative); Blood Urine Trace (Negative); Calcium Oxalate Crystals Urine Present (None Prsent); Color Urine Dark Yellow; Glucose Urine UA Negative (Negative); Ketones Urine 1+ (Negative); Leukocyte Esterase Urine 1+ (Negative); Mucus Urine Present (None Prsent); Nitrite Urine Negative (Negative); Protein Urine 1+ (Negative); Specific Gravity Urine 1.031 (1.000-1.030); Urobilinogen Urine Negative (Negative); pH Urine 5.5 (4.5-7.5)
[2024-05-27] MEDS: OPTIRAY 320 100ml IV ONE (21:00)
--- NOTE | 2024-05-27 22:29 | CT Scan Report ---
Exam(s): CT ABDOMEN + PELVIS With Contrast IV Amt: 90 ml optiray 320 EXAM: CT Abdomen and Pelvis With Intravenous Contrast CLINICAL HISTORY: Reason for exam: upper abdominal pain, vomiting. TECHNIQUE: Axial computed tomography images of the abdomen and pelvis with intravenous contrast. CTDI is 10.3 mGy and DLP is 504 mGy-cm. Automated exposure control was utilized for the study. A dose lowering technique was utilized adhering to the principles of ALARA. CONTRAST: Patient received 90 ml optiray 320 of IV contrast COMPARISON: CT 05/23/2023 FINDINGS: ABDOMEN: Liver: Unremarkable. Gallbladder and bile ducts: Cholecystectomy. Biliary dilatation secondary to prior cholecystectomy. Pancreas: Unremarkable. Spleen: Unremarkable. Adrenals: Unremarkable. Kidneys and ureters: Unremarkable. No obstructing stones. No hydronephrosis. Stomach and bowel: Fred-en-Y gastric bypass. No bowel obstruction. Intact suture anastomoses along the GI tract. PELVIS: Appendix: Appendix is not visualized. Bladder: Unremarkable. Reproductive: Unremarkable as visualized. ABDOMEN and PELVIS: Intraperitoneal space: Unremarkable. No free air. No significant fluid collection. Bones/joints: Postsurgical changes in the lumbar spine. Soft tissues: Unremarkable. Vasculature: Unremarkable. Lymph nodes: Unremarkable. Other findings: Elevated right hemidiaphragm. IMPRESSION: No acute findings in the abdomen or pelvis. Electronically signed by: Matthew Beaulieu MD 05/27/24 22:28 PM
[2024-05-27] MEDS: SUCRALFATE 1 GM/10 ML UDC PO STA (23:13)
[2024-05-27] MEDS: PROMETHAZINE 6.25 MG/50.25 ML BAG IV STA (23:45)
[2024-05-28] MEDS: FAMOTIDINE 20MG IV PUSH 20 MG/5 ML SYR IV STA (00:29)
[2024-05-28] MEDS: PANTOprazole 40 MG/10 ML SYR IV ONE (00:29)
--- NOTE | 2024-05-28 00:32 | History & Physical Report ---
Date of Service May 28, 2024 Assessment & Plan (1) Epigastric abdominal pain: (2) Depression: (3) Seizure: (4) Neurogenic claudication due to lumbar spinal stenosis: (5) Gastritis and duodenitis: Plan 68 year old presents to the ER with epigastric pain #Suspected gastritis/duodenitis Previous history of GI bleed and duodenal abscess Already taking PPI and carafte but missed medications today due to inability to take with her pain Start pantoprazole 40mg IV BID, famotidine 20mg IV BID, continue Carafate ACHS, ondansetron for nausea If medications do not work consider GI consult Possible alternative etiology if not improving would be abdominal migraines and could consider triptan #Neurogenic claudication due to spinal stenosis Continue gabapentin VTE Prophylaxis - low risk Diet - clear liquid, advance as tolerated Disposition - observation to med/surg Admission and Anticipated Discharge Date Admission Date: May 28, 2024 History of Present Illness Chief Complaint: Epigastric pain Primary Care Provider: Paula Bolaños DO Anila King is a 68 year old female who presents to the ER with epigastric pain. She reports epigastric pain starting around 1am yesterday getting progressively worse, no radiation, associated nausea. Nothing making it better or worse. No change in diet the previous day - ate chicken and potatoes. She missed her morning medications today due to nausea. No dysphagia or odynophagia. No fever, chills, respiratory or urinary symptoms. No change in bowel movements. She notes a prior history of UGI bleed and duodenal abscess last year. Allergies Allergy/AdvReac Type Severity Reaction Status Date / Time No Known Allergies Allergy Verified 05/27/24 20:29 Home Medications Medication Instructions Recorded Confirmed Type cyanocobalamin (vitamin B-12) 1,000 mcg PO QAM 07/23/19 05/27/24 History 1,000 mcg tablet donepezil 10 mg tablet (Aricept) 10 mg PO HS 07/23/19 05/27/24 History pantoprazole 40 mg tablet,delayed 40 mg PO DAILY 07/23/19 05/27/24 History release (Protonix) topiramate 100 mg tablet (Topamax) 100 mg PO BID 07/23/19 05/27/24 History nebulizer accessories #1 ea 03/01/22 09/14/22 Rx rizatriptan 10 mg tablet 10 mg PO DAILY PRN MIGRAINE 09/15/22 05/27/24 History zolpidem 10 mg tablet 10 mg PO HS PRN Sleep 09/15/22 05/27/24 History sucralfate 1 gram tablet 1 g PO QID #100 tabs 09/17/22 05/27/24 Rx tramadol 50 mg tablet 50 mg PO Q6H PRN pain, moderate 11/10/22 05/27/24 Rx #30 tabs gabapentin 800 mg tablet 800 mg PO TID 05/17/23 05/27/24 History lidocaine 5 % topical patch 1 patch topical DAILY PRN Pain 05/17/23 05/27/24 History albuterol sulfate 0.63 mg/3 mL 0.63 mg inhalation BID PRN 05/27/24 05/27/24 History solution for nebulization shortness of breath or wheezing brexpiprazole 0.5 mg tablet 0.5 mg PO HS 05/27/24 05/27/24 History (Rexulti) buspirone 10 mg tablet 20 mg PO TID 05/27/24 05/27/24 History sodium chloride 7 % for 4 ml inhalation BID PRN WHEN USING 05/27/24 05/27/24 History nebulization (Hyper-Denys) NEBULIZER Past Med/Surg History Problem List (Updated 05/28/24 @ 06:19 by Geo Pressley MD) Gastritis and duodenitis Intractable vomiting (Acute) Epigastric abdominal pain (Acute) Sepsis Intra-abdominal abscess Shock Anemia Abnormal CT of the abdomen Bronchiectasis Follows with Dr. Moreno- breathing stable Depression Stable Cataract lt. Encounter for pre-operative examination Encounter for pre-operative examination Dyspnea on exertion Abnormal barium swallow Elevated hemidiaphragm Tachycardia Acute blood loss anemia Upper GI bleed recently admitted at [facility] 09/15/22---per pt was found to have bleeding at gastric bypass site, clipped at site and received 2 units PRBCs--pt states she has improved, no current issue, is taking sucralfate as prescribed Vasomotor rhinitis Medical History Neurogenic claudication due to lumbar spinal stenosis Memory changes History Since TIA (2008) - mild- no recent issues per patient (no follow up with neurology needed) History of recent blood transfusion 09/16/22 @ [facility]--2 units PRBC for upper GI bleed Seizure disorder Chronic low back pain Insomnia Chronic cough Stable Elevated diaphragm Peripheral neuropathy Hands and feet Degenerative disc disease Chronic back pain Lumbar facet arthropathy Spinal stenosis Osteoporosis GERD (gastroesophageal reflux disease) Well controlled and stable Seizure "Staring seizures"- no issues since 2010 per patient Transient ischemic attack (TIA) 2008- no current issues History of high blood pressure Bronchiectasis hx Surgical History Hx of cataract extraction bilat History of total knee replacement RT/LEFT History of esophagogastroduodenoscopy (EGD) 09/16/22 @ [facility] History of colonoscopy H/O total hysterectomy History of cholecystectomy History of tonsillectomy History of tooth extraction History of gastric bypass Family History Aunt Diabetes Grandmother (Paternal) Diabetes Other No family history of adverse response to anesthesia Social History Smoking Status: Never smoker Second Hand Exposure: No; Do You Dip or Chew Tobacco: No; Hx Alcohol Use: No Hx Substance Use: No Preferred Language: [place] Communication Ability: Effective Raspberry Checker Required: No Beliefs That Will Affect Care: None Current Living Situation: Alone Other Information That Helps Us Care for You: No Feels Safe at Home: Yes Safety Concerns: Feels Safe At This Time Assistive Devices: None Review of Systems Review of Systems: All systems reviewed & are unremarkable except as noted in HPI & below Physical Exam Constitutional: WD/WN, vitals as above ENMT: external ear and nose normal, oropharynx normal Respiratory: normal respiratory effort, lungs clear to auscultation Gastrointestinal (Abdomen): Inspection/Auscultation: abdomen normal to inspection; abdomen not distended Musculoskeletal: no cyanosis or clubbing, extremities motor strength 5/5 Skin: no rashes, warm and dry Neurologic: moves all extremities and awake; not confused Psychiatric: A+Ox3, euthymic affect Results & Data Results & Data Vital Signs (Past 12 Hours) Vital Signs Temp Pulse Pulse Resp BP BP Pulse Ox 05/27/24 23:00 71 16 126/64 93 05/27/24 22:51 76 93 05/27/24 22:27 72 16 111/62 92 05/27/24 21:12 78 21 140/91 95 05/27/24 20:31 73 05/27/24 20:30 73 23 159/92 H 96 05/27/24 18:35 36.6 C 68 18 160/72 H 97 O2 Del Method 05/27/24 23:00 Room Air 05/27/24 22:51 Room Air 05/27/24 22:27 05/27/24 21:12 05/27/24 20:31 05/27/24 20:30 05/27/24 18:35 Laboratory Results Abnormal lab results 05/27/24 Range/Units 20:02 RBC 4.19 L (4.20-5.40) M/uL [place] # (Auto) 0.78 H (0.11-0.59) K/uL Potassium 3.4 L (3.5-5.1) mmol/L Globulin 2.3 L (2.5-4.0) gm/dl Urine Appearance Cloudy A (Clear) Ur Specific [place] 1.031 H (1.000-1.030) Urine Protein 1+ H (Negative) Urine Ketones 1+ H (Negative) Urine Blood Trace H (Negative) Urine Bilirubin 1+ H (Negative) Ur Leukocyte Esterase 1+ H (Negative) Urine WBC (Auto) 6-10 H (0-5) /hpf Urine RBC (Auto) 11-20 H (0-2) /hpf U Hyaline Cast (Auto) 3-5 H (0-2) /lpf U Epithel Cells (Auto) 6-10 H (0-2) /hpf Calcium Oxalate Crystal Present A (None Prsent) Urine Mucus Present A (None Prsent) Diagnostic Findings Exam(s): CT ABDOMEN + PELVIS With Contrast IV Amt: 90 ml optiray 320 EXAM: CT Abdomen and Pelvis With Intravenous Contrast CLINICAL HISTORY: Reason for exam: upper abdominal pain, vomiting. TECHNIQUE: Axial computed tomography images of the abdomen and pelvis with intravenous contrast. CTDI is 10.3 mGy and DLP is 504 mGy-cm. Automated exposure control was utilized for the study. A dose lowering technique was utilized adhering to the principles of ALARA. CONTRAST: Patient received 90 ml optiray 320 of IV contrast COMPARISON: CT 05/23/2023 FINDINGS: ABDOMEN: Liver: Unremarkable. Gallbladder and bile ducts: Cholecystectomy. Biliary dilatation secondary to prior cholecystectomy. Pancreas: Unremarkable. Spleen: Unremarkable. Adrenals: Unremarkable. Kidneys and ureters: Unremarkable. No obstructing stones. No hyd ronephrosis. Stomach and bowel: Fred-en-Y gastric bypass. No bowel obstruction. Intact suture anastomoses along the GI tract. PELVIS: Appendix: Appendix is not visualized. Bladder: Unremarkable. Reproductive: Unremarkable as visualized. ABDOMEN and PELVIS: Intraperitoneal space: Unremarkable. No free air. No significant fluid collection. Bones/joints: Postsurgical changes in the lumbar spine. Soft tissues: Unremarkable. Vasculature: Unremarkable. Lymph nodes: Unremarkable. Other findings: Elevated right hemidiaphragm. IMPRESSION: No acute findings in the abdomen or pelvis. Medications Administered ER Medications Given: Morphine 4mg IV Ondansetron 4mg IV Carafate 1g PO Promethazine 6.25mg IV ECG Additional Comments: Ordered and pending to assess QTc monitoring Code Status & VTE Plan Code Status DNR/DNI per patient preference VTE Prophylaxis Plan VTE Prophylaxis will be ordered: No PG Care Time/CCT Total # of Minutes Spent Total Time Spent with Patient: Total time spent is greater than 50% in coordination of care (as documented) at patient's floor/unit and/or counseling patient: Coding Level of Care Code 52014 INT INP/OBS CARE 3/75MIN Diagnoses Epigastric abdominal pain R10.13 Depression F32.9 Seizure R56.9 Neurogenic claudication due to lumbar spinal stenosis M48.062 Gastritis and duodenitis K29.90
[2024-05-28 00:43] LABS: Magnesium 1.8 mg/dl (1.7-2.4); Phosphorus 3.6 mg/dl (2.5-4.9)
[2024-05-28] MEDS ORDERED: LIDOCAINE 5% 1 PATCH TD PRN (02:16)
[2024-05-28] MEDS: ZOLPIDEM TARTRATE 5 MG TAB PO PRN (02:50)
[2024-05-28] MEDS: ACETAMINOPHEN 1,000 MG/100 ML VIAL IV PRN (02:51)
[2024-05-28] MEDS: ONDANSETRON INJ 2 MG/ML 2 ML VIAL IV PRN (02:51)
--- OUTSIDE RECORDS SUMMARY | 2024-05-28 05:56 | External Medical Summary | Continuity of Care Document ---
Author Name Unknown Organization [facility] [address] [place] [address] [phone] Care Team Providers Care Satellite Dish Repairer Name Role Phone Paula Bolaños Primary Care Physicia n [phone] [facility] [phone] Date(s): 04/05/24 - 04/05/24 [facility] [address] [facility] [address] [id number] [address] [address] [place] [phone] Encounter Diagnosis Severe depression(Discharge Diagnosis) - 04/05/24 Osteoarthritis(Discharge Diagnosis) - 04/05/24 Hand pain(Discharge Diagnosis) - 04/05/24 Controlled substance agreement signed(Discharge Diagnosis) - 04/05/24 Insomnia disorder(Discharge Diagnosis) - 04/06/24 Anemia(Discharge Diagnosis) - 04/05/24 Transaminitis(Discharge Diagnosis) - 04/05/24 Menopausal state(Discharge Diagnosis) - 04/05/24 Osteoporosis(Discharge Diagnosis) - 04/05/24 Body mass index [BMI] 22.0-22.9, adult(Discharge Diagnosis) - 04/05/24 Chronic pain syndrome(Discharge Diagnosis) - 04/05/24 Right lumbar radiculopathy(Discharge Diagnosis) - 04/05/24 Elevation of levels of liver transaminase levels(Final) - Anemia, unspecified(Final) - Seizure disorder(Discharge Diagnosis) - 04/05/24 Discharge Disposition: Home or Self Care Attending Physician: DO Bolaños Gretchen Elizabeth Encounter Type: Clinic Allergies, Adverse Reactions, Alerts No Known Allergies Assessment and Plan Extracted from: Title:pain, sleep, hands, labs, dxa Author:Molly eli DO, Gretchen Elizabeth Date:04/05/24 1. Chronic pain syndrome 2. Right lumbar radiculopathy Chronic, active, tries to stay active, avoids ice, no falls. Patient remains on chronic tramadol therapy after limited improvement with surgical intervention. CSA and UDS obtained today. Currently, chronic pain syndrome maintained with tramadol 50 mg number 60/month, advised patient to wean as able on good days. She is also on gabapentin 800 mg 3 times daily in addition to duloxetine 60 mg daily. PDMP checked and appropriate. 3. Insomnia disorder Chronic, active, patient dependent on zolpidem to sleep, has tried weaning in the past and has not been able to sleep at all, she is aware of the risks involved with taking this medication, we signed CSA and obtained UDS today as above, PDMP checked and appropriate 4. Seizure disorder Chronic, no seizures reported, continue topiramate 5. Severe depression Chronic, working with psychiatrist, currently on Abilify, buspirone, duloxetine, patient had flare symptoms over holiday and had some adjustments to medication, she reports doing much better now, maintains relationship with her therapist. 6. Osteoarthritis 7. Hand pain Chronic, active, discussed this is likely due to osteoarthritis of hands, she does have some deformities at her joints, no swelling or erythema, advised topical Voltaren and hand exercises daily 8. Osteoporosis 9. Menopausal state Active, will recheck DEXA scan, reviewed the importance of weightbearing exercise, patient is currently not on any medication to treat bone density loss, encouraged vitamin D and calcium intake 10. Transaminitis Reevaluate with metabolic panel 11. Anemia Patient reports no bleeding concerns, will recheck CBC 12. Controlled substance agreement signed Immunizations Given and Recorded Vaccine Date Status Refusal Reason influenza virus vaccine, inactivated 11/20/23 Give n influenza virus vaccine, inactivated 01/06/23 Give n influenza virus vaccine, inactivated 11/08/21 Luis Carlos rded influenza virus vaccine, inactivated 12/16/20 Give n influenza virus vaccine, inactivated 12/04/19 Give n influenza virus vaccine, inactivated 12/19/18 Give n influenza virus vaccine, inactivated 11/20/17 Luis Carlos rded SARS-CoV-2 (COVID-19) mRNA-[id number] vaccine [...] Comment: 2019-12-04: Historical information-source unspecified Medications Abilify 10 mg oral tablet Start: 04/05/24 2:29:00 PM EST, 1 tab, PO, Daily Start Date: 04/05/24 Status: Ordered Repeat number: 1 busPIRone 10 mg oral tablet Start: 02/07/23 1:41:00 PM EST, 1 tab, PO, tid Start Date: 02/07/23 Status: Ordered Repeat number: 1 cyanocobalamin 1000 mcg sublingual tablet Start: 06/17/21 5:07:00 PM EDT, 1 tab, SL, Daily, Disp# 90 tab, Refills: 3, Pharmacy: [facility] Start Date: 06/17/21 Status: Ordered Quantity: 90.0 Unit: tab Repeat number: 4 donepezil 10 mg oral tablet Start: 10/23/23 3:05:00 PM EDT, 1 tab, PO, qhs, Disp# 90 tab, Refills: 3, Pharmacy: [facility] Start Date: 10/23/23 Status: Ordered Quantity: 90.0 Unit: tab Repeat number: 1 DONEPEZIL HYDROCHLORIDE 10 MG Tablet Start: 05/26/23 1:33:00 PM EDT, DONEPEZIL HYDROCHLORIDE 10 MG Tablet, 1 tab, PO, qhs, Disp# 90 tab, Refills: 1, Pharmacy [facility] Start Date: 05/26/23 Status: Ordered Quantity: 90.0 Unit: tab Repeat number: 1 DULoxetine 60 mg oral delayed release capsule Start: 04/05/24 2:30:00 PM EST, 1 cap, PO, Daily Start Date: 04/05/24 Status: Ordered Repeat number: 1 ferrous sulfate Start: 06/07/23 1:35:00 PM EDT Start Date: 06/07/23 Status: Ordered Repeat number: 1 folic acid Start: 06/07/23 1:36:00 PM EDT Start Date: 06/07/23 Status: Ordered Repeat number: 1 gabapentin 800 mg oral tablet Start: 01/22/24 2:57:00 PM EST, 1 tab, PO, tid, Disp# 270 tab, Refills: 1, Pharmacy: [facility] Start Date: 01/22/24 Stop Date: 07/20/24 Status: Ordered Quantity: 270.0 Unit: tab Repeat number: 2 hydrOXYzine hydrochloride 25 mg oral tablet Start: 02/21/23 5:00:00 PM EST, See Instructions, Disp# 90 tab, Refills: 3, TAKE 1 TO 2 TABLETS AT BEDTIME NEEDED FOR ANXIETY OR SLEEP, Pharmacy: [facility] Start Date: 02/21/23 Status: Ordered Quantity: 90.0 Unit: tab Repeat number: 4 lidocaine topical 5% patch Start: 04/02/24 1:57:00 PM EST, 1 patch, topical, Daily, Disp# 20 patch, Refills: 2, Pharmacy: [facility] Start Date: 04/02/24 Status: Ordered Quantity: 20.0 Unit: patch Repeat number: 1 memantine 5 mg oral tablet Start: 10/23/23 3:05:00 PM EDT, 1 tab, PO, bid, Disp# 180 tab, Refills: 3, Pharmacy: [facility] Start Date: 10/23/23 Status: Ordered Quantity: 180.0 Unit: tab Repeat number: 1 pantoprazole 40 mg oral delayed release tablet Start: 10/23/23 3:05:00 PM EDT, 1 tab, PO, Daily, Disp# 90 tab, Refills: 3, Pharmacy: [facility] Start Date: 10/23/23 Status: Ordered Quantity: 90.0 Unit: tab Repeat number: 1 rizatriptan 10 mg oral tablet Start: 12/22/23 5:45:00 PM EDT, See Instructions, Disp# 12 tab, Refills: 3, TAKE 1 TABLET ONE TIME NEEDED FOR MIGRAINE HEADACHE, Pharmacy: [facility] Start Date: 12/22/23 Status: Ordered Quantity: 12.0 Unit: tab Repeat number: 4 sucralfate 1 g oral tablet Start: 08/21/23 10:50:00 AM EDT, See Instructions, Disp# 40 tab, Refills: 2, TAKE ONE TABLET BY MOUTHBEFORE MEALS AND AT BEDTIME, Pharmacy: [facility] Start Date: 08/21/23 Status: Ordered Quantity: 40.0 Unit: tab Repeat number: 1 topiramate 100 mg oral tablet Start: 10/23/23 3:05:00 PM EDT, 1 tab, PO, bid, Disp# 180 tab, Refills: 3, Pharmacy: [facility] Start Date: 10/23/23 Status: Ordered Quantity: 180.0 Unit: tab Repeat number: 1 traMADol 50 mg oral tablet Start: 03/13/24 3:23:00 PM EST, 1 tab, PO, q8h, Disp# 60 tab, Refills: 0, Note to Pharmacy: Last fill 02/19/24. PDMP checked., PRN: pain - severe (7-10), Pharmacy: [facility] Start Date: 03/13/24 Stop Date: 04/12/24 Status: Ordered Quantity: 60.0 Unit: tab Repeat number: 1 Vitamin D3 5000 intl units (125 mcg) oral capsule Start: 02/18/21 1:04:00 PM EST, 1 cap, PO, Daily, Disp# 90 cap, Refills: 3, Pharmacy: [facility] Start Date: 02/18/21 Status: Ordered Quantity: 90.0 Unit: cap Repeat number: 4 zolpidem 10 mg oral tablet Start: 03/25/24 3:20:00 PM EST, 1 tab, PO, qhs, Disp# 30 tab, Refills: 0, Note to Pharmacy: PDMP checked, CSA on file, last fill 01/31/24, PRN: NEEDED FOR SLEEP, Pharmacy: [facility] Start Date: 03/25/24 Stop Date: 04/24/24 Status: Ordered Quantity: 30.0 Unit: tab Repeat number: 1 Mental Status 04/05/24 Barriers to Learning one year None evide nt Mandatory Health Literacy Documentation Yes Health Literacy Communication Barriers N ever Primary Language Uzbek Problem List Condition Confirmation Course Effective Dates Status H ealth Status Informant Anxiety Confirmed Active Chronic pain syndrome Confirmed Active Chronic GERD Confirmed Active Insomnia Confirmed Active Right lumbar radiculopathy Confirmed Active Migraines Confirmed Active Osteoarthritis Confirmed Active Osteopenia Confirmed Active Osteoporosis Confirmed Active Seizure disorder Confirmed Active Severe depression Confirmed Active Somatic dysfunction of hip region Confirmed Active Somatic dysfunction of lumbar region Confirmed Active Foraminal stenosis of lumbar region Confirmed Active Diagnosis Diagnosis Type Effective Dates Health Status Clinical Service Informant Body mass index [BMI] 22.0-22.9, adult Discharge Diagnosis 04/05/24 Non-Specified Chronic pain syndrome Discharge Diagnosis 04/05/24 Non-Specified Right lumbar radiculopathy Discharge Diagnosis 04/05/24 Non-Specified Hand pain Discharge Diagnosis 04/05/24 Non-Specified Anemia Discharge Diagnosis 04/05/24 Non-Specified Seizure disorder Discharge Diagnosis 04/05/24 Non-Specified Severe depression Discharge Diagnosis 04/05/24 Non-Specified Transaminitis Discharge Diagnosis 04/05/24 Non-Specified Osteoporosis Discharge Diagnosis 04/05/24 Non-Specified Osteoarthritis Discharge Diagnosis 04/05/24 Non-Specified Menopausal state Discharge Diagnosis 04/05/24 Non-Specified Controlled substance agreement signed Discharge Diagnosis 04/05/24 Non-Specified Insomnia disorder Discharge Diagnosis 04/06/24 Non-Specified Procedures Procedure Date Related Diagnosis Body Site [...] 09/26/19 Comp leted N BLOCK LUMBAR/THORACIC 10 6/4/20 Completed Rotator cuff repair Left 03/01/19 Completed [...] reflecting reflux. Stable chronic findings as above. [id number] Results Laboratory List Name Date Complete Blood Count (CBC) 04/05/24 Comprehensive Metabolic Panel (COMP META B PANEL) 04/05/24 Most recent to oldest [Reference Range]: 1 eGFR CKD-EPI [>60 mL/min/1.73 m2] 69 mL/ min/1.73 m2 (04/05/24 3:16 PM) Estimated CrCl 53.42 mL/min (04/05/24 8:33 PM) MPV [9.0-12.2 fL] 9.8 fL (04/05/24 3:16 PM) RDW [11.5-14.2 %] 13.1 % (04/05/24 3:16 PM) Anion Gap [5-14 mmol/L] 11 mmol/L (04/05/24 3:16 PM) Alb [3.5-5.2 g/dL] 3.7 g/dL (04/05/24 3:16 PM) Alk Phos [35-115 unit/L] 90 unit/L 1 (04/05/24 3:16 PM) ALT [0-33 unit/L] 16 unit/L (04/05/24 3:16 PM) AST [0-32 unit/L] 22 unit/L (04/05/24 3:16 PM) BUN [6-23 mg/dL] 14 mg/dL (04/05/24 3:16 PM) Ca [8.4-10.2 mg/dL] 8.8 mg/dL (04/05/24 3:16 PM) Cl- [98-107 mmol/L] 106 mmol/L (04/05/24 3:16 PM) HCO3 [22-29 mmol/L] 26 mmol/L (04/05/24 3:16 PM) Cret [0.60-1.00 mg/dL] 0.91 mg/dL (04/05/24 3:16 PM) Glu [74-109 mg/dL] 70 mg/dL 2 *LOW* (04/05/24 3:16 PM) Hct [35-44 %] 40.7 % (04/05/24 3:16 PM) Hgb [11.7-15.0 g/dL] 12.9 g/dL (04/05/24 3:16 PM) K [3.5-5.1 mmol/L] 4.3 mmol/L 3 (04/05/24 3:16 PM) MCH [28-33 pg] 30.4 pg (04/05/24 3:16 PM) MCHC [32-36 g/dL] 31.7 g/dL *LOW* (04/05/24 3:16 PM) MCV [81-96 fL] 95.8 fL (04/05/24 3:16 PM) Na [136-145 mmol/L] 143 mmol/L (04/05/24 3:16 PM) Plts [150-350 K/uL] 315 K/uL (04/05/24 3:16 PM) RBC [3.90-5.00 M/uL] 4.25 M/uL (04/05/24 3:16 PM) T Bili [0.0-1.2 mg/dL] 0.3 mg/dL (04/05/24 3:16 PM) Prot [6.4-8.3 g/dL] 5.9 g/dL *LOW* (04/05/24 3:16 PM) WBC [4.0-10.4 K/uL] 7.97 K/uL (04/05/24 3:16 PM) 1Result Comment: Low levels of ALKP may indicate a deficiency in zinc, magnesium, or malnutritionbutcan also be an indicator of a rare genetic disease hypophosphatasia (HPP). 2Result Comment: ADA recommendation for FASTING Serum/Plasma Glucose: Normal: 70-100 mg/dL Prediabetes: 100-125 mg/dL Diabetes: 126 mg/dL or higher 3Result Comment: HEMOLYZED SPECIMEN Vital Signs Most recent to oldest [Reference Range]: 1 Height 163.6 cm (04/05/24 2:33 PM) Patient Weight 61.5 kg (04/05/24 2:33 PM) Body Mass Index 22.98 kg/m2 (04/05/24 2:33 PM) Heart Rate 70 bpm (04/05/24 2:33 PM) Respiratory Rate 16 br/min (04/05/24 2:33 PM) Blood Pressure 98/62mmHg (04/05/24 2:33 PM) Cuff Pulse Pressure 36 mmHg (04/05/24 2:33 PM) Social History Social History Type Response Smoking Status Never smoked cigaret yung Sex Female Sex Representation Female (finding) FCM Outpt Note * DO Bolaños Gretchen Elizabeth: PERFORM Event Display: FCM Outpt Note Authored Date: [id number] Assessment/Plan 1. Chronic pain syndrome 2. Right lumbar radiculopathy Chronic, active, tries to stay active, avoids ice, no falls. Patient remains on chronic tramadol therapy after limited improvement with surgical intervention. CSA and UDS obtained today. Currently, chronic pain syndrome maintained with tramadol 50 mg number 60/month, advised patient to wean as able on good days. She is also on gabapentin 800 mg 3 times daily in addition to duloxetine 60 mg daily. PDMP checked and appropriate. 3. Insomnia disorder Chronic, active, patient dependent on zolpidem to sleep, has tried weaning in the past and has notbeen able to sleep at all, she is aware of the risks involved with taking this medication, we signed CSA and obtained UDS today as above, PDMP checked and appropriate 4. Seizure disorder Chronic, no seizures reported, continue topiramate 5. Severe depression Chronic, working with psychiatrist, currently on Abilify, buspirone, duloxetine, patient had flare symptoms over holiday and had some adjustments to medication, she reports doing much better now, maintains relationship with her therapist. 6. Osteoarthritis 7. Hand pain Chronic, active, discussed this is likely due to osteoarthritis of hands, she does have some deformities at her joints, no swelling or erythema, advised topical Voltaren and hand exercises daily 8. Osteoporosis 9. Menopausal state Active, will recheck DEXA scan, reviewed the importance of weightbearing exercise, patient is currently not on any medication to treat bone density loss, encouraged vitamin D and calcium intake 10. Transaminitis Reevaluate with metabolic panel 11. Anemia Patient reports no bleeding concerns, will recheck CBC 12. Controlled substance agreement signed Attestation Total physician time spent on day of encounter with patient including pre-visit planning, chart review, [id number] discussion, education, and documentation: 42 minutes Chief Complaint L hand pain @ knuckles, radiates proximal x1 mon. Discuss bone scan History of Present Illness Here for follow-up Having pain in knuckles of hands, extending proximally Did not get DXA scan yet Psychiatric medications increased over holidays Was triggered over holidays Had vomiting and diarrhea last last weekend for a couple days WIth James today Review of Systems Pertinent positives and negatives as stated in history of present illness. Physical Exam Vitals & Measurements HR: 70 (Monitored) RR: 16 BP: 98/62 SpO2: 97% HT: 163.6 cm WT: 61.5 kg WT: 61.500 kg (Dosing) BMI: 22.98 PHQ2 Data (Data Documented on:04/05/2024 14:31) Emotional health assessment NEGATIVE General: Alert and oriented, no acute distress HEENT: Normocephalic, atraumatic, conjunctiva clear Cardiovascular: Normal rate, regular rhythm, no murmur, no gallop, +S1/S2, no S3/S4 Respiratory: Lungs clear bilaterally to auscultation, respirations non- labored, breath sounds equal, no rhonchi, no rales Gastrointestinal: Normal bowel sounds Psych: Mood and affect congruent. Problem List/Past Medical History Ongoing Anxiety Chronic GERD Chronic pain syndrome Foraminal stenosis of lumbar region Insomnia Migraines Osteoarthritis Osteopenia Osteoporosis Right lumbar radiculopathy Seizure disorder Severe depression Somatic dysfunction of hip region Somatic dysfunction of lumbar region Resolved Stroke Procedure/Surgical History •EGD - Esophagogastroduodenoscopy| Service Date: 09/16/2022•Upper GI (gastrointestinal) endoscopy| Service Date: 07/19/2022•Phacoemulsification of cataract with intraocular lens implantation| Service Date: 03/08/2022•Phacoemulsification of lens right eye| Service Date: 02/22/2022•CT of chest| Service Date: 01/27/2022•Fluoroscopic guidance for injection of facet joint| Service Date: 10/19/2021•Chest X-ray| Service Date: 10/01/2021•X-ray of right hand| Service Date: 06/28/2021•X-ray of right ankle| Service Date: 06/28/2021•Epidural steroid injection L5-S1| Service Date: 05/10/2021•MRI of lumbar spine with contrast| Service Date: 02/09/2021•Dual energy X-ray absorptiometry (DEXA) scan T score| Service Date: 03/09/2020•Upper GI endoscopy| Service Date: 09/26/2019•NBLOCK LUMBAR/THORACIC| Service Date: 07/25/2019•Rotator cuff repair Left| Service Date: 03/01/2019•Hysterectomy| Service Date: 01/10/2019•MRI of lumbar spine| Service Date: 11/20/2018•Total knee replacement right| Service Date: 09/05/2018•LEEP procedure of cervix| Service Date: 08/01/2018•Bone scan| Service Date: 05/21/2018•Knee X-ray right| Service Date: 04/30/2018•Foot X- ray Left| Service Date: 04/25/2018•EMG - Electromyography| Service Date: 04/24/2018•X-ray of wrist| Service Date: 04/17/2018•CT of abdomen and pelvis| Service Date: 03/14/2018•cologuard| Service Date: 02/17/2018•Bone density scan| Service Date: 12/28/2017•Knee X-ray right| Service Date: 10/10/2017•MRI of shoulder left| Service Date: 03/14/2017•Foot X-ray left| Service Date: 03/01/2017•CT of chest| Service Date: 02/14/2017•Gastric bypass•Cholecystectomy•Ankle-Right surgery•TKR -Total prosthetic replacement of knee joint using cement•Colonoscopy Medications ARIPiprazole(Abilify 10 mg oral tablet), 10 mg= 1 tab, PO, Daily busPIRone(busPIRone 10 mg oral tablet), 10 mg= 1 tab, PO, tid cholecalciferol(Vitamin D3 5000 intl units (125 mcg) oral capsule), 125 mcg= 1 cap, PO, Daily, 3 refills cyanocobalamin(cyanocobalamin 1000 mcg sublingual tablet), 1000 mcg= 1 tab, SL, Daily, 3 refills donepezil(donepezil 10 mg oral tablet), 1 tab, PO, qhs DULoxetine(DULoxetine 60 mg oral delayed release capsule), 60 mg= 1 cap, PO, Daily ferrous sulfate folic acid gabapentin(gabapentin 800 mg oral tablet), 800 mg= 1 tab, PO, tid, 1 refills hydrOXYzine(hydrOXYzine hydrochloride 25 mg oral tablet), See Instructions, 3 refills lidocaine topical(lidocaine topical 5% patch), 1 patch, topical, Daily memantine(memantine 5 mg oral tablet), 1 tab, PO, bid pantoprazole(pantoprazole 40 mg oral delayed release tablet), 1 tab, PO, Daily rizatriptan(rizatriptan 10 mg oral tablet), See Instructions, 3 refills sucralfate(sucralfate 1 g oral tablet), See Instructions topiramate(topiramate 100 mg oral tablet), 1 tab, PO, bid traMADol(traMADol 50 mg oral tablet), 50 mg= 1 tab, PO, q8h, PRN unlisted medication(DONEPEZIL HYDROCHLORIDE 10 MG Tablet), 1 tab, PO, qhs zolpidem(zolpidem 10 mg oral tablet), 1 tab, PO, qhs, PRN Allergies NKA Social History Smoking Status Never smoked cigarettes Intake (IView) Smoking History Cigarette smoker: Never smoked cigarettes Tobacco Product Use: Never used other tobacco products Family History Alcoholism: Father and Brother. Diabetes Mellitus: PGM. Heart attack: Mother, MGF and MGM. Heart disease: Mother, MGF and MGM. Hypertension: Mother, Sister and MGM. Stroke: PGF. Health Status Family Member(s) Immunizations Vaccine Date Status influenza virus vaccine, inactivated 11/20/2023 Given influenza virus vaccine, inactivated 01/06/2023 Given influenza [...] vaccine, inactivated 11/2017 Recorded Recommendations Health Maintenance Pending (in the next year) OverDue Colorectal Cancer Screening due 12/21/21 and every 1 year Due Adult Social Determinants of Health Screening due 04/06/24 Unknown Frequency Adult Tdap/Td Vaccine due 04/06/24 Unknown Frequency Hepatitis C Screening due 04/06/24 One-time only Shingles Vaccine due 04/06/24 One-time only Due In Future Adult Influenza Vaccine not due until 08/20/24 and every 1 year Breast Cancer Screening not due until 01/02/25 and every 731 day Satisfied (in the past 1 year) Satisfied Adult Influenza Vaccine on 11/20/23. Satisfied by ROSA MARIA Maria Stacey Body Mass Index on 04/05/24. Satisfied by ROSA MARIA Garcia Alexandra Lipid Screening on 01/05/24. Satisfied by Contributor_system, [employer] Electronic Signature on File Electronically Reviewed/Signed by: Paula Bolaños D.O. Author Signature Dt/Tm:04/06/2024 01:50 PM Department of Family Medicine [facility] Patient Care team information Care Team Personnel Name: DO Castro Amanda Position: Resident Member Role: Lifetime Relationship Address: [address] [place] [address] Telecom: [phone] Name: DO Bolaños Gretchen Elizabeth Position: Physician - Family Med Member Role: Primary Care Provider Address: [address] [place] [address] Telecom: [phone] Name: Darin Zhao MD, [facility] Position: Resident Member Role: Lifetime Relationship Address: [address] [place] [address] [place] Telecom: [phone] Name: DO Bustamante Sameer Position: Resident Member Role: Lifetime Relationship Address: [address] [place] [address] Telecom: [phone] Care Team Related Persons Name: AYDEN YANEZ Name: FARIDEH COELHO Insurance Providers Guarantor name: LIZBETH COELHO Health Plan Information #: 1 Payer: [employer] Member Number: [id number] Policy Number: NA Group Number: [id number] Health Plan Information #: 2 Payer: [employer] Member Number: [id number] Policy Number: NA Group Number: [id number]"
--- OUTSIDE RECORDS SUMMARY | 2024-05-28 05:56 | External Medical Summary | Continuity of Care Document ---
Author Name Unknown Organization [facility] [id number] [place] [address] [id number] Care Team Providers Care Medical Assistant Ob Gyn Name Role Phone Paula Bolaños Primary Care Physicia n [phone] Encounter [facility] [id number] Date(s): 01/05/24 - 01/05/24 [facility] [address] [place] [address] [phone] Encounter Diagnosis Anemia, unspecified(Final) - Chronic pain syndrome(Discharge Diagnosis) - 01/03/24 Body mass index [BMI] 23.0-23.9, adult(Discharge Diagnosis) - 01/05/24 Right lumbar radiculopathy(Discharge Diagnosis) - 01/03/24 Controlled substance agreement signed(Discharge Diagnosis) - 01/03/24 Anemia(Discharge Diagnosis) - 01/05/24 Migraines(Discharge Diagnosis) - 01/05/24 Insomnia(Discharge Diagnosis) - 01/03/24 Seizure disorder(Discharge Diagnosis) - 01/03/24 Chronic pain syndrome(Final) - Radiculopathy, lumbar region(Final) - Unspecified asthma, uncomplicated(Final) - Insomnia, unspecified(Final) - Epilepsy, unspecified, not intractable, without status epilepticus(Final) - Other chcf (current) drug therapy(Final) - Discharge Disposition: Home or Self Care Attending Physician: DO Bolaños Gretchen Elizabeth Allergies, Adverse Reactions, Alerts No Known Allergies Assessment and Plan Extracted from: Title:chronic pain, insomnia , seizure, migraine, anemia Author:DO Bolaños Gretchen Elizabeth Date:01/05/24 1. Chronic pain syndrome 2. Right lumbar radiculopathy Chronic, active, patient had spinal stenosis surgery 11/08/2021, with multiple attempts to maintain physical therapy, has struggled with residual back pain as a result and has been dependent on tramadol to get through daily activities of life. CSA/UDS updated today for tramadol 50 mg #60 per month, PDMP checked and appropriate. Patient maintains good approach to home physical therapy exercises on a daily basis, encourage continued efforts to do so. 3. Insomnia Chronic, active, dependant on zolpidem 10 mg nightly, discussed future trial to wean down dose again, patient understanding this is on the beers criteria not recommended for her at her age, patient centered discussion of risks and benefits, will continue at this time, updated CSA. Refilled today, PDMP checked and appropriate. 4. Seizure disorder Chronic, stable, patient denies seizure, last seizure 2 years ago, on topiramate. Remains on memantine and donepezil for years. 5. Controlled substance agreement signed 6. Migraines Chronic, active, continue rizatriptan prn 7. Anemia Patient with a history of GI bleed, repeat CBC checked, denies any signs of bleeding, no dark tarry stools, no obvious bleeding from other sites Immunizations Given and Recorded Vaccine Date Status [...] Abilify 5 mg oral tablet Start: 02/07/23 2:01:00 PM EST, 1 tab, PO, Daily Start Date: 02/07/23 Status: Ordered busPIRone 10 mg oral tablet Start: 02/07/23 1:41:00 PM EST, 1 tab, PO, tid Start Date: 02/07/23 Status: Ordered cyanocobalamin 1000 mcg sublingual tablet Start: 06/17/21 5:07:00 PM EDT, 1 tab, SL, Daily, Disp# 90 tab, Refills: 3, Pharmacy: [facility] Start Date: 06/17/21 Status: Ordered Cymbalta 20 mg oral delayed release capsule Start: 11/20/23 4:21:00 PM EDT, 1 cap, PO, Daily Start Date: 11/20/23 Status: Ordered donepezil 10 mg oral tablet Start: 10/23/23 3:05:00 PM EDT, 1 tab, PO, qhs, Disp# 90 tab, Refills: 3, Pharmacy: [facility] Start Date: 10/23/23 Status: Ordered DONEPEZIL HYDROCHLORIDE 10 MG Tablet Start: 05/26/23 1:33:00 PM EDT, DONEPEZIL HYDROCHLORIDE 10 MG Tablet, 1 tab, PO, qhs, Disp# 90 tab, Refills: 1, Pharmacy [facility] Start Date: 05/26/23 Status: Ordered ferrous sulfate Start: 06/07/23 1:35:00 PM EDT Start Date: 06/07/23 Status: Ordered folic acid Start: 06/07/23 1:36:00 PM EDT Start Date: 06/07/23 Status: Ordered hydrOXYzine hydrochloride 25 mg oral tablet Start: 02/21/23 5:00:00 PM EST, See Instructions, Disp# 90 tab, Refills: 3, TAKE 1 TO 2 TABLETS AT BEDTIME NEEDED FOR ANXIETY OR SLEEP, Pharmacy: [facility] Start Date: 02/21/23 Status: Ordered lidocaine topical 5% patch Start: 04/21/23 2:11:00 PM EST, 1 patch, topical, Daily, Disp# 20 patch, Refills: 1, Pharmacy: [facility] Start Date: 04/21/23 Status: Ordered memantine 5 mg oral tablet Start: 10/23/23 3:05:00 PM EDT, 1 tab, PO, bid, Disp# 180 tab, Refills: 3, Pharmacy: [facility] Start Date: 10/23/23 Status: Ordered pantoprazole 40 mg oral delayed release tablet Start: 10/23/23 3:05:00 PM EDT, 1 tab, PO, Daily, Disp# 90 tab, Refills: 3, Pharmacy: [facility] Start Date: 10/23/23 Status: Ordered rizatriptan 10 mg oral tablet Start: 12/22/23 5:45:00 PM EDT, See Instructions, Disp# 12 tab, Refills: 3, TAKE 1 TABLET ONE TIME NEEDED FOR MIGRAINE HEADACHE, Pharmacy: [facility] Start Date: 12/22/23 Status: Ordered sucralfate 1 g oral tablet Start: 08/21/23 10:50:00 AM EDT, See Instructions, Disp# 40 tab, Refills: 2, TAKE ONE TABLET BY MOUTHBEFORE MEALS AND AT BEDTIME, Pharmacy: [facility] Start Date: 08/21/23 Status: Ordered topiramate 100 mg oral tablet Start: 10/23/23 3:05:00 PM EDT, 1 tab, PO, bid, Disp# 180 tab, Refills: 3, Pharmacy: [facility] Start Date: 10/23/23 Status: Ordered traMADol 50 mg oral tablet Start: 12/27/23 11:37:00 AM EST, 1 tab, PO, q8h, Disp# 60 tab, Refills: 0, PRN: pain - severe (7-10), Pharmacy: [facility] Start Date: 12/27/23 Stop Date: 01/26/24 Status: Ordered Vitamin D3 5000 intl units (125 mcg) oral capsule Start: 02/18/21 1:04:00 PM EST, 1 cap, PO, Daily, Disp# 90 cap, Refills: 3, Pharmacy: [facility] Start Date: 02/18/21 Status: Ordered zolpidem 10 mg oral tablet Start: 01/05/24 2:05:00 PM EST, 1 tab, PO, qhs, Disp# 30 tab, Refills: 0, Note to Pharmacy: PDMP checked, CSA on file, PRN: NEEDED FOR SLEEP, [facility] Start Date: 01/05/24 Stop Date: 02/04/24 Status: Ordered Mental Status 01/05/24 Barriers to Learning one year None evide nt Mandatory Health Literacy Documentation Yes Health Literacy Communication Barriers N ever Primary Language Micronesian Problem List Condition Confirmation Course Effective Dates [...] Effective Dates Health Status Clinical Service Informant Seizure disorder Discharge Diagnosis 01/03/24 Non-Specified Insomnia Discharge Diagnosis 01/03/24 Non-Specified Chronic pain syndrome Discharge Diagnosis 01/03/24 Non-Specified Right lumbar radiculopathy Discharge Diagnosis 01/03/24 Non-Specified Controlled substance agreement signed Discharge Diagnosis 01/03/24 Non-Specified Body mass index [BMI] 23.0-23.9, adult Discharge Diagnosis 01/05/24 Non-Specified Anemia Discharge Diagnosis 01/05/24 Non-Specified Migraines Discharge Diagnosis 01/05/24 Non-Specified Procedures Procedure Date Related Diagnosis Body [...] reflecting reflux. Stable chronic findings as above. [id number] 2007 Results Laboratory List Name Date Drugs of Abuse POC Outpt. 01/05/24 Complete Blood Count (CBC) 01/05/24 Comprehensive Metabolic Panel (COMP META B PANEL) 01/05/24 Lipid Profile (LIPOPROTEINS) 01/05/24 Most recent to oldest [Reference Range]: 1 Drugs of Abuse Lot# [id number] (01/05/24 4:51 PM) Specimen Temperature Acceptable Yes (01/05/24 4:51 PM) Creatinine (CR) 20 mg/dL (01/05/24 4:51 PM) Creatinine (CR) Ref Range [20-200 mg/dL] (01/05/24 4:51 PM) Specific [place] (SG) 1.015 (01/05/24 4:51 PM) Specific [place] (SG) Ref Range [1.005-1 .025] (01/05/24 4:51 PM) Drugs of Abuse pH 7 (01/05/24 4:51 PM) Drugs of Abuse pH Ref Range [4-9] (01/05/24 4:51 PM) Specimen Valid Yes (01/05/24 4:51 PM) [employer] Drugs of Abuse Positive (01/05/24 4:51 PM) Marijuana (THC) POC (50 ng/ml) Negative 1 (01/05/24 4:51 PM) Marijuana (THC) Ref Range [negative] (01/05/24 4:51 PM) Cocaine (GLORIA) POC (300 ng/ml) Negative (01/05/24 4:51 PM) Cocaine (GLORIA) Ref Range [negative] (01/05/24 4:51 PM) Amphetamine (AMP) POC (1000 ng/ml) Negat huseyin (01/05/24 4:51 PM) Amphetamine (AMP) Ref Range [negative] (01/05/24 4:51 PM) Methamphetamine (MET) POC (1000 ng/ml) N egative (01/05/24 4:51 PM) Methamphetamine (MET) Ref Range [negativ e] (01/05/24 4:51 PM) Barbiturates (BAR) Ref Range [negative] (01/05/24 4:51 PM) Barbiturates (BAR) POC (300 ng/ml) Negat huseyin (01/05/24 4:51 PM) Benzodiazepines (BZO) POC (300 ng/ml) Ne gative (01/05/24 4:51 PM) Benzodiazepines (BZO) Ref Range [negativ e] (01/05/24 4:51 PM) MDMA POC (500ng/ml) Negative (01/05/24 4:51 PM) Methylenedioxymethamph (MDMA) Ref Range [negative] (01/05/24 4:51 PM) Methadone (MTD) POC (300 ng/ml) Negative (01/05/24 4:51 PM) Methadone (MTD) Ref Range [negative] (01/05/24 4:51 PM) Oxycodone (OXY) POC (100 ng/ml) Negative (01/05/24 4:51 PM) Oxycodone (OXY) Ref Range [negative] (01/05/24 4:51 PM) Phencyclidine (PCP) POC (25ng/ml) Negati ve (01/05/24 4:51 PM) Phencyclidine (PCP) Ref Range [negative] (01/05/24 4:51 PM) Buprenorphine (BUP) POC (10 ng/ml) Negat huseyin (01/05/24 4:51 PM) Buprenorphine (BUP) Ref Range [negative] (01/05/24 4:51 PM) Specimen Temp Acceptable Ref Range [Yes] (01/05/24 4:51 PM) Drugs of Abuse Exp Date (01/05/24 4:51 PM) eGFR CKD-EPI [>60 mL/min/1.73 m2] 72 mL/ min/1.73 m2 (01/05/24 2:32 PM) Morphine (MOP) (300 ng/ml) Negative (01/05/24 4:51 PM) Morphine (MOP) Ref Range [negative] (01/05/24 4:51 PM) Non-HDL 97 mg/dL (01/05/24 2:32 PM) Estimated CrCl 54.79 mL/min (01/05/24 7:19 PM) MPV [9.0-12.2 fL] 10.0 fL (01/05/24 2:32 PM) RDW [11.5-14.2 %] 12.5 % (01/05/24 2:32 PM) Anion Gap [5-14 mmol/L] 11 mmol/L (01/05/24: PM) Alb [3.5-5.2 g/dL] 4.1 g/dL (01/05/24:32 PM) Alk Phos [35-115 unit/L] 143 unit/L 2 *HI* (01/05/24 2: PM) ALT [0-33 unit/L] 28 unit/L (01/05/24: PM) AST [0-32 unit/L] 41 unit/L *HI* (01/05/24: PM) BUN [6-23 mg/dL] 8 mg/dL (01/05/24 PM) Ca [8.4-10.2 mg/dL] 9.6 mg/dL (01/05/24:32 PM) Chol/HDL 2 (01/05/24: PM) Chol [<200 mg/dL] 183 mg/dL (01/05/24: PM) Cl- [98-107 mmol/L] 99 mmol/L (01/05/24: PM) HCO3 [22-29 mmol/L] 26 mmol/L (01/05/24: PM) Cret [0.60-1.00 mg/dL] 0.88 mg/dL (01/05/24: PM) Glu [74-109 mg/dL] 83 mg/dL 3 (01/05/24: PM) Hct [35-44 %] 41.1 % (01/05/24: PM) HDL [>40 mg/dL] 86 mg/dL (01/05/24:32 PM) Hgb [11.7-15.0 g/dL] 13.7 g/dL (01/05/24: PM) K [3.5-5.1 mmol/L] 4.3 mmol/L (01/05/24: PM) LDL Chol, Calculated [50-130 mg/dL] 82 m g/dL (01/05/24:32 PM) MCH [28-33 pg] 30.9 pg (11/15/24 2:32 PM) MCHC [32-36 g/dL] 33.3 g/dL (01/05/24 2:32 PM) MCV [81-96 fL] 92.6 fL (01/05/24 2:32 PM) Na [136-145 mmol/L] 136 mmol/L (01/05/24 2:32 PM) Plts [150-350 K/uL] 295 K/uL (01/05/24 2:32 PM) RBC [3.90-5.00 M/uL] 4.44 M/uL (01/05/24 2:32 PM) T Bili [0.0-1.2 mg/dL] 0.5 mg/dL (01/05/24 2:32 PM) Prot [6.4-8.3 g/dL] 6.6 g/dL (01/05/24 2:32 PM) TG [<150 mg/dL] 74 mg/dL (01/05/24 2:32 PM) WBC [4.0-10.4 K/uL] 4.72 K/uL (01/05/24 2:32 PM) 1Result Comment: Unconfirmed results are to be used only for medical (ie, treatment) purposes. Unconfirmed screening results must not be used for non- medical purposes (eg, employment testing, legal testing, etc). Performed at: [facility], [address] [place] [address], [address] [place] [address] 2Result Comment: Low levels of ALKP may indicate a deficiency in zinc, magnesium, or malnutritionbutcan also be an indicator of a rare genetic disease hypophosphatasia (HPP). 3Result Comment: ADA recommendation for FASTING Serum/Plasma Glucose: Normal: 70-100 mg/dL Prediabetes: 100-125 mg/dL Diabetes: 126 mg/dL or higher Vital Signs Most recent to oldest [Reference Range]: 1 Height 163.1 cm (01/05/24 1:50 PM) Patient Weight 62.5 kg (01/05/24 1:50 PM) Body Mass Index 23.49 kg/m2 (01/05/24 1:50 PM) Heart Rate 67 bpm (01/05/24 1:50 PM) Respiratory Rate 18 br/min (01/05/24 1:50 PM) Blood Pressure 124/82mmHg (01/05/24 1:50 PM) Cuff Pulse Pressure 42 mmHg (01/05/24 1:50 PM) Social History Social History Type Response Smoking Status Never smoked cigaret yung Sex Female Sex Representation Female (finding) FCM Outpt Note * DO Bolaños Gretchen Elizabeth: PERFORM Event Display: FCM Outpt Note Authored Date: Assessment/Plan 1. Chronic pain syndrome 2. Right lumbar radiculopathy Chronic, active, patient had spinal stenosis surgery 11/08/2021, with multiple attempts to maintainphysical therapy, has struggled with residual back pain as a result and has been dependent on tramadol to get through daily activities of life. CSA/UDS updated today for tramadol 50 mg #60 per month,PDMP checked and appropriate. Patient maintains good approach to home physical therapy exercises on a daily basis, encourage continued efforts to do so. 3. Insomnia Chronic, active, dependant on zolpidem 10 mg nightly, discussed future trial to wean down dose again, patient understanding this is on the beers criteria not recommended for her at her age, patient centered discussion of risks and benefits, will continue at this time, updated CSA. Refilled today, PDMP checked and appropriate. 4. Seizure disorder Chronic, stable, patient denies seizure, last seizure 2 years ago, on topiramate. Remains on memantine and donepezil for years. 5. Controlled substance agreement signed 6. Migraines Chronic, active, continue rizatriptan prn 7. Anemia Patient with a history of GI bleed, repeat CBC checked, denies any signs of bleeding, no dark tarry stools, no obvious bleeding from other sites Attestation Total physician time spent on day of encounter with patient including pre-visit planning, chart review, [id number] discussion, education, and documentation: 40 minutes Chief Complaint 3 month f/u. CSA. back 8/10 pain History of Present Illness Here for follow-up Eating well Still struggles with back pain Orthopedics can't do much Take tramadol twice daily Also uses ambien 10 mg daily Follows with psychiatry, will increase cymbalta to 60 mg - still on andrés merino Did PT at home and made worse Has been on donepazil and memantine for years, unclear benefit Been verntying out with sister, seeing grandson every two weeks Does home exercises daily Bowels regular, not dark or tarry No signs of bleeding, still taking xeralto Staying in the holiday spirit, although some sadness due to loss of partner Migraines doing well Review of Systems Pertinent positives and negatives as stated in history of present illness. Physical Exam Vitals & Measurements HR: 67 (Monitored) RR: 18 BP: 124/82 SpO2: 98% HT: 163.1 cm WT: 62.500 kg (Dosing) WT: 62.5 kg BMI: 23.49 PHQ2 Data (Data Documented on:01/05/2024 13:49) Emotional health assessment NEGATIVE General: Alert and oriented, no acute distress, appears pale, ambulating well with cane HEENT: Normocephalic, atraumatic, conjunctiva clear Cardiovascular: Normal rate, regular rhythm, no murmur, no gallop, +S1/S2, no S3/S4 Respiratory: Lungs clear bilaterally to auscultation, respirations non- labored, breath sounds equal, no rhonchi, no rales Gastrointestinal: Normal bowel sounds MSK: Tenderness of low back along ischial spine musculature and paraspinal muscles in lumbar area, decreased lumbar lordosis Psych: Mood and affect congruent. Problem List/Past [...] of knee joint using cement•Colonoscopy Medications ARIPiprazole(Abilify 5 mg oral tablet), 5 mg= 1 tab, PO, Daily busPIRone(busPIRone 10 mg oral tablet), 10 mg= 1 tab, PO, tid cholecalciferol(Vitamin D3 5000 intl units (125 mcg) oral capsule), 125 mcg= 1 cap, PO, Daily, 3 refills cyanocobalamin(cyanocobalamin 1000 mcg sublingual tablet), 1000 mcg= 1 tab, SL, Daily, 3 refills donepezil(donepezil 10 mg oral tablet), 1 tab, PO, qhs DULoxetine(Cymbalta 20 mg oral delayed release capsule), 20 mg= 1 cap, PO, Daily ferrous sulfate folic acid hydrOXYzine(hydrOXYzine hydrochloride 25 mg oral tablet), See Instructions, 3 refills lidocaine topical(lidocaine topical 5% patch), 1 patch, topical, Daily, 1 refills memantine(memantine 5 mg oral tablet), 1 tab, [...] Adult Social Determinants of Health Screening due 01/05/24 Unknown Frequency Adult Tdap/Td Vaccine due 01/05/24 Unknown Frequency Hepatitis C Screening due 01/05/24 One-time only Shingles Vaccine due 01/05/24 One-time only Due In Future Adult Influenza Vaccine not due until 08/19/24 and every 1 year Breast Cancer Screening not due until 01/02/25 and every 731 day Satisfied (in the past 1 year) Satisfied Adult Influenza Vaccine on 11/20/23. Satisfied by [facility] Maria, [place] Body Mass Index on 01/05/24. Satisfied by [facility] Chou, [place] Breast Cancer Screening on 02/07/23. Satisfied by MD Espinosa Margaret Electronic Signature on File Electronically Reviewed/Signed by: Paula Bolaños D.O. Author Signature Dt/Tm:01/05/2024 02:41 PM Department of Family Medicine [facility] Patient Care team information Care Team Personnel Name: DO Castro Amanda Position: Resident Member Role: Lifetime Relationship Address: [address] [place] [address] [place] Name: DO Bolaños Gretchen Elizabeth Position: Physician - Family Med Member Role: Primary Care Provider Address: [address] [place] [address] [place] Name: Darin Zhao MD, [facility] Position: Resident Member Role: Lifetime Relationship Address: [address] [place] [address] [place] Name: DO Bustamante Sameer Position: Resident Member Role: Lifetime Relationship Address: [address] [place] [address] [place] Care Team Related Persons Name: AYDEN YANEZ Name: FARIDEH COELHO"
[2024-05-28] MEDS: LACTATED RINGER'S 1,000 ML IV SCH (06:24)
[2024-05-28] MEDS: SUCRALFATE 1 GM TAB PO SCH (07:27)
[2024-05-28 07:48] LABS: Hematocrit (blood only) 39.5 % (37.0-47.0); Hemoglobin 13.1 g/dl (12.0-16.0); Mean Corpuscular Hgb Conc 33.2 g/dL (32.0-36.0); Mean Corpuscular Volume 90.6 fL (80.0-100.0); Mean Platelet Volume 10.8 fL (9.4-12.4); Platelet Count 174 K/uL (130-400); RDW Coefficient of Variation 13.7 % (11.5-14.5); RDW Standard Deviation 46.1 fL (36.4-46.3); Red Blood Count 4.36 M/uL (4.20-5.40); White Blood Count 4.12 K/ul (4.8-10.8)
[2024-05-28 08:56] LABS: BUN Creatinine Ratio 18.5 (10-20); Potassium 3.9 mmol/L (3.5-5.1); Troponin I High Sensitivity 45.8 pg/ml (0-14)
[2024-05-28] MEDS: busPIRone 5 MG TAB PO SCH (09:03)
[2024-05-28] MEDS: CYANOCOBALAMIN (B-12) 500 MCG TABLET PO SCH (09:04)
[2024-05-28] MEDS: FAMOTIDINE 20MG IV PUSH 20 MG/5 ML SYR IV SCH (09:04)
[2024-05-28] MEDS: GABAPENTIN 800 MG TAB PO SCH (09:04)
[2024-05-28] MEDS: TOPIRAMATE 100 MG TAB PO SCH (09:05)
[2024-05-28] MEDS: PANTOprazole 40 MG/10 ML SYR IV SCH (09:05)
--- NOTE | 2024-05-28 12:26 | Hospitalist Progress Note ---
Date of Service May 28, 2024 Assessment & Plan (1) Gastritis and duodenitis: (2) Epigastric abdominal pain: (3) Neurogenic claudication due to lumbar spinal stenosis: (4) Depression: (5) Seizure: Plan 67-year-old female with past medical history of depression, low back pain, bron chiectasis, Fred-en-Y gastric bypass 7 years ago, GI bleed and duodenal abscess in 2023. She presented to the ER with epigastric pain with associated nausea (no vomiting), no radiating symptoms, fever, chills, change in bowel movements, or change in diet. #Suspected gastritis/duodenitis CT A/P unremarkable Already taking PPI and Carafate but missed medications on day of admission due to inability to take with her pain/nausea Continue pantoprazole 40mg IV BID, famotidine 20mg IV BID, continue Carafate ACHS, ondansetron for nausea Epigastric pain and nausea improving Continue clear liquids for today, can advance to full liquids for breakfast tomorrow #Neurogenic claudication due to spinal stenosis Continue gabapentin VTE Prophylaxis - low risk Disposition - Anticipate discharge in next 24-48 hours pending symptom improvement and diet advancement Admission and Anticipated Discharge Date Admission Date: May 28, 2024 Subjective Patient seen and evaluated at bedside. She reports feeling better than yest erday, but still has abdominal pain and some nausea. She rates her abdominal pain 5/10 currently, noting it was 10/10 yesterday. She states her nausea has improved with medications and she has been eating and tolerating some Jell-O and clear broth. We discussed her CT A/P results, suspected gastritis, and plan to keep her on clear liquids today and can advance to full liquids for breakfast tomorrow if tolerating current diet well. She denies any additional complaints or concerns at this time. Physical Exam Physical Exam: General: No acute distress, nondiaphoretic. Frail appearing female who appears older than current age. Cardiac: Well-perfused. Rates in 60s. Pulm: Normal respiratory effort. 95% on room air. Abdominal: Soft, nondistended. Tender to palpation of epigastric region. Bowel sounds present. Neuro: A&O x3. No focal neurological deficits. Results & Data Results & Data Vital Signs (Past 12 Hours) Vital Signs Temp Pulse Pulse Pulse Resp BP Pulse Ox 05/28/24 07:29 97.9 F 65 14 120/65 95 05/28/24 02:05 99.0 F 72 16 137/69 94 05/28/24 01:00 69 18 121/67 94 05/28/24 00:31 69 O2 Del Method 05/28/24 07:29 Room Air 05/28/24 02:05 Room Air 05/28/24 01:00 Room Air 05/28/24 00:31 Laboratory Results Reviewed CBC Reviewed BMP, chemistries Diagnostic Findings Reviewed CT A/P PG Care Time/CCT Total # of Minutes Spent Total Time Spent with Patient: Total time spent is greater than 50% in coordination of care (as documented) at patient's floor/unit and/or counseling patient: Coding Level of Care Code 72089 SUB INP/OBS CARE 2/35MIN Diagnoses Gastritis and duodenitis K29.90 Epigastric abdominal pain R10.13 Neurogenic claudication due to lumbar spinal stenosis M48.062 Depression F32.9 Seizure R56.9
[2024-05-28] MEDS: DONEPEZIL HCL 10 MG TAB PO SCH (20:19)
--- NOTE | 2024-05-29 05:39 | Electrocardiogram Report ---
Test Reason : Blood Pressure : */* mmHG Vent. Rate : 62 BPM Atrial Rate : 62 BPM P-R Int : 158 ms QRS Dur : 84 ms QT Int : 530 ms P-R-T Axes : 65 61 217 degrees QTcB Int : 537 ms Normal sinus rhythm Prolonged QT Abnormal ECG When compared with ECG of 17-May-2023 12:15, T wave inversion more evident in Anterior leads QT has lengthened Confirmed by Wily Jha ([id number]) on 05/29/2024 5:39:24 AM Referred By: REFERRED SELF Confirmed By: Wily Jha
--- NOTE | 2024-05-29 05:40 | Electrocardiogram Report ---
Test Reason : Blood Pressure : */* mmHG Vent. Rate : 67 BPM Atrial Rate : 67 BPM P-R Int : 148 ms QRS Dur : 84 ms QT Int : 524 ms P-R-T Axes : 67 89 164 degrees QTcB Int : 553 ms Normal sinus rhythm Prolonged QT Abnormal ECG When compared with ECG of 28-May-2024 00:55, T wave inversion less evident in Inferior leads T wave inversion more evident in Lateral leads Confirmed by Wily Jha ([id number]) on 05/29/2024 5:40:04 AM Referred By: REFERRED SELF Confirmed By: Wily Jha
[2024-05-29 06:50] LABS: Hematocrit (blood only) 36.8 % (37.0-47.0); Hemoglobin 12.2 g/dl (12.0-16.0); Mean Corpuscular Hemoglobin 30.1 pg (25.0-34.0); Mean Corpuscular Hgb Conc 33.2 g/dL (32.0-36.0); Mean Corpuscular Volume 90.9 fL (80.0-100.0); Mean Platelet Volume 10.5 fL (9.4-12.4); Platelet Count 211 K/uL (130-400); RDW Coefficient of Variation 13.8 % (11.5-14.5); Red Blood Count 4.05 M/uL (4.20-5.40); White Blood Count 3.42 K/ul (4.8-10.8)
[2024-05-29 07:16] LABS: BUN Creatinine Ratio 11.2 (10-20); Calcium 8.9 mg/dl (8.6-10.3); Creatinine Clr Calc Pharmacy 58.2 ml/min; Potassium 3.3 mmol/L (3.5-5.1)
[2024-05-29] MEDS: POTASSIUM CHLORIDE CRTAB 20 MEQ TABCR PO STA (10:31)
--- NOTE | 2024-05-29 11:25 | Hospitalist Progress Note ---
Date of Service May 29, 2024 Assessment & Plan (1) Gastritis and duodenitis: (2) Epigastric abdominal pain: (3) Hypokalemia: (4) Neurogenic claudication due to lumbar spinal stenosis: Plan 67-year-old female with past medical history of depression, low back pain, bronchiectasis, Fred-en-Y gastric bypass 7 years ago, GI bleed and duodenal abscess in 2023. She presented to the ER with epigastric pain with associated nausea (no vomiting), no radiating symptoms, fever, chills, change in bowel movements, or change in diet. #Suspected gastritis/duodenitis CT A/P unremarkable Already taking PPI and Carafate but missed medications on day of admission due to inability to take with her pain/nausea Continue pantoprazole 40mg IV BID, famotidine 20mg IV BID, continue Carafate ACHS, ondansetron for nausea Epigastric pain and nausea initially improved, however after advancing to low fiber diet for lunch, she experienced 1 episode of non-bloody emesis and 10/10 sharp epigastric pain. Provided with 2 mg IV morphine x 2 with relief. Added Compazine 5 mg IV q6h PRN nausea/vomiting Consulted GI - plans for EGD tomorrow 05/30. NPO at midnight Started maintenance IV fluids #Hypokalemia Mild, K 3.3 - repleted with KCl 40 mEq x 1 Monitor BMP in AM #Neurogenic claudication due to spinal stenosis Continue gabapentin VTE Prophylaxis - low risk Disposition - continued inpatient stay for scheduled EGD 05/30 Consulted GI Ordered IV fluids, morphine IV, Compazine IV Repleted potassium Admission and Anticipated Discharge Date Admission Date: May 28, 2024 Subjective Patient seen and evaluated at bedside. She reports her full liquid breakfast went well and she is ready to advance to low fiber diet for lunch. She denies worsened abdominal pain from eating, and states her abdominal pain has significantly improved compared to when she first came in. She states that her nausea is chronic but does improve with antiemetics. We discussed likely discharge home tomorrow. She denies any additional complaints or concerns at this time. Informed by RN that shortly after patient tried low fiber lunch, she had 1 episode of emesis (non-bloody) and complained of severe abdominal pain. Returned to bedside and patient was clearly in pain, stating 10/10 sharp stabbing pain in epigastric region. Abdomen still soft, VSS. Informed patient we will get her some pain medication and have the GI team see her. Returned to bedside in afternoon. Patient much improved since lunch, now stating her pain is controlled and denies nausea. We discussed that GI will do an EGD tomorrow and she will be NPO so will start IV fluids. She is very appreciative of everyone's prompt help with her today. No additional complaints or concerns at this time. Physical Exam Physical Exam: General: No acute distress, nondiaphoretic. Frail appearing female who appears older than current age. Cardiac: Regular rate and rhythm, faint systolic murmur appreciated. Pulm: Clear to auscultation without wheezes, rales, or rhonchi. Normal respiratory effort. 94% on room air. Abdominal: Soft, nondistended. Mild tender to palpation of epigastric region. Bowel sounds present. Neuro: A&O x3. No focal neurological deficits. Results & Data Results & Data Vital Signs (Past 12 Hours) Vital Signs Temp Pulse Resp BP Pulse Ox O2 Del Method 05/29/24 07:17 97.9 F 62 16 114/72 94 Room Air Laboratory Results Reviewed CBC Reviewed BMP PG Care Time/CCT Total # of Minutes Spent Total Time Spent with Patient: Total time spent is greater than 50% in coordination of care (as documented) at patient's floor/unit and/or counseling patient: Coding Level of Care Code 64283 SUB INP/OBS CARE 3/50MIN Diagnoses Gastritis and duodenitis K29.90 Epigastric abdominal pain R10.13 Hypokalemia E87.6 Neurogenic claudication due to lumbar spinal stenosis M48.062
[2024-05-29] MEDS: MoRPHine SULFATE 2 MG/ML CARP IV STA ×2 (13:14→13:27)
--- NOTE | 2024-05-29 14:12 | Gastrointestinal Consultation ---
Date of Consultation May 29, 2024 Assessment & Plan (1) Gastritis and duodenitis: (2) Epigastric abdominal pain: Plan Patient with abdominal pain and nausea that is suspected to be gastritis and duodenitis. Patient was seen alongside Dr. Horne. - continue with protonix, famotidine, and carafate. - she is agreeable to an EGD to further evaluate. Supervising Physician Co-Signing Physician Notes I saw and examined this patient with our nurse practitioner and agree with her assessment and plan. Patient presents with a several week history of early satiety followed by onset of nausea and epigastric pain. No vomiting no hematemesis no change in bowel habits no fever no chills. Past history of a Fred-en-Y gastric bypass and a possible duodenal perforation a year ago treated conservatively with resolution. CT scan on this admission was unrevealing. In light of her new onset symptoms which seem significant need to consider anastomotic ulcer at her gastrojejunal anastomosis as well as anastomotic stenosis. Will proceed with endoscopy in a.m. for further evaluation. History of Present Illness Reason for Consultation: gastritis, abdominal pain, nausea, vomiting Requesting Physician: Tammy BYRD Attending Physician: Leobardo Angela History of Present Illness Patient is a 67 year old female with past medical history of depression, low back pain, bronchiectasis, Fred-en-Y gastric bypass 7 years ago, GI bleed and duodenal abscess in 2023. She presented to the ER with epigastric pain with associated nausea. no emesis. She tells me that since admission she then felt well until lunch today when pain returned. she describes the pain as intense. rest of GI ros are unremarkable. CT 05/27/24 no acute findings in the abdomen/pelvis. EGD with [facility] 09/16/22 gastric bypass with a normal sized pouch. GJ anastomosis. Dieulafoy lesion of stomach. normal examined jejunum. Allergies Allergy/AdvReac Type Severity Reaction Status Date / Time No Known Allergies Allergy Verified 05/27/24 20:29 Home Medications Medication Instructions Recorded Confirmed Type cyanocobalamin (vitamin B-12) 1,000 mcg PO QAM 07/23/19 05/27/24 History 1,000 mcg tablet donepezil 10 mg tablet (Aricept) 10 mg PO HS 07/23/19 05/27/24 History pantoprazole 40 mg tablet,delayed 40 mg PO DAILY 07/23/19 05/27/24 History release (Protonix) topiramate 100 mg tablet (Topamax) 100 mg PO BID 07/23/19 05/27/24 History nebulizer accessories #1 ea 03/01/22 09/14/22 Rx rizatriptan 10 mg tablet 10 mg PO DAILY PRN MIGRAINE 09/15/22 05/27/24 History zolpidem 10 mg tablet 10 mg PO HS PRN Sleep 09/15/22 05/27/24 History sucralfate 1 gram tablet 1 g PO QID #100 tabs 09/17/22 05/27/24 Rx tramadol 50 mg tablet 50 mg PO Q6H PRN pain, moderate 11/10/22 05/27/24 Rx #30 tabs gabapentin 800 mg tablet 800 mg PO TID 05/17/23 05/27/24 History lidocaine 5 % topical patch 1 patch topical DAILY PRN Pain 05/17/23 05/27/24 History albuterol sulfate 0.63 mg/3 mL 0.63 mg inhalation BID PRN 05/27/24 05/27/24 History solution for nebulization shortness of breath or wheezing brexpiprazole 0.5 mg tablet 0.5 mg PO HS 05/27/24 05/27/24 History (Rexulti) buspirone 10 mg tablet 20 mg PO TID 05/27/24 05/27/24 History sodium chloride 7 % for 4 ml inhalation BID PRN WHEN USING 05/27/24 05/27/24 History nebulization (Hyper-Denys) NEBULIZER Patient History Medical History Neurogenic claudication due to lumbar spinal stenosis Memory changes History Since TIA (2008) - mild- no recent issues per patient (no follow up with neurology needed) History of recent blood transfusion 09/16/22 @ [facility]--2 units PRBC for upper GI bleed Seizure disorder Chronic low back pain Insomnia Chronic cough Stable Elevated diaphragm Peripheral neuropathy Hands and feet Degenerative disc disease Chronic back pain Lumbar facet arthropathy Spinal stenosis Osteoporosis GERD (gastroesophageal reflux disease) Well controlled and stable Seizure "Staring seizures"- no issues since 2010 per patient Transient ischemic attack (TIA) 2008- no current issues History of high blood pressure Bronchiectasis hx Surgical History Hx of cataract extraction bilat History of total knee replacement RT/LEFT History of esophagogastroduodenoscopy (EGD) 09/16/22 @ [facility] History of colonoscopy H/O total hysterectomy History of cholecystectomy History of tonsillectomy History of tooth extraction History of gastric bypass Family History Aunt Diabetes Grandmother (Paternal) Diabetes Other No family history of adverse response to anesthesia Social History Smoking Status: Never smoker Second Hand Exposure: No; Do You Dip or Chew Tobacco: No; Hx Alcohol Use: No Hx Substance Use: No Preferred Language: Maori Communication Ability: Effective Manager Assisted Living Required: No Beliefs That Will Affect Care: None Current Living Situation: Alone Other Information That Helps Us Care for You: No Feels Safe at Home: Yes Safety Concerns: Feels Safe At This Time Assistive Devices: None Review of Systems Review of Systems: All systems reviewed & are unremarkable except as noted in HPI & below Physical Exam Constitutional: WD/WN, vitals as above Respiratory: normal respiratory effort, lungs clear to auscultation Cardiovascular: Rate/Rhythm: regular rate and regular rhythm Gastrointestinal (Abdomen): normal bowel sounds, soft, nontender, no hepatosplenomegaly Psychiatric: Orientation: alert and oriented x 3 Affect: euthymic affect Results & Data Vital Signs (Past 12 Hours) Vital Signs Temp Pulse Resp BP Pulse Ox O2 Del Method 05/29/24 07:17 97.9 F 62 16 114/72 94 Room Air Coding Level of Care Code 53522 INT INP/OBS CARE 2/55MIN Diagnoses Gastritis and duodenitis K29.90 Epigastric abdominal pain R10.13
[2024-05-29] MEDS: SODIUM CHLORIDE 0.9% 1,000 ML IV SCH (16:14)
[2024-05-30 07:48] LABS: BUN Creatinine Ratio 12.5 (10-20); Calcium 8.4 mg/dl (8.6-10.3); Creatinine Clr Calc Pharmacy 58.9 ml/min
--- NOTE | 2024-05-30 09:55 | History & Physical Bridge Note ---
Date of Service May 30, 2024 History & Physical Bridge Note I have examined the patient, reviewed the History & Physical and in the interval since the performance of the History & Physical I have noted the following changes of clinical significance: no changes noted. no chest pain, sob, nausea, vomiting, abdominal pain currently. she has been NPO. - will plan on EGD today. Supervising Physician Co-Signing Physician Notes I saw and examined this patient with our nurse practitioner and agree with her assessment and plan. Will proceed with endoscopy.
[2024-05-30] MEDS: SODIUM CHLORIDE 0.9% 500 ML IV SCH (10:15)
--- NOTE | 2024-05-30 10:23 | Anesthesiology Consultation ---
Date of Service May 30, 2024 Assessment & Plan Chart Review Chart Review: Acceptable Risk for Surgery Consults Requested none History Surgery Operation Date: 05/30/24 16:30 Proposed Procedures p Esophagogastroduodenoscopy Dr. Ozzie Horne MD Height/Weight Height: 5 ft 6 in Weight: 59.874 kg Allergies Allergy/AdvReac Type Severity Reaction Status Date / Time No Known Allergies Allergy Verified 05/27/24 20:29 Medications Home Medications Medication Instructions Recorded Confirmed Last Taken cyanocobalamin (vitamin B-12) 1,000 mcg PO QAM 07/23/19 05/27/24 05/27/24 1,000 mcg tablet donepezil 10 mg tablet (Aricept) 10 mg PO HS 07/23/19 05/27/24 05/26/24 pantoprazole 40 mg tablet,delayed 40 mg PO DAILY 07/23/19 05/27/24 05/27/24 release (Protonix) topiramate 100 mg tablet (Topamax) 100 mg PO BID 07/23/19 05/27/24 05/27/24 08:00 nebulizer accessories #1 ea 03/01/22 09/14/22 Unknown rizatriptan 10 mg tablet 10 mg PO DAILY PRN MIGRAINE 09/15/22 05/27/24 Unknown zolpidem 10 mg tablet 10 mg PO HS PRN Sleep 09/15/22 05/27/24 11/07/22 21:00 sucralfate 1 gram tablet 1 g PO QID #100 tabs 09/17/22 05/27/24 05/27/24 12:00 tramadol 50 mg tablet 50 mg PO Q6H PRN pain, moderate 11/10/22 05/27/24 Unknown #30 tabs gabapentin 800 mg tablet 800 mg PO TID 05/17/23 05/27/24 05/27/24 14:00 lidocaine 5 % topical patch 1 patch topical DAILY PRN Pain 05/17/23 05/27/24 Unknown albuterol sulfate 0.63 mg/3 mL 0.63 mg inhalation BID PRN 05/27/24 05/27/24 Unknown solution for nebulization shortness of breath or wheezing brexpiprazole 0.5 mg tablet 0.5 mg PO HS 05/27/24 05/27/24 05/26/24 (Rexulti) buspirone 10 mg tablet 20 mg PO TID 05/27/24 05/27/24 05/27/24 14:00 sodium chloride 7 % for 4 ml inhalation BID PRN WHEN USING 05/27/24 05/27/24 Unknown nebulization (Hyper-Denys) NEBULIZER Active Medications Generic Name Dose Route Start Last Admin Trade Name Freq PRN Reason Stop Dose Admin Buspirone HCl 20 mg 05/28/24 09:00 05/29/24 20:35 Buspirone 5 Mg Tab PO 06/27/24 08:59 20 mg TID GAGE Administration Cyanocobalamin 1,000 mcg 05/28/24 09:00 05/29/24 07:36 Cyanocobalamin (B-12) 500 Mcg Tablet PO 06/27/24 08:59 1,000 mcg QAM GAGE Administration Donepezil HCl 10 mg 05/28/24 21:00 05/29/24 20:34 Donepezil Hcl 10 Mg Tab PO 06/27/24 20:59 10 mg HS GAGE Administration Gabapentin 800 mg 05/28/24 09:00 05/29/24 20:35 Gabapentin 800 Mg Tab PO 06/27/24 08:59 800 mg TID GAGE Administration Pantoprazole Sodium 40 mg in 10 mls @ 5 mls/min 05/28/24 09:00 05/29/24 20:36 Protonix IV 06/27/24 08:59 5 mls/min BID GAGE Administration Famotidine 20 mg in 5 mls @ 2.5 mls/min 05/28/24 09:00 05/29/24 20:44 Pepcid 20mg Iv Push IV 06/27/24 08:59 2.5 mls/min Q12H GAGE Administration Acetaminophen 1,000 mg in 100 mls @ 400 mls/hr 05/28/24 02:16 05/29/24 13:09 Ofirmev IV 05/31/24 02:15 Infused Q8H PRN Infusion Pain or Fever Sodium Chloride 1,000 mls @ 100 mls/hr 05/29/24 16:00 05/30/24 06:34 Nss IV 05/30/24 15:59 100 mls/hr .Q10H GAGE Administration Sodium Chloride 500 mls @ 15 mls/hr 05/30/24 07:30 05/30/24 10:15 Nss IV 05/31/24 07:29 15 mls/hr .Q24H GAGE Administration Miscellaneous 1 each 05/28/24 08:00 05/29/24 23:23 Brexpiprazole [Rexulti]: Order Awaiting Action N/A 06/27/24 07:59 Not Given QS GAGE Miscellaneous 1 each 05/28/24 21:00 05/29/24 20:38 Remove Lidoderm Patch N/A 06/27/24 20:59 1 each DAILY@2100 GAGE Administration Ondansetron HCl 4 mg 05/28/24 02:16 05/29/24 12:28 Ondansetron Inj 2 Mg/Ml 2 Ml Vial IV 06/27/24 02:15 4 mg Q4H PRN Administration Nausea Sucralfate 1 gm 05/28/24 07:30 05/29/24 20:37 Sucralfate 1 Gm Tab PO 06/27/24 07:29 1 gm ACHS GAGE Administration Topiramate 100 mg 05/28/24 09:00 05/29/24 20:38 Topiramate 100 Mg Tab PO 06/27/24 08:59 100 mg BID GAGE Administration Zolpidem Tartrate 10 mg 05/28/24 02:21 05/29/24 20:44 Zolpidem Tartrate 5 Mg Tab PO 06/27/24 02:20 10 mg HS PRN Administration Sleep NPO Date Last Intake of Fluids: 05/29/24 Time Last Intake of Fluids: 21:00 Date Last Intake of Solids: 05/29/24 Time Last Intake of Solids: 12:00 Past Medical History Medical History Neurogenic claudication due to lumbar spinal stenosis Memory changes History Since TIA (2008) - mild- no recent issues per patient (no follow up with neurology needed) History of recent blood transfusion 09/16/22 @ [facility]--2 units PRBC for upper GI bleed Seizure disorder Chronic low back pain Insomnia Chronic cough Stable Elevated diaphragm Peripheral neuropathy Hands and feet Degenerative disc disease Chronic back pain Lumbar facet arthropathy Spinal stenosis Osteoporosis GERD (gastroesophageal reflux disease) Well controlled and stable Seizure "Staring seizures"- no issues since 2010 per patient Transient ischemic attack (TIA) 2008- no current issues History of high blood pressure Bronchiectasis hx Past Family History Family History Aunt Diabetes Grandmother (Paternal) Diabetes Other No family history of adverse response to anesthesia Past Surgical History Surgical History Hx of cataract extraction bilat History of total knee replacement RT/LEFT History of esophagogastroduodenoscopy (EGD) 09/16/22 @ [facility] History of colonoscopy H/O total hysterectomy History of cholecystectomy History of tonsillectomy History of tooth extraction History of gastric bypass Social History Smoking Status: Never smoker Do You Dip or Chew Tobacco: No Hx Alcohol Use: No Alcohol type: beer alcohol intake frequency: holidays/special occasions only Hx Substance Use: No substance use type: does not use Physical Exam Vital Signs Last Vital Signs Temp 36.5 C 05/30/24 10:13 Pulse 60 05/30/24 10:13 Resp 16 05/30/24 10:13 BP 143/68 H 05/30/24 10:13 Pulse Ox 98 05/30/24 10:13 O2 Del Method Room Air 05/30/24 10:13 Testing Laboratory Results 05/29/24 05:21 05/30/24 04:44 Urine Color Dark Yellow 05/27/24 20:02 Urine Appearance Cloudy (Clear) A 05/27/24 20:02 Urine pH 5.5 (4.5-7.5) 05/27/24 20:02 Ur Specific [place] 1.031 (1.000-1.030) H 05/27/24 20:02 Urine Protein 1+ (Negative) H 05/27/24 20:02 Urine Glucose (UA) Negative (Negative) 05/27/24 20:02 Urine Ketones 1+ (Negative) H 05/27/24 20:02 Urine Nitrite Negative (Negative) 05/27/24 20:02 Ur Leukocyte Esterase 1+ (Negative) H 05/27/24 20:02 Urine WBC (Auto) 6-10 /hpf (0-5) H 05/27/24 20:02 Urine RBC (Auto) 11-20 /hpf (0-2) H 05/27/24 20:02 U Hyaline Cast (Auto) 3-5 /lpf (0-2) H 05/27/24 20:02 U Epithel Cells (Auto) 6-10 /hpf (0-2) H 05/27/24 20:02 Urine Bacteria (Auto) None Seen (None Seen) 05/27/24 20:02
--- NOTE | 2024-05-30 10:40 | GI REPORT ---
[facility] Patient: LIZBETH COELHO : 1955 Sex at : Female Age: 68 Years Procedure: Upper GI endoscopy Date: 05/30/2024 Attending Physician: Alex Horne MD Referring MD: Michael De Jesus MD Indications: - Epigastric abdominal pain - Nausea Medications: - Monitored Anesthesia Care Complications: - No immediate complications. Procedure: - Prior to the procedure, a History and Physical was performed, and patient medications and allergies were reviewed. The patient's tolerance of previous anesthesia was also reviewed. The risks and benefits of the procedure and the sedation options and risks were discussed with the patient. All questions were answered, and informed consent was obtained. [Anticoagulant Agents] [Days Prior to Procedure]. [ASA Grade]. After reviewing the risks and benefits, the patient was deemed in satisfactory condition to undergo the procedure. - The egd scope was introduced through the mouth and advanced to the jejunum. - The upper GI endoscopy was accomplished without difficulty. - The patient tolerated the procedure well. Findings: - The examined esophagus was normal. - Evidence of a gastrojejunostomy was found in the gastric body. This was characterized by healthy appearing mucosa. Biopsies were taken with a cold forceps for histology. - The examined jejunum was normal. Impression: - Normal esophagus. - A gastrojejunostomy was found, characterized by healthy appearing mucosa. Biopsied. - Normal examined jejunum. Recommendation: - Resume previous diet. - Patient has a contact number available for emergencies. The signs and symptoms of potential delayed complications were discussed with the patient. Return to normal activities tomorrow. Written discharge instructions were provided to the patient. Procedure Code(s): - 69744, Esophagogastroduodenoscopy, flexible, transoral; with biopsy, single or multiple Diagnosis Code(s): - R10.13, Epigastric pain - Z98.0, Intestinal bypass and anastomosis status CPT(R) - 2023 copyright [employer]. All Rights Reserved. The CPT codes, CCI edits and ICD codes generated are intended as suggestions and were generated based on input data. These codes are preliminary and upon catering administrative assistant review may be revised to meet current compliance and payer requirements. The provider is responsible for the final determination of appropriate codes, and modifiers. Alex Horne MD This document has been electronically signed. Note Initiated:05/30/2024 Note Completed:05/30/2024 10:39 AM \\[id number]
[2024-05-30] MEDS: GLYCOPYRROLATE 0.2 MG/ML VIAL ONE (11:42)
[2024-05-30] MEDS: LIDOCAINE 2% 2 ML VIAL/AMP(20MG/ML) INFIL ONE (11:43)
[2024-05-30] MEDS: PROPOFOL IV EMULSION 10 MG/ML 20 ML VIAL IV ONE (11:43)
[2024-05-30] MEDS: ONDANSETRON INJ 2 MG/ML 2 ML VIAL ONE (11:43)
--- NOTE | 2024-05-30 11:52 | Anesthesiology Progress Note ---
Date of Service May 30, 2024 Anesthesia Post Procedure Vital Signs Vital Signs: Temp Pulse Resp BP BP Pulse Ox O2 Del Method 05/30/24 11:09 85 18 145/75 H 94 Room Air 05/30/24 10:54 86 18 113/74 94 Room Air 05/30/24 10:39 103 H 16 96/57 L 97 Room Air 05/30/24 10:13 36.5 C 60 16 143/68 H 98 Room Air 05/30/24 07:19 36.8 C 64 15 121/76 98 Room Air 05/29/24 20:07 36.7 C 63 16 110/71 98 Room Air 05/29/24 18:02 99/66 L 05/29/24 15:18 37.1 C 58 L 16 94/56 L 96 Room Air Pain Intensity Bilateral Abdomen: Pain Intensity: 2 Transfer of Care Handoff Completed per policy Notes Mental Status: alert / awake / arousable and participated in evaluation Patient Amnestic to Procedure: Yes Nausea / Vomiting: adequately controlled Pain: adequately controlled Airway Patency, RR, SpO2: stable & adequate BP & HR: stable & adequate Hydration State: stable & adequate Anesthetic Complications: no major complications apparent
--- NOTE | 2024-05-30 13:36 | Hospitalist Progress Note ---
Date of Service May 30, 2024 Assessment & Plan (1) Gastritis and duodenitis: (2) Epigastric abdominal pain: (3) Hypokalemia: (4) Neurogenic claudication due to lumbar spinal stenosis: Plan 67-year-old female with past medical history of depression, low back pain, bronchiectasis, Fred-en-Y gastric bypass 7 years ago, GI bleed and duodenal abscess in 2023. She presented to the ER with epigastric pain with associated nausea (no vomiting), no radiating symptoms, fever, chills, change in bowel movements, or change in diet. #Suspected gastritis/duodenitis CT A/P unremarkable Already taking PPI and Carafate but missed medications on day of admission due to inability to take with her pain/nausea Continue pantoprazole 40mg IV BID, famotidine 20mg IV BID, continue Carafate ACHS, ondansetron and Compazine for nausea GI consulted and following EGD with normal esophagus, normal jejunum, healthy appearing mucosa of gastrojejunostomybiopsied Mesenteric US with findings highly suggestive of hemodynamically significant stenosis at the SMA origin Continue full liquid diet for now #Hypokalemia Potassium repleted and now WNL #Neurogenic claudication due to spinal stenosis Continue gabapentin VTE Prophylaxis - low risk Disposition - continued inpatient stay for further management and recommendations from GI. PT/OT recommend return home on discharge Admission and Anticipated Discharge Date Admission Date: May 29, 2024 Subjective Patient seen and evaluated at bedside. She had her EGD this morning which per report was unremarkable and biopsies were taken. GI has ordered a mesenteric US which has not been done yet. She reports some nausea currently and her RN just gave her antiemetic moments before my arrival. She states this is the first wave of nausea she has experienced since she vomited yesterday. She also notes that her severe stabbing epigastric pain has been resolved since her episode yesterday. She does still have some tenderness to palpation of her epigastrium. Otherwise, denies additional complaints or concerns at this time. Physical Exam Physical Exam: General: No acute distress, nondiaphoretic. Frail appearing female who appears older than current age. Cardiac: Regular rate and rhythm, faint systolic murmur appreciated. Pulm: Clear to auscultation without wheezes, rales, or rhonchi. Normal respiratory effort. 94% on room air. Abdominal: Soft, nondistended. Mild tender to palpation of epigastric region. Bowel sounds present. Neuro: A&O x3. No focal neurological deficits. Results & Data Results & Data Vital Signs (Past 12 Hours) Vital Signs Temp Pulse Resp BP BP Pulse Ox O2 Del Method 05/30/24 11:09 85 18 145/75 H 94 Room Air 05/30/24 10:54 86 18 113/74 94 Room Air 05/30/24 10:39 103 H 16 96/57 L 97 Room Air 05/30/24 10:13 97.7 F 60 16 143/68 H 98 Room Air 05/30/24 07:19 98.2 F 64 15 121/76 98 Room Air Laboratory Results Reviewed BMP Diagnostic Findings Reviewed EGD Reviewed mesenteric US PG Care Time/CCT Total # of Minutes Spent Total Time Spent with Patient: Total time spent is greater than 50% in coordination of care (as documented) at patient's floor/unit and/or counseling patient: Coding Level of Care Code 62058 SUB INP/OBS CARE 2/35MIN Diagnoses Gastritis and duodenitis K29.90 Epigastric abdominal pain R10.13 Hypokalemia E87.6 Neurogenic claudication due to lumbar spinal stenosis M48.062
--- NOTE | 2024-05-30 14:43 | Ultrasound Report ---
US duplex mesenteric CLINICAL HISTORY: pain after eating COMPARISON STUDY: CT of the abdomen and pelvis with intravenous contrast dated 05/27/2024 FINDINGS: Duplex and color Doppler evaluation was performed of the aorta, celiac axis, and SMA. Peak systolic velocity within the aorta was 73 cm/s. Peak systolic velocity in the celiac axis is 130 cm/s . Peak systolic velocity in the proximal superior mesenteric artery is 318 cm/s. When the thin section axial images from the prior CT are reviewed, there is a suggestion of a soft pl aque near the origin of the SMA with slight poststenotic dilatation. IMPRESSION: Findings are highly suggestive of a hemodynamically significant stenosis at the SMA orig in manifested by peak systolic velocity of 318 cm/s. Would consider confirmatory CTA if intervention is planned. ACT 112: Negative or not required by law. Electronically signed by: Irene Gross M.D. 05/30/2024 2:41 PM
[2024-05-31 06:52] LABS: Hematocrit (blood only) 36.6 % (37.0-47.0); Hemoglobin 12.1 g/dl (12.0-16.0); Mean Corpuscular Hemoglobin 30.6 pg (25.0-34.0); Mean Corpuscular Hgb Conc 33.1 g/dL (32.0-36.0); Mean Corpuscular Volume 92.4 fL (80.0-100.0); Mean Platelet Volume 10.2 fL (9.4-12.4); Platelet Count 214 K/uL (130-400); RDW Standard Deviation 47.9 fL (36.4-46.3); Red Blood Count 3.96 M/uL (4.20-5.40); White Blood Count 3.76 K/ul (4.8-10.8)
[2024-05-31 07:34] LABS: Calcium 8.6 mg/dl (8.6-10.3); Potassium 3.7 mmol/L (3.5-5.1)
[2024-05-31 07:40] LABS: BUN Creatinine Ratio 9.8 (10-20); Creatinine Clr Calc Pharmacy 63.2 ml/min
--- NOTE | 2024-05-31 10:11 | Gastroenterology Progress Note ---
Date of Service May 31, 2024 Assessment & Plan (1) Epigastric abdominal pain: Plan Patient has not had further abdominal pain. she feels she is tolerating her diet. US suggestive of significant stenosis of SMA origin. EGD was unremarkable. - would consider CTA and/or vascular opinion on the US findings as a cause for her episodic pain. - she would like to advance diet. okay to advance as tolerated. order placed. - contine with protonix 40mg bid. Admission and Anticipated Discharge Date Admission Date: May 29, 2024 Supervising Physician Co-Signing Physician Notes I saw and examined this patient with our nurse practitioner and agree with her assessment and plan. Recent endoscopy unrevealing to explain her present symp toms which are mostly postprandial abdominal pain. Mesenteric Doppler suggest significant SMA stenosis. I presume seen patients with single-vessel disease stent placement. Await vascular surgeon input regarding next steps. Subjective Patient denies any further abdominal pain. no nausea or emesis. no reflux. she has been tolerating clears and is requesting to advance her diet. EGD 05/30/24 normal esophagus, a gastrojejunostomy was found with healthy appearing mucosa. normal examined jejunum. Mesenteric US 05/30/24 -Findings are highly suggestive of a hemodynamically significant stenosis at the SMA origin manifested by peak systolic velocity of 318 cm/s. Would consider confirmatory CTA if intervention is planned. Review of Systems Review of Systems: All systems reviewed & are unremarkable except as noted in HPI & below Physical Exam Constitutional: WD/WN, vitals as above Respiratory: normal respiratory effort, lungs clear to auscultation Cardiovascular: Rate/Rhythm: regular rate and regular rhythm Gastrointestinal (Abdomen): normal bowel sounds, soft, nontender, no hepatosplenomegaly Psychiatric: Orientation: alert and oriented x 3 Affect: euthymic affect Results & Data Results & Data Vital Signs (Past 12 Hours) Vital Signs Temp Pulse Resp BP Pulse Ox O2 Del Method 05/31/24 07:06 97.7 F 77 18 120/69 93 Room Air Coding Level of Care Code 32260 SUB INP/OBS CARE 2/35MIN Diagnoses Epigastric abdominal pain R10.13
--- NOTE | 2024-05-31 13:04 | Hospitalist Progress Note ---
Date of Service May 31, 2024 Assessment & Plan (1) Gastritis and duodenitis: (2) Epigastric abdominal pain: (3) Hypokalemia: (4) Neurogenic claudication due to lumbar spinal stenosis: Plan 67-year-old female with past medical history of depression, low back pain, bronchiectasis, Fred-en-Y gastric bypass 7 years ago, GI bleed and duodenal abscess in 2023. She presented to the ER with epigastric pain with associated nausea (no vomiting), no radiating symptoms, fever, chills, change in bowel movements, or change in diet. #Suspected gastritis/duodenitis CT A/P unremarkable Already taking PPI and Carafate but missed medications on day of admission due to inability to take with her pain/nausea Continue pantoprazole 40mg IV BID, famotidine 20mg IV BID, continue Carafate ACHS, ondansetron and Compazine for nausea GI consulted and following EGD with normal esophagus, normal jejunum, healthy appearing mucosa of gastrojejunostomybiopsied Mesenteric US with findings highly suggestive of hemodynamically significant stenosis at the SMA origin Advanced to low fiber diet and well-tolerating without post-prandial pain or nausea Recommend referral to [facility] vascular surgery for SMA stent placement on discharge #Hypokalemia Potassium repleted and now WNL #Neurogenic claudication due to spinal stenosis Continue gabapentin VTE Prophylaxis - low risk Disposition - anticipate discharge 4/12 if continuing to well-tolerate diet advancement. PT/OT recommend return home on discharge Ordered PO Tylenol Admission and Anticipated Discharge Date Admission Date: May 29, 2024 Subjective Patient seen and evaluated at bedside. She reports feeling better today. Her diet was advanced to low fiber by GI today and she tolerated lunch well. She denied post-prandial pain like she experienced the other day. She continues to have some mild epigastric pain, which she rates 4/10. She reports her nausea is well-controlled. She denies recent weight loss. We discussed the result of her mesenteric US, all questions answered. Discussed monitoring her diet tolerance overnight, and if no further problems arise, can likely be discharged home tomorrow. No additional complaints or concerns at this time. Physical Exam Physical Exam: General: No acute distress, nondiaphoretic. Frail appearing female who appears older than current age. Cardiac: Regular rate and rhythm, faint systolic murmur appreciated. Pulm: Clear to auscultation without wheezes, rales, or rhonchi. Normal respiratory effort. 94% on room air. Abdominal: Soft, nondistended. Mild tender to palpation of epigastric region. Bowel sounds present. Neuro: A&O x3. No focal neurological deficits. Results & Data Results & Data Vital Signs (Past 12 Hours) Vital Signs Temp Pulse Resp BP Pulse Ox O2 Del Method 05/31/24 07:06 97.7 F 77 18 120/69 93 Room Air Laboratory Results Reviewed CBC Reviewed BMP, lactate PG Care Time/CCT Total # of Minutes Spent Total Time Spent with Patient: Total time spent is greater than 50% in coordination of care (as documented) at patient's floor/unit and/or counseling patient: Coding Level of Care Code 00325 SUB INP/OBS CARE 2/35MIN Diagnoses Gastritis and duodenitis K29.90 Epigastric abdominal pain R10.13 Hypokalemia E87.6 Neurogenic claudication due to lumbar spinal stenosis M48.062
[2024-05-31] MEDS: ACETAMINOPHEN 325 MG TAB PO PRN (16:30)
[2024-05-31] MEDS: PANTOprazole 40 MG TAB PO SCH (21:33)
[2024-05-31] MEDS: FAMOTIDINE 20 MG TAB PO SCH (21:34)
[2024-06-01] MEDS: PROCHLORPERAZINE 5 MG in SYRINGE 4 ML IV PRN (11:15)
[2024-06-01] MEDS: traMADol HCL 50 MG TABLET PO PRN (18:32)
--- NOTE | 2024-06-01 19:14 | Hospitalist Progress Note ---
Date of Service June 01, 2024 Assessment & Plan (1) Gastritis and duodenitis: (2) Epigastric abdominal pain: (3) Hypokalemia: (4) Neurogenic claudication due to lumbar spinal stenosis: Plan 67-year-old female with past medical history of depression, low back pain, bronchiectasis, Fred-en-Y gastric bypass 7 years ago, GI bleed and duodenal abscess in 2023. She presented to the ER with epigastric pain with associated nausea (no vomiting), no radiating symptoms, fever, chills, change in bowel movements, or change in diet. CT A/P unremarkable on admission. Already taking PPI and Carafate at home. #SMA stenosis / Suspected gastritis/duodenitis Continue pantoprazole 40mg IV BID, famotidine 20mg IV BID, continue Carafate ACHS, ondansetron and Compazine for nausea GI consulted and following EGD with normal esophagus, normal jejunum, healthy appearing mucosa of gastrojejunostomy biopsied Mesenteric US with findings highly suggestive of hemodynamically significant stenosis at the SMA origin Advancement to low fiber diet again resulted in postprandial pain with associated nausea. Reduced diet back to full liquids Per discussion with GI, consulted vascular surgery for evaluation of stent placement for SMA stenosis - likely will not be evaluated until 06/03 Pain regimen: Tylenol 650 mg Q4h PRN, tramadol 50 mg Q8h PRN breakthrough pain #Hypokalemia Potassium repleted and now WNL #Neurogenic claudication due to spinal stenosis Continue gabapentin VTE Prophylaxis - low risk Disposition - Awaiting evaluated from vascular surgery for SMA stenosis. PT/OT recommend return home on discharge Adjusted diet to full liquids Discussed case with GI Consulted vascular surgery Admission and Anticipated Discharge Date Admission Date: May 29, 2024 Subjective Patient seen and evaluated at bedside. She reports that after dinner last night and after breakfast this morning, she experienced postprandial pain rating 7/10 with associated nausea. When asked if this was a level of pain she felt comfortable dealing with at home, she said no. She stated that the GI team yesterday told her she would be seen by vascular surgery today. Informed her that I did not see a vascular surgery consult placed but I will discuss with GI today. We further discussed adjusting her diet back to full liquids as she tolerates that well without significant pain or nausea. No additional complaints or concerns at this time. Physical Exam Physical Exam: General: No acute distress, nondiaphoretic. Frail appearing female who appears older than current age. Cardiac: Regular rate and rhythm, faint systolic murmur appreciated. Pulm: Clear to auscultation without wheezes, rales, or rhonchi. Normal respiratory effort. 94% on room air. Abdominal: Soft, nondistended. Mild tender to palpation of epigastric region. Bowel sounds present. Neuro: A&O x3. No focal neurological deficits. Results & Data Results & Data Vital Signs (Past 12 Hours) Vital Signs Temp Pulse Resp BP Pulse Ox O2 Del Method 06/01/24 14:36 98.1 F 62 18 95/62 L 94 Room Air 06/01/24 11:58 98.6 F 67 14 115/73 97 Room Air 06/01/24 07:26 97.3 F L 67 17 120/74 94 Room Air PG Care Time/CCT Total # of Minutes Spent Total Time Spent with Patient: Total time spent is greater than 50% in coordination of care (as documented) at patient's floor/unit and/or counseling patient: Coding Level of Care Code 78483 SUB INP/OBS CARE 3/50MIN Diagnoses Gastritis and duodenitis K29.90 Epigastric abdominal pain R10.13 Hypokalemia E87.6 Neurogenic claudication due to lumbar spinal stenosis M48.062
--- NOTE | 2024-06-02 10:47 | Hospitalist Progress Note ---
Date of Service June 02, 2024 Assessment & Plan (1) Gastritis and duodenitis: (2) Epigastric abdominal pain: (3) Hypokalemia: (4) Neurogenic claudication due to lumbar spinal stenosis: Plan 67-year-old female with past medical history of depression, low back pain, bronchiectasis, Fred-en-Y gastric bypass 7 years ago, GI bleed and duodenal abscess in 2023. She presented to the ER with epigastric pain with associated nausea (no vomiting), no radiating symptoms, fever, chills, change in bowel movements, or change in diet. She does report ~10-15 lb weight loss in past [address] A/P unremarkable on admission. Already taking PPI and Carafate at home. #SMA stenosis / Suspected gastritis/duodenitis Continue pantoprazole 40mg IV BID, famotidine 20mg IV BID, continue Carafate ACHS, ondansetron and Compazine for nausea GI consulted and following EGD with normal esophagus, normal jejunum, healthy appearing mucosa of gastrojejunostomy biopsied Mesenteric US with findings highly suggestive of hemodynamically significant stenosis at the SMA origin Advancement to low fiber diet again resulted in postprandial pain with associated nausea. Reduced diet back to full liquids Per discussion with GI, consulted vascular surgery for evaluation of stent placement for SMA stenosis - likely will not be evaluated until 06/03. If unable to perform at surgical intervention at [place], anticipate transfer Pain regimen: Tylenol 650 mg Q4h PRN, tramadol 50 mg Q8h PRN breakthrough pain #Hypokalemia Potassium repleted and now WNL #Neurogenic claudication due to spinal stenosis Continue gabapentin VTE Prophylaxis - low risk Disposition - Awaiting evaluated from vascular surgery for SMA stenosis. PT/OT recommend return home on discharge Discussed case with GI Admission and Anticipated Discharge Date Admission Date: May 29, 2024 Subjective Patient seen and evaluated at bedside with GI physician. She reports ongoing postprandial pain, continues to rate it 7/10 at its worst. She does report pain relief with Tylenol and Tramadol. She denies any nausea at this time. She reports ~10-15 lb weight loss in the past 2 months. We discussed attempting transfer today vs tomorrow after vascular surgery evaluation, and she would prefer waiting for the vascular surgeon's input here first. She denies any other complaints or concerns at this time. Physical Exam Physical Exam: General: No acute distress, nondiaphoretic. Frail appearing female who appears older than current age. Cardiac: Regular rate and rhythm, faint systolic murmur appreciated. Pulm: Clear to auscultation without wheezes, rales, or rhonchi. Normal respiratory effort. 94% on room air. Abdominal: Soft, nondistended. Mild tender to palpation of epigastric region. Bowel sounds present. No abdominal bruit appreciated. Neuro: A&O x3. No focal neurological deficits. Results & Data Results & Data Vital Signs (Past 12 Hours) Vital Signs Temp Pulse Resp BP Pulse Ox O2 Del Method 06/02/24 07:10 97.9 F 67 16 122/60 94 Room Air PG Care Time/CCT Total # of Minutes Spent Total Time Spent with Patient: Total time spent is greater than 50% in coordination of care (as documented) at patient's floor/unit and/or counseling patient: Coding Level of Care Code 57035 SUB INP/OBS CARE 2/35MIN Diagnoses Gastritis and duodenitis K29.90 Epigastric abdominal pain R10.13 Hypokalemia E87.6 Neurogenic claudication due to lumbar spinal stenosis M48.062
--- NOTE | 2024-06-02 12:15 | Gastroenterology Progress Note ---
Date of Service June 02, 2024 Assessment & Plan (1) Epigastric abdominal pain: (2) Mesenteric ischemia, chronic: Plan: Suspected chronic mesenteric EMEA due to SMA stenosis. Awaiting vascular surgery consultation. Possible transfer for radiology procedure. Admission and Anticipated Discharge Date Admission Date: May 29, 2024 Subjective Postprandial abdominal pain. SMA stenosis on visceral duplex. The patient continues with postprandial pain after eating solids. Tolerates liquids to some extent. Started on tramadol 50 mg which improves pain. Consultation with vascular surgery was obtained. Consideration for transfer to a facility with interventional radiology for possible angioplasty and stenting of SMA. Review of Systems Review of Systems: Constitutional: Denies chills, fever, fatigue. Respiratory: Denies cough, denies shortness of breath. Cardiovascular: Denies chest pain and palpitations. Gastrointestinal: Complains of ongoing abdominal pain after eating. Physical Exam Physical Exam: Constitutional: WD/WN, vitals as above Respiratory: normal respiratory effort, lungs clear to auscultation Cardiovascular: RRR, no murmur, no edema Gastrointestinal (Abdomen): normal bowel sounds, soft, nontender, no hepatosplenomegaly. No vascular bruit Neurological: Oriented x 3, grossly no focal abnormalities, speech is intact. Results & Data Results & Data Vital Signs (Past 12 Hours) Vital Signs Temp Pulse Resp BP Pulse Ox O2 Del Method 06/02/24 07:10 36.6 C 67 16 122/60 94 Room Air PG Care Time/CCT Total # of Minutes Spent Total Time Spent with Patient: Total time spent is greater than 50% in coordination of care (as documented) at patient's floor/unit and/or counseling patient: Coding Level of Care Code 11056 SUB INP/OBS CARE 2/35MIN Diagnoses Epigastric abdominal pain R10.13 Mesenteric ischemia, chronic K55.1
--- NOTE | 2024-06-03 09:35 | Consultation ---
Date of Consultation June 03, 2024 Assessment & Plan (1) Mesenteric artery stenosis: Pt sx seem inconsistent with chronic mesenteric ischemia, and no evidence of acute bowel ischemia on imaging. Imaging demonstrates elevated velocities in SMA on US, however, no significant calcification noted on plain CT imaging. Recommend CTA for further eval. History of Present Illness Reason for Consultation: SMA stenosis Attending Physician: Michael De Jesus MD History of Present Illness 68 yo f with hx of gastric bypass, depression, anemia, GI ulcers and bleed, duodenal abscess, spinal stenosis with neuropathy, dementia, admitted with abd pain, N/V x 1 week, seen in consultation today for possible SMA stenosis. Pt states she has had severe N/V and abd pain for 1 week. States she occasionally had some abd pain and nausea over past few months, usually after eating, but not always. Denies TAPIA, fever, chest pain, SOB, rest pain, nonhealing ulcers of BLE, other complaints. Plain CT imaging done this admission does not demonstrate significant calcifications of SMA. Mesenteric US demonstrates elevated velocities in SMA. Allergies Allergy/AdvReac Type Severity Reaction Status Date / Time No Known Allergies Allergy Verified 05/27/24 20:29 Home Medications Medication Instructions Recorded Confirmed Type cyanocobalamin (vitamin B-12) 1,000 mcg PO QAM 07/23/19 05/27/24 History 1,000 mcg tablet donepezil 10 mg tablet (Aricept) 10 mg PO HS 07/23/19 05/27/24 History pantoprazole 40 mg tablet,delayed 40 mg PO DAILY 07/23/19 05/27/24 History release (Protonix) topiramate 100 mg tablet (Topamax) 100 mg PO BID 07/23/19 05/27/24 History nebulizer accessories #1 ea 03/01/22 09/14/22 Rx rizatriptan 10 mg tablet 10 mg PO DAILY PRN MIGRAINE 09/15/22 05/27/24 History zolpidem 10 mg tablet 10 mg PO HS PRN Sleep 09/15/22 05/27/24 History sucralfate 1 gram tablet 1 g PO QID #100 tabs 09/17/22 05/27/24 Rx tramadol 50 mg tablet 50 mg PO Q6H PRN pain, moderate 11/10/22 05/27/24 Rx #30 tabs gabapentin 800 mg tablet 800 mg PO TID 05/17/23 05/27/24 History lidocaine 5 % topical patch 1 patch topical DAILY PRN Pain 05/17/23 05/27/24 History albuterol sulfate 0.63 mg/3 mL 0.63 mg inhalation BID PRN 05/27/24 05/27/24 History solution for nebulization shortness of breath or wheezing brexpiprazole 0.5 mg tablet 0.5 mg PO HS 05/27/24 05/27/24 History (Rexulti) buspirone 10 mg tablet 20 mg PO TID 05/27/24 05/27/24 History sodium chloride 7 % for 4 ml inhalation BID PRN WHEN USING 05/27/24 05/27/24 History nebulization (Hyper-Denys) NEBULIZER Patient History Medical History Neurogenic claudication due to lumbar spinal stenosis Memory changes History Since TIA (2008) - mild- no recent issues per patient (no follow up with neurology needed) History of recent blood transfusion 09/16/22 @ [facility]--2 units PRBC for upper GI bleed Seizure disorder Chronic low back pain Insomnia Chronic cough Stable Elevated diaphragm Peripheral neuropathy Hands and feet Degenerative disc disease Chronic back pain Lumbar facet arthropathy Spinal stenosis Osteoporosis GERD (gastroesophageal reflux disease) Well controlled and stable Seizure "Staring seizures"- no issues since 2010 per patient Transient ischemic attack (TIA) 2008- no current issues History of high blood pressure Bronchiectasis hx Surgical History Hx of cataract extraction bilat History of total knee replacement RT/LEFT History of esophagogastroduodenoscopy (EGD) 09/16/22 @ [facility] History of colonoscopy H/O total hysterectomy History of cholecystectomy History of tonsillectomy History of tooth extraction History of gastric bypass Family History Aunt Diabetes Grandmother (Paternal) Diabetes Other No family history of adverse response to anesthesia Social History Smoking Status: Never smoker Second Hand Exposure: No; Do You Dip or Chew Tobacco: No; Hx Alcohol Use: No Hx Substance Use: No Preferred Language: Mohawk Communication Ability: Effective Leasing Consultant Required: No Beliefs That Will Affect Care: None Current Living Situation: Alone Other Information That Helps Us Care for You: No Feels Safe at Home: Yes Safety Concerns: Feels Safe At This Time Assistive Devices: None Review of Systems Review of Systems: All systems reviewed & are unremarkable except as noted in HPI & below Physical Exam Constitutional: WD/WN, vitals as above + frail appearing, cooperative and comfortable; not in distress ENMT: Ears: no hearing impairment Neck: trachea midline Respiratory: normal respiratory effort, lungs clear to auscultation Auscultation: + diminished lung sounds Cardiovascular: Rate/Rhythm: regular rate and regular rhythm Vessels: femoral pulses present, posterior tibial pulses present, dorsalis pedis pulses present and radial pulses present; + abnormal peripheral pulses Extremities: normal capillary refill Gastrointestinal (Abdomen): Inspection/Auscultation: abdomen normal to inspection and normal bowel sounds Percussion/Palpation: + abdomen tender (epigastric) and abdomen soft; no guarding Musculoskeletal: no cyanosis or clubbing, extremities motor strength 5/5 Skin: no rashes, warm and dry Neurologic: moves all extremities and awake; no focal motor deficits and not confused Psychiatric: A+Ox3, euthymic affect Results & Data Vital Signs (Past 12 Hours) Vital Signs Temp Pulse Resp BP Pulse Ox O2 Del Method 06/03/24 07:27 37.0 C 62 16 111/63 95 Room Air
[2024-06-03] MEDS: OPTIRAY 320 125ml IV ONE (11:55)
--- NOTE | 2024-06-03 13:29 | CT Scan Report ---
CT angio abd pelvis wo/w con HISTORY: 68 years-old Female mesenteric stenosis follow-up study in a patient with elevated peak sys tolic velocities in the superior mesenteric artery described on the recent ultrasound from 05/30/2024 COMPARISON: Duplex venous Doppler 05/30/2024, CT abdomen and pelvis 05/27/2024 TECHNIQUE: CTA abdomen and pelvis was obtained with and without IV contrast. 3-D coronal and sagittal MIPS were obtained intermittently for review. All measurements were obtained according to NASCET cri teria. A dose lowering technique was used consistent with the principals of CHARITO. FINDINGS: CTA: Heart is normal in size. No pericardial effusion. Normal caliber descending thoracic aorta. Ther e is moderate atherosclerosis of the abdominal aorta without aneurysm or dissection. There is patency of the normal caliber common and external iliac arteries and imaged proximal femoral arteries. Mild stenosis at the origin of the celiac trunk there is approximately 50% stenosis at the origin of the s uperior mesenteric artery without dissection, occlusion or high-grade stenosis. There is at least mil d stenosis at the origin of the inferior mesenteric artery. The bilateral renal arteries are patent. There is an accessory small right sided renal artery which demonstrates a degree of stenosis at its o rigin, difficult to quantify secondary to small caliber. CT ABDOMEN/pelvis: Right hemidiaphragmatic elevation with linear right basilar atelectasis versus sca rring redemonstrated. There is no pneumatosis or pneumoperitoneum identified. Unremarkable spleen, moderately atrophic pancreas and adrenal glands. Cholecystectomy with likely pos tsurgical biliary ductal dilation redemonstrated. Unremarkable liver. There is mild cortical thinning of the kidneys without urolith or hydronephrosis. Mild nonspecific urinary bladder wall thickening. Hysterectomy. No lymphadenopathy. Prior gastric bypass. Circumferential wall thickening of the rectum with perirectal inflammation and small amount of pelvic ascites, progressed from prior. Mild to moderate colonic fecal retention. Paulina nflamed appendix. Degenerative postoperative changes of the spine. Healed chronic fracture deformitie s of the pelvic ring. IMPRESSION: 1. Findings suggestive of a nonspecific proctitis with small amount of pelvic ascites, new from the A pril 2024 CT exam. 2. No bowel obstruction or pneumoperitoneum. 3. Atherosclerosis of the aorta without aneurysm. 4. There is approximately 50% stenosis at the origin of the superior mesenteric artery without eviden ce of high-grade stenosis. 5. Incidental findings as above. ACT 112: Negative or not required by law. The above report was generated using voice recognition software. It may contain grammatical, syntax o r spelling errors. Electronically signed by: Jatin Madrid M.D. 06/03/2024 1:28 PM
--- NOTE | 2024-06-03 14:17 | Hospitalist Progress Note ---
Date of Service June 03, 2024 Assessment & Plan (1) Gastritis and duodenitis: (2) Epigastric abdominal pain: (3) Hypokalemia: (4) Neurogenic claudication due to lumbar spinal stenosis: Plan 67-year-old female with past medical history of depression, low back pain, bronchiectasis, Fred-en-Y gastric bypass 7 years ago, GI bleed and duodenal abscess in 2023. She presented to the ER with epigastric pain with associated nausea (no vomiting), no radiating symptoms, fever, chills, change in bowel movements, or change in diet. She does report ~10-15 lb weight loss in past [address] A/P unremarkable on admission. Already taking PPI and Carafate at home. 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 If unable to perform at surgical intervention at [facility], anticipate transfer Pain regimen: Tylenol 650 mg Q4h PRN, tramadol 50 mg Q8h PRN breakthrough pain #Hypokalemia Potassium repleted and now WNL #Neurogenic claudication due to spinal stenosis Continue gabapentin VTE Prophylaxis - low risk Disposition - Awaiting eval/recs from vascular surgery for SMA stenosis. PT/OT recommend return home on discharge Admission and Anticipated Discharge Date Admission Date: May 29, 2024 Subjective Patient seen and evaluated at bedside. She reports feeling okay today. She notes she had some nausea earlier which was relieved with antiemetics. She continues to have some postprandial pain, she states this is less severe today than prior. We are still waiting for recommendations from vascular surgery at this time. She denies additional complaints or concerns at this time. Physical Exam Physical Exam: General: No acute distress, nondiaphoretic. Frail appearing female who appears older than current age. Cardiac: Regular rate and rhythm, faint systolic murmur appreciated. Pulm: Clear to auscultation without wheezes, rales, or rhonchi. Normal respiratory effort. 95% on room air. Abdominal: Soft, nondistended. Mild tender to palpation of epigastric region. Bowel sounds present. No abdominal bruit appreciated. Neuro: A&O x3. No focal neurological deficits. 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 3-D coronal and sagittal MIPS were obtained intermittently for review. All measurements were obtained according to NASCET criteria. A dose lowering technique was used consistent with the principals of CHARITO. FINDINGS: CTA: Heart is normal in size. No pericardial effusion. Normal caliber descending thoracic aorta. There is moderate atherosclerosis of the abdominal aorta without aneurysm or dissection. There is patency of the normal caliber common and external iliac arteries and imaged proximal femoral arteries. Mild stenosis at the origin of the celiac trunk there is approximately 50% stenosis at the origin of the superior mesenteric artery without dissection, occlusion or high-grade stenosis. There is at least mild stenosis at the origin of the inferior mesenteric artery. The bilateral renal arteries are patent. There is an accessory small right sided renal artery which demonstrates a degree of stenosis at its origin, difficult to quantify secondary to small caliber. CT ABDOMEN/pelvis: Right hemidiaphragmatic elevation with linear right basilar atelectasis versus scarring redemonstrated. There is no pneumatosis or pneumoperitoneum identified. Unremarkable spleen, moderately atrophic pancreas and adrenal glands. Cholecyste ctomy with likely postsurgical biliary ductal dilation redemonstrated. Unremarkable liver. There is mild cortical thinning of the kidneys without urolith or hydronephrosis. Mild nonspecific urinary bladder wall thickening. Hysterectomy. No lymphadenopathy. Prior gastric bypass. Circumferential wall thickening of the rectum with perirectal inflammation and small amount of pelvic ascites, progressed from prior. Mild to moderate colonic fecal retention. Noninflamed appendix. Degenerative postoperative changes of the spine. Healed chronic fracture deformities of the pelvic ring. IMPRESSION: 1. Findings suggestive of a nonspecific proctitis with small amount of pelvic ascites, new from the May 27, 2024 CT exam. 2. No bowel obstruction or pneumoperitoneum. 3. Atherosclerosis of the aorta without aneurysm. 4. There is approximately 50% stenosis at the origin of the superior mesenteric artery without evidence of high-grade stenosis. 5. Incidental findings as above. ACT 112: Negative or not required by law. The above report was generated using voice recognition software. It may contain grammatical, syntax or spelling errors. Electronically signed by: Jatin Madrid M.D. 06/03/2024 1:28 PM PG Care Time/CCT Total # of Minutes Spent Total Time Spent with Patient: Total time spent is greater than 50% in coordination of care (as documented) at patient's floor/unit and/or counseling patient: Coding Level of Care Code 97608 SUB INP/OBS CARE 2/35MIN Diagnoses Gastritis and duodenitis K29.90 Epigastric abdominal pain R10.13 Hypokalemia E87.6 Neurogenic claudication due to lumbar spinal stenosis M48.062
--- NOTE | 2024-06-04 08:39 | Hospitalist Progress Note ---
Date of Service June 04, 2024 Assessment & Plan (1) Gastritis and duodenitis: (2) Epigastric abdominal pain: (3) Hypokalemia: (4) Neurogenic claudication due to lumbar spinal stenosis: Plan 67-year-old female with past medical history of depression, low back pain, bronchiectasis, Fred-en-Y gastric bypass 7 years ago, GI bleed and duodenal abscess in 2023. She presented to the ER with epigastric pain with associated nausea (no vomiting), no radiating symptoms, fever, chills, change in bowel movements, or change in diet. She does report ~10-15 lb weight loss in past [address] A/P unremarkable on admission. Already taking PPI and Carafate at home. #SMA stenosis / Suspected gastritis/duodenitis Continue pantoprazole 40mg BID, famotidine 20mg BID, Carafate ACHS. Antiemetics available - ondansetron, Compazine Pain: Tylenol, tramadol GI consulted and following EGD with normal esophagus, normal jejunum, healthy appearing mucosa of gastrojejunostomy biopsied Mesenteric US with findings highly suggestive of hemodynamically significant stenosis at the SMA origin Vascular consulted given post-prandial pain/nausea CTA obtained which noted nonspecific proctitis, no obstruction/pneumo, approx 50% stenosis at origin SMA WITHOUT evidence high-grade stenosis Message sent this morning for discussion Patient hungry/feeling well and wanting to advance diet AM 415 and have placed for low fiber/easy to chew for now and continue PPI/pepcid/carafate. Monitor for need for transfer for IR for potential stent if issues w/ diet advanced #Hypokalemia Potassium repleted and now WNL . BMP added today to ensure stable and will need f/u #Neurogenic claudication due to spinal stenosis Continue gabapentin 800mg TID, monitor fro reduction but CrCl improved from prior when I had. PT/OT consulted VTE Prophylaxis - low risk, also with hx GI bleeds in the past. No leg edema/evidence for DVT but will add SCDs Dispo: continued inpatient stay, monitoring advancement of diet to see about need for intervention to SMA but CTA ~50% and feeling well/tolerating current diet PT/OT consults pending to ensure no needs at dc Admission and Anticipated Discharge Date Admission Date: May 29, 2024 Supervising Physician Co-Signing Physician Notes The patient was not seen by me. The chart was reviewed. Case discussed with ALEXIS Rausch. Agree with assessment and plan Subjective Eval this morning, sitting up in bed. Feels well, tolerating diet without significant increase in discomfort. Reports feeling MUCH better than when she came in. Discussed vascular consult last evening, consideration to advance diet rather than pursue transfer at this time. SHe is EXCITED to advance her diet. Will see how it goes/if worsened may need to consider but discussed reasonable to attempt. No CP/SOB, nausea/vomiting. Waiting for therapy evaluations for possible rehab [facility]. Questions/concerns addressed at this time. Physical Exam 2 Physical Exam: General: 68yo female sitting up in bed, NAD, appears older than stated age HEENT: head atraumatic, normocephalic, mmm Resp: even/unlabored, on room air CV: NSR, faint systolic murmur, no pitting edema GI: +BS throughout, soft, mild tenderness to RUQ/epigastric region but without rebound/guarding : no charles MSK/Neuro: nonfocal, moves all extremities Psych: alert to person, place, time, events Results & Data Results & Data Vital Signs (Past 12 Hours) Vital Signs Temp Pulse Resp BP Pulse Ox O2 Del Method 06/04/24 07:35 36.6 C 57 L 16 101/61 94 Room Air Laboratory Results 05/31/24 05:54 05/31/24 05:54 Diagnostic Findings Abdomen/Pelvis CTA 06/03/24 09:35 CT angio abd pelvis wo/w con HISTORY: 68 years-old Female mesenteric stenosis follow-up study in a patient with elevated peak systolic velocities in the superior mesenteric artery described on the recent ultrasound from 05/30/2024 COMPARISON: Duplex venous Doppler 05/30/2024, CT abdomen and pelvis 05/27/2024 TECHNIQUE: CTA abdomen and pelvis was obtained with and without IV contrast. 3-D coronal and sagittal MIPS were obtained intermittently for review. All measurements were obtained according to NASCET criteria. A dose lowering technique was used consistent with the principals of CHARITO. FINDINGS: CTA: Heart is normal in size. No pericardial effusion. Normal caliber descending thoracic aorta. There is moderate atherosclerosis of the abdominal aorta without aneurysm or dissection. There is patency of the normal caliber common and external iliac arteries and imaged proximal femoral arteries. Mild stenosis at the origin of the celiac trunk there is approximately 50% stenosis at the origin of the superior mesenteric artery without dissection, occlusion or high-grade stenosis. There is at least mild stenosis at the origin of the inferior mesenteric artery. The bilateral renal arteries are patent. There is an accessory small right sided renal artery which demonstrates a degree of stenosis at its origin, difficult to quantify secondary to small caliber. CT ABDOMEN/pelvis: Right hemidiaphragmatic elevation with linear right basilar atelectasis versus scarring redemonstrated. There is no pneumatosis or pneumoperitoneum identified. Unremarkable spleen, moderately atrophic pancreas and adrenal glands. Cholecystectomy with likely postsurgical biliary ductal dilation redemonstrated. Unremarkable liver. There is mild cortical thinning of the kidneys without urolith or hydronephrosis. Mild nonspecific urinary bladder wall thickening. Hysterectomy. No lymphadenopathy. Prior gastric bypass. Circumferential wall thickening of the rectum with perirectal inflammation and small amount of pelvic ascites, progressed from prior. Mild to moderate colonic fecal retention. Noninflamed appendix. Degenerative postoperative changes of the spine. Healed chronic fracture deformities of the pelvic ring. IMPRESSION: 1. Findings suggestive of a nonspecific proctitis with small amount of pelvic ascites, new from the May 27, 2024 CT exam. 2. No bowel obstruction or pneumoperitoneum. 3. Atherosclerosis of the aorta without aneurysm. 4. There is approximately 50% stenosis at the origin of the superior mesenteric artery without evidence of high-grade stenosis. 5. Incidental findings as above. ACT 112: Negative or not required by law. The above report was generated using voice recognition software. It may contain grammatical, syntax or spelling errors. Electronically signed by: Jatin Madrid M.D. 06/03/2024 1:28 PM PG Care Time/CCT Total # of Minutes Spent Total Time Spent with Patient: Total time spent is greater than 50% in coordination of care (as documented) at patient's floor/unit and/or counseling patient: Coding Level of Care Code 58828 SUB INP/OBS CARE 3/50MIN Diagnoses Gastritis and duodenitis K29.90 Epigastric abdominal pain R10.13 Hypokalemia E87.6 Neurogenic claudication due to lumbar spinal stenosis M48.062
[2024-06-04 09:21] LABS: Prothrombin Time 11.1 Seconds (9.0-12.0)
[2024-06-04 09:26] LABS: Calcium 8.3 mg/dl (8.6-10.3); Magnesium 2.1 mg/dl (1.7-2.4); Potassium 3.6 mmol/L (3.5-5.1)
[2024-06-04 09:32] LABS: BUN Creatinine Ratio 7.7 (10-20); Creatinine Clr Calc Pharmacy 49.8 ml/min
--- NOTE | 2024-06-04 09:40 | Communication Note ---
Date of Service: June 04, 2024 CTA of mesenteric showed a widely patent celiac artery, inferior mesenteric artery and a 50% stenosis of her superior mesenteric artery. She does not have symptoms of chronic mesenteric ischemia. No intervention is needed for the SMA at this time.
[2024-06-04 11:17] LABS: Hematocrit (blood only) 38.6 % (37.0-47.0); Hemoglobin 12.7 g/dl (12.0-16.0); Mean Corpuscular Hemoglobin 30.2 pg (25.0-34.0); Mean Corpuscular Hgb Conc 32.9 g/dL (32.0-36.0); Mean Corpuscular Volume 91.7 fL (80.0-100.0); Mean Platelet Volume 10.2 fL (9.4-12.4); Platelet Count 244 K/uL (130-400); RDW Standard Deviation 49.8 fL (36.4-46.3); Red Blood Count 4.21 M/uL (4.20-5.40); White Blood Count 7.73 K/ul (4.8-10.8)
--- NOTE | 2024-06-04 14:48 | XRay Report ---
KUB HISTORY: eval stool burden COMPARISON STUDY: None FINDINGS: There is moderate retained stool. No bowel obstruction seen. There is lower lumbar metallic fusion. There are right upper quadrant surgical clips and surgical clips near the GE junction. IMPRESSION: Moderate retained stool. ACT 112: Negative or not required by law. The above report was generated using voice recognition software. It may contain grammatical, syntax o r spelling errors. Electronically signed by: Jaxson Oneill M.D. 06/04/2024 2:46 PM
[2024-06-04] MEDS: bisacodyL 10 MG SUPP PR PRN (18:13)
[2024-06-04] MEDS: SENNA 8.6 MG TAB PO SCH (21:31)
[2024-06-04] MEDS: DOCUSATE SODIUM 100 MG CAP PO SCH (21:31)
[2024-06-04] MEDS: BREXPIPRAZOLE 0.5 MG PO SCH (21:32)
[2024-06-05] MEDS ORDERED: MoRPHine SULFATE 2 MG/ML CARP IV PRN (00:05)
[2024-06-05] MEDS: MoRPHine SULFATE 2 MG/ML CARP IV PRN ×2 (00:22→09:49)
--- NOTE | 2024-06-05 07:56 | Hospitalist Progress Note ---
Date of Service June 05, 2024 Assessment & Plan (1) Gastritis and duodenitis: (2) Epigastric abdominal pain: (3) Hypokalemia: (4) Neurogenic claudication due to lumbar spinal stenosis: Plan 67-year-old female with past medical history of depression, low back pain, bronchiectasis, Fred-en-Y gastric bypass 7 years ago, GI bleed and duodenal abscess in 2023. She presented to the ER with epigastric pain with associated nausea (no vomiting), no radiating symptoms, fever, chills, change in bowel movements, or change in diet. She does report ~10-15 lb weight loss in past [address] A/P unremarkable on admission. Already taking PPI and Carafate at home. #SMA stenosis / Suspected gastritis/duodenitis GI consulted s/p EGD 05/[address] Horne -- EGD with normal esophagus, normal jejunum, healthy appearing mucosa of gastrojejunostomy biopsied Remains on protonix BID, famotidine BID, carafate ACHS Mesenteric US w/ concerns for possible SMA stenosis, vascular consulted and obtained CTA which noted approx 50% stenosis at origin SMA but WITHOUT evidence for high-grade stenosis and vascular did not feel needing intervention for stent. Tolerating full liquids without issue and wanted diet advanced AM 06/04 and was advanced to low fiber/easy to chew diet and tolerated lunch/dinner without significant issue HOWEVER reported pain overnight requiring morphine IV for control CONSTIPATION also could be contributing -->Notable patient has NOT moved bowels while inpatient --> suppository ordered, enema for today. KUB w/o obstruction but notes retention. Monitor pain w/ bowel movement Also notable patient had her REXULTI 0.5mg HS RESUMED last evening prior to reports of pain and further discussion w/ patient and was on Abilify in the past but SWITCHED TO REXULTI in the past month and reports that's when her symptoms started. ?related to adverse side effect from medication. Reported abilify was effective and unclear why changed. Notified psych for discussion but could be related and consideration to switch back to Abilify but will hold both for now GI re-notified to see today, appreciate recs/assistance Also notified cardiology for consultation given review of labs on admission w/ trop 45.8 and EKG w/ some anterolateral depressions along w/ QTC prolongation (additional reason to hold the rexulti) and repeat troponin down to ~19 and denies CP but ?if anginal equivalent. ECHO ordered to eval any wma. Remains inpatient at this time. If no improvement in pain w/ moving bowels and HOLDING her Rexulti, may need to consider calling tertiary center for possible transfer for eval/possible IR #Hypokalemia Potassium repleted and now WNL however borderline and will order 20meq PO x 1. Mag wnl and monitor BMP in AM #Neurogenic claudication due to spinal stenosis Continued on gabapentin 800mg TID CrCl 52 and UTD recs max 1800mg/day --> decreased to 600mg TID for now based on renal function VTE Prophylaxis - low risk, also with hx GI bleeds in the past chemoprophylaxis deferred. SCDs added. No significant leg edema/calf tenderness but will monitor Dispo: continued inpatient stay, ECHO ordered to eval any wma, cards consulted and GI to weigh back in Rexulti placed on HOLD Admission and Anticipated Discharge Date Admission Date: May 29, 2024 Supervising Physician Co-Signing Physician Notes The patient was not seen by me. The chart was reviewed. Case discussed with ALEXIS Rausch. Agree with assessment and plan Subjective Eval this morning, had some increased abdominal pain/LUQ/epigastric following eating last evening. Notable hasn't moved her bowels since admission, just got enema and montioring response. Discussed new medication as Rexulti appears to have been resumed last evening prior to symptoms and interestingly she reports having been switched to Rexulti from Abilify about a month ago when symptoms began to worsen. EKG w/ some depressions, no CP/SOB reported or radiation to arms/jaw but will obtain ECHO to look for WMA. Discussed HOLDING OFF further rexulti for now, also notified GI. If ongoing sx despite moving her bowels and cardiac work-up negative will plan to reach out to tertiary to consider transfer for further eval given her complicated surgical hx Questions/concerns addressed at this time. Physical Exam 2 Physical Exam: General: 68yo female laying on her side, just got enema, NAD but reporting intermittent LUQ/epigastric pain, no significant rebound/guarding, does have some abdominal distension HEENT; head atraumatic, normocephalic, mmm, trachea midline Resp: even/unlabored, no wheezing/tachypnea or cough, on room air CV: NSR, +systolic murmur but no pitting edema, calves nontender, pulses present GI: +BS but slight distension, soft, LUQ/epigastric tenderness without rebound/guarding or peritoneal signs ; no charles MSK/Neuro: nonfocal, moves all extremities Psych: alert to person, place, time, events Results & Data Results & Data Vital Signs (Past 12 Hours) Vital Signs Temp Pulse Resp BP Pulse Ox O2 Del Method 06/05/24 07:23 36.8 C 63 16 104/59 L 95 Room Air 06/04/24 20:01 36.8 C 60 12 102/70 98 Room Air Laboratory Results 06/04/24 10:44 06/05/24 08:26 Troponin 19.2 Diagnostic Findings KUB X-Ray 06/04/24 13:41 KUB HISTORY: eval stool burden COMPARISON STUDY: None FINDINGS: There is moderate retained stool. No bowel obstruction seen. There is lower lumbar metallic fusion. There are right upper quadrant surgical clips and surgical clips near the GE junction. IMPRESSION: Moderate retained stool. ACT 112: Negative or not required by law. The above report was generated using voice recognition software. It may contain grammatical, syntax or spelling errors. Electronically signed by: Jaxson Oneill M.D. 06/04/2024 2:46 PM KUB X-Ray 06/05/24 07:55 KUB HISTORY: f/u constipation, abdominal pain COMPARISON STUDY: 06/04/2024 FINDINGS: Stable upper abdominal surgical clips and fusion of the lower lumbar spine. There is mild retained stool. No bowel obstruction seen. No gross free air. IMPRESSION: Mild retained stool, improved. ACT 112: Negative or not required by law. The above report was generated using voice recognition software. It may contain grammatical, syntax or spelling errors. Electronically signed by: Jaxson Oneill M.D. 06/05/2024 8:57 AM PG Care Time/CCT Total # of Minutes Spent Total Time Spent with Patient: Total time spent is greater than 50% in coordination of care (as documented) at patient's floor/unit and/or counseling patient: Coding Level of Care Code 32436 SUB INP/OBS CARE 3/50MIN Diagnoses Gastritis and duodenitis K29.90 Epigastric abdominal pain R10.13 Hypokalemia E87.6 Neurogenic claudication due to lumbar spinal stenosis M48.062
--- NOTE | 2024-06-05 08:58 | XRay Report ---
KUB HISTORY: f/u constipation, abdominal pain COMPARISON STUDY: 06/04/2024 FINDINGS: Stable upper abdominal surgical clips and fusion of the lower lumbar spine. There is mild r etained stool. No bowel obstruction seen. No gross free air. IMPRESSION: Mild retained stool, improved. ACT 112: Negative or not required by law. The above report was generated using voice recognition software. It may contain grammatical, syntax o r spelling errors. Electronically signed by: Jaxson Oneill M.D. 06/05/2024 8:57 AM
[2024-06-05 09:00] LABS: Albumin Level 3.1 gm/dl (3.4-5.0); Bilirubin,Total 0.4 mg/dl (0.2-1.0); Calcium 8.3 mg/dl (8.6-10.3); Magnesium 2.2 mg/dl (1.7-2.4); Potassium 3.5 mmol/L (3.5-5.1)
[2024-06-05 09:06] LABS: BUN Creatinine Ratio 9.2 (10-20); Creatinine Clr Calc Pharmacy 52.9 ml/min; Total Protein 5.3 gm/dl (6.0-8.3); Troponin I High Sensitivity 19.2 pg/ml (0-14)
[2024-06-05] MEDS: POTASSIUM CHLORIDE CRTAB 20 MEQ TABCR PO STA (11:50)
--- NOTE | 2024-06-05 12:52 | Gastroenterology Progress Note ---
Date of Service June 05, 2024 Assessment & Plan (1) Abdominal pain: Plan: -Treat constipation. Added Miralax 17 gm BID in addition to Senna tablet daily. She is ordered prn Dulcolax suppositories. Primary team has patient on Colace as well. -Continue PPI. -Extensive work-up without significant findings thus far. Admission and Anticipated Discharge Date Admission Date: May 29, 2024 Supervising Physician Co-Signing Physician Notes I examined the patient and reviewed patient's chart , laboratory data and imaging studies. I agree with with assessment and plan of care as suggested by advanced practice provider. The patient has ongoing postprandial abdominal pain. Vascular surgery evaluation and CTA suggests hemodynamically insignificant SMA stenosis. This does not explain patient's symptoms as per vascular surgery consultation. Abdominal pain could be related to constipation, or possibly medications. Patient reported lessening of pain when Rexulti was held. Bowel regimen started. Hold Rexulti. Will follow Subjective GI re-consulted due to ongoing abdominal pain. No change since GI evaluation last week. No findings on EGD to explain symptoms. Imaging concerning for SMA stenosis, but was evaluated by vascular and does not require any intervention. She has not moved her bowels in 10 days. She notes she has abdominal pain after eating. KUB with retained stool. History of gastric bypass. Not sure date of last colonoscopy. No other changes/concerns. Review of Systems Gastrointestinal: + abdominal pain and + constipation Physical Exam Gastrointestinal (Abdomen): normal bowel sounds, soft, nontender, no hepatosplenomegaly Results & Data Results & Data Vital Signs (Past 12 Hours) Vital Signs Temp Pulse Resp BP Pulse Ox O2 Del Method 06/05/24 07:23 36.8 C 63 16 104/59 L 95 Room Air PG Care Time/CCT Total # of Minutes Spent Total Time Spent with Patient: Total time spent is greater than 50% in coordination of care (as documented) at patient's floor/unit and/or counseling patient: Coding Level of Care Code 99802 SUB INP/OBS CARE 2/35MIN Diagnoses Abdominal pain R10.9
[2024-06-05] MEDS: POLYETHYLENE (MIRALAX) 17 GM PACK PO SCH (13:37)
[2024-06-05] MEDS: GABAPENTIN 600 MG TAB PO SCH (13:52)
--- NOTE | 2024-06-05 14:12 | Cardiology Consultation ---
Date of Consultation June 05, 2024 Assessment & Plan (1) Abdominal pain: (2) Elevated troponin: (3) Abnormal EKG: Plan 1. Epigastric pain: I think her pain is simply epigastric. I do not believe she is having symptoms of chest discomfort. Her episodes are extended in durat ion without any significant elevation in her cardiac biomarkers. I think we can discount her symptoms as noncardiac. 2. Elevated troponin: Very mild elevation. Think this is related to any true ischemia given the extended duration of her symptoms. No other symptoms consistent with angina or coronary insufficiency prior to presentation. 3. Abnormal EKG: This is certainly concerning. Her EKG at the time of presentation demonstrated prolonged QTc. This EKG did not demonstrate the same abnormality. She does not have an electrolyte abnormality. Essentially normal biomarkers to suggest the absence of ischemia. The next most likely explanation is medication. She has been getting continued doses of ondansetron and occasional doses of promethazine. I would stop both of these medications and repeat the EKG in a few hours. History of Present Illness Reason for Consultation: Epigastric pain, abnormal troponin Requesting Physician: Allen Attending Physician: Aime Villa MD History of Present Illness The patient is a 68-year-old woman without a known history of cardiac disease who presented to the hospital with symptoms of epigastric pain. Patient states that the morning of admission she began to have symptoms of epigastric discomfort. This awoke her from sleep. It was present in the epigastrium without radiation. It is fairly severe in nature. It was associated with some mild nausea, but no vomiting. She did not endorse other symptoms such as breathing difficulty or actual chest pain. There was no dizziness or lightheadedness. No fevers or chills. She tried some home remedies but the symptoms failed to resolve. It lasted for a couple of hours. She is continue to have the symptoms throughout her hospitalization including last night. There seems to be some association with eating as it tends to occur shortly afterwards. However, last evening she had discomfort in the middle of the night again. She does state that Tylenol and Pepcid seem to improve her symptoms after a period of time. She does take omeprazole every day. She claims to be an active individual who was able to do routine housework and yard work. She did not endorse symptoms of chest discomfort with this activity. She does not have limiting dyspnea. She denies dizziness or lightheadedness. She does not have any sense of palpitations and can ever recall any episodes of syncope. Allergies Allergy/AdvReac Type Severity Reaction Status Date / Time No Known Allergies Allergy Verified 05/27/24 20:29 Home Medications Medication Instructions Recorded Confirmed Type cyanocobalamin (vitamin B-12) 1,000 mcg PO QAM 07/23/19 05/27/24 History 1,000 mcg tablet donepezil 10 mg tablet (Aricept) 10 mg PO HS 07/23/19 05/27/24 History pantoprazole 40 mg tablet,delayed 40 mg PO DAILY 07/23/19 05/27/24 History release (Protonix) topiramate 100 mg tablet (Topamax) 100 mg PO BID 07/23/19 05/27/24 History nebulizer accessories #1 ea 03/01/22 09/14/22 Rx rizatriptan 10 mg tablet 10 mg PO DAILY PRN MIGRAINE 09/15/22 05/27/24 History zolpidem 10 mg tablet 10 mg PO HS PRN Sleep 09/15/22 05/27/24 History sucralfate 1 gram tablet 1 g PO QID #100 tabs 09/17/22 05/27/24 Rx tramadol 50 mg tablet 50 mg PO Q6H PRN pain, moderate 11/10/22 05/27/24 Rx #30 tabs gabapentin 800 mg tablet 800 mg PO TID 05/17/23 05/27/24 History lidocaine 5 % topical patch 1 patch topical DAILY PRN Pain 05/17/23 05/27/24 History albuterol sulfate 0.63 mg/3 mL 0.63 mg inhalation BID PRN 05/27/24 05/27/24 History solution for nebulization shortness of breath or wheezing brexpiprazole 0.5 mg tablet 0.5 mg PO HS 05/27/24 05/27/24 History (Rexulti) buspirone 10 mg tablet 20 mg PO TID 05/27/24 05/27/24 History sodium chloride 7 % for 4 ml inhalation BID PRN WHEN USING 05/27/24 05/27/24 History nebulization (Hyper-Denys) NEBULIZER Patient History Medical History Neurogenic claudication due to lumbar spinal stenosis Memory changes History Since TIA (2008) - mild- no recent issues per patient (no follow up with neurology needed) History of recent blood transfusion 09/16/22 @ [facility]--2 units PRBC for upper GI bleed Seizure disorder Chronic low back pain Insomnia Chronic cough Stable Elevated diaphragm Peripheral neuropathy Hands and feet Degenerative disc disease Chronic back pain Lumbar facet arthropathy Spinal stenosis Osteoporosis GERD (gastroesophageal reflux disease) Well controlled and stable Seizure "Staring seizures"- no issues since 2010 per patient Transient ischemic attack (TIA) 2008- no current issues History of high blood pressure Bronchiectasis hx Surgical History Hx of cataract extraction bilat History of total knee replacement RT/LEFT History of esophagogastroduodenoscopy (EGD) 09/16/22 @ [facility] History of colonoscopy H/O total hysterectomy History of cholecystectomy History of tonsillectomy History of tooth extraction History of gastric bypass Family History Aunt Diabetes Grandmother (Paternal) Diabetes Other No family history of adverse response to anesthesia Social History Smoking Status: Never smoker Second Hand Exposure: No; Do You Dip or Chew Tobacco: No; Hx Alcohol Use: No Hx Substance Use: No Preferred Language: Serbian Communication Ability: Effective Missile Mechanic Required: No Beliefs That Will Affect Care: None Current Living Situation: Alone Other Information That Helps Us Care for You: No Feels Safe at Home: Yes Safety Concerns: Feels Safe At This Time Assistive Devices: None Review of Systems Review of Systems: Per HPI Physical Exam Physical Exam: She is alert and oriented x3. Mood affect appear normal. She answered all questions appropriately. HEENT: Sclerae are anicteric. Pupils are equal and reactive to light and accommodation. Extraocular movements were intact. Neuro: Cranial nerves intact Lungs: Some crackles in the right base. No expiratory wheezing. Normal respiratory effort. Cardiac: The rhythm was regular. S1 and S2 were normal. There are no murmurs on examination. The PMI was not markedly displaced on palpation. Extremities: Patient has bilateral radial pulses that are equal in intensity. There is no evidence cyanosis or clubbing. There was no evidence of significant peripheral edema bilaterally. Skin: There are no rashes noted on examination today. Results & Data Vital Signs (Past 12 Hours) Vital Signs Temp Pulse Resp BP Pulse Ox O2 Del Method 06/05/24 07:23 36.8 C 63 16 104/59 L 95 Room Air Laboratory Results Abnormal Lab Results 06/05/24 08:26 Sodium 140 Potassium 3.5 Chloride 113 H Carbon Dioxide 20 L Anion Gap 7 BUN 9 Creatinine 0.98 Est Cr Clr Drug Dosing 52.9 eGFR 63.66 BUN/Creatinine Ratio 9.2 L Glucose 73 Calcium 8.3 L Magnesium 2.2 Total Bilirubin 0.4 Direct Bilirubin 0.0 AST 49 H ALT 17 Alkaline Phosphatase 155 H Troponin I High Sens 19.2 H Total Protein 5.3 L Albumin 3.1 L PG Care Time/CCT Total # of Minutes Spent Total Time Spent with Patient: Total time spent is greater than 50% in coordination of care (as documented) at patient's floor/unit and/or counseling patient: Coding Level of Care Code 06573 INT INP/OBS CARE 3/75MIN Diagnoses Abdominal pain R10.9 Elevated troponin R79.89 Abnormal EKG R94.31
[2024-06-05 15:48] LABS: Appearance Urine Clear (Clear); Bilirubin Urine Negative (Negative); Blood Urine Negative (Negative); Color Urine Yellow; Glucose Urine UA Negative (Negative); Ketones Urine Negative (Negative); Leukocyte Esterase Urine Negative (Negative); Nitrite Urine Negative (Negative); Protein Urine Negative (Negative); Specific Gravity Urine 1.008 (1.000-1.030); Urobilinogen Urine Negative (Negative)
[2024-06-05] MEDS: NYSTATIN POWDER 15GM BTL EXT PRN (18:32)
--- NOTE | 2024-06-05 18:32 | Electrocardiogram Report ---
Test Reason : Blood Pressure : */* mmHG Vent. Rate : 59 BPM Atrial Rate : 59 BPM P-R Int : 172 ms QRS Dur : 90 ms QT Int : 484 ms P-R-T Axes : 64 59 186 degrees QTcB Int : 479 ms Sinus bradycardia Prolonged QT Abnormal ECG When compared with ECG of 28-May-2024 11:14, QT has shortened Confirmed by Levi Sauer ([id number]) on 06/05/2024 6:32:01 PM Referred By: REFERRED SELF Confirmed By: Levi Sauer
--- NOTE | 2024-06-05 18:33 | Electrocardiogram Report ---
Test Reason : Blood Pressure : */* mmHG Vent. Rate : 65 BPM Atrial Rate : 65 BPM P-R Int : 168 ms QRS Dur : 88 ms QT Int : 478 ms P-R-T Axes : 67 47 187 degrees QTcB Int : 497 ms Normal sinus rhythm Prolonged QT Abnormal ECG When compared with ECG of 05-Jun-2024 09:13, (unconfirmed) No significant change was found Confirmed by Levi Sauer ([id number]) on 06/05/2024 6:33:21 PM Referred By: REFERRED SELF Confirmed By: Levi Sauer
[2024-06-05] MEDS: MAGNESIUM SULFATE / D5W 1 GM/100 ML BAG IV ONE (18:47)
--- NOTE | 2024-06-05 21:22 | XCELERA ---
[id number]
--- NOTE | 2024-06-06 08:07 | Hospitalist Progress Note ---
Date of Service June 06, 2024 Assessment & Plan (1) Gastritis and duodenitis: (2) Epigastric abdominal pain: (3) Hypokalemia: (4) Neurogenic claudication due to lumbar spinal stenosis: (5) Elevated troponin: (6) Abnormal EKG: (7) Mesenteric artery stenosis: Plan 67-year-old female with past medical history of depression, low back pain, bronchiectasis, Fred-en-Y gastric bypass 7 years ago, GI bleed and duodenal abscess in 2023. She presented to the ER with epigastric pain with associated nausea (no vomiting), no radiating symptoms, fever, chills, change in bowel movements, or change in diet. She does report ~10-15 lb weight loss in past [address] A/P unremarkable on admission. Already taking PPI and Carafate at home. #SMA stenosis / Suspected gastritis/duodenitis GI consulted s/p EGD 05/[address] Horne -- EGD with normal esophagus, normal jejunum, healthy appearing mucosa of gastrojejunostomy biopsied Protonix BID, famotidine BID, carafate ACHS Mesenteric US concerns for SMA stenosis (see prior notes), Vasc consulted and CTA noting ~50% stenosis origin SMA but w/o high grade stenosis and no intervention felt needed by vascular Patient wanted diet advanced and tolerated 06/04 but rexulti resumed in evening and developed worsening pain and morphine resumed See below regarding EKG/QTC prolongation Tolerating diet but having ongoing pain but notable CONSTIPATION and hasn't moved bowels in >1wk. Enema/suppository. KUB w/o obstruction or ileus and reports passing gas and continue bowel regimen and monitor for improvement in pain w/ movement. Re-consulted GI to weigh in, miralax BID scheduled. Added relistor today for likely opioid related constipation. Appreciate additional recs/assistance from GI Oxycodone 5mg added/tramadol STOPPED as not used since 06/04. Morphine available but avoid as able Maalox as needed for dyspepsia, avoid QTC prolonging agents *If ongoing pain despite changes below and moving bowels may need to reach out to tertiary to discuss alternative eval/IR for eval given hx Dulafoy lesion w/ clipping summer 2022/hx Fred-en-Y gastic bypass ~8yrs ago #Abnormal EKG - w/ mild troponin elevation on admission 45.8 and review EKG w/ significant ST abn/QTC prolongation Review of meds w/ scheduled compazine and frequent Zofran and have been STOPPED. Notable REXULTI new med in past month when having sx and was resumed x 1 PM 06/04 and HOLDING FURTHER Mag IV provided. Repeat trop 19 and trended down, again likely ischemia in setting of above and possibly medication related Cardiology consulted ECHO w/o wma, normal EF. Monitor repeat EKG, keep electrolyte replete. Cards did not feel cardiac etiology but I would consider outpt stress testing (or sooner if develops CP or cardiac sx) #Hypokalemia normalized and staying stable. monitor BMP/hydration status #Neurogenic claudication due to spinal stenosis Continued on gabapentin 800mg TID but reduced to 600mg TID based on renal function as prior recs for such Depression - continues on buspar, prior on abilify (see prior notes) but recent switch to rexulti as noted. QTC prolonged on admission (improved on repeat EKG but placing on HOLD. Would not resume for now/consider ativan if needed VTE Prophylaxis - hx GI bleeds in the past chemoprophylaxis deferred. SCDs ordered and no evidence for DVT and ambulating in room Dispo: continued inpatient stay, working on bowels, monitoring EKG and hopeful dc if pain controlled w/ moving bowels on PO medications. If ongoing issues will need to consider transfer given prior admissions/significant surgical hx w/ gastric bypass and hx needing IR Admission and Anticipated Discharge Date Admission Date: May 29, 2024 Supervising Physician Co-Signing Physician Notes The patient was not seen by me. The chart was reviewed. Case discussed with ALEXIS Rausch. Agree with assessment and plan Subjective Eval this afternoon at lunch, eating, did get some morphine around 1pm. Has not taken the tramadol for several days as reports not helpful. Passing some gas, agrees to enema following lunch. Pain remains in epigastric region. No CP/radiation. Discussed if no improvement in sx w/ PO pain control and moving bowels will call tertiary but if improvement in sx and tolerating diet w/ moving bowels can dc on PO pain control and PPI/pepcid/carafate tomorrow or next day. Agreeable to plan. Questions/concerns addressed at this time. Physical Exam 2 Physical Exam: General: 68yo female, looks older than stated age, sitting up in bed eating lunch, reports just getting morphine about an hour ago, NAD but ongoing epigastric discomfort at times Head atraumatic, normocephalic, mmm, trachea midline Resp: even/unlabored, no wheezing/tachypnea or cough, on room air 96% CV: NSR, +systolic murmur but no pitting edema, calves nontender, pulses present GI: +BS throughout but slight distension, +epigastric discomfort but no guarding/rigidity and soft, no peritoneal signs no charles MSK/Neuro: nonfocal, moves all extremities Psych: alert to person, place, time, events Results & Data Results & Data Vital Signs (Past 12 Hours) Vital Signs Temp Pulse Resp BP Pulse Ox O2 Del Method 06/06/24 07:38 36.4 C L 73 16 125/65 96 Room Air 06/05/24 21:24 36.8 C 80 12 102/65 95 Room Air Laboratory Results 06/06/24 08:36 06/06/24 08:36 Mag 2.2 ALP decreased to 128 TB/AST/ALT wnl UA negative Diagnostic Findings KUB X-Ray 06/05/24 07:55 KUB HISTORY: f/u constipation, abdominal pain COMPARISON STUDY: 06/04/2024 FINDINGS: Stable upper abdominal surgical clips and fusion of the lower lumbar spine. There is mild retained stool. No bowel obstruction seen. No gross free air. IMPRESSION: Mild retained stool, improved. ACT 112: Negative or not required by law. The above report was generated using voice recognition software. It may contain grammatical, syntax or spelling errors. Electronically signed by: Jaxson nOeill M.D. 06/05/2024 8:57 AM PG Care Time/CCT Total # of Minutes Spent Total Time Spent with Patient: Total time spent is greater than 50% in coordination of care (as documented) at patient's floor/unit and/or counseling patient: Coding Level of Care Code 30654 SUB INP/OBS CARE 3/50MIN Diagnoses Gastritis and duodenitis K29.90 Epigastric abdominal pain R10.13 Hypokalemia E87.6 Neurogenic claudication due to lumbar spinal stenosis M48.062 Elevated troponin R79.89 Abnormal EKG R94.31 Mesenteric artery stenosis K55.1
[2024-06-06 09:07] LABS: Basophils # (auto) 0.03 K/uL (0.00-0.20); Basophils % (auto) 0.3 %; Eosinophils # (auto) 0.23 K/uL (0.00-0.50); Eosinophils % (auto) 2.6 %; Hematocrit (blood only) 38.6 % (37.0-47.0); Hemoglobin 12.8 g/dl (12.0-16.0); Immature Granulocytes # (auto) 0.03 K/uL (0.01-0.20); Immature Granulocytes % (auto) 0.3 %; Lymphocytes # (auto) 1.67 K/uL (1.20-3.40); Lymphocytes % (auto) 18.7 %; Mean Corpuscular Hemoglobin 30.9 pg (25.0-34.0); Mean Corpuscular Hgb Conc 33.2 g/dL (32.0-36.0); Mean Corpuscular Volume 93.2 fL (80.0-100.0); Mean Platelet Volume 10.1 fL (9.4-12.4); Monocytes # (auto) 0.59 K/uL (0.11-0.59); Monocytes % (auto) 6.6 %; Neutrophils # (auto) 6.36 K/uL (1.40-6.50); Neutrophils % (auto) 71.5 %; Platelet Count 275 K/uL (130-400); RDW Coefficient of Variation 14.9 % (11.5-14.5); RDW Standard Deviation 51.3 fL (36.4-46.3); Red Blood Count 4.14 M/uL (4.20-5.40); White Blood Count 8.91 K/ul (4.8-10.8)
--- NOTE | 2024-06-06 09:21 | Electrocardiogram Report ---
Test Reason : Blood Pressure : */* mmHG Vent. Rate : 63 BPM Atrial Rate : 63 BPM P-R Int : 168 ms QRS Dur : 88 ms QT Int : 476 ms P-R-T Axes : 59 52 175 degrees QTcB Int : 487 ms Normal sinus rhythm Prolonged QT Abnormal ECG When compared with ECG of 05-Jun-2024 13:57, No significant change was found Confirmed by Levi Sauer ([id number]) on 06/06/2024 9:21:34 AM Referred By: REFERRED SELF Confirmed By: Levi Sauer
[2024-06-06 09:33] LABS: Bilirubin,Total 0.4 mg/dl (0.2-1.0); Calcium 8.1 mg/dl (8.6-10.3); Magnesium 2.2 mg/dl (1.7-2.4); Potassium 4.1 mmol/L (3.5-5.1)
[2024-06-06 09:39] LABS: Albumin Globulin Ratio 1.4 (0.9-2); BUN Creatinine Ratio 11.3 (10-20); Creatinine Clr Calc Pharmacy 53.4 ml/min; Globulin 2.2 gm/dl (2.5-4.0); Total Protein 5.2 gm/dl (6.0-8.3)
--- NOTE | 2024-06-06 10:19 | Gastroenterology Progress Note ---
Date of Service June 06, 2024 Assessment & Plan Admission and Anticipated Discharge Date Admission Date: May 29, 2024 Subjective Patient is a 68 yo female with persistent epigastric pain. EGD was performed last week without findings. Results & Data Results & Data Vital Signs (Past 12 Hours) Vital Signs Temp Pulse Resp BP Pulse Ox O2 Del Method 06/06/24 07:38 36.4 C L 73 16 125/65 96 Room Air PG Care Time/CCT Total # of Minutes Spent Total Time Spent with Patient: Total time spent is greater than 50% in coordination of care (as documented) at patient's floor/unit and/or counseling patient: Coding
--- NOTE | 2024-06-06 13:36 | Electrocardiogram Report ---
Test Reason : Blood Pressure : */* mmHG Vent. Rate : 68 BPM Atrial Rate : 68 BPM P-R Int : 144 ms QRS Dur : 84 ms QT Int : 420 ms P-R-T Axes : 62 50 175 degrees QTcB Int : 447 ms Normal sinus rhythm Abnormal ECG When compared with ECG of 05-Jun-2024 18:16, No significant change was found Confirmed by Levi Sauer ([id number]) on 06/06/2024 1:36:12 PM Referred By: REFERRED SELF Confirmed By: Levi Sauer
--- NOTE | 2024-06-06 14:06 | Gastroenterology Progress Note ---
Date of Service June 06, 2024 Assessment & Plan (1) Abdominal pain: Plan: Abdominal pain, possibly multifactorial. No significant SMA stenosis as per recent CTA. Upper endoscopy shows status post gastrojejunostomy. No other mucosal abnormalities. The patient has a history of gastric bypass. Constipation, the patient is on MiraLAX, senna, docusate, none of which are very effective. She could benefit either from Linzess or Amitiza however these are not on the formulary. Try Relistor sq qod. Admission and Anticipated Discharge Date Admission Date: May 29, 2024 Subjective Postprandial abdominal pain. Somehow improved. No bowel movement for 7 days. On tramadol which improves pain. Started on morphine and oxycodone. Fair. Denies vomiting. Review of Systems Review of Systems: Constitutional: Denies weight loss, chills, fever, fatigue. Respiratory: Denies cough, denies shortness of breath. Cardiovascular: Denies chest pain and palpitations. Gastrointestinal: As per history of present illness. Physical Exam Physical Exam: Constitutional: Older than stated age, vitals as above Respiratory: normal respiratory effort, lungs clear to auscultation Cardiovascular: RRR, no murmur, no edema Gastrointestinal (Abdomen): normal bowel sounds, soft, nontender, no hepatosplenomegaly. No vascular bruit. Neurological: Oriented x 3, grossly no focal abnormalities, speech is intact. Results & Data Results & Data Vital Signs (Past 12 Hours) Vital Signs Temp Pulse Resp BP Pulse Ox O2 Del Method 06/06/24 07:38 36.4 C L 73 16 125/65 96 Room Air PG Care Time/CCT Total # of Minutes Spent Total Time Spent with Patient: Total time spent is greater than 50% in coordination of care (as documented) at patient's floor/unit and/or counseling patient: Coding Level of Care Code 63294 SUB INP/OBS CARE 2/35MIN Diagnoses Periumbilical abdominal pain R10.33 Abdominal location: periumbilical (1) Abdominal pain Abdominal location: periumbilical Qualified Code(s): R10.33 - Periumbilical pain
[2024-06-06] MEDS: MAGNESIUM HYDROXIDE SUSP 30 ML UDC PO PRN (14:24)
[2024-06-06] MEDS: SODIUM CHLORIDE 0.9% 250 ML IV ONE ×2 (14:43→16:08)
--- NOTE | 2024-06-06 14:45 | Communication Note ---
Date of Service: June 06, 2024 RN notified of BP low this afternoon but patient alert/oriented w/ HR 79 and SpO2 96% without reports dizziness/other. 250cc bolus to be provided/monitor on repeat. Additoinal 1gm iv mag (level wnl) given EKG and continue to monitor. If any issues, low threshold to move to monitored bed but no CP/SOB reported Note is on topamax 100mg BID at baseline and may need to consider holding pending repeat values
[2024-06-06] MEDS: MAGNESIUM SULFATE / D5W 1 GM/100 ML BAG IV ONE (15:04)
[2024-06-06] MEDS: METHYLNALTREXONE BROMIDE 12 MG/0.6 ML VIAL SQ SCH (15:54)
[2024-06-06] MEDS: ACETAMINOPHEN 500 MG TAB PO ONE (16:35)
--- NOTE | 2024-06-06 17:15 | Electrocardiogram Report ---
Test Reason : Blood Pressure : */* mmHG Vent. Rate : 72 BPM Atrial Rate : 72 BPM P-R Int : 170 ms QRS Dur : 84 ms QT Int : 420 ms P-R-T Axes : 65 62 183 degrees QTcB Int : 460 ms Normal sinus rhythm Abnormal ECG When compared with ECG of 06-Jun-2024 10:01, No significant change was found Confirmed by Levi Sauer ([id number] on 06/06/2024 5:15:40 PM Referred By: REFERRED SELF Confirmed By: Levi Sauer
[2024-06-06] MEDS: DEXTROSE 5% 500 ML IV SCH (17:31)
[2024-06-06] MEDS: oxyCODONE HCL IR 5 MG TAB (IMMEDIATE RELEASE) PO PRN (21:35)
--- NOTE | 2024-06-07 08:45 | Hospitalist Progress Note ---
Date of Service June 07, 2024 Assessment & Plan (1) Gastritis and duodenitis: Plan: s/p EGD 05/[address] Horne -- EGD with normal esophagus, normal jejunum, healthy appearing mucosa of gastrojejunostomy biopsied Protonix BID, famotidine BID, carafate ACHS Mesenteric US concerns for SMA stenosis (see prior notes), Vasc consulted and CTA noting ~50% stenosis origin SMA but w/o high grade stenosis and no intervention felt needed by vascular Patient wanted diet advanced and tolerated 06/04 but rexulti resumed in evening and developed worsening pain and morphine resumed See below regarding EKG/QTC prolongation Tolerating diet but having ongoing pain but notable CONSTIPATION and hasn't moved bowels in >1wk. Enema/suppository. KUB w/o obstruction or ileus and reports passing gas and continue bowel regimen and monitor for improvement in pain w/ movement. Re-consulted GI to weigh in, miralax BID scheduled. Added relistor today for likely opioid related constipation. Appreciate additional recs/assistance from GI GI consult appreciated, no significant SMA stenosis, no mucosal abnormalities on EGD Constipation, con't miralax, senna docusate, added Relistor Encourage ambulation. (2) Epigastric abdominal pain: (3) Hypokalemia: Plan: -replated (4) Neurogenic claudication due to lumbar spinal stenosis: Plan: Continued on gabapentin 800mg TID but reduced to 600mg TID based on renal function (5) Elevated troponin: Plan: - w/ mild troponin elevation on admission 45.8 and review EKG w/ significant ST abn/QTC prolongation Review of meds w/ scheduled compazine and frequent Zofran and have been STOPPED. Notable REXULTI new med in past month when having sx and was resumed x 1 PM 06/04 and HOLDING FURTHER Mag IV provided. Repeat trop 19 and trended down, again likely ischemia in setting of above and possibly medication related Cardiology consulted ECHO w/o wma, normal EF. (6) Abnormal EKG: (7) Mesenteric artery stenosis: Plan 67-year-old female with past medical history of depression, low back pain, bronchiectasis, Fred-en-Y gastric bypass 7 years ago, GI bleed and duodenal abscess in 2023. She presented to the ER with epigastric pain with associated nausea (no vomiting), no radiating symptoms, fever, chills, change in bowel movements, or change in diet. She does report ~10-15 lb weight loss in past [address] A/P unremarkable on admission. Already taking PPI and Carafate at home. VTE Prophylaxis - hx GI bleeds in the past chemoprophylaxis deferred. SCDs ordered and no evidence for DVT and ambulating in room Awaiting BM prior to D/C Admission and Anticipated Discharge Date Admission Date: May 29, 2024 Subjective No events overnight. Pt resting comfortably in bed. Still no BM. Review of Systems Review of Systems: CONST: Negative for fever, body aches and chills. HENT: Negative for neck pain/stiffness, headache, congestion, sore throat, swelling. EYES: Negative for discharge/pain or vision changes. RESP: Negative for cough/hemoptysis and shortness of breath. CV: Negative chest pain, difficulty breathing, palpitations. ABD: Negative pain, nausea, vomiting. : Negative increase frequency, dysuria, blood in urine or stool. MUSC: Negative for muscle aches, edema. SKIN: Negative rash, lesions/sores. NEURO: Negative headache, dizziness, weakness. Physical Exam Physical Exam: GENERAL APPEARANCE NAD, activity normal for age, well developed/ well nourished, no cyanosis, pallor, or diaphoresis. EYES lids/conjunctiva normal. EARS/NOSE/THROAT Mucous membranes moist, nares normal, lips/teeth normal uvula midline without oral pharyngeal erythema, exudate or swelling TMs normal bilaterally. No lymphangitis/lymphedema. HEAD/NECK normocephalic atraumatic, no facial trauma, neck is supple. RESPIRATORY respiratory effort normal, speaks in full sentences, no tripod position, no accessory muscle use. Lungs clear to auscultation without rhonchi, wheezes, rales CARDIAC Regular rate and rhythm, no edema. ABDOMINAL Soft, ND/NT. No evidence of fluid wave. No pulsatile masses on exam, rebound tenderness, Green sign or pain over Mcburney's point. MUSCLES/EXTREMITIES No abnormal range of motion, no swelling. SKIN Warm, pink and dry. No rashes, dermatoses, petechiae or lesions. NEUROLOGICAL Speech is clear and appropriate. Normal level of consciousness. Gait and coordination are normal. 5/5 strength in all extremities. PSYCH Normal mood and affect. Judgement/competence is appropriate Results & Data Results & Data Vital Signs (Past 12 Hours) Vital Signs Temp Pulse Resp BP Pulse Ox O2 Del Method 06/07/24 07:54 36.4 C L 73 16 108/58 L 98 Room Air PG Care Time/CCT Total # of Minutes Spent Total Time Spent with Patient: Total time spent is greater than 50% in coordination of care (as documented) at patient's floor/unit and/or counseling patient: Coding Level of Care Code 51719 SUB INP/OBS CARE 2/35MIN Diagnoses Gastritis and duodenitis K29.90 Epigastric abdominal pain R10.13 Hypokalemia E87.6 Neurogenic claudication due to lumbar spinal stenosis M48.062 Elevated troponin R79.89 Abnormal EKG R94.31 Mesenteric artery stenosis K55.1
[2024-06-07 09:26] LABS: Albumin Level 3.2 gm/dl (3.4-5.0); Bilirubin,Total 0.4 mg/dl (0.2-1.0); Calcium 8.3 mg/dl (8.6-10.3); Magnesium 2.2 mg/dl (1.7-2.4); Potassium 3.9 mmol/L (3.5-5.1)
[2024-06-07 09:32] LABS: Albumin Globulin Ratio 1.4 (0.9-2); BUN Creatinine Ratio 10.8 (10-20); Creatinine Clr Calc Pharmacy 50.8 ml/min; Globulin 2.3 gm/dl (2.5-4.0); Phosphorus 3.6 mg/dl (2.5-4.9); Total Protein 5.5 gm/dl (6.0-8.3)
[2024-06-07] MEDS: ALUMINUM/MAGNESIUM SUSP 30 ML UDC PO PRN (10:55)
[2024-06-07 11:35] LABS: Basophils # (auto) 0.03 K/uL (0.00-0.20); Basophils % (auto) 0.5 %; Eosinophils # (auto) 0.21 K/uL (0.00-0.50); Eosinophils % (auto) 3.6 %; Hematocrit (blood only) 38.6 % (37.0-47.0); Hemoglobin 13.1 g/dl (12.0-16.0); Immature Granulocytes # (auto) 0.01 K/uL (0.01-0.20); Immature Granulocytes % (auto) 0.2 %; Lymphocytes # (auto) 2.19 K/uL (1.20-3.40); Lymphocytes % (auto) 37.7 %; Mean Corpuscular Hemoglobin 30.8 pg (25.0-34.0); Mean Corpuscular Hgb Conc 33.9 g/dL (32.0-36.0); Mean Corpuscular Volume 90.8 fL (80.0-100.0); Monocytes # (auto) 0.72 K/uL (0.11-0.59); Monocytes % (auto) 12.4 %; Neutrophils # (auto) 2.65 K/uL (1.40-6.50); Neutrophils % (auto) 45.6 %; Platelet Count 277 K/uL (130-400); RDW Coefficient of Variation 14.7 % (11.5-14.5); RDW Standard Deviation 49.5 fL (36.4-46.3); Red Blood Count 4.25 M/uL (4.20-5.40); White Blood Count 5.81 K/ul (4.8-10.8)
--- NOTE | 2024-06-07 13:44 | Gastroenterology Progress Note ---
Date of Service June 07, 2024 Assessment & Plan (1) Abdominal pain: Plan: Challenging clinical picture with largely unremarkable work-up thus far. Will discuss with Dr. Bean regarding further recommendations for management of her ongoing epigastric pain. Admission and Anticipated Discharge Date Admission Date: May 29, 2024 Supervising Physician Co-Signing Physician Notes I examined the patient and reviewed patient's chart , laboratory data and imaging studies. I agree with with assessment and plan of care as suggested by advanced practice provider. Abdominal pain earlier today, now feels better. No bowel movement x >7days. Received relistor yesterday without effect. Continue senna. Try colonoscopy bowel prep if tolerates. Subjective Patient with ongoing abdominal pain (epigastric) in nature. She notes that she is having severe pain suddenly. She notes she was comfortable this morning. She has not had a bowel movement since 05/27/24 despite suppositories, oral meds, enema, & Relistor. Imaging studies have failed to identify a problem. Review of Systems Constitutional: no fever and no chills Respiratory: no cough and no dyspnea Gastrointestinal: + abdominal pain; no change in bowel hab its, no diarrhea/loose stools, no blood in stools and no problem reported Physical Exam Gastrointestinal (Abdomen): Inspection/Auscultation: abdomen normal to inspection Percussion/Palpation: + abdomen tender Psychiatric: Orientation: alert and oriented x 3 Results & Data Results & Data Vital Signs (Past 12 Hours) Vital Signs Temp Pulse Resp BP Pulse Ox O2 Del Method 06/07/24 07:54 36.4 C L 73 16 108/58 L 98 Room Air PG Care Time/CCT Total # of Minutes Spent Total Time Spent with Patient: Total time spent is greater than 50% in coordination of care (as documented) at patient's floor/unit and/or counseling patient: Coding Level of Care Code 98706 SUB INP/OBS CARE 2/35MIN Diagnoses Periumbilical abdominal pain R10.33 Abdominal location: periumbilical (1) Abdominal pain Abdominal location: periumbilical Qualified Code(s): R10.33 - Periumbilical pain
--- NOTE | 2024-06-07 14:28 | Electrocardiogram Report ---
Test Reason : Blood Pressure : */* mmHG Vent. Rate : 59 BPM Atrial Rate : 59 BPM P-R Int : 172 ms QRS Dur : 80 ms QT Int : 466 ms P-R-T Axes : 59 49 171 degrees QTcB Int : 461 ms Sinus bradycardia Abnormal ECG When compared with ECG of 06-Jun-2024 14:59, No significant change was found Confirmed by Levi Sauer ([id number]) on 06/07/2024 2:27:54 PM Referred By: REFERRED SELF Confirmed By: Levi Sauer
--- NOTE | 2024-06-07 15:36 | Cardiology Progress Note ---
Date of Service June 07, 2024 Assessment & Plan (1) Abdominal pain: (2) Elevated troponin: (3) Abnormal EKG: Plan 1. Epigastric pain: Noncardiac, working on gastrointestinal etiologies. Trying some laxatives. 2. Elevated troponin: Very mild elevation. Think this is related to any true ischemia given the extended duration of her symptoms. No other symptoms consistent with angina or coronary insufficiency prior to presentation. 3. Abnormal EKG: The QTc has normalized with discontinuation of ondansetron and promethazine. However, she continues to have notable T wave inversions and a picture of LVH. 4. Left ventricular hypertrophy: Noted to be severe on her echocardiogram. This likely accounts for her EKG abnormalities. She does not have a history of poorly controlled hypertension. I think we will do some serum screening to exclude an infiltrative process and consider cardiac MRI on an outpatient basis. Admission and Anticipated Discharge Date Admission Date: May 29, 2024 Subjective This morning the patient was still having some constipation. Still some abdominal discomfort at times as well. No dizziness or sense of palpitation. Review of Systems Review of Systems: Per HPI Physical Exam Physical Exam: She is alert and oriented x3. Mood affect appear normal. She answered all questions appropriately. HEENT: Sclerae are anicteric. Pupils are equal and reactive to light and accommodation. Extraocular movements were intact. Neuro: Cranial nerves intact Lungs: Normal respiratory effort. Extremities: Patient has bilateral radial pulses that are equal in intensity. There is no evidence cyanosis or clubbing. There was no evidence of significant peripheral edema bilaterally. Skin: There are no rashes noted on examination today. Results & Data Vital Signs (Past 12 Hours) Vital Signs Temp Pulse Resp BP Pulse Ox O2 Del Method 06/07/24 15:16 36.7 C 55 L 16 92/59 L 98 Room Air 06/07/24 07:54 36.4 C L 73 16 108/58 L 98 Room Air PG Care Time/CCT Total # of Minutes Spent Total Time Spent with Patient: Total time spent is greater than 50% in coordination of care (as documented) at patient's floor/unit and/or counseling patient: Coding Level of Care Code 67318 SUB INP/OBS CARE 2/35MIN Diagnoses Periumbilical abdominal pain R10.33 Abdominal location: periumbilical Elevated troponin R79.89 Abnormal EKG R94.31 (1) Abdominal pain Abdominal location: periumbilical Qualified Code(s): R10.33 - Periumbilical pain
[2024-06-07] MEDS: SODIUM CHLORIDE 0.9% 500 ML IV SCH (18:12)
[2024-06-07] MEDS: LAVAGE SOLUTION 4000ML PO SCH (18:20)
--- NOTE | 2024-06-08 09:05 | Hospitalist Progress Note ---
Date of Service June 08, 2024 Assessment & Plan (1) Gastritis and duodenitis: Plan: s/p EGD 05/[address] Horne -- EGD with normal esophagus, normal jejunum, healthy appearing mucosa of gastrojejunostomy biopsied Protonix BID, famotidine BID, carafate ACHS Mesenteric US concerns for SMA stenosis (see prior notes), Vasc consulted and CTA noting ~50% stenosis origin SMA but w/o high grade stenosis and no intervention felt needed by vascular Patient wanted diet advanced and tolerated 06/04 but rexulti resumed in evening and developed worsening pain and morphine resumed See below regarding EKG/QTC prolongation Tolerating diet but having ongoing pain but notable CONSTIPATION and hasn't moved bowels in >1wk. Enema/suppository. KUB w/o obstruction or ileus and reports passing gas and continue bowel regimen and monitor for improvement in pain w/ movement. Re-consulted GI to weigh in, miralax BID scheduled. Added relistor today for likely opioid related constipation. Appreciate additional recs/assistance from GI GI consult appreciated, no significant SMA stenosis, no mucosal abnormalities on EGD Constipation, con't miralax, senna docusate, added Relistor Encourage ambulation. Given colonscopy bowel prep Still awaiting BM (2) Epigastric abdominal pain: (3) Hypokalemia: Plan: -replated (4) Neurogenic claudication due to lumbar spinal stenosis: Plan: Continued on gabapentin 800mg TID but reduced to 600mg TID based on renal function (5) Elevated troponin: Plan: - w/ mild troponin elevation on admission 45.8 and review EKG w/ significant ST abn/QTC prolongation Review of meds w/ scheduled compazine and frequent Zofran and have been STOPPED. Notable REXULTI new med in past month when having sx and was resumed x 1 PM 06/04 and HOLDING FURTHER Mag IV provided. Repeat trop 19 and trended down, again likely ischemia in setting of above and possibly medication related Cardiology consult appreciated ECHO w/o wma, normal EF. (6) Abnormal EKG: (7) Mesenteric artery stenosis: Plan 67-year-old female with past medical history of depression, low back pain, bronchiectasis, Fred-en-Y gastric bypass 7 years ago, GI bleed and duodenal abscess in 2023. She presented to the ER with epigastric pain with associated nausea (no vomiting), no radiating symptoms, fever, chills, change in bowel movements, or change in diet. She does report ~10-15 lb weight loss in past [address] A/P unremarkable on admission. Already taking PPI and Carafate at home. VTE Prophylaxis - hx GI bleeds in the past chemoprophylaxis deferred. SCDs ordered and no evidence for DVT and ambulating in room Awaiting BM prior to D/C Admission and Anticipated Discharge Date Admission Date: May 29, 2024 Subjective Pt still with no bowel movement. Denies any abdominal pain, tolerating diet. Review of Systems Review of Systems: CONST: Negative for fever, body aches and chills. HENT: Negative for neck pain/stiffness, headache, congestion, sore throat, swelling. EYES: Negative for discharge/pain or vision changes. RESP: Negative for cough/hemoptysis and shortness of breath. CV: Negative chest pain, difficulty breathing, palpitations. ABD: Negative pain, nausea, vomiting. : Negative increase frequency, dysuria, blood in urine or stool. MUSC: Negative for muscle aches, edema. SKIN: Negative rash, lesions/sores. NEURO: Negative headache, dizziness, weakness. Physical Exam Physical Exam: GENERAL APPEARANCE NAD, activity normal for age, well developed/ well nourished, no cyanosis, pallor, or diaphoresis. EYES lids/conjunctiva normal. EARS/NOSE/THROAT Mucous membranes moist, nares normal, lips/teeth normal uvula midline without oral pharyngeal erythema, exudate or swelling TMs normal bilaterally. No lymphangitis/lymphedema. HEAD/NECK normocephalic atraumatic, no facial trauma, neck is supple. RESPIRATORY respiratory effort normal, speaks in full sentences, no tripod position, no accessory muscle use. Lungs clear to auscultation without rhonchi, wheezes, rales CARDIAC Regular rate and rhythm, no edema. ABDOMINAL Soft, ND/NT. No evidence of fluid wave. No pulsatile masses on exam, rebound tenderness, Green sign or pain over Mcburney's point. MUSCLES/EXTREMITIES No abnormal range of motion, no swelling. SKIN Warm, pink and dry. No rashes, dermatoses, petechiae or lesions. NEUROLOGICAL Speech is clear and appropriate. Normal level of consciousness. Gait and coordination are normal. 5/5 strength in all extremities. PSYCH Normal mood and affect. Judgement/competence is appropriate Results & Data Results & Data Vital Signs (Past 12 Hours) Vital Signs Temp Pulse Resp BP Pulse Ox O2 Del Method 06/08/24 07:30 37.3 C 83 16 99/53 L 99 Room Air PG Care Time/CCT Total # of Minutes Spent Total Time Spent with Patient: Total time spent is greater than 50% in coordination of care (as documented) at patient's floor/unit and/or counseling patient: Coding Level of Care Code 85273 SUB INP/OBS CARE 2/35MIN Diagnoses Gastritis and duodenitis K29.90 Epigastric abdominal pain R10.13 Hypokalemia E87.6 Neurogenic claudication due to lumbar spinal stenosis M48.062 Elevated troponin R79.89 Abnormal EKG R94.31 Mesenteric artery stenosis K55.1
--- NOTE | 2024-06-08 09:28 | Gastroenterology Progress Note ---
Date of Service June 08, 2024 Assessment & Plan (1) Abdominal pain: Plan: No more abdominal pain at the time of my visit. I would recommend stopping sucralfate as it is constipating. Will give dose of Magnesium citrate. If that doesn't work should consider colonoscopy prep Admission and Anticipated Discharge Date Admission Date: May 29, 2024 Subjective No abdominal pain as I am seeing her. She said it hurt a little last night. Still no bowel movement Physical Exam Physical Exam: She looks comfortable Constitutional: WD/WN, vitals as above Results & Data Vital Signs (Past 12 Hours) Vital Signs Temp Pulse Resp BP Pulse Ox O2 Del Method 06/08/24 07:30 37.3 C 83 16 99/53 L 99 Room Air (1) Abdominal pain Abdominal location: periumbilical Qualified Code(s): R10.33 - Periumbilical pain
[2024-06-08] MEDS: MAGNESIUM CITRATE 296 ML/BTL PO STA (12:34)
[2024-06-08] MEDS: MAGNESIUM CITRATE 296 ML/BTL ONE (12:54)
--- NOTE | 2024-06-09 09:21 | Gastroenterology Progress Note ---
Date of Service June 09, 2024 Assessment & Plan (1) Abdominal pain: Plan: Her next step to try to move bowels would be colonoscopy prep. She does not feel she can do that now and I agree. She wants to give the magnesium citrate more time. Admission and Anticipated Discharge Date Admission Date: May 29, 2024 Subjective Says ina feels rough. Took magnesium citrate without results other than cramping now. sucralfate has been stopped Physical Exam Physical Exam: She looks uncomfortable Constitutional: WD/WN, vitals as above Results & Data Vital Signs (Past 12 Hours) Vital Signs Temp Pulse Resp BP Pulse Ox O2 Del Method 06/09/24 07:25 36.7 C 71 18 108/62 97 Room Air (1) Abdominal pain Abdominal location: periumbilical Qualified Code(s): R10.33 - Periumbilical pain
--- NOTE | 2024-06-09 09:38 | Hospitalist Progress Note ---
Date of Service June 09, 2024 Assessment & Plan (1) Gastritis and duodenitis: Plan: s/p EGD 05/[address] Horne -- EGD with normal esophagus, normal jejunum, healthy appearing mucosa of gastrojejunostomy biopsied Protonix BID, famotidine BID, carafate ACHS Mesenteric US concerns for SMA stenosis (see prior notes), Vasc consulted and CTA noting ~50% stenosis origin SMA but w/o high grade stenosis and no intervention felt needed by vascular Tolerating diet but having ongoing pain but notable CONSTIPATION and hasn't moved bowels in >1wk. Enema/suppository. KUB w/o obstruction or ileus and reports passing gas and continue bowel regimen and monitor for improvement in pain w/ movement. Re-consulted GI to weigh in, miralax BID scheduled. Added relistor for likely opioid related constipation. Appreciate additional recs/assistance from GI GI consult appreciated, no significant SMA stenosis, no mucosal abnormalities on EGD Constipation, con't miralax, senna docusate, added Relistor Encourage ambulation. Given magneisum citrate 06/08 Still awaiting BM If no BM by am, plan on colonprep as per GI on 06/10 (2) Epigastric abdominal pain: (3) Hypokalemia: Plan: -replated (4) Neurogenic claudication due to lumbar spinal stenosis: Plan: Continued on gabapentin 800mg TID but reduced to 600mg TID based on renal fun ction (5) Elevated troponin: Plan: - w/ mild troponin elevation on admission 45.8 and review EKG w/ significant ST abn/QTC prolongation Review of meds w/ scheduled compazine and frequent Zofran and have been STOPPED. Notable REXULTI new med in past month when having sx and was resumed x 1 PM 06/04 and HOLDING FURTHER Mag IV provided. Repeat trop 19 and trended down, again likely ischemia in setting of above and possibly medication related Cardiology consult appreciated ECHO w/o wma, normal EF. (6) Abnormal EKG: (7) Mesenteric artery stenosis: Plan 67-year-old female with past medical history of depression, low back pain, bronchiectasis, Fred-en-Y gastric bypass 7 years ago, GI bleed and duodenal abscess in 2023. She presented to the ER with epigastric pain with associated nausea (no vomiting), no radiating symptoms, fever, chills, change in bowel movements, or change in diet. She does report ~10-15 lb weight loss in past [address] A/P unremarkable on admission. Already taking PPI and Carafate at home. VTE Prophylaxis - hx GI bleeds in the past chemoprophylaxis deferred. SCDs ordered and no evidence for DVT and ambulating in room Severe constipation awaiting BM prior to D/C Admission and Anticipated Discharge Date Admission Date: May 29, 2024 Subjective Pt states her stomach feels "rough" this am. She took magnesium citrate yesterday. Still no bowel movement. Review of Systems Review of Systems: CONST: Negative for fever, body aches and chills. HENT: Negative for neck pain/stiffness, headache, congestion, sore throat, swelling. EYES: Negative for discharge/pain or vision changes. RESP: Negative for cough/hemoptysis and shortness of breath. CV: Negative chest pain, difficulty breathing, palpitations. ABD: Negative pain, nausea, vomiting. : Negative increase frequency, dysuria, blood in urine or stool. MUSC: Negative for muscle aches, edema. SKIN: Negative rash, lesions/sores. NEURO: Negative headache, dizziness, weakness. Physical Exam Physical Exam: GENERAL APPEARANCE NAD, activity normal for age, well developed/ well nourished, no cyanosis, pallor, or diaphoresis. EYES lids/conjunctiva normal. EARS/NOSE/THROAT Mucous membranes moist, nares normal, lips/teeth normal uvula midline without oral pharyngeal erythema, exudate or swelling TMs normal bilaterally. No lymphangitis/lymphedema. HEAD/NECK normocephalic atraumatic, no facial trauma, neck is supple. RESPIRATORY respiratory effort normal, speaks in full sentences, no tripod position, no accessory muscle use. Lungs clear to auscultation without rhonchi, wheezes, rales CARDIAC Regular rate and rhythm, no edema. ABDOMINAL Soft, ND/NT. No evidence of fluid wave. No pulsatile masses on exam, rebound tenderness, Green sign or pain over Mcburney's point. MUSCLES/EXTREMITIES No abnormal range of motion, no swelling. SKIN Warm, pink and dry. No rashes, dermatoses, petechiae or lesions. NEUROLOGICAL Speech is clear and appropriate. Normal level of consciousness. Gait and coordination are normal. 5/5 strength in all extremities. PSYCH Normal mood and affect. Judgement/competence is appropriate Results & Data Results & Data Vital Signs (Past 12 Hours) Vital Signs Temp Pulse Resp BP Pulse Ox O2 Del Method 06/09/24 07:25 36.7 C 71 18 108/62 97 Room Air PG Care Time/CCT Total # of Minutes Spent Total Time Spent with Patient: Total time spent is greater than 50% in coordination of care (as documented) at patient's floor/unit and/or counseling patient: Coding Level of Care Code 83520 SUB INP/OBS CARE 2/35MIN Diagnoses Gastritis and duodenitis K29.90 Epigastric abdominal pain R10.13 Hypokalemia E87.6 Neurogenic claudication due to lumbar spinal stenosis M48.062 Elevated troponin R79.89 Abnormal EKG R94.31 Mesenteric artery stenosis K55.1
[2024-06-10 08:16] LABS: Hematocrit (blood only) 41.2 % (37.0-47.0); Hemoglobin 13.7 g/dl (12.0-16.0); Mean Corpuscular Hemoglobin 30.9 pg (25.0-34.0); Mean Corpuscular Hgb Conc 33.3 g/dL (32.0-36.0); Mean Corpuscular Volume 92.8 fL (80.0-100.0); Mean Platelet Volume 10.1 fL (9.4-12.4); Platelet Count 249 K/uL (130-400); RDW Coefficient of Variation 14.8 % (11.5-14.5); Red Blood Count 4.44 M/uL (4.20-5.40); White Blood Count 8.78 K/ul (4.8-10.8)
[2024-06-10 08:46] LABS: Calcium 8.5 mg/dl (8.6-10.3)
[2024-06-10 08:52] LABS: BUN Creatinine Ratio 14.9 (10-20); Creatinine Clr Calc Pharmacy 55.1 ml/min
--- NOTE | 2024-06-10 09:01 | Hospitalist Progress Note ---
Date of Service June 10, 2024 Assessment & Plan (1) Gastritis and duodenitis: Plan: s/p EGD 05/[address] Horne -- EGD with normal esophagus, normal jejunum, healthy appearing mucosa of gastrojejunostomy biopsied Protonix BID, famotidine BID, carafate ACHS Mesenteric US concerns for SMA stenosis (see prior notes), Vasc consulted and CTA noting ~50% stenosis origin SMA but w/o high grade stenosis and no intervention felt needed by vascular Tolerating diet but having ongoing pain but notable CONSTIPATION and hasn't moved bowels in >1wk. Enema/suppository. KUB w/o obstruction or ileus and reports passing gas and continue bowel regimen and monitor for improvement in pain w/ movement. Re-consulted GI to weigh in, miralax BID scheduled. Added relistor for likely opioid related constipation. Appreciate additional recs/assistance from GI GI consult appreciated, no significant SMA stenosis, no mucosal abnormalities on EGD Constipation, con't miralax, senna docusate, added Relistor Encourage ambulation. Given magneisum citrate 06/08 Still awaiting BM If no BM by am, plan on colonprep as per GI on 06/10 -- no BM, golytley/KUB have been ordered, appreciate GI/recs/assistance UPEP pending (2) Epigastric abdominal pain: (3) Hypokalemia: Plan: -replated (4) Neurogenic claudication due to lumbar spinal stenosis: Plan: Continued on gabapentin 800mg TID but reduced to 600mg TID based on renal function (5) Elevated troponin: Plan: - w/ mild troponin elevation on admission 45.8 and review EKG w/ significant ST abn/QTC prolongation Review of meds w/ scheduled compazine and frequent Zofran and have been STOPPED. Notable REXULTI new med in past month when having sx and was resumed x 1 PM 06/04 and HOLDING FURTHER Mag IV provided. Repeat trop 19 and trended down, again likely ischemia in setting of above and possibly medication related Cardiology consult appreciated ECHO w/o wma, normal EF. (6) Abnormal EKG: (7) Mesenteric artery stenosis: (8) Hypoglycemia: Plan 67-year-old female with past medical history of depression, low back pain, bronchiectasis, Fred-en-Y gastric bypass 7 years ago, GI bleed and duodenal abscess in 2023 presented to ER w/ epigastric pain and associated nausea (no vomiting or radiating symptoms, no fever/chills or inital change in bowels reported), on PPI/cafate at home. 10-15lb weight loss in the past 2 months. CTAP unremarkable on admission #SMA stenosis / Suspected gastritis/duodenitis GI consulted s/p EGD 05/[address] Horne -- EGD with normal esophagus, normal jejunum, healthy appearing mucosa of gastrojejunostomy biopsied Continues on protonix BID, famotidine BID, carafate ACHS Mesenteric US w/ concerns for SMA but vascular consulted CTA obtained and did NOT feel c/w SMA or need for vascular intervention Diet tolerated and advanced/tolerating, using occ oxycodone 5mg as needed but AVOID Morphine IV given constipation Reports abdominal pain MUCH improved regarding epigastric discomfort but dealing w/ constipation below *If ongoing pain despite changes below and moving bowels may need to reach out to tertiary to discuss alternative eval/IR for eval given hx Dieulafoy lesion w/ clipping summer 2022/hx Fred-en-Y gastic bypass ~8yrs ago #Constipation- when I picked up had constipation and not moved bowels at all on admission. KUB obtained w/ retained stool and bowel regimen added/escalated. Notable suspected WORSENED w/ opiates w/ IV morphine for pain and tramadol and have limited to oxycodone 5mg w/ good results for pain control. Unable to use NSAIDs w/ above. Relistor added for opiate related constipation Mag citrate this weekend GI on consult and to reach back out but consideration for Golytely bowel prep to be considered however KUB does appear improved and softer abdomen and ?if not remembered moving them #Hypoglycemia- also added BSG AC/HS last week due to prior lows, no hx DM and not on any diabetic medications at home BSGs noted to drop to 60s on 06/06, 418 and again on 06/08 but have been stable w/ advancement of diet. ?prior lows contributing to sx. If repeat lows w/ improvement in PO/diet could consider. Phos level checked given adv diet/prior poor PO to consider refeeding but was wnl #Abn EKG, elevated troponin - w/ elevated troponin on admission to mid 40s without mention. Suspected demand from dehydration/malnourishment from above but did also review EKG and noted significant changes concerning for possible underlying cardiac etiology (also QTC prolongation/IV mag provided) and cardiology consulted/echo ordered and cardiology did NOT feel cardiac related but we did review meds and was scheduled compazine IV q6h as well as frequent zofran IV and newer med rexulti earlier this year along same timeline her GI sx started (prior on Abilify) and suspect also contributed and have been STOPPED on QTC prolonging agents. Maalox for above effective. Remains w/o CP but consider outpatient stress testing #Hypokalemia - repleted and staying wnl w/ advancement of diet #Neurogenic claudication due to spinal stenosis and is continued on gabapentin but has been reduced to 600mg TID for crcl, adjusmtent rec'd at dc #Depression - mood stable at present on buspar but see above recent rx rexulti which has been STOPPED for now. Prior use abilify can be discussed in f/u but would avoid for now given above and staying stable DVT proph: SCDs ordered, ambulating in the room. No leg edema/calf tenderness but chemoproph avoided w/ hx GI bleeds and gastritis/duodenitis above Dispo: continued inpatient stay, working on bowel movement and hopefully dc next 24-48hrs if occurs. If ongoing issues given prior need for IR, can consider tx but has been tolerating diet advancement w/ decreased need for pain control and suspect not related to SMA as prior eval'd by vascular and also did not feel was source for her sx Admission and Anticipated Discharge Date Admission Date: May 29, 2024 Subjective Eval this afternoon, finished lunch. Reporting feeling better than when I had her last week. KUB improved despite no documented BM. Patient thinks MAYBE she had one? Abdomen is softer, but has palpable stool She reports she had a "lemon drink" this weekend, confirmed mag citrate. Discussed possible bowel prep as ordered per prior GI recs but per HERVE waiting to hear back from providers on final decision. If able to get bowels moving, can consider dc tomorrow. No CP/SOB reported. Physical Exam 2 Physical Exam: General: 68yo female, looks older than stated age, sitting up in bed eating lunch, NAD HEENT: atraumatic, normocephalic, mm improved/stable, trachea midline Resp: even/unlabored, no wheezing/tachypnea or cough, on room air 96% CV: NSR, +systolic murmur but no pitting edema, calves nontender, pulses present GI: +BS throughout, SOFTER but still mild distension with palpable stool, no overt guarding/rigidity, no rebound no charles MSK/Neuro: nonfocal, moves all extremities Psych: alert to person, place, time, events Results & Data Results & Data Vital Signs (Past 12 Hours) Vital Signs Temp Pulse Resp BP Pulse Ox O2 Del Method 06/10/24 07:19 37.4 C 76 16 99/55 L 98 Room Air Laboratory Results 06/10/24 08:00 06/10/24 08:00 Diagnostic Findings KUB X-Ray 06/10/24 08:58 KUB HISTORY: f.u constipation COMPARISON STUDY: 06/05/2024 FINDINGS: There are stable upper abdominal surgical clips bilaterally. Stable lumbar metallic fusion. There is mild retained stool. No bowel obstruction seen. No gross free air. Stable elevation of the right hemidiaphragm. IMPRESSION: Mild retained stool. ACT 112: Negative or not required by law. The above report was generated using voice recognition software. It may contain grammatical, syntax or spelling errors. Electronically signed by: Jaxson Oneill M.D. 06/10/2024 10:25 AM PG Care Time/CCT Total # of Minutes Spent Total Time Spent with Patient: Total time spent is greater than 50% in coordination of care (as documented) at patient's floor/unit and/or counseling patient: Coding Level of Care Code 39994 SUB INP/OBS CARE 3/50MIN Diagnoses Gastritis and duodenitis K29.90 Epigastric abdominal pain R10.13 Hypokalemia E87.6 Neurogenic claudication due to lumbar spinal stenosis M48.062 Elevated troponin R79.89 Abnormal EKG R94.31 Mesenteric artery stenosis K55.1 Hypoglycemia E16.2
--- NOTE | 2024-06-10 10:26 | XRay Report ---
KUB HISTORY: f.u constipation COMPARISON STUDY: 06/05/2024 FINDINGS: There are stable upper abdominal surgical clips bilaterally. Stable lumbar metallic fusion. There is mild retained stool. No bowel obstruction seen. No gross free air. Stable elevation of the right hemidiaphragm. IMPRESSION: Mild retained stool. ACT 112: Negative or not required by law. The above report was generated using voice recognition software. It may contain grammatical, syntax o r spelling errors. Electronically signed by: Jaxson Oneill M.D. 06/10/2024 10:25 AM
--- NOTE | 2024-06-10 13:36 | Gastroenterology Progress Note ---
<Statement entered by Geo Christine MD - 06/10/24 15:45> I have reviewed the history, physical exam, lab and imaging findings as dictated by the mid-level provider, made any necessary modifications, and agree with the stated assessment and recommendations. A total of 35 minutes was spent in the charet/data review, direct observation, decision making and discussion of this case with the mid level provider, patient/family and other providers. Geo Christine MD Date of Service June 10, 2024 Assessment & Plan (1) Abdominal pain: Plan: -OK to proceed with bowel prep to empty bowels -Dr. Christine to do bedside trigger point injection this afternoon to see if this provides relief for possible abdominal wall pain Admission and Anticipated Discharge Date Admission Date: May 29, 2024 Subjective Patient is a 68 yo female with focal epigastric pain and constipation. She is to complete a bowel prep today. She denies new changes or symptoms. KUB from this AM with very mild fecal retention. Review of Systems Gastrointestinal: + abdominal pain and + constipation Physical Exam Gastrointestinal (Abdomen): Inspection/Auscultation: abdomen normal to inspection and normal bowel sounds Percussion/Palpation: + abdomen tender (focal tenderness below sternum) Results & Data Results & Data Vital Signs (Past 12 Hours) Vital Signs Temp Pulse Resp BP Pulse Ox O2 Del Method 06/10/24 07:19 37.4 C 76 16 99/55 L 98 Room Air PG Care Time/CCT Total # of Minutes Spent Total Time Spent with Patient: Total time spent is greater than 50% in coordination of care (as documented) at patient's floor/unit and/or counseling patient: Coding Level of Care Code 57069 SUB INP/OBS CARE 2/35MIN Diagnoses Periumbilical abdominal pain R10.33 Abdominal location: periumbilical (1) Abdominal pain Abdominal location: periumbilical Qualified Code(s): R10.33 - Periumbilical pain
[2024-06-10] MEDS ORDERED: LAVAGE SOLUTION 4000ML PO SCH (13:45)
[2024-06-10] MEDS: TRIAMCINOLONE ACET 40 MG/ML VIAL IM ONE (14:44)
[2024-06-10] MEDS: BUPIVACAINE 0.25% PF 30 ML VIAL INFIL ONE (14:44)
[2024-06-10] MEDS: LAVAGE SOLUTION 4000ML PO SCH (15:02)
--- NOTE | 2024-06-10 16:02 | Procedure Note ---
Procedure Note Date of Service June 10, 2024 Abdominal wall injection After informed consent, 5 cc of 0.25% bupivacaine and 80 mg triamcinolone were injected into the localized tender spot on the abdominal wall using a 25-gauge needle. No immediate complications were noted Recommendation: Continue current therapy; follow clinical exam. Coding Additional Codes Date of Service ([facility].SURGERY)
[2024-06-11 06:25] LABS: Hematocrit (blood only) 34.4 % (37.0-47.0); Hemoglobin 11.6 g/dl (12.0-16.0); Mean Corpuscular Hemoglobin 30.4 pg (25.0-34.0); Mean Corpuscular Hgb Conc 33.7 g/dL (32.0-36.0); Mean Corpuscular Volume 90.3 fL (80.0-100.0); Mean Platelet Volume 10.3 fL (9.4-12.4); Platelet Count 258 K/uL (130-400); RDW Coefficient of Variation 14.4 % (11.5-14.5); RDW Standard Deviation 47.6 fL (36.4-46.3); Red Blood Count 3.81 M/uL (4.20-5.40); White Blood Count 5.35 K/ul (4.8-10.8)
[2024-06-11 06:47] LABS: BUN Creatinine Ratio 19.4 (10-20); Calcium 8.3 mg/dl (8.6-10.3); Potassium 3.8 mmol/L (3.5-5.1)
--- NOTE | 2024-06-11 10:46 | Gastroenterology Progress Note ---
<Statement entered by Geo Christine MD - 06/11/24 16:37> I have reviewed the history, physical exam, lab and imaging findings as dictated by the mid-level provider, made any necessary modifications, and agree with the stated assessment and recommendations. A total of 35 minutes was spent in the chart/data review, direct observation, decision making and discussion of this case with the mid level provider, and other providers. Date of Service June 11, 2024 Assessment & Plan (1) Abdominal pain: Plan: Patient notes resolution of pain within hours of her trigger point injection. Consider following with pain management as an outpatient for further trigger point injections as needed. (2) Constipation: Plan: -OK to continue bowel prep to help improve her constipation Admission and Anticipated Discharge Date Admission Date: May 29, 2024 Subjective Patient notes resolution of her epigastric pain today. She reports that it went away 6 hours after her trigger point injection. She notes she is drinking her bowel prep slowly. She is eager to have a bowel movement. No other new complaints. Review of Systems Gastrointestinal: + constipation; no abdominal pain Physical Exam Gastrointestinal (Abdomen): normal bowel sounds, soft, nontender, no hepatosplenomegaly Results & Data Results & Data Vital Signs (Past 12 Hours) Vital Signs Temp Pulse Resp BP Pulse Ox O2 Del Method 06/11/24 07:46 36.7 C 59 L 16 112/68 98 Room Air PG Care Time/CCT Total # of Minutes Spent Total Time Spent with Patient: Total time spent is greater than 50% in coordination of care (as documented) at patient's floor/unit and/or counseling patient: Coding Level of Care Code 24844 SUB INP/OBS CARE 03/16MIN Diagnoses Periumbilical abdominal pain R10.33 Abdominal location: periumbilical Constipation K59.00 (1) Abdominal pain Abdominal location: periumbilical Qualified Code(s): R10.33 - Periumbilical pain
--- NOTE | 2024-06-11 11:40 | Hospitalist Progress Note ---
Date of Service June 11, 2024 Assessment & Plan (1) Gastritis and duodenitis: (2) Epigastric abdominal pain: (3) Hypokalemia: (4) Neurogenic claudication due to lumbar spinal stenosis: (5) Elevated troponin: (6) Abnormal EKG: (7) Mesenteric artery stenosis: Plan 67-year-old female with past medical history of depression, low back pain, bronchiectasis, Fred-en-Y gastric bypass 7 years ago, GI bleed and duodenal abscess in 2023 presented to ER w/ epigastric pain and associated nausea (no vomiting or radiating symptoms, no fever/chills or initial change in bowels reported), on PPI/cafate at home. 10-15lb weight loss in the past 2 months. CTAP unremarkable on admission #Abdominal pain / SMA stenosis / Suspected gastritis/duodenitis GI consulted - s/p EGD 05/[address] Horne - EGD with normal esophagus, normal jejunum, healthy appearing mucosa of gastrojejunostomy biopsied Mesenteric US w/ concerns for SMA but vascular consulted CTA obtained and did NOT feel c/w SMA or need for vascular intervention Tolerating advanced diet Abdominal wall trigger point injections 06/10 with resolution of abdominal pain - recommend following with pain management outpatient for further trigger point injections as needed #Constipation- KUB obtained w/ retained stool and bowel regimen added/escalated Continue miralax, senna docusate, added Relistor Bowel prep with Golytely Encourage ambulation UPEP pending #Abn EKG, elevated troponin - w/ elevated troponin on admission to mid 40s - Suspected demand from dehydration/malnourishment from above but did also review EKG and noted significant changes concerning for possible underlying cardiac etiology (also QTC prolongation/IV mag provided) Cardiology consulted/echo ordered and cardiology did NOT feel cardiac related but we did review meds and was scheduled compazine IV q6h as well as frequent zofran IV and newer med rexulti earlier this year along same timeline her GI sx started (prior on Abilify) and suspect also contributed and have been STOPPED on QTC prolonging agents. Maalox for above effective ECHO w/o wma, normal EF #Neurogenic claudication due to spinal stenosis Continued on gabapentin 800mg TID but reduced to 600mg TID based on renal function - continue reduced dose on discharge #Depression - mood stable at present on buspar but see above recent rx rexulti which has been STOPPED for now. Prior use abilify can be discussed in f/u but would avoid for now given above and staying stable Continue duloxetine DVT proph: SCDs ordered, ambulating in the room. No leg edema/calf tenderness but chemoproph avoided w/ hx GI bleeds and gastritis/duodenitis above Dispo: continued inpatient stay, working on bowel movement and hopefully dc next 24-48hrs if occurs Admission and Anticipated Discharge Date Admission Date: May 29, 2024 Subjective Patient seen and evaluated at bedside. She reports resolution in her abdominal pain since her abdominal wall trigger point injections yesterday. She reports passing gas but no BM yet. She denies abdominal pain, nausea, vomiting. She is tolerating her diet well. She has been slow with drinking her Golytely, but has been better since adding Powerade with it. No additional complaints or concerns at this time. Physical Exam Physical Exam: General: No acute distress, nondiaphoretic. Frail appearing female who appears older than current age. Cardiac: Regular rate and rhythm, faint systolic murmur appreciated. Pulm: Clear to auscultation without wheezes, rales, or rhonchi. Normal respiratory effort. 96% on room air. Abdominal: Soft, nondistended, nontender. Bowel sounds present. Neuro: A&O x3. No focal neurological deficits. Results & Data Results & Data Vital Signs (Past 12 Hours) Vital Signs Temp Pulse Resp BP Pulse Ox O2 Del Method 06/11/24 07:46 98.1 F 59 L 16 112/68 98 Room Air Laboratory Results Reviewed CBC Reviewed BMP PG Care Time/CCT Total # of Minutes Spent Total Time Spent with Patient: Total time spent is greater than 50% in coordination of care (as documented) at patient's floor/unit and/or counseling patient: Coding Level of Care Code 74460 SUB INP/OBS CARE 2/35MIN Diagnoses Gastritis and duodenitis K29.90 Epigastric abdominal pain R10.13 Hypokalemia E87.6 Neurogenic claudication due to lumbar spinal stenosis M48.062 Elevated troponin R79.89 Abnormal EKG R94.31 Mesenteric artery stenosis K55.1
[2024-06-11] MEDS: DULoxetine HCL 30 MG CAP PO SCH (15:29)
[2024-06-12 07:25] LABS: Hematocrit (blood only) 33.5 % (37.0-47.0); Hemoglobin 11.7 g/dl (12.0-16.0); Mean Corpuscular Hemoglobin 30.6 pg (25.0-34.0); Mean Corpuscular Hgb Conc 34.9 g/dL (32.0-36.0); Mean Corpuscular Volume 87.7 fL (80.0-100.0); Mean Platelet Volume 10.5 fL (9.4-12.4); Platelet Count 274 K/uL (130-400); RDW Coefficient of Variation 13.8 % (11.5-14.5); RDW Standard Deviation 44.4 fL (36.4-46.3); Red Blood Count 3.82 M/uL (4.20-5.40)
[2024-06-12 07:34] VITALS: BP 102/59; PULSE 71; RESP 16; TEMP 97.9; O2SAT 92
[2024-06-12 07:51] LABS: BUN Creatinine Ratio 16.2 (10-20); Calcium 8.2 mg/dl (8.6-10.3); Potassium 3.5 mmol/L (3.5-5.1)
[2024-06-12 13:52] LABS: Albumin 3.3 g/dL (3.8-4.8); Alpha 1 Globulin 0.3 g/dL (0.2-0.3); Alpha 2 Globulin 0.7 g/dL (0.5-0.9); Angiotensin Converting Enzyme 57 U/L (9-67); Beta-1-Globulin 0.3 g/dL (0.4-0.6); Beta-2-Globulin 0.2 g/dL (0.2-0.5); Gamma Globulin 0.8 g/dL (0.8-1.7); Monoclonal Protein Band 1 0.3 g/dL (NONE DETECTED); Monoclonal Protein Band 2 DNR g/dL (NONE DETECTED); Monoclonal Protein Band 3 DNR g/dL (NONE DETECTED); Total Protein 5.7 g/dL (6.1-8.1)
--- NOTE | 2024-06-12 18:19 | Discharge Summary ---
Discharge Summary Date of Service June 12, 2024 Principal Dx & Hospital Course #1 = Principal Diagnosis (1) Gastritis and duodenitis: (2) Epigastric abdominal pain: (3) Hypokalemia: (4) Neurogenic claudication due to lumbar spinal stenosis: (5) Elevated troponin: (6) Abnormal EKG: (7) Mesenteric artery stenosis: Plan 67-year-old female with past medical history of depression, low back pain, bronchiectasis, Fred-en-Y gastric bypass 7 years ago, GI bleed and duodenal abscess in 2023 presented to ER w/ epigastric pain and associated nausea (no vomiting or radiating symptoms, no fever/chills or initial change in bowels r eported), on PPI/cafate at home. 10-15lb weight loss in the past 2 months. CTAP unremarkable on admission. #Abdominal pain / SMA stenosis / Suspected gastritis/duodenitis / Constipation GI consulted - s/p EGD 05/[address] Horne - EGD with normal esophagus, normal jejunum, healthy appearing mucosa of gastrojejunostomy biopsied Mesenteric US w/ concerns for SMA but vascular consulted CTA obtained and did NOT feel c/w SMA or need for vascular intervention Tolerated advanced diet Abdominal wall trigger point injections 06/10 with resolution of abdominal pain - recommend following with pain management outpatient for further trigger point injections as needed KUB obtained w/ retained stool and bowel regimen added/escalated - Continue miralax, senna, docusate. Multiple BMs 06/11- UPEP pending - will defer to PCP for follow-up #Abn EKG, elevated troponin - w/ elevated troponin on admission to mid 40s - Suspected demand from dehydration/malnourishment from above but did also review EKG and noted significant changes concerning for possible underlying cardiac etiology (also QTC prolongation/IV mag provided) Cardiology consulted/echo ordered and cardiology did NOT feel cardiac related but we did review meds and was scheduled compazine IV q6h as well as frequent zofran IV and newer med rexulti earlier this year along same timeline her GI sx started (prior on Abilify) and suspect also contributed and have been STOPPED on QTC prolonging agents ECHO w/o wma, normal EF #Neurogenic claudication due to spinal stenosis Continued on gabapentin 800mg TID but reduced to 600mg TID based on renal function - continued reduced dose on discharge #Depression - mood stable at present on buspar but see above recent rx rexulti which has been STOPPED for now. Prior use abilify can be discussed in f/u but would avoid for now given above and staying stable Continue duloxetine Dispo: continued inpatient stay, working on bowel movement and hopefully dc next 24-48hrs if occurs Notes For Next Care Provider Please follow-up on EGD biopsy results and UPEP results Consider resuming Abilify though with caution given prolonged QTc. Mood has been stable off Abilify/Rexulti Recommend follow-up with pain management for further abdominal wall trigger point injections; asked application services manager to make referral on discharge Medication Changes From Visit Started bowel regimen Reduced gabapentin to 600 mg TID Discontinued Rexulti and sucralfate Admission HPI Per Admitting Provider Anila King is a 68 year old female who presents to the ER with epigastric pain. She reports epigastric pain starting around 1am yesterday getting progressively worse, no radiation, associated nausea. Nothing making it better or worse. No change in diet the previous day - ate chicken and potatoes. She missed her morning medications today due to nausea. No dysphagia or odynophagia. No fever, chills, respiratory or urinary symptoms. No change in bowel movements. She notes a prior history of UGI bleed and duodenal abscess last year. Discharge Exam General: No acute distress, nondiaphoretic. Frail appearing female who appears older than current age. Cardiac: Regular rate and rhythm, faint systolic murmur appreciated. Pulm: Clear to auscultation without wheezes, rales, or rhonchi. Normal respiratory effort. 92% on room air. Abdominal: Soft, nondistended, nontender. Bowel sounds present. Neuro: A&O x3. No focal neurological deficits. Discharge Plan Discharge Items Patient Disposition: Home - Self-Care Reason For Visit: GASTRITIS, DUODENITIS Discharge Diagnosis: Gastritis, SMA stenosis, abdominal pain, constipation Activity: Resume your previous activity Non-emergency contact: Primary Care Provider Call non-emergency contact if: you have any medication questions and your symptoms worsen Follow-up/Referrals: Paula Bolaños, [Primary Care Provider] - (Follow-up in 1-2 weeks) Diet: Low Fiber Diet Texture: Easy to Chew Addtl Attending Provider Instructions: Anila, You were admitted to the hospital due to abdominal pain and nausea. You had an EGD with the GI doctor which was overall normal. You had an ultrasound of your abdomen with findings consistent of superior mesenteric artery stenosis, however the vascular surgeon did not feel that this required any surgical intervention. You had abdominal wall trigger point injections which relieved your abdominal pain. Your constipation resolved after a significant bowel regimen. You have been well tolerating your low fiber easy to chew diet. Upon discharge from the hospital: * Continue a bowel regimen to prevent further constipation. You can use MiraLAX, Senokot, and/or docusate - all have been prescribed on discharge. * Your gabapentin dose was reduced to 600 mg three times daily due to your kidney function. * Your sucralfate was discontinued as it can cause constipation. * Your Rexulti was discontinued because of its properties of prolonging your heart rhythm. * Continue your other medications as prescribed. * Follow-up with your PCP in 1-2 weeks. * A referral has been made to the pain management clinic for further abdominal wall trigger point injections if needed. It was a pleasure taking care of you while you were in the hospital! Pending Studies at Discharge: No Stand-Alone Forms: My [facility], Smoking Cessation Medications and DC Order Prescriptions: New gabapentin 600 mg Tablet 600 mg PO TID Qty: 90 0RF sennosides [Senokot] 8.6 mg Tablet 17.2 mg PO HS Qty: 30 0RF polyethylene glycol 3350 [Miralax] 17 gram Powder In Packet 17 g PO BID Qty: 30 0RF docusate sodium 100 mg Capsule 100 mg PO BID Qty: 60 0RF Continued (DME) nebulizer accessories Kit See Rx Instructions .ROUTE .MEDSUPPLY Qty: 1 0RF Rx Instructions: As directed donepezil [Aricept] 10 mg Tablet 10 mg PO HS cyanocobalamin (vitamin B-12) 1,000 mcg Tablet 1,000 mcg PO QAM pantoprazole [Protonix] 40 mg Tablet,Delayed Release (Dr/Ec) 40 mg PO DAILY topiramate [Topamax] 100 mg Tablet 100 mg PO BID rizatriptan 10 mg tablet 10 mg PO DAILY PRN (Reason: MIGRAINE) zolpidem 10 mg tablet 10 mg PO HS PRN (Reason: Sleep) tramadol 50 mg tablet 50 mg PO Q6H PRN (Reason: pain, moderate) Qty: 30 0RF buspirone 10 mg tablet 20 mg PO TID albuterol sulfate 0.63 mg/3 mL solution for nebulization 0.63 mg inhalation BID PRN (Reason: shortness of breath or wheezing) sodium chloride [Hyper-Denys] 7 % solution for nebulization 4 ml inhalation BID PRN (Reason: WHEN USING NEBULIZER) duloxetine 60 mg Capsule,Delayed Release(Dr/Ec) 60 mg PO DAILY lidocaine 5 % adhesive patch,medicated 1 patch topical DAILY PRN (Reason: Pain) Discontinued sucralfate 1 gram Tablet 1 g PO QID Qty: 100 0RF Rexulti 0.5 mg tablet 0.5 mg PO HS gabapentin 800 mg tablet 800 mg PO TID Discharge Orders: Discharge Order (Routine); Ordered 06/12/24 Ordered By: Tammy Coronel Admission Data Admit Date/Time: 05/29/24 14:57 Attending Provider: Leobardo Angela Admit Provider: Geo Pressley Primary Care Provider: Paula Bolaños Other Providers: Geo Pressley; Alex Horne I; Antolin Davis; Levi Sauer Other Interventions: Discharge Summary Assessment (RN) Last Done: 06/12/24 14:01 Hospital Stay Data Consultations 05/28/24 00:22 ED Decision to Admit Stat 05/29/24 13:32 Consult Gastroenterology Routine 06/01/24 14:50 Consult Vascular Surgery Routine 06/05/24 09:43 Consult Cardiology Routine Procedures Performed Operation Date: 05/30/24 16:30 Actual Procedures p EGD Biopsy Cytology - Alex Horne MD Diagnostic Imagining Performed Abdomen/Pelvis CT 05/27/24 19:02 Exam(s): CT ABDOMEN + PELVIS With Contrast IV Amt: 90 ml optiray 320 EXAM: CT Abdomen and Pelvis With Intravenous Contrast CLINICAL HISTORY: Reason for exam: upper abdominal pain, vomiting. TECHNIQUE: Axial computed tomography images of the abdomen and pelvis with intravenous contrast. CTDI is 10.3 mGy and DLP is 504 mGy-cm. Automated exposure control was utilized for the study. A dose lowering technique was utilized adhering to the principles of ALARA. CONTRAST: Patient received 90 ml optiray 320 of IV contrast COMPARISON: CT 05/23/2023 FINDINGS: ABDOMEN: Liver: Unremarkable. Gallbladder and bile ducts: Cholecystectomy. Biliary dilatation secondary to prior cholecystectomy. Pancreas: Unremarkable. Spleen: Unremarkable. Adrenals: Unremarkable. Kidneys and ureters: Unremarkable. No obstructing stones. No hydronephrosis. Stomach and bowel: Fred-en-Y gastric bypass. No bowel obstruction. Intact suture anastomoses along the GI tract. PELVIS: Appendix: Appendix is not visualized. Bladder: Unremarkable. Reproductive: Unremarkable as visualized. ABDOMEN and PELVIS: Intraperitoneal space: Unremarkable. No free air. No significant fluid collection. Bones/joints: Postsurgical changes in the lumbar spine. Soft tissues: Unremarkable. Vasculature: Unremarkable. Lymph nodes: Unremarkable. Other findings: Elevated right hemidiaphragm. IMPRESSION: No acute findings in the abdomen or pelvis. Electronically signed by: Matthew Beaulieu MD 05/27/24 22:28 PM Mesenteric US 05/30/24 10:38 US duplex mesenteric CLINICAL HISTORY: pain after eating COMPARISON STUDY: CT of the abdomen and pelvis with intravenous contrast dated 05/27/2024 FINDINGS: Duplex and color Doppler evaluation was performed of the aorta, celiac axis, and SMA. Peak systolic velocity within the aorta was 73 cm/s. Peak systolic velocity in the celiac axis is 130 cm/s. Peak systolic velocity in the proximal superior mesenteric artery is 318 cm/s. When the thin section axial images from the prior CT are reviewed, there is a suggestion of a soft plaque near the origin of the SMA with slight poststenotic dilatation. IMPRESSION: Findings are highly suggestive of a hemodynamically significant stenosis at the SMA origin manifested by peak systolic velocity of 318 cm/s. Would consider confirmatory CTA if intervention is planned. ACT 112: Negative or not required by law. Electronically signed by: Irene Gross M.D. 05/30/2024 2:41 PM Abdomen/Pelvis CTA 06/03/24 09:35 CT angio abd pelvis wo/w con HISTORY: 68 years-old Female mesenteric stenosis follow-up study in a patient with elevated peak systolic velocities in the superior mesenteric artery described on the recent ultrasound from 05/30/2024 COMPARISON: Duplex venous Doppler 05/30/2024, CT abdomen and pelvis 05/27/2024 TECHNIQUE: CTA abdomen and pelvis was obtained with and without IV contrast. 3-D coronal and sagittal MIPS were obtained intermittently for review. All measurements were obtained according to NASCET criteria. A dose lowering technique was used consistent with the principals of CHARITO. FINDINGS: CTA: Heart is normal in size. No pericardial effusion. Normal caliber descending thoracic aorta. There is moderate atherosclerosis of the abdominal aorta without aneurysm or dissection. There is patency of the normal caliber common and external iliac arteries and imaged proximal femoral arteries. Mild stenosis at the origin of the celiac trunk there is approximately 50% stenosis at the origin of the superior mesenteric artery without dissection, occlusion or high-grade stenosis. There is at least mild stenosis at the origin of the inferior mesenteric artery. The bilateral renal arteries are patent. There is an accessory small right sided renal artery which demonstrates a degree of stenosis at its origin, difficult to quantify secondary to small caliber. CT ABDOMEN/pelvis: Right hemidiaphragmatic elevation with linear right basilar atelectasis versus scarring redemonstrated. There is no pneumatosis or pneumoperitoneum identified. Unremarkable spleen, moderately atrophic pancreas and adrenal glands. Cholecystectomy with likely postsurgical biliary ductal dilation redemonstrated. Unremarkable liver. There is mild cortical thinning of the kidneys without urolith or hydronephrosis. Mild nonspecific urinary bladder wall thickening. Hysterectomy. No lymphadenopathy. Prior gastric bypass. Circumferential wall thickening of the rectum with perirectal inflammation and small amount of pelvic ascites, progressed from prior. Mild to moderate colonic fecal retention. Noninflamed appendix. Degenerative postoperative changes of the spine. Healed chronic fracture deformities of the pelvic ring. IMPRESSION: 1. Findings suggestive of a nonspecific proctitis with small amount of pelvic ascites, new from the May 27, [address]24 CT exam. 2. No bowel obstruction or pneumoperitoneum. 3. Atherosclerosis of the aorta without aneurysm. 4. There is approximately 50% stenosis at the origin of the superior mesenteric artery without evidence of high-grade stenosis. 5. Incidental findings as above. ACT 112: Negative or not required by law. The above report was generated using voice recognition software. It may contain grammatical, syntax or spelling errors. Electronically signed by: Jatin Madrid M.D. 06/03/2024 1:28 PM KUB X-Ray 06/04/24 13:41 KUB HISTORY: eval stool burden COMPARISON STUDY: None FINDINGS: There is moderate retained stool. No bowel obstruction seen. There is lower lumbar metallic fusion. There are right upper quadrant surgical clips and surgical clips near the GE junction. IMPRESSION: Moderate retained stool. ACT 112: Negative or not required by law. The above report was generated using voice recognition software. It may contain grammatical, syntax or spelling errors. Electronically signed by: Jaxson Oneill M.D. 06/04/2024 2:46 PM KUB X-Ray 06/05/24 07:55 KUB HISTORY: f/u constipation, abdominal pain COMPARISON STUDY: 06/04/2024 FINDINGS: Stable upper abdominal surgical clips and fusion of the lower lumbar spine. There is mild retained stool. No bowel obstruction seen. No gross free air. IMPRESSION: Mild retained stool, improved. ACT 112: Negative or not required by law. The above report was generated using voice recognition software. It may contain grammatical, syntax or spelling errors. Electronically signed by: Jaxson Oneill M.D. 06/05/2024 8:57 AM KUB X-Ray 06/10/24 08:58 KUB HISTORY: f.u constipation COMPARISON STUDY: 06/05/2024 FINDINGS: There are stable upper abdominal surgical clips bilaterally. Stable lumbar metallic fusion. There is mild retained stool. No bowel obstruction seen. No gross free air. Stable elevation of the right hemidiaphragm. IMPRESSION: Mild retained stool. ACT 112: Negative or not required by law. The above report was generated using voice recognition software. It may contain grammatical, syntax or spelling errors. Electronically signed by: Jaxson Oneill M.D. 06/10/2024 10:25 AM Pending Results Patient Have Any Pending Studies at Discharge: No Discharge Instructions Given to Patient (Per Discharging Provider) Anila, You were admitted to the hospital due to abdominal pain and nausea. You had an EGD with the GI doctor which was overall normal. You had an ultrasound of your abdomen with findings consistent of superior mesenteric artery stenosis, however the vascular surgeon did not feel that this required any surgical intervention. You had abdominal wall trigger point injections which relieved your abdominal pain. Your constipation resolved after a significant bowel regimen. You have been well tolerating your low fiber easy to chew diet. Upon discharge from the hospital: * Continue a bowel regimen to prevent further constipation. You can use MiraLAX, Senokot, and/or docusate - all have been prescribed on discharge. * Your gabapentin dose was reduced to 600 mg three times daily due to your kidney function. * Your sucralfate was discontinued as it can cause constipation. * Your Rexulti was discontinued because of its properties of prolonging your heart rhythm. * Continue your other medications as prescribed. * Follow-up with your PCP in 1-2 weeks. * A referral has been made to the pain management clinic for further abdominal wall trigger point injections if needed. It was a pleasure taking care of you while you were in the hospital! Total Time Total Time Spent Total Time Spent (In Minutes): Greater than 30 minutes spent completing this discharge process including direct patient care, medication reconciliation, documentation, review of labs and imag es, and coordination of care. Coding Level of Care Code 76343 INP/OBS DISCH >30 MIN Diagnoses Gastritis and duodenitis K29.90 Epigastric abdominal pain R10.13 Hypokalemia E87.6 Neurogenic claudication due to lumbar spinal stenosis M48.062 Elevated troponin R79.89 Abnormal EKG R94.31 Mesenteric artery stenosis K55.1
== END 2024-06-12 14:42 | disposition home or self-care (01) | DRG 392 ==
LOC: SUATTDRO → ED 18:35 → 3W 18:35 → SUATTDRO 05-28 00:35 → 3W 05-28 02:17 → SUATTDRO 05-29 14:57 → 3W 05-29 17:35

== ENCOUNTER 2025-01-09 15:09 | Observation (INO) ==
--- NOTE | 2025-01-09 15:47 | Emergency Department Note ---
Impression & Plan Myoclonus ED Provider Note HISTORY OF PRESENT ILLNESS: Patient is a 69-year-old female presenting with shakiness. Patient reports she was seen by her primary care provider today because she was having episodes of shakiness and could not walk this morning. She was noted be febrile at the PCPs appointment reportedly to 103. She is not given any antipyretic. Given her fever and her symptoms and being started on Flexeril 6 days ago, the PCP referred the patient to the emergency department due to concern for potential serotonin syndrome. Patient reports she was seen at an [facility] emergency department 6 days ago for back pain and radiculopathy symptoms and was started on Flexeril. She reports she has been taking this for the last 6 days with her last dose being last night. She states that this morning she woke up and was very shaky and unsteady on her feet. She denies any falls. She states that she went to her primary care provider for her symptoms and was referred to the ER. Other than the naproxen and Flexeril that were prescribed 6 days ago, she has no other changes to her medications. ROS: as above PHYSICAL EXAM: Constitutional: Patient appears in no acute distress. HENT: Head: Normocephalic and atraumatic. Eyes: EOMI, PERRL. No ocular clonus noted. Mouth/Throat: Mucous membranes moist. Neck: Trachea midline. Neck supple. Cardiovascular: RRR, No murmurs, rubs or gallops. Intact distal pulses. Pulmonary/Chest: No respiratory distress. Breath sounds clear and equal bilaterally. No wheezes or rales. Abdominal: Abdomen soft, no tenderness, rebound or guarding. Musculoskeletal: No edema, tenderness or deformity noted. Skin: Warm and dry. No rash, erythema, pallor or cyanosis Psychiatric: Appropriate mood and affect for situation. Neurological: Alert and keenly responsive. CN II-XII grossly intact, moving all extremities equally and fully. No reproducible clonus. Patient has intact patellar and Achilles reflexes bilaterally. No appreciable hyperreflexia. Patient has downgoing Babinski bilaterally. She is noted to have some sporadic episodes of spontaneous mild clonus in the bilateral upper and lower extremities. Patient is alert and oriented and answering questions. MDM: - Vitals signs showed tachycardia - History obtained via patient. History as above. - Chronic conditions affecting care: depression; GERD; peripheral neuropathy - Differential diagnoses include, but are not limited to: electrolyte abnormality; serotonin syndrome; CVA; chorea; neuroleptic malignant syndrome; dystonic reaction - Order placed for continuous cardiac monitoring. At this time, monitor showed rate of 93 bpm with normal sinus rhythm, per my interpretation. - External medical records reviewed. Did contact resident physician who saw the patient and he reports that the patient had a temperature of 38.2 in the clinic. Reports that the patient is on multiple serotonergic agents and started Flexeril 6 days ago. He reports patient was hyperreflexive in clinic and given her symptoms, referred to the emergency department for further evaluation. - EKG image interpreted by myself showed normal sinus rhythm. Rate 88 bpm. QT 338. No acute ischemic changes. - Laboratory workup interpreted by myself showed slight leukocytosis (WBC 13.03) with neutrophil predominance; stable electrolytes; normal CK; normal AST/ALT; normal TSH - CXR image reviewed interpreted by myself as no for pneumonia, per my interpretation. - UA and UDS ordered - I do have significantly less concern for serotonin syndrome given the patient's presenting symptoms and reassuring exam. She was not given any antipyretic at the clinic prior to presentation in the emergency department and had a normal temperature on arrival. Other than her slight tachycardia on initial assessment, she had no other autonomic instability. She is alert and oriented and not showing any altered mental status or agitated delirium. Other than clonus, patient does not have any significant neuromuscular abnormality such as hyperreflexia or reported seizures. - Regardless, patient given 0.5 mg IV ativan. On reassessment, she has less severe clonus. Will discuss case with hospitalist service for admission for observation. At this time, the patient is stable and does not have any significant findings concerning need for ICU admission. - Discussion was had with window caser about patient's case and need for admission - Hospitalist consulted for admission - Patient admitted to [facility] hospitalist service for further evaluation and management. ASSESSMENT AND PLAN: Diagnosis: Myoclonus Plan: Admit Past Med/Surg History Problem List (Updated 01/09/25 @ 16:50 by Giana Bassett MD) Myoclonus (Acute) Constipation Abnormal EKG Abdominal pain Mesenteric artery stenosis Mesenteric ischemia, chronic Gastritis and duodenitis Epigastric abdominal pain (Acute) Sepsis Intra-abdominal abscess Shock Anemia Abnormal CT of the abdomen Bronchiectasis Follows with Dr. Moreno- breathing stable Depression Stable Cataract lt. Encounter for pre-operative examination Encounter for pre-operative examination Dyspnea on exertion Abnormal barium swallow Elevated hemidiaphragm Tachycardia Acute blood loss anemia Upper GI bleed recently admitted at [facility] 09/15/22---per pt was found to have bleeding at gastric bypass site, clipped at site and received 2 units PRBCs--pt states she has improved, no current issue, is taking sucralfate as prescribed Vasomotor rhinitis Medical History Neurogenic claudication due to lumbar spinal stenosis Memory changes History Since TIA (2008) - mild- no recent issues per patient (no follow up with neurology needed) History of recent blood transfusion 09/16/22 @ [facility]--2 units PRBC for upper GI bleed Seizure disorder Chronic low back pain Insomnia Chronic cough Stable Elevated diaphragm Peripheral neuropathy Hands and feet Degenerative disc disease Chronic back pain Lumbar facet arthropathy Spinal stenosis Osteoporosis GERD (gastroesophageal reflux disease) Well controlled and stable Seizure "Staring seizures"- no issues since 2010 per patient Transient ischemic attack (TIA) 2008- no current issues History of high blood pressure Bronchiectasis hx Surgical History Hx of cataract extraction bilat History of total knee replacement RT/LEFT History of esophagogastroduodenoscopy (EGD) 09/16/22 @ [facility] History of colonoscopy H/O total hysterectomy History of cholecystectomy History of tonsillectomy History of tooth extraction History of gastric bypass Family History Aunt Diabetes Grandmother (Paternal) Diabetes Other No family history of adverse response to anesthesia Social History Smoking Status: Never smoker Second Hand Exposure: No; Do You Dip or Chew Tobacco: No; Hx Alcohol Use: No Hx Substance Use: No Preferred Language: Slovak Communication Ability: Effective Lab Nurse Required: No Beliefs That Will Affect Care: None Current Living Situation: Alone Feels Safe at Home: Yes Assistive Devices: None Allergies Allergies Allergy/AdvReac Type Severity Reaction Status Date / Time No Known Allergies Allergy Verified 05/27/24 20:29 Home Meds Home Medications Medication Instructions Recorded Confirmed cyanocobalamin (vitamin B-12) 1,000 mcg PO QAM 07/23/19 05/27/24 1,000 mcg tablet donepezil 10 mg tablet (Aricept) 10 mg PO HS 07/23/19 05/27/24 pantoprazole 40 mg tablet,delayed 40 mg PO DAILY 07/23/19 05/27/24 release (Protonix) topiramate 100 mg tablet (Topamax) 100 mg PO BID 07/23/19 05/27/24 rizatriptan 10 mg tablet 10 mg PO DAILY PRN MIGRAINE 09/15/22 05/27/24 zolpidem 10 mg tablet 10 mg PO HS PRN Sleep 09/15/22 05/27/24 lidocaine 5 % topical patch 1 patch topical DAILY PRN Pain 05/17/23 05/27/24 albuterol sulfate 0.63 mg/3 mL 0.63 mg inhalation BID PRN 05/27/24 05/27/24 solution for nebulization shortness of breath or wheezing buspirone 10 mg tablet 20 mg PO TID 05/27/24 05/27/24 sodium chloride 7 % for 4 ml inhalation BID PRN WHEN USING 05/27/24 05/27/24 nebulization (Hyper-Denys) NEBULIZER duloxetine 60 mg capsule,delayed 60 mg PO DAILY 06/11/24 06/11/24 release Previous Rx's Medication Instructions Recorded nebulizer accessories #1 ea 03/01/22 tramadol 50 mg tablet 50 mg PO Q6H PRN pain, moderate 11/10/22 #30 tabs docusate sodium 100 mg capsule 100 mg PO BID #60 caps 06/12/24 gabapentin 600 mg tablet 600 mg PO TID #90 tabs 06/12/24 polyethylene glycol 3350 17 gram 17 g PO BID #30 ea 06/12/24 oral powder packet (Miralax) sennosides 8.6 mg tablet (Senokot) 17.2 mg (2 x 8.6 mg) PO HS #30 tabs 06/12/24 methylprednisolone 4 mg tablets in See Rx Instructions .Route 10/11/24 a dose pack (Medrol (Fidel)) .COMPLEX #21 ea Results & Data (ED) Vital Signs Vital Signs - 24 hr 01/09/25 15:11 01/09/25 16:06 01/09/25 16:11 Temperature 37.5 C Temperature Source Oral Pulse Rate 112 H 93 H Pulse Rate [Apical] 93 H Respiratory Rate 18 20 Respiratory Effort / Characteristics Non-Labored Spontaneous Non-Labored Respiratory Depth Normal Normal Blood Pressure 130/83 Blood Pressure [Right Arm] 126/87 Blood Pressure Mean 98 Blood Pressure Mean [Right Arm] 100 Blood Pressure Position Sitting Pulse Oximetry 95 96 Oxygen Delivery Method Room Air Room Air Sepsis Recent Fever Within 48 Hours No Sepsis New/Unexplained Change in Mental Status No Sepsis Action Taken by Nursing No Action Required 01/09/25 16:11 01/09/25 16:52 Temperature 37.6 C H Temperature Source Oral Pulse Rate Pulse Rate [Apical] Respiratory Rate Respiratory Effort / Characteristics Respiratory Depth Blood Pressure Blood Pressure [Right Arm] Blood Pressure Mean Blood Pressure Mean [Right Arm] Blood Pressure Position Pulse Oximetry Oxygen Delivery Method Room Air Sepsis Recent Fever Within 48 Hours Sepsis New/Unexplained Change in Mental Status Sepsis Action Taken by Nursing Laboratory Data 01/09/25 16:10 01/09/25 16:10 Lab Results 01/09/25 Range/Units 16:10 WBC 13.03 H (4.8-10.8) K/ul RBC 4.27 (4.20-5.40) M/uL Hgb 12.6 (12.0-16.0) g/dL Hct 37.2 (37.0-47.0) % MCV 87.1 (80.0-100.0) fL MCH 29.5 (25.0-34.0) pg MCHC 33.9 (32.0-36.0) g/dL RDW Std Deviation 39.8 (36.4-46.3) fL RDW Coeff of Meredith 12.5 (11.5-14.5) % Plt Count 206 (130-400) K/uL MPV 8.7 L (9.4-12.4) fL Immature Gran % (Auto) 0.4 % Neut % (Auto) 82.6 % Lymph % (Auto) 7.4 % Shelby % (Auto) 7.9 % Eos % (Auto) 1.5 % Baso % (Auto) 0.2 % Neut # (Auto) 10.75 H (1.40-6.50) K/uL Lymph # (Auto) 0.97 L (1.20-3.40) K/uL Shelby # (Auto) 1.03 H (0.11-0.59) K/uL Eos # (Auto) 0.20 (0.00-0.50) K/uL Baso # (Auto) 0.03 (0.00-0.20) K/uL Immature Gran # (Auto) 0.05 (0.01-0.20) K/uL Sodium 136 (136-145) mmol/L Potassium 4.0 (3.5-5.1) mmol/L Chloride 102 (98-107) mmol/L Carbon Dioxide 28 (21-32) mmol/L Anion Gap 6 (3-11) BUN 15 (6-23) mg/dl Creatinine 0.99 (0.6-1.2) mg/dl Est Cr Clr Drug Dosing Not Reportable eGFR 62.50 BUN/Creatinine Ratio 15.2 (10-20) Glucose 87 (70-99(Fasting)) mg/dl Calcium 9.1 (8.6-10.3) mg/dl Magnesium 1.9 (1.7-2.4) mg/dl Total Bilirubin 0.5 (0.2-1.0) mg/dl AST 13 (13-39) U/L ALT 6 L (7-52) U/L Alkaline Phosphatase 78 (34-104) U/L Total Creatine Kinase 74 (26-192) U/L Total Protein 6.0 (6.0-8.3) gm/dl Albumin 3.7 (3.4-5.0) gm/dl Globulin 2.3 L (2.5-4.0) gm/dl Albumin/Globulin Ratio 1.6 (0.9-2) TSH 0.334 (0.300-4.500) uIu/ml Administered Medications Discontinued Medications Lorazepam (Lorazepam 1 Mg/1 Ml Syr Ed Inj Use) 0.5 mg IV ONE STA Stop: 01/09/25 15:42 Last Admin: 01/09/25 16:50 Dose: 0.5 mg Documented By: MMG Discharge Plan Visit Data Chief Complaint: Referred by Doctor Stated Complaint: DOC SENT SHAKY FEVER ED Provider: Polinski,Giana Z. Discharge Problem: Myoclonus Patient Disposition: Admitted As Inpatient Condition: Fair Forms Stand Alone Forms: [facility] [employer] Prescriptions Prescriptions: No Action (DME) nebulizer accessories Kit See Rx Instructions .ROUTE .MEDSUPPLY Qty: 1 0RF Rx Instructions: As directed donepezil [Aricept] 10 mg Tablet 10 mg PO HS pantoprazole [Protonix] 40 mg Tablet,Delayed Release (Dr/Ec) 40 mg PO DAILY topiramate [Topamax] 100 mg Tablet 100 mg PO BID rizatriptan 10 mg tablet 10 mg PO DAILY PRN (Reason: MIGRAINE) zolpidem 10 mg tablet 10 mg PO HS PRN (Reason: Sleep) tramadol 50 mg tablet 50 mg PO Q6H PRN (Reason: pain, moderate) Qty: 30 0RF albuterol sulfate 0.63 mg/3 mL solution for nebulization 0.63 mg inhalation BID PRN (Reason: shortness of breath or wheezing) sodium chloride [Hyper-Denys] 7 % solution for nebulization 4 ml inhalation BID PRN (Reason: WHEN USING NEBULIZER) duloxetine 60 mg Capsule,Delayed Release(Dr/Ec) 60 mg PO DAILY gabapentin 600 mg Tablet 600 mg PO TID Qty: 90 0RF lidocaine 5 % adhesive patch,medicated 1 patch topical DAILY PRN (Reason: Pain) Referrals Referrals: Paula Bolaños DO [Primary Care Provider] -
[2025-01-09 16:21] LABS: Hematocrit (blood only) 37.2 % (37.0-47.0); Hemoglobin 12.6 g/dL (12.0-16.0); Immature Granulocytes # (auto) 0.05 K/uL (0.01-0.20); Immature Granulocytes % (auto) 0.4 %; Mean Corpuscular Hemoglobin 29.5 pg (25.0-34.0); Mean Corpuscular Volume 87.1 fL (80.0-100.0); Platelet Count 206 K/uL (130-400); RDW Standard Deviation 39.8 fL (36.4-46.3); Red Blood Count 4.27 M/uL (4.20-5.40); White Blood Count 13.03 K/ul (4.8-10.8)
[2025-01-09 16:40] LABS: Alanine Aminotransferase 6 U/L (7-52); Albumin Globulin Ratio 1.6 (0.9-2); Albumin Level 3.7 gm/dl (3.4-5.0); Alkaline Phosphatase 78 U/L (34-104); Anion Gap 6 (3-11); Bilirubin,Total 0.5 mg/dl (0.2-1.0); Blood Urea Nitrogen 15 mg/dl (6-23); Calcium 9.1 mg/dl (8.6-10.3); Carbon Dioxide 28 mmol/L (21-32); Chloride 102 mmol/L (98-107); Creatine Kinase 74 U/L (26-192); Globulin 2.3 gm/dl (2.5-4.0); Glucose 87 mg/dl (70-99(Fasting)); Magnesium 1.9 mg/dl (1.7-2.4); Potassium 4.0 mmol/L (3.5-5.1); Sodium 136 mmol/L (136-145); Total Protein 6.0 gm/dl (6.0-8.3)
[2025-01-09] MEDS: LORazepam 1 MG/1 ML SYR ED Inj Use IV STA (16:50)
[2025-01-09 16:55] LABS: Thyroid Stimulating Hormone 0.334 uIu/ml (0.300-4.500)
[2025-01-09 16:57] LABS: INR 1.0 (0.9-1.1); Prothrombin Time 10.9 Seconds (9.0-12.0)
--- NOTE | 2025-01-09 16:57 | XRay Report ---
EXAM: Portable AP chest radiograph TECHNIQUE: AP portable radiograph of the chest was obtained. INDICATION: Shortness of breath. Weakness Comparison: Chest radiograph May 24, 2023 FINDINGS: LINES and TUBES: None CARDIOVASCULAR: Cardiac silhouette is normal in size. Atherosclerosis of the thoracic aorta. LUNGS/PLEURA: No focal consolidation identified. Chronic interstitial lung changes. No significant pleural fluid. No discernible pneumothorax. There is a nodular density projecting over the right upper lung measuring 1.3 cm, seemingly new from previous examination dated May 24, 2023 OSSEOUS/OTHER: No displaced acute osseous process identified. Unchanged elevation of the right hemidiaphragm. Right upper abdominal surgical clips are presumably from prior cholecystectomy. IMPRESSION: NEW pulmonary nodular density projecting over the right upper lung. This may represent a neoplasm/malignancy. Recommend further evaluation with thoracic CT. ACT 112: Positive. There are findings on this exam that require communication between the performing entity and the patient following Patient Test Result Information Act ([place] ACT 112) guidelines Electronically signed by David Patel 01-09-2025 4:56 PM
[2025-01-09 17:28] LABS: Appearance Urine Clear (Clear); Bacteria Urine Automated None Seen (None Seen); Cast Urine Automated 0-2 /lpf (0-2); Glucose Urine UA Negative (Negative); WBC Urine Automated 0-5 /hpf (0-5)
--- NOTE | 2025-01-09 17:41 | CT Scan Report ---
CT head without contrast History: Myoclonus Comparison: None Technique: Using multidetector thin collimation helical acquisition technique, axial, coronal and sagittal CT images from the skull base to the vertex were obtained without intravenous contrast. Dose reduction techniques were achieved by using automatic exposure control and/or adjustment of mA and/or kV according to patient size and/or use of iterative reconstruction technique. Findings: No intracranial hemorrhage, mass-effect, or midline shift. The ventricles are proportionate to the cerebral sulci. The sharma to white matter differentiation of the cerebral hemispheres is preserved. The basal cisterns are patent. The visualized paranasal sinuses are clear. Mastoid air cells are clear. Impression: No acute intracranial pathology. Electronically signed by Levi Reddy 01-09-2025 5:41 PM
--- NOTE | 2025-01-09 17:53 | History & Physical Report ---
Date of Service January 09, 2025 Assessment & Plan (1) Myoclonus: (2) Pulmonary nodule: (3) Polypharmacy: (4) Adverse effect of drug acting on muscles: Plan In summary this is a 69-year-old female who presents with intermittent myoclonic activity #Myoclonus // Adverse drug effect // Polypharmacy Given the patient's recent course of a muscle relaxant in combination with her multiple psychiatric medications, suspect this is likely an adverse drug effect, most likely consequential of anticholinergic activity; there is no evidence on physical exam, nor laboratory assessment or imaging to suggest that there is a separate pathologic process at play that would be resulting in the sudden onset of the symptoms; the patient reports that they had a significant fever at their primary care physician's office on the day of presentation, however this has not been found with their initial assessment here in the hospital, I have a low degree of suspicion for serotonin syndrome Discontinue Flexeril Maintain the patient's current outpatient psychiatric medication regimen at this time, though would strongly recommend de-escalation of multiple medications given the patient's age, comorbidities, and risk for polypharmacy #Pulmonary nodule Found to have pulmonary nodule in the right upper lobes; CT was recommended, has been ordered for completion during the patient's hospitalization, do not suspect that this is directly contributing to the patient's presenting complaints, even if this is malignancy, there are few to no paraneoplastic syndromes that were present with myoclonus The remainder the patient's chronic medical conditions are stable and do not require adjustment to their outpatient regimen at this time History of Present Illness Chief Complaint: Abnormal movements Primary Care Provider: Paula Bolaños DO Ms. 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 The patient was recently evaluated at an external hospital emergency department on 01/04 and discharged from that facility with prescriptions for naproxen and Flexeril to manage sciatic nerve pain without a further specified diagnosis. 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 The patient was subsequently evaluated by their primary care physician as a scheduled follow-up visit from the previous emergency department evaluation and found to have persistent abnormal muscle movements in addition to a measured fever of 103 F per the patient's report. The patient denies any subjective fever, objective fever at home, persistent lower extremity pain or sciatic nerve pain from the previous emergency department evaluation. They deny any new pain or discomfort associated with these uncontrollable movements, chest pain, palpitations, paresthesias, loss of control of urine or bowel function, new confusion, dysarthria, dysphagia, dyne aphasia. Patient is companied by their loved ones who reported no new neurolo gic abnormalities noted other than the abnormal upper extremity movements. Allergies Allergy/AdvReac Type Severity Reaction Status Date / Time No Known Allergies Allergy Verified 01/09/25 16:58 Home Medications Medication Instructions Recorded Confirmed Type donepezil 10 mg tablet (Aricept) 10 mg PO HS 07/23/19 01/09/25 History pantoprazole 40 mg tablet,delayed 40 mg PO DAILY 07/23/19 01/09/25 History release (Protonix) topiramate 100 mg tablet (Topamax) 100 mg PO BID 07/23/19 01/09/25 History nebulizer accessories #1 ea 03/01/22 09/14/22 Rx rizatriptan 10 mg tablet 10 mg PO DAILY PRN MIGRAINE 09/15/22 01/09/25 History zolpidem 10 mg tablet 10 mg PO HS PRN Sleep 09/15/22 01/09/25 History tramadol 50 mg tablet 50 mg PO Q6H PRN pain, moderate 11/10/22 01/09/25 Rx #30 tabs lidocaine 5 % topical patch 1 patch topical DAILY PRN Pain 05/17/23 01/09/25 History albuterol sulfate 0.63 mg/3 mL 0.63 mg inhalation BID PRN 05/27/24 01/09/25 History solution for nebulization shortness of breath or wheezing sodium chloride 7 % for 4 ml inhalation BID PRN WHEN USING 05/27/24 01/09/25 History nebulization (Hyper-Denys) NEBULIZER duloxetine 60 mg capsule,delayed 60 mg PO DAILY 06/11/24 01/09/25 History release buspirone 10 mg tablet 20 mg PO TID 01/09/25 01/09/25 History cyclobenzaprine 5 mg tablet 5 mg PO TID 01/09/25 01/09/25 History gabapentin 800 mg tablet 800 mg PO TID 01/09/25 01/09/25 History naproxen 250 mg tablet 500 mg PO BID 01/09/25 01/09/25 History Past Med/Surg History Problem List Polypharmacy Adverse effect of drug acting on muscles Pulmonary nodule Myoclonus (Acute) Constipation Abnormal EKG Abdominal pain Mesenteric artery stenosis Mesenteric ischemia, chronic Gastritis and duodenitis Epigastric abdominal pain (Acute) Sepsis Intra-abdominal abscess Shock Anemia Bronchiectasis Follows with Dr. Moreno- breathing stable Depression Stable Cataract lt. Encounter for pre-operative examination Encounter for pre-operative examination Dyspnea on exertion Abnormal barium swallow Elevated hemidiaphragm Tachycardia Acute blood loss anemia Upper GI bleed recently admitted at [facility] 09/15/22---per pt was found to have bleeding at gastric bypass site, clipped at site and received 2 units PRBCs--pt states she has improved, no current issue, is taking sucralfate as prescribed Vasomotor rhinitis Medical History Hypoglycemia Elevated troponin Hypokalemia Intractable vomiting Memory changes History Since TIA (2008) - mild- no recent issues per patient (no follow up with neurology needed) History of recent blood transfusion 09/16/22 @ [facility]--2 units PRBC for upper GI bleed Seizure disorder Chronic low back pain Insomnia Chronic cough Stable Elevated diaphragm Peripheral neuropathy Hands and feet Degenerative disc disease Chronic back pain Lumbar facet arthropathy Spinal stenosis Osteoporosis GERD (gastroesophageal reflux disease) Well controlled and stable Seizure "Staring seizures"- no issues since 2010 per patient Transient ischemic attack (TIA) 2008- no current issues History of high blood pressure Bronchiectasis hx Surgical History Hx of cataract extraction bilat History of total knee replacement RT/LEFT History of esophagogastroduodenoscopy (EGD) 09/16/22 @ [facility] History of colonoscopy H/O total hysterectomy History of cholecystectomy History of tonsillectomy History of tooth extraction History of gastric bypass Family History Aunt Diabetes Grandmother (Paternal) Diabetes Other No family history of adverse response to anesthesia Social History Smoking Status: Never smoker Second Hand Exposure: No; Do You Dip or Chew Tobacco: No; Hx Alcohol Use: No Hx Substance Use: No Preferred Language: Jordanian Communication Ability: Effective 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: No Beliefs That Will Affect Care: None Current Living Situation: Alone Current Living Situation Comment: moving in with [id number] in about 2 weeks Other Information That Helps Us Care for You: No Feels Safe at Home: Yes Safety Concerns: Feels Safe At This Time Assistive Devices: Cane, Denture - Upper and Denture - Lower Review of Systems Review of Systems: Review of constitutional, cardiovascular, pulmonary, musculoskeletal, neurologic, genitourinary systems was unremarkable except for as noted as above Physical Exam Physical Exam: General: Elderly female in no acute distress Vital Signs: Reviewed HEENT: Moist mucous membranes; pupils equally round and reactive to light, extraocular motion intact Pulmonary: Symmetric chest wall excursion without restriction; clear to auscultation bilaterally Cardiovascular: Regular rate and rhythm with with grade 2/6 systolic murmur best heard in the left fifth intercostal space parasternally; no rubs or gallops; S1 and S2 normal; right radial pulse 2+; no notable lower extremity edema Gastrointestinal: Soft, nontender Musculoskeletal: Intermittent episodes of moderate amplitude and large frequency uncontrollable movement of the extremities and torso without any discernible pattern or regularity; no cogwheel rigidity noted with passive wrist range of motion; no bradykinesia Neurologic: Nerves II through XII grossly intact; no discernible focal weakness nor paresthesias; triceps, patellar, Achilles DTR 2/4 bilaterally without associated clonus Results & Data Results & Data Vital Signs (Past 12 Hours) Vital Signs Temp Pulse Pulse Resp BP BP Pulse Ox 01/09/25 16:52 37.6 C H 01/09/25 16:11 01/09/25 16:11 93 H 20 126/87 96 01/09/25 16:06 93 H 01/09/25 15:11 37.5 C 112 H 18 130/83 95 O2 Del Method 01/09/25 16:52 01/09/25 16:11 Room Air 01/09/25 16:11 Room Air 01/09/25 16:06 01/09/25 15:11 Room Air Laboratory Results Unremarkable assessment Diagnostic Findings Portable chest film reveals a new right upper lobe pulmonary nodule CT head without contrast was unremarkable Code Status & VTE Plan Code Status DNR/DNI VTE Prophylaxis Plan VTE Prophylaxis will be ordered: Yes PG Care Time/CCT Total # of Minutes Spent Total Time Spent with Patient: Total time spent is greater than 50% in coordination of care (as documented) at patient's floor/unit and/or counseling patient: Coding Level of Care Code 84625 INT INP/OBS CARE 2/55MIN Diagnoses Myoclonus G25.3 Pulmonary nodule R91.1 Polypharmacy Z79.899 Adverse effect of drug acting on muscles T48.205A
[2025-01-09] MEDS: OPTIRAY 320 100ml IV ONE (18:05)
[2025-01-09 18:15] LABS: Amphetamines+Metham, Urine Neg (Neg); MDMA (Ecstacy), Urine Neg (Neg); Marijuana, Urine Neg (Neg)
--- NOTE | 2025-01-09 19:30 | CT Scan Report ---
EXAMINATION: Chest CT with CLINICAL HISTORY: New right upper lobe pulmonary nodule PRIORS: Chest radiograph today, 05/24/2023 TECHNIQUE: Contiguous axial images were obtained through the chest with the use of intravenous contrast. Sagittal and coronal reformations are supplied. FINDINGS: Heterogeneous opacity present in the right upper lobe with nodular ill-defined appearance, images 19 through 29. No discrete soft tissue nodule. Hypoventilatory change at the right lung base. No large confluent opacification. No pleural or pericardial effusion. Thyroid normal in size. Trachea and mainstem bronchi patent. Heart size is normal. No adenopathy in the chest. Limited visualization of the upper abdomen shows large amount of formed stool and gas in the colon. Mild osseous demineralization noted. No high-grade compression fracture. IMPRESSION: Nodular opacification in the right upper lobe, corresponding to the finding on today's chest CT, favoring and inflammatory or infectious process. After medical treatment, follow-up chest radiograph is suggested in 6 to 8 weeks to reassess and ensure resolution. ACT 112: Positive. There are findings on this examination that require communication between the performing entity and the patient following Patient Test Result Information Act ([place] ACT 112) guidelines. Electronically signed by Tammi Corrigan 01-09-2025 7:29 PM
[2025-01-09] MEDS ORDERED: PNEUMOCOCCAL VACCINE (PCV20) 20-VAL CONJ-DIP CRM/PF 0.5 ML SYR IM ONE (22:53)
[2025-01-09] MEDS: TOPIRAMATE 100 MG TAB PO SCH (23:13)
[2025-01-09] MEDS: busPIRone 5 MG TAB PO SCH (23:13)
[2025-01-09] MEDS: ENOXAPARIN INJ 40 MG/0.4 ML SYR SQ SCH (23:14)
[2025-01-09] MEDS: ZOLPIDEM TARTRATE 5 MG TAB PO PRN (23:14)
[2025-01-09] MEDS: GABAPENTIN 800 MG TAB PO SCH (23:14)
[2025-01-10] MEDS ORDERED: LEVALBUTEROL HCL 0.63 MG/3 ML NEB INH PRN (02:03)
[2025-01-10 08:11] LABS: Hematocrit (blood only) 34.6 % (37.0-47.0); Hemoglobin 11.6 g/dL (12.0-16.0); Immature Granulocytes # (auto) 0.05 K/uL (0.01-0.20); Immature Granulocytes % (auto) 0.5 %; Mean Corpuscular Hemoglobin 29.4 pg (25.0-34.0); Mean Corpuscular Volume 87.8 fL (80.0-100.0); Platelet Count 170 K/uL (130-400); RDW Standard Deviation 40.2 fL (36.4-46.3); Red Blood Count 3.94 M/uL (4.20-5.40); White Blood Count 10.30 K/ul (4.8-10.8)
[2025-01-10 08:29] LABS: Anion Gap 5.0 (3-11); Blood Urea Nitrogen 20.0 mg/dl (6-23); Calcium 8.7 mg/dl (8.6-10.3); Carbon Dioxide 27.0 mmol/L (21-32); Chloride 104.0 mmol/L (98-107); Creatinine Clr Calc Pharmacy 37.3 ml/min; Glucose 80.0 mg/dl (70-99(Fasting)); Potassium 3.9 mmol/L (3.5-5.1); Sodium 136.0 mmol/L (136-145)
--- NOTE | 2025-01-10 12:37 | Hospitalist Progress Note ---
Date of Service January 10, 2025 Assessment & Plan (1) Polypharmacy: (2) Adverse effect of drug acting on muscles: (3) Myoclonus: Plan Anila is a 69-year-old female with PMH of Bronchiectasis, Depression, Mesenteric artery stenosis who presents with intermittent myoclonic activity. She was admitted for monitoring of her symptoms. #Myoclonus/Adverse drug effect/Polypharmacy/Frailty -Continue holding Flexeril -Reports she hasn't had any abnormal movement since she is here. Feeling better this morning -Maintain the patient's current outpatient psychiatric medication regimen at this time, but needs adjustment in the outpatient given her age, comorbidities and risk for polypharmacy. #Opacification of right upper lobe -Chest CT reveals heterogenous opacity present in the right upper lobe with nodular ill defined appearance. Findings suspicion for pneumonia. -Afebrile currently. But noted temperature 37.6 yesterday. -Denies chills, cough, dizziness or lightheadedness. -Will repeat procalcitonin the AM. If procal elevated, will treat with antibiotics. If procal is negative, no indication for antibiotics as the patient is asymptomatic currently. -Repeat chest radiograph recommended in 6 to 8 weeks to ensure resolution. #Back pain with radiculopathy -Hold Flexeril -Creatinine this morning 1.27. Add Naproxen PRN for pain -Continue gabapentin 800mg PO TID -BMP in the AM #Chronic condition -Depression with anxiety: Continue Buspar, Duloxetine #Code: DNR/DNI #DVT prophylaxis: Lovenox #Dispo: med/Surg Admission and Anticipated Discharge Date Admission Date: January 09, 2025 Supervising Physician Co-Signing Physician Notes Patient seen and examined, chart reviewed, case discussed with Dr. Putnam and I agree with the assessment and plan as above except as otherwise noted above. Tremors in hands improved. 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 Mild restlessness in her legs. CTAB. RRR. She feels her sx are better in her arms, although still feels a little shakey in her legs. Overall greatly improved. Defer further muscle relaxers at this time. NO respiratory sx at all, fevers, or chills. No cough. Will defer abx for now, repeat CT in 4-6 weeks. If any sx, fever, or wbc rises --> rocephin/azithro Subjective Anila King was seen and examined in the bedside this morning. She reported that she is feeling well. No abnormal movements after being admitted . Denies fever, chills, cough, dizziness, lightheadedness. Review of Systems Review of Systems: As per HPI Physical Exam Physical Exam: Constitutional: Well appearing, No acute distress, PILCCOD: Negative HEENT: Atraumatic, Normocephalic, No conjunctival injection CVS: S1 S2 no murmur, Regular Rhythm, no LE edema Respiratory: BL equal air entry with NVBS. No rhonchi, wheezes, or crackles. No increased work of breathing GI: Soft, Nondistended, Nontender, Normal Bowel sounds + MSK: No gross deformities noted Skin: Warm, Dry, No rashes Neuro: Alert, Oriented to TPP, No Focal deficit Psych: Mood and Affect congruent, Cooperative on exam Results & Data Results & Data Vital Signs (Past 12 Hours) Vital Signs Temp Pulse Resp BP Pulse Ox O2 Del Method 01/10/25 01:55 Room Air 01/10/25 01:48 36.9 C 91 H 18 128/56 L 97 Room Air Resident Activity Tracking Resident Involvement: Resident Care Provided Care Provided: Adult Hospital Medicine
[2025-01-10] MEDS: LACTATED RINGER'S 500 ML IV SCH (13:22)
[2025-01-10] MEDS: LORazepam 0.5 MG TAB PO STA (20:30)
--- NOTE | 2025-01-10 21:55 | Electrocardiogram Report ---
Test Reason : Blood Pressure : */* mmHG Vent. Rate : 88 BPM Atrial Rate : 88 BPM P-R Int : 148 ms QRS Dur : 86 ms QT Int : 338 ms P-R-T Axes : 57 30 135 degrees QTcB Int : 408 ms Normal sinus rhythm Cannot rule out Anterior infarct , age undetermined T wave abnormality, consider lateral ischemia Abnormal ECG When compared with ECG of 07-Jun-2024 09:47, Vent. rate has increased by 29 bpm T wave inversion no longer evident in Anterior leads QT has shortened Confirmed by Wily Jha ([id number]) on 01/10/2025 9:55:35 PM Referred By: Paula Bolaños Confirmed By: Wily Jha
[2025-01-11 06:25] LABS: Hematocrit (blood only) 33.5 % (37.0-47.0); Hemoglobin 11.6 g/dL (12.0-16.0); Immature Granulocytes # (auto) 0.02 K/uL (0.01-0.20); Immature Granulocytes % (auto) 0.3 %; Mean Corpuscular Hemoglobin 30.2 pg (25.0-34.0); Mean Corpuscular Volume 87.2 fL (80.0-100.0); Platelet Count 205 K/uL (130-400); RDW Standard Deviation 39.2 fL (36.4-46.3); Red Blood Count 3.84 M/uL (4.20-5.40); White Blood Count 7.52 K/ul (4.8-10.8)
[2025-01-11 06:43] LABS: Anion Gap 7.0 (3-11); Blood Urea Nitrogen 21.0 mg/dl (6-23); Calcium 8.5 mg/dl (8.6-10.3); Carbon Dioxide 25.0 mmol/L (21-32); Chloride 107.0 mmol/L (98-107); Creatinine Clr Calc Pharmacy 37.3 ml/min; Glucose 97.0 mg/dl (70-99(Fasting)); Potassium 3.7 mmol/L (3.5-5.1); Sodium 139.0 mmol/L (136-145)
--- NOTE | 2025-01-11 07:32 | Discharge Summary ---
Date of Service January 11, 2025 Admission HPI Per Admitting Provider Ms. 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 The patient was recently evaluated at an [facility] emergency department on 01/04 and discharged from that facility with prescriptions for naproxen and Flexeril to manage sciatic nerve pain without a further specified diagnosis. 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 The patient was subsequently evaluated by their primary care physician as a scheduled follow-up visit from the previous emergency department evaluation and found to have persistent abnormal muscle movements in addition to a measured fever of 103 F per the patient's report. The patient denies any subjective fever, objective fever at home, persistent lower extremity pain or sciatic nerve pain from the previous emergency department evaluation. They deny any new pain or discomfort associated with these uncontrollable movements, chest pain, palpitations, paresthesias, loss of control of urine or bowel function, new confusion, dysarthria, dysphagia, dyne aphasia. Patient is companied by their loved ones who reported no new neurologic abnormalities noted other than the abnormal upper extremity movements. Discharge Data Allergies Allergy/AdvReac Type Severity Reaction Status Date / Time No Known Allergies Allergy Verified 01/09/25 16:58 Consultations 01/09/25 17:00 ED Decision to Admit Stat Ordered Studies 01/09/25 17:00 CT head/brain wo con Stat 01/09/25 17:48 CT chest diagnostic w con Routine Hospital Course (1) Polypharmacy: (2) Adverse effect of drug acting on muscles: (3) Myoclonus: Bernabe High is a 69-year-old female with PMH of Bronchiectasis, Depression, Mesenteric artery stenosis who presents with intermittent myoclonic activity. She was admitted for monitoring of her symptoms. #Myoclonus/Adverse drug effect/Polypharmacy/Frailty -Continue holding Flexeril -Reports she hasn't had any abnormal movement since she is here. Feeling better this morning -Maintain the patient's current outpatient psychiatric medication regimen at this time, but needs adjustment in the outpatient given her age, comorbidities and risk for polypharmacy. #Opacification of right upper lobe -Chest CT reveals heterogenous opacity present in the right upper lobe with nodular ill defined appearance. Findings suspicion for pneumonia. -Afebrile currently. But noted temperature 37.6 yesterday. -Denies chills, cough, dizziness or lightheadedness. -Will repeat procalcitonin the AM. If procal elevated, will treat with antibiotics. If procal is negative, no indication for antibiotics as the patient is asymptomatic currently. -Repeat chest radiograph recommended in 6 to 8 weeks to ensure resolution. #Back pain with radiculopathy -Hold Flexeril -Creatinine this morning 1.27. Add Naproxen PRN for pain -Continue gabapentin 800mg PO TID -BMP in the AM #Chronic condition -Depression with anxiety: Continue Buspar, Duloxetine #Code: DNR/DNI #DVT prophylaxis: Lovenox #Dispo: med/Surg Discharge Plan Discharge Items Reason For Visit: IATROGENIC CLONUS Condition on Discharge: Fair Follow-up/Referrals: Paula Bolaños, [Primary Care Provider] - Medications and DC Order Prescriptions: No Action (DME) nebulizer accessories Kit See Rx Instructions .ROUTE .MEDSUPPLY Qty: 1 0RF Rx Instructions: As directed donepezil [Aricept] 10 mg Tablet 10 mg PO HS pantoprazole [Protonix] 40 mg Tablet,Delayed Release (Dr/Ec) 40 mg PO DAILY topiramate [Topamax] 100 mg Tablet 100 mg PO BID rizatriptan 10 mg tablet 10 mg PO DAILY PRN (Reason: MIGRAINE) zolpidem 10 mg tablet 10 mg PO HS PRN (Reason: Sleep) tramadol 50 mg tablet 50 mg PO Q6H PRN (Reason: pain, moderate) Qty: 30 0RF albuterol sulfate 0.63 mg/3 mL solution for nebulization 0.63 mg inhalation BID PRN (Reason: shortness of breath or wheezing) sodium chloride [Hyper-Denys] 7 % solution for nebulization 4 ml inhalation BID PRN (Reason: WHEN USING NEBULIZER) duloxetine 60 mg Capsule,Delayed Release(Dr/Ec) 60 mg PO DAILY naproxen 250 mg Tablet 500 mg PO BID Rx Instructions: STARTED 01/04/25 FOR 5 DAYS gabapentin 800 mg tablet 800 mg PO TID buspirone 10 mg tablet 20 mg PO TID cyclobenzaprine 5 mg Tablet 5 mg PO TID Rx Instructions: STARTED 01/04/25 FOR 5 DAYS lidocaine 5 % adhesive patch,medicated 1 patch topical DAILY PRN (Reason: Pain) Admission Data Admit Date/Time: 01/09/25 17:48 Attending Provider: Michael De Jesus Admit Provider: Bam Alves Primary Care Provider: Paula Bolaños Other Providers: Bam Alves
[2025-01-11] MEDS ORDERED: ENOXAPARIN INJ 40 MG/0.4 ML SYR SQ SCH (09:00)
--- NOTE | 2025-01-11 13:32 | Hospitalist Progress Note ---
Date of Service January 11, 2025 Assessment & Plan (1) Polypharmacy: (2) Adverse effect of drug acting on muscles: (3) Myoclonus: Plan Anila is a 69-year-old female with PMH of Bronchiectasis, Depression, Mesenteric artery stenosis who presents with intermittent myoclonic activity. She was admitted for monitoring of her symptoms. Clonus significantly #Myoclonus/Adverse drug effect/Polypharmacy/Frailty - Feeling well overall. Significantly improved from admission; clonus now only elicited on exam - Still weak and unsteady, not safe to walk independently or live alone. Does live in a one-story house w/ nearby support network. Thinks son (from another state) may be able to come live with her starting tomorrow, so she won't be alone. - Will order PT eval/treat. Assessment during admission 6 months ago showed score of 24 on 6 clicks, no equipment or assist needed - Continue holding Flexeril. Will maintain her outpatient psychiatric regimen at this time, but needs adjustment upon discharge given her age, comorbidities and risk for polypharmacy. #Opacification of right upper lobe - Chest CT reveals heterogenous opacity present in the right upper lobe with nodular ill defined appearance. Findings suspicion for pneumonia. - Has remained afebrile and asymptomatic during stay. If sx arise, plan for rocephin/azithro - Repeat chest radiograph recommended in 6 to 8 weeks to ensure resolution. #Back pain with radiculopathy - Hold Flexeril - Continue tramadol at 50mg q6h prn - Continue gabapentin 800mg PO TID - Cr stable at 1.27. Continue Naproxen. Check daily BMP #Depression with anxiety - Continue Buspar, Duloxetine Diet: DVT prophylaxis: Lovenox Dispo: Med/Surg Admission and Anticipated Discharge Date Admission Date: January 09, 2025 Supervising Physician Co-Signing Physician Notes Patient seen and examined, chart reviewed, case discussed with Dr. Dennison and I agree with the assessment and plan as above except as otherwise noted Labs and images reviewed Improved tremors in her hand. Continues to feel restless and shaky in her legs. While she continues to feel improved still have concerns for strength and ability to ambulate, PT/OT are pending. Continues to have no respiratory symptoms, no leukocytosis, and is afebrile. Agree with above Subjective Did have some shaking of legs yesterday PM and needed a dose of Ativan. Reports doing well after that, no abnormal movements. Pain is controlled. No f/c, TAPIA, lightheaded/dizziness, cough, SOB, CP, n/v/d. Review of Systems Review of Systems: As per HPI Physical Exam Physical Exam: Gen: NAD, WD/WN CV: RRR, no m/r/g, S1/S2 normal, no LE edema Resp: CTAB, symmetrical chest rise, breathing non-labored Abd: Soft, NT/ND, +BS, no masses MSK: Full ROM, no gross deformities on inspection Skin: Warm, dry, well-perfused, no rashes appreciated Neuro: AOx3, CN II-XII grossly intact, SILT throughout, no tremors, +sustained clonus at b/l ankle, weak and unsteady stance, gait not assessed for safety Psych: Pleasant and cooperative. Full affect. Speech pace normal. Thoughts linear and goal-directed. Results & Data Results & Data Vital Signs (Past 12 Hours) Vital Signs Temp Pulse Resp BP Pulse Ox O2 Del Method 01/11/25 07:47 36.7 C 79 20 144/77 H 92 Room Air Resident Activity Tracking Resident Involvement: Resident Care Provided Care Provided: Adult Hospital Medicine
[2025-01-11] MEDS: NAPROXEN 250 MG TAB PO SCH (21:46)
[2025-01-12 06:38] LABS: Anion Gap 4.0 (3-11); Blood Urea Nitrogen 20.0 mg/dl (6-23); Calcium 8.3 mg/dl (8.6-10.3); Carbon Dioxide 26.0 mmol/L (21-32); Chloride 107.0 mmol/L (98-107); Creatinine Clr Calc Pharmacy 45.6 ml/min; Glucose 82.0 mg/dl (70-99(Fasting)); Potassium 3.9 mmol/L (3.5-5.1); Sodium 137.0 mmol/L (136-145)
--- NOTE | 2025-01-12 08:46 | Hospitalist Progress Note ---
Date of Service January 12, 2025 Assessment & Plan (1) Polypharmacy: (2) Adverse effect of drug acting on muscles: (3) Myoclonus: Plan Anila is a 69-year-old female with PMH of Bronchiectasis, Depression, Mesenteric artery stenosis who presents with intermittent myoclonic activity. She was admitted for monitoring of her symptoms. Clonus significantly improved but still having difficulty ambulating. Pending PT assessment. #Myoclonus/Adverse drug effect/Polypharmacy/Frailty - Feeling well overall. Significantly improved from admission; clonus now only elicited on exam - Still weak and unsteady, not safe to walk independently or live alone. Does live in a one-story house w/ nearby support network. Son is coming from another state to live with her. - PT consulted. Their assessment during her admission 6 months ago showed score of 24 on 6 clicks, no equipment or assist needed - Continue holding Flexeril. Will maintain her outpatient psychiatric regimen at this time, but needs adjustment upon discharge given her age, comorbidities and risk for polypharmacy. #Opacification of right upper lobe - Chest CT reveals heterogenous opacity present in the right upper lobe with nodular ill defined appearance. Findings suspicion for pneumonia. - Has remained afebrile and asymptomatic during stay. If sx arise, plan for rocephin/azithro - Repeat chest radiograph recommended in 6 to 8 weeks to ensure resolution. #Back pain with radiculopathy - Hold Flexeril - Continue tramadol at 50mg q6h prn - Continue gabapentin 800mg PO TID - Cr improved to 1.04. Continue Naproxen. Check daily BMP #Depression with anxiety - Continue Buspar, Duloxetine Diet: regular DVT prophylaxis: Lovenox Dispo: Med/Surg --> anticipate home with HH, maybe brief rehab Admission and Anticipated Discharge Date Admission Date: January 09, 2025 Supervising Physician Co-Signing Physician Notes Patient seen and examined, chart reviewed, case discussed with Dr. Dennison and I agree with the assessment and plan as above except as otherwise noted Labs and images reviewed Remained stable. PT/placement pending. No acute symptoms. Agree with above Subjective NAEO. Feeling very well today. Says she slept fine and did well with breakfast. Denies any more shaking. Denies TAPIA, dizziness, CP, SOB, abd pain, n/v/c/d, num bness or tingling. No new complaints. Did speak to her son yesterday, and he will be coming in today and will be able to stay with her after hospital discharge. Review of Systems Review of Systems: As per HPI Physical Exam Physical Exam: Gen: NAD, WD/WN CV: RRR, no m/r/g, S1/S2 normal, no LE edema Resp: CTAB, symmetrical chest rise, breathing non-labored Abd: Soft, NT/ND, +BS, no masses MSK: Full ROM, no gross deformities on inspection Skin: Warm, dry, well-perfused, no rashes appreciated Neuro: AOx3, CN II-XII grossly intact, SILT throughout, no tremors noted, stance still unsteady stance, gait not assessed for safety Psych: Pleasant and cooperative. Full affect. Speech pace normal. Thoughts linear and goal-directed. Results & Data Results & Data Vital Signs (Past 12 Hours) Vital Signs Temp Pulse Resp BP BP Pulse Ox O2 Del Method 01/12/25 07:38 36.8 C 68 20 113/70 94 Room Air 01/11/25 22:44 36.9 C 66 18 120/71 94 Room Air Resident Activity Tracking Resident Involvement: Resident Care Provided Care Provided: Adult Hospital Medicine
[2025-01-13 06:27] LABS: Anion Gap 6.0 (3-11); Blood Urea Nitrogen 23.0 mg/dl (6-23); Calcium 8.2 mg/dl (8.6-10.3); Carbon Dioxide 24.0 mmol/L (21-32); Chloride 108.0 mmol/L (98-107); Creatinine Clr Calc Pharmacy 38.5 ml/min; Glucose 86.0 mg/dl (70-99(Fasting)); Potassium 4.1 mmol/L (3.5-5.1); Sodium 138.0 mmol/L (136-145)
--- NOTE | 2025-01-13 11:59 | Discharge Summary ---
Date of Service January 13, 2025 Discharge Exam Gen: NAD, WD/WN CV: RRR, no m/r/g, S1/S2 normal, no LE edema Resp: CTAB, symmetrical chest rise, breathing non-labored Abd: Soft, NT/ND, +BS, no masses MSK: Full ROM, no gross deformities on inspection Skin: Warm, dry, well-perfused, no rashes appreciated Neuro: AOx3, CN II-XII grossly intact, SILT throughout, no tremors noted, stance still unsteady stance, gait not assessed for safety Psych: Pleasant and cooperative. Full affect. Speech pace normal. Thoughts linear and goal-directed. Discharge Data Allergies Allergy/AdvReac Type Severity Reaction Status Date / Time No Known Allergies Allergy Verified 01/09/25 16:58 Consultations 01/09/25 17:00 ED Decision to Admit Stat Ordered Studies 01/09/25 17:00 CT head/brain wo con Stat 01/09/25 17:48 CT chest diagnostic w con Routine Hospital Course (1) Polypharmacy: (2) Adverse effect of drug acting on muscles: (3) Myoclonus: Bernabe High is a 69-year-old female with PMH of Bronchiectasis, Depression, M esenteric artery stenosis who presents with intermittent myoclonic activity. She was admitted for monitoring of her symptoms. Clonus significantly improved but still having difficulty ambulating. Pending PT assessment. #Myoclonus/Adverse drug effect/Polypharmacy/Frailty - Feeling well overall. Significantly improved from admission; clonus now only elicited on exam - Still weak and unsteady, not safe to walk independently or live alone. Does live in a one-story house w/ nearby support network. Son is coming from another state to live with her. - PT consulted. Their assessment during her admission 6 months ago showed score of 24 on 6 clicks, no equipment or assist needed - Continue holding Flexeril. Will maintain her outpatient psychiatric regimen at this time, but needs adjustment upon discharge given her age, comorbidities and risk for polypharmacy. #Opacification of right upper lobe - Chest CT reveals heterogenous opacity present in the right upper lobe with nodular ill defined appearance. Findings suspicion for pneumonia. - Has remained afebrile and asymptomatic during stay. If sx arise, plan for rocephin/azithro - Repeat chest radiograph recommended in 6 to 8 weeks to ensure resolution. #Back pain with radiculopathy - Hold Flexeril - Continue tramadol at 50mg q6h prn - Continue gabapentin 800mg PO TID - Cr improved to 1.04. Continue Naproxen. Check daily BMP #Depression with anxiety - Continue Buspar, Duloxetine Diet: regular DVT prophylaxis: Lovenox Dispo: Med/Surg --> anticipate home with HH, maybe brief rehab Total Time Total Time Spent Total Time Spent (In Minutes): per attending attestation Discharge Plan Discharge Items Patient Disposition: Home - Self-Care Reason For Visit: IATROGENIC CLONUS Discharge Diagnosis: iatrogenic clonus Condition on Discharge: Fair Activity: Resume your previous activity Non-emergency contact: Primary Care Provider Call non-emergency contact if: your symptoms worsen and your pain is not controlled Follow-up/Referrals: Paula Bolaños DO [Primary Care Provider] - Seferino Goyal DO [Resident] - Diet: Regular Addtl Attending Provider Instructions: You wer admitted for monitoring of symptoms of clonus/ leg tremors. Significantly improved from prior since discontinuing cyclobenzaprine muscle relaxant. #Myoclonus/Adverse drug effect/Polypharmacy/Frailty - Feeling well overall. Significantly improved from admission; clonus now only elicited on exam - Still weak and unsteady, not safe to walk independently or live alone. Does live in a one-story house w/ nearby support network. Son is coming from another state to live with her. - PT consulted. Their assessment during her admission 6 months ago showed score of 24 on 6 clicks, no equipment or assist needed - Continue holding Flexeril. Will maintain her outpatient psychiatric regimen at this time, but needs adjustment upon discharge given her age, comorbidities and risk for polypharmacy. #Opacification of right upper lobe - Chest CT reveals heterogenous opacity present in the right upper lobe with nodular ill defined appearance. Findings suspicion for pneumonia. - Has remained afebrile and asymptomatic during stay. If sx arise, plan for rocephin/azithro - Repeat chest radiograph recommended in 6 to 8 weeks to ensure resolution. #Back pain with radiculopathy - Hold Flexeril - Continue tramadol at 50mg q6h prn - Continue gabapentin 800mg PO TID - Cr improved to 1.04. Continue Naproxen. Check daily BMP #Depression with anxiety - Continue Buspar, Duloxetine Stand-Alone Forms: [facility] [employer], Smoking Cessation Medications and DC Order Prescriptions: No Action (DME) nebulizer accessories Kit See Rx Instructions .ROUTE .MEDSUPPLY Qty: 1 0RF Rx Instructions: As directed donepezil [Aricept] 10 mg Tablet 10 mg PO HS pantoprazole [Protonix] 40 mg Tablet,Delayed Release (Dr/Ec) 40 mg PO DAILY topiramate [Topamax] 100 mg Tablet 100 mg PO BID rizatriptan 10 mg tablet 10 mg PO DAILY PRN (Reason: MIGRAINE) zolpidem 10 mg tablet 10 mg PO HS PRN (Reason: Sleep) tramadol 50 mg tablet 50 mg PO Q6H PRN (Reason: pain, moderate) Qty: 30 0RF albuterol sulfate 0.63 mg/3 mL solution for nebulization 0.63 mg inhalation BID PRN (Reason: shortness of breath or wheezing) sodium chloride [Hyper-Denys] 7 % solution for nebulization 4 ml inhalation BID PRN (Reason: WHEN USING NEBULIZER) duloxetine 60 mg Capsule,Delayed Release(Dr/Ec) 60 mg PO DAILY naproxen 250 mg Tablet 500 mg PO BID Rx Instructions: STARTED 01/04/25 FOR 5 DAYS gabapentin 800 mg tablet 800 mg PO TID buspirone 10 mg tablet 20 mg PO TID cyclobenzaprine 5 mg Tablet 5 mg PO TID Rx Instructions: STARTED 01/04/25 FOR 5 DAYS lidocaine 5 % adhesive patch,medicated 1 patch topical DAILY PRN (Reason: Pain) Admission Data Admit Date/Time: 01/12/25 16:25 Attending Provider: Henry Grimes Admit Provider: Bam Alves Primary Care Provider: Paula Bolaños Other Providers: Bam Alves
--- NOTE | 2025-01-13 17:57 | Hospitalist Progress Note ---
Date of Service January 13, 2025 Assessment & Plan (1) Polypharmacy: (2) Adverse effect of drug acting on muscles: (3) Myoclonus: Plan Anila is a 69-year-old female with PMH of Bronchiectasis, Depression, Mesenteric artery stenosis who presents with intermittent myoclonic activity. She was admitted for monitoring of her symptoms. Clonus significantly improved but still having difficulty ambulating. PT assessment showing generalized weakness and unsteadiness when standing/ambulating. Requires continued admission while home PT and home health are arranged. #Myoclonus/Adverse drug effect/Polypharmacy/Frailty - Feeling well overall. Significantly improved from admission; clonus now only elicited on exam - Still weak and unsteady, not safe to walk independently or live alone however does have a walker she consistently uses to get around - PT with concerns about ambulating independently; obtaining home PT and home health for discharge - Continue holding Flexeril. Will maintain her outpatient psychiatric regimen at this time, but needs adjustment upon discharge given her age, comorbidities and risk for polypharmacy #Opacification of right upper lobe - Chest CT reveals heterogenous opacity present in the right upper lobe with nodular ill defined appearance. Findings suspicion for pneumonia however pt has remained afebrile and asymptomatic during stay - will repeat chest radiograph recommended in 6 to 8 weeks to ensure resolution. #Back pain with radiculopathy - Holding Flexeril w/ improvement of symptoms - Continue tramadol at 50mg q6h prn - Continue gabapentin 800mg PO TID - Cr slightly increased however with good fluid intake may continue Naproxen for pain - BMP AM #Depression with anxiety - Continue Buspar, Duloxetine Diet: regular DVT prophylaxis: Lovenox Dispo: Med/Surg --> anticipate home with PT and HH Admission and Anticipated Discharge Date Admission Date: January 12, 2025 Supervising Physician Co-Signing Physician Notes Resident Physician Supervision Note: I personally examined the patient and verified all sánchez points of history and exam, discussed case, and agree with decision making with Dr. Goyal I discussed the case with the resident and agree with the findings and plan as documented in the note. Any exceptions or clarifications are listed here: None Patient feels very much improved her shakiness of her upper extremities is almost completely extinguished. She still some mild shakiness to her left leg. Patient is uncomfortable going home today and wishes to stay another day this is reasonable has likely there is still some clearance of medications from her body. Physically she is pleasant awake alert appropriate there is no focal loss of neurological function Documented By: Henry Grimes MD Subjective Feeling well this morning and afternoon. Notes improved tremors in legs but still feeling a bit unsteady. Denies any pain or other concerning symptoms. Prefers to go home 01/14 when she will have a ride from family and once home services can be set up. Physical Exam Physical Exam: Gen: no acute distress, A&Ox3 CV: RRR, no m/r/g, S1/S2 normal, no LE edema Resp: clear to auscultation b/l, breathing non-labored MSK: Full ROM but lacking strength in all extremities, no gross deformities on inspection however b/l anterior knee surgical scars present, well-healed Neuro: CN II-XII grossly intact, mild b/l LE tremors observed; no focal deficits Psych: Pleasant and cooperative. Full affect. Speech pace normal. Thoughts linear and goal-directed Results & Data Results & Data Vital Signs (Past 12 Hours) Vital Signs Temp Pulse Pulse Resp BP BP Pulse Ox 01/13/25 13:28 19 01/13/25 12:40 36.7 C 64 26 H 120/72 98 01/13/25 07:35 36.7 C 78 23 122/84 96 O2 Del Method 01/13/25 13:28 01/13/25 12:40 Room Air 01/13/25 07:35 Room Air Resident Activity Tracking Resident Involvement: Resident Care Provided Care Provided: Adult Hospital Medicine
--- NOTE | 2025-01-13 18:42 | Billing Data ---
Date of Service January 13, 2025 Coding Level of Care Code 18201 SUB INP/OBS CARE
[2025-01-14 06:27] LABS: Anion Gap 5.0 (3-11); Blood Urea Nitrogen 23.0 mg/dl (6-23); Calcium 8.2 mg/dl (8.6-10.3); Carbon Dioxide 24.0 mmol/L (21-32); Chloride 109.0 mmol/L (98-107); Creatinine Clr Calc Pharmacy 45.6 ml/min; Glucose 86.0 mg/dl (70-99(Fasting)); Potassium 4.1 mmol/L (3.5-5.1); Sodium 138.0 mmol/L (136-145)
[2025-01-14 07:48] VITALS: PULSE 67; RESP 14; TEMP 98.1; O2SAT 94
--- NOTE | 2025-01-14 07:55 | Discharge Summary ---
Date of Service January 14, 2025 Admission HPI Per Admitting Provider Ms. 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 The patient was recently evaluated at an [facility] emergency department on 01/04 and discharged from that facility with prescriptions for naproxen and Flexeril to manage sciatic nerve pain without a further specified diagnosis. 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 The patient was subsequently evaluated by their primary care physician as a scheduled follow-up visit from the previous emergency department evaluation and found to have persistent abnormal muscle movements in addition to a measured fever of 103 F per the patient's report. The patient denies any subjective fever, objective fever at home, persistent lower extremity pain or sciatic nerve pain from the previous emergency department evaluation. They deny any new pain or discomfort associated with these uncontrollable movements, chest pain, palpitations, paresthesias, loss of control of urine or bowel function, new confusion, dysarthria, dysphagia, dyne aphasia. Patient is companied by their loved ones who reported no new neurologic abnormalities noted other than the abnormal upper extremity movements. Admission Exam Per Admitting Provider General: Elderly female in no acute distress Vital Signs: Reviewed HEENT: Moist mucous membranes; pupils equally round and reactive to light, extraocular motion intact Pulmonary: Symmetric chest wall excursion without restriction; clear to auscultation bilaterally Cardiovascular: Regular rate and rhythm with with grade 2/6 systolic murmur best heard in the left fifth intercostal space parasternally; no rubs or gallops; S1 and S2 normal; right radial pulse 2+; no notable lower extremity edema Gastrointestinal: Soft, nontender Musculoskeletal: Intermittent episodes of moderate amplitude and large frequency uncontrollable movement of the extremities and torso without any discernible pattern or regularity; no cogwheel rigidity noted with passive wrist range of motion; no bradykinesia Neurologic: Nerves II through XII grossly intact; no discernible focal weakness nor paresthesias; triceps, patellar, Achilles DTR 2/4 bilaterally without associated clonus Principal Diagnosis myoclonus, polypharmacy Discharge Exam Gen: no acute distress, A&Ox3 CV: RRR, no m/r/g, S1/S2 normal, no LE edema Resp: clear to auscultation b/l, breathing non-labored MSK: Full ROM but lacking strength in all extremities, no gross deformities on inspection however b/l anterior knee surgical scars present, well-healed Neuro: CN II-XII grossly intact, mild b/l LE tremors observed; no focal deficits Psych: Pleasant and cooperative Discharge Data Allergies Allergy/AdvReac Type Severity Reaction Status Date / Time No Known Allergies Allergy Verified 01/09/25 16:58 Consultations 01/09/25 17:00 ED Decision to Admit Stat Ordered Studies 01/09/25 17:00 CT head/brain wo con Stat 01/09/25 17:48 CT chest diagnostic w con Routine Hospital Course (1) Polypharmacy: (2) Adverse effect of drug acting on muscles: (3) Myoclonus: Bernabe High is a 69-year-old female with PMHx bronchiectasis, depression, mesenteric artery stenosis who presented with intermittent myoclonic activity. She was admitted for monitoring of her symptoms. Clonus significantly improved, ambulating improving. Due to clinical improvement and having pt have home PT and home health services, we are comfortable with her discharge at this time. #Myoclonus/Adverse drug effect/Polypharmacy - Feeling well overall. Significantly improved from admission. - strength and stability on feet improving per PT report Continue with home PT, home health services - Continue holding Flexeril. Will maintain her outpatient psychiatric regimen at this time, but needs adjustment upon discharge given her age, comorbidities and risk for polypharmacy - followup in next few days with Dr. Bolaños or one of the residents in the same clinic #Superficial soft tissue infection At site of LUE peripheral IV- obtained wound culture, treating with keflex 500mg BID for 5 days and mupirocin BID for 5days - ordered wound culture using pus from PIV catheter, none expressed from wound itself - followup in clinic later this week, will assess for continued abx coverage #Opacification of right upper lobe - Chest CT reveals heterogenous opacity present in the right upper lobe with nodular ill defined appearance. Findings suspicion for pneumonia. - since having no pulmonary symptoms, repeat chest xray in 6 to 8 weeks to ensure resolution #Back pain with radiculopathy discontinued flexeril as it was a likely contributor to muscle symptoms - Continue tramadol at 50mg q6h prn - Continue gabapentin 800mg PO TID - continue naproxen 250mg 1-2 tablets, 1-2x per day as needed - Cr improved to 1.04. Check BMP outpatient #Depression with anxiety - Continue Buspar, Duloxetine Total Time Total Time Spent Total Time Spent (In Minutes): per attending attestation Discharge Plan Discharge Items Patient Disposition: Home - Home Health Services Reason For Visit: IATROGENIC CLONUS Discharge Diagnosis: iatrogenic clonus, LUE IV site infection Condition on Discharge: Fair Activity: Resume your previous activity Non-emergency contact: Primary Care Provider Call non-emergency contact if: your symptoms worsen and your pain is not controlled Follow-up/Referrals: Paula Bolaños DO [Primary Care Provider] - 01/20/25 10:00 am (Appointment will be with ) Seferino Goyal DO [Resident] - (either this/next week on a day Dr. Bolaños is working, if Dr. Goyal has availability next PM) Diet: Regular Addtl Attending Provider Instructions: You were admitted for monitoring of symptoms of clonus/ leg tremors. Significantly improved from prior since discontinuing cyclobenzaprine muscle relaxant. Since you are medically stable and clinically improving, we feel comfortable with your discharge today with close outpatient followup. #Myoclonus/Adverse drug effect/Polypharmacy - Feeling well overall. Significantly improved from admission. - strength and stability on feet improving per PT report 01/14/25 Continue with home PT, home health services - Continue holding Flexeril. Will maintain her outpatient psychiatric regimen at this time, but needs adjustment upon discharge given her age, comorbidities and risk for polypharmacy - followup in next few days with Dr. Bolaños or one of the residents in the same clinic #Superficial soft tissue infection At site of LUE peripheral IV- obtained wound culture, treating with keflex 500mg BID for 5 days and mupirocin BID for 5days - ordered wound culture using pus from PIV catheter, none expressed from wound itself - followup in clinic later this week, will assess for continued abx coverage #Opacification of right upper lobe - Chest CT reveals heterogenous opacity present in the right upper lobe with nodular ill defined appearance. Findings suspicion for pneumonia. - since having no pulmonary symptoms, repeat chest xray in 6 to 8 weeks to ensure resolution #Back pain with radiculopathy discontinued flexeril as it was a likely contributor to muscle symptoms - Continue tramadol at 50mg q6h prn - Continue gabapentin 800mg PO TID - continue naproxen 250mg 1-2 tablets, 1-2x per day as needed - Cr improved to 1.04. Check BMP outpatient #Depression with anxiety - Continue Buspar, Duloxetine Pending Studies at Discharge: No Stand-Alone Forms: My [facility] Flashpoint, Smoking Cessation Medications and DC Order Prescriptions: New cephalexin 500 mg tablet 500 mg PO BID 7 Days Qty: 14 0RF Rx Instructions: take 2x daily for 7 days, take with meals and drink plenty of water mupirocin 2 % ointment 1 applic topical BID Qty: 15 0RF Rx Instructions: apply 2x daily to clean skin on area of infection on L arm for 7 days Continued (DME) nebulizer accessories Kit See Rx Instructions .ROUTE .MEDSUPPLY Qty: 1 0RF Rx Instructions: As directed donepezil [Aricept] 10 mg Tablet 10 mg PO HS pantoprazole [Protonix] 40 mg Tablet,Delayed Release (Dr/Ec) 40 mg PO DAILY topiramate [Topamax] 100 mg Tablet 100 mg PO BID rizatriptan 10 mg tablet 10 mg PO DAILY PRN (Reason: MIGRAINE) zolpidem 10 mg tablet 10 mg PO HS PRN (Reason: Sleep) tramadol 50 mg tablet 50 mg PO Q6H PRN (Reason: pain, moderate) Qty: 30 0RF albuterol sulfate 0.63 mg/3 mL solution for nebulization 0.63 mg inhalation BID PRN (Reason: shortness of breath or wheezing) sodium chloride [Hyper-Denys] 7 % solution for nebulization 4 ml inhalation BID PRN (Reason: WHEN USING NEBULIZER) duloxetine 60 mg Capsule,Delayed Release(Dr/Ec) 60 mg PO DAILY gabapentin 800 mg tablet 800 mg PO TID buspirone 10 mg tablet 20 mg PO TID naproxen 250 mg Tablet 500 mg PO BID Qty: 30 0RF Rx Instructions: may take 1-2 tablets 1-2x daily as needed for chronic back pain lidocaine 5 % adhesive patch,medicated 1 patch topical DAILY PRN (Reason: Pain) Discontinued cyclobenzaprine 5 mg Tablet 5 mg PO TID Rx Instructions: STARTED 01/04/25 FOR 5 DAYS Discharge Orders: Discharge Order (Routine); Ordered 01/14/25 Ordered By: Seferino Goyal Admission Data Admit Date/Time: 01/12/25 16:25 Attending Provider: Henry Grimes Admit Provider: Bam Alves Primary Care Provider: Paula Bolaños Other Providers: Bam Alves; [facility],Home Healthcare Other Interventions: Discharge Summary Assessment (RN) Last Done: 01/14/25 12:36 Supervising Physician Co-Signing Physician Notes Resident Physician Supervision Note: I personally examined the patient and verified all sánchez points of history and exam, discussed case, and agree with decision making with Dr. Goyal I discussed the case with the resident and agree with the findings and plan as documented in the note. Any exceptions or clarifications are listed here: None Patient feels very much improved no persistent shakiness in upper or lower extremities.. Pain in her right lower leg is in her anterior tibialis however there is no muscular weakness associated with it. Physically she is pleasant awake alert appropriate there is no focal loss of neurological function Patient agreeable to going home now with morning not to begin Flexeril and in time in the future. Documented By: Henry Grimes MD Resident Activity Tracking Resident Involvement: Resident Care Provided Care Provided: Adult Hospital Medicine
[2025-01-14 12:40] VITALS: BP 120/72
--- NOTE | 2025-01-14 18:17 | Billing Data ---
Date of Service January 14, 2025 Coding Level of Care Code 85044 IN/OBS DISCH 30 MIN/LESS
--- NOTE | 2025-01-15 13:18 | Coding Query ---
CODING QUERY To promote full compliance with coding requirements relating to patient care, provider participation is requested in all cases of customer solutions supervisor uncertainty. Please assist us with the question(s) below: Coding Question(s): Pt admitted with myoclonus. Superficial soft tissue infection found at LUE IV site. Culture resulted in Staph. Pt on Keflex for 5 days with return to Clinic. Pleaase document, if known or suspected, the etiology of the soft tissue infection. Thanks for your help! Jose Dixon [employer] [facility] Physician's Response(s): Soft tissue infection likely result of IV placement Principal Diagnosis: "that condition established after study, to be chiefly responsible for occasioning the admission of the patient to the hospital for care." Co-Existing Principal Diagnosis: "when two or more diagnoses equally meet the criteria for principal diagnosis as determined by the circumstances of admission, diagnostic work up, and/or therapy provided, and the Alphabetic Index, Tabular List, or another coding guideline does not provide sequencing direction, any one of the diagnoses may be sequenced first." "When the physician has documented what appears to be a current diagnosis in the body of the record, but has not included the diagnosis in the final diagnostic statement, the physician should be asked whether the diagnosis should be added." (Source Coding Clinic 2 QTR90. p3-4) CHAITANYA
--- NOTE | 2025-01-16 10:29 | Billing Data ---
Date of Service January 10, 2025 Coding Level of Care Code 08741 SUB INP/OBS CARE
--- NOTE | 2025-01-16 10:31 | Billing Data ---
Date of Service January 11, 2025 Coding Level of Care Code 84461 SUB INP/OBS CARE
--- NOTE | 2025-01-16 10:32 | Billing Data ---
Date of Service January 12, 2025 Coding Level of Care Code 37322 SUB INP/OBS CARE
== END 2025-01-14 13:33 | disposition home health service (06) | DRG 92 ==
LOC: 3N 15:09 → ED 15:09 → SUATTDRO 17:48 → 3N 21:09 → 3E 01-10 01:34 → SUATTDRO 01-12 16:25